=== PATIENT | female | born 1960 | race Caucasian/White ===

== ENCOUNTER → 2017-11-14 06:46 | Day surgery (SDC) | payer BC ==
--- NOTE | 2017-11-03 22:49 | HP ---
HISTORY AND PHYSICAL: DATE OF ADMISSION/SURGERY: 11/14/17 DATE OF HISTORY AND PHYSICAL: 10/29/17 ATTENDING PROVIDER: Dr. Jone Monte * (DICTATED BY SEBASTIAN RIVAS) PROCEDURE: Right shoulder arthroscopic decompression, debridement of distal clavicle, evaluation and treatment of biceps release, possible rotator cuff repair. CHIEF COMPLAINT: Right shoulder pain. 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 The patient's pain started without any injury. She also had no history of trauma or problems with the right shoulder. No neck pain. No radicular right upper extremity pain. Pain has been worse with overhead reaching and she has a significant nighttime pain. She has been treated nonoperatively for long period of time. She has had AC joint and subacromial cortisone injections and has done physical therapy as well as home exercises; however, she has continued to have significant limitations in activities of daily living and at this point, would like to proceed with surgery to address the continued pain. She denies any numbness and tingling. She has no other joint pain. She does have a history of type 2 diabetes as well as COPD and obstructive sleep apnea. She will follow up with Dr. Clements, who is her primary care physician for clearance prior to surgery. PAST MEDICAL HISTORY: She has type 2 diabetes. She has hypertension; hyperlipidemia; COPD; GERD; and obstructive sleep apnea, for which she uses a CPAP. PAST SURGICAL HISTORY: Bilateral knee arthroscopic meniscal tears, right fifth toe open reduction internal infixation, hemorrhoidectomy, tubal ligation, carpal tunnel release, de Quervain's, and cubital tunnel releases. MEDICATIONS: Include: 1. Spiriva 18 mcg. 2. Toujeo 60 units b.i.d. 3. Lisinopril 10 mg. 4. Gabapentin 300 mg b.i.d. 5. Omeprazole 20 mg b.i.d. 6. Metformin 1000 mg b.i.d. 7. Oxycodone twice monthly. 8. Trulicity 0.75 mg per 0.5 mL weekly. 9. She also uses a CPAP. ALLERGIES: No known drug allergies. She denies allergies to adhesives or tapes. FAMILY MEDICAL HISTORY: Father with lung cancer and cardiovascular disease. Mother with cardiovascular disease. SOCIAL HISTORY: She is a former smoker. She quit 8 years ago and she smoked for 34 years. She denies alcohol use and she denies any illicit drug use. REVIEW OF SYSTEMS: Positive for dizziness, diarrhea, back pain, diabetes, depression, and she does report that she is able to walk a flight of stairs or a city block without need to take a break. She denies any history of anesthesia problems or DVT or PE. Otherwise, a 12-point system review was negative. PHYSICAL EXAMINATION GENERAL: Well-developed, well-nourished 57-year-old female, in no acute distress. Alert and oriented x3 with no gross neurological deficiencies, ambulating without a limp. VITAL SIGNS: Height 64 inches, weight 250 pounds. Blood pressure 146/70, temperature 97.5. BMI 42.9. HEENT: Normocephalic, atraumatic. PERRLA. EOMI. NECK: Supple. No palpable cervical lymph nodes. Thyroid is smooth and nontender. PULMONARY: Lungs are clear to auscultation with no wheezes, rales or rhonchi. CARDIAC: Regular rate and rhythm with no murmurs, rubs, or gallops. No pedal edema. She has 2+ radial pulses bilaterally. ABDOMEN: Soft, nontender. NEUROLOGIC: Sensation is intact distally. She does have decreased sensation in the medial nerve distribution of her right arm. MUSCULOSKELETAL: Right shoulder, no soft tissue swelling or bruising. Skin is intact. Passive range of motion is 170 degrees of forward flexion, 90 degrees of external rotation, and 90 degrees of internal rotation. Positive Neer's. Positive Florian. Positive pain and weakness with supraspinatus stress testing. Severe tenderness to palpation at the AC joint. Tenderness to palpation at the bicipital groove. Pain with Speeds testing and [place] Grass's testing with thumb pointing up. Neurovascularly, intact distally. STUDIES: No new imaging. She did have an MRI of the right shoulder on , which showed mild AC joint osteoarthritis, small volume of fluid at the subacromial subdeltoid bursa, supraspinatus tendinopathy and shallow partial articular surface tear as well as calcific tendinopathy, mild supraspinatus muscle atrophy, superior labrum anterior posterior tear without displacement or significant involvement of the long head of the biceps tendon anchor, intraarticular long head biceps tendinopathy, old osteochondral impaction fracture from the inferior half of the glenoid and old humeral head Hill-Sachs impaction fracture per Dr. Surya Noel. IMPRESSION: 1. Right shoulder calcific rotator cuff tendonitis. 2. Likely right shoulder partial thickness tears of the supraspinatus rotator cuff tendon. 3. Right shoulder biceps tendinosis and likely superior labral tear. 4. Right shoulder subacromial impingement and AC joint arthritis. 5. Right shoulder bony irregularities consistent with old Hill-Sachs humeral head posterior impaction fracture and possible bony malunion at the inferior aspect of the glenoid consistent with a prior fracture about the posterior inferior glenoid rim. PLAN: Roseline Snow is scheduled to undergo right shoulder arthroscopic decompression, debridement, distal clavicle evaluation and treatment of biceps release and possible rotator cuff repair with Dr. Jone Monte on 11/14/17. She will return to clinic in 10 to 14 days postop for followup and suture removal. She will require surgical clearance per her primary care physician. As she has not had a history of DVTs or PEs, she will likely require aspirin for DVT prophylaxis and pain medication will be prescribed to the patient's pharmacy of record on the day of surgery. SEBASTIAN RIVAS [id number]/[facility] #: [id number] ROB
[~2017-11-14 06:46] MED LIST: Acetaminophen TAB* 325 MG PO PRN; Buffered Lidocaine 0.9% SYRIN* 5 ML/SYR SYRINGE INTRADERM ONE; Dexamethasone IV* 4 MG/ML 1 ML (4 MG) ONE; DiMENhydriNATE IV* 50 MG/ML VIAL IV PUSH PRN; DiMENhydriNATE IV* 50 MG/ML VIAL ONE; EPINEPHRINE 1 MG/ML 1 ML VIAL ONE; Famotidine IV* 10 MG/ML 2 ML (20 mg) IV ONE; Famotidine IV* 10 MG/ML 2 ML (20 mg) ONE; HYDROmorphone INJ* 1 MG/ML CARPUJECT SYRINGE IV PRN; Insulin REGULAR(*) 1 UNITS UNIT ONE; Ketorolac INJ* 30 MG/ML 1 ML VIAL ONE; Levalbuterol 0.63MG/3ML NEB* UNIT OF USE INH ONE; Levalbuterol 0.63MG/3ML NEB* UNIT OF USE INH PRN; Lidocaine 2% PF * 5 ML VIAL ONE; Midazolam* 1 MG/ML 5 ML VIAL (5 MG) ONE; Naloxone* 0.4 MG/ML 1 ML VIAL IV PRN; Ondansetron INJ* 2 MG/ML VIAL ONE; Propofol* 10 MG/ML 20 ML BTL IV PUSH ONE; ROPIVACAINE 5 MG/ML 30 ML BTL (0.5%) ONE; Rocuronium* 10 MG/ML VIAL ONE; Succinylcholine* 20 MG/ML 10 ML VIAL ONE; ceFAZolin 2 GM PREMIX (*) 2 GM/50 ML BAG IVPB ONE; fentaNYL* 50 MCG/ML 2 ML VIAL (100 MCG VIAL) ONE; oxyCODONE TAB* 5 MG TAB PO PRN
[2017-11-14 11:38] VITALS: BP 148/75
--- NOTE | 2017-11-18 10:21 | OP ---
DATE OF OPERATION: 11/14/17 - [facility] DATE OF : 56 SURGEON: Jone Monte MD. BOILER OPERATOR: SEBASTIAN Turner. A physician multimedia assistant was required for the length of the procedure for assistance with positioning, instrumentation, and closure. ANESTHESIOLOGIST: Alecia Cid MD. ANESTHESIA: General anesthesia, interscalene block regional anesthesia. PRE-OP DIAGNOSES: 1. Right shoulder calcific rotator cuff tendinitis. 2. Likely a partial thickness supraspinatus rotator cuff tendon tear. 3. Right shoulder biceps tendinosis and likely superior labral tear. 4. Right shoulder subacromial impingement and AC joint arthritis. 5. Right shoulder bony irregularities consistent with old Hill-Sachs humeral head posterior impaction fracture, and likely bony malunion at the inferior aspect of the glenoid, consistent with a prior posteroinferior glenoid rim fracture. POST-OP DIAGNOSES: 1. Right shoulder rotator cuff tendinitis. 2. Very low-grade partial thickness undersided tear of supraspinatus, rotator cuff tendon. 3. Right shoulder superior labral tear, unstable. 4. Right shoulder subacromial impingement and acromioclavicular joint arthritis. 5. Right shoulder bony irregularities consistent with old Hill-Sachs humeral head posterior impaction fracture and posteroinferior glenoid rim fracture with nonunion inferiorly. OPERATIVE PROCEDURE: 1. Right shoulder arthroscopic subacromial decompression. 2. Right shoulder arthroscopic distal clavicle resection. 3. Right shoulder arthroscopic limited debridement including release of biceps tendon, debridement of superior labrum, debridement of undersurface supraspinatus. 4. Evaluation of supraspinatus rotator cuff tendon, arthroscopic. ANTIBIOTICS: Ancef 2 g IV. IV FLUIDS: 1500 cc crystalloid. SPECIMENS: None. IMPLANTS: None. SKIN TO SKIN TIME: 52 minutes. ARTHROSCOPIC FLUID USED: Four bags of 3 L for a total of 12 L. (We used 3 full bags and half of 2 bags equal to and equivalent of 4 full bags). 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 The patient developed symptoms without injury in February 2017. The patient has had nighttime pain and pain with overhead reaching. She has been insufficiently responsive to nonoperative management including AC joint and subacromial cortisone injections, home exercises, physical therapy. The patient opted for surgical management. Risks and potential complications of surgery were discussed with the patient including bleeding, infection, nerve or blood vessel injury, tendon retear, shoulder stiffness, pain, osteoarthritis. DESCRIPTION OF PROCEDURE: The patient signed a surgical consent in preoperative holding. Operative extremity was marked in preoperative holding. The patient underwent a regional interscalene nerve block by Dr. Cid. The patient was taken back to the operating room and placed supine on the operating table. The patient was sedated and general anesthesia was induced. The patient was converted to the lateral decubitus position. Axillary roll. All bony prominences padded. Rosales bag was hardened. The right shoulder was placed in longitudinal traction with appropriate forward flexion and abduction, 15 pounds. Prepped with ChloraPrep. Draping. Surgical time-out was performed. A spinal needle was placed into the right shoulder glenohumeral joint from posterior. 30 cc of normal saline were infused. Posterior glenohumeral joint portal was made using standard technique. Shoulder arthroscopy, diagnostic, was commenced. The patient was noted to have a superior labral tear with some clear instability. No significant tearing of the biceps tendon was appreciated. No subscapularis tendon tear. No loose bodies. No significant articular cartilage wear. Under surface of the supraspinatus revealed just the slightest amount of uncovered footprint approximately 1 mm. So, it was consistent with the lowest grade of partial thickness tears. No nodularity appreciated. Arthroscopic shaver was used to debride some inflamed rotator interval tissue. An arthroscopic probe was used to probe the superior labrum and indeed showed a tear with instability. Therefore, the decision was made to release the proximal biceps tendon. Release had been decided upon rather than open tenodesis as prudent for a biceps tear or superior labral tear, preoperatively, with discussions with the patient. Scissors were used to cut biceps just at its origin. Arthroscopic shaver was used to smooth out the superior labrum. Arthroscopic shaver was used to smooth out some minimal fraying about the undersurface supraspinatus near the location of that 1 mm of uncovered footprint. Removed instruments and fluid from the glenohumeral joint. I then entered the subacromial space from posterior and anterior. A lateral subacromial portal was established using standard technique. Some minimal bursitis only in the subacromial space. No acromial sided rotator cuff tear appreciated. No significant synovium even the rotator cuff. I probed the rotator cuff for weakness or tear. I normally use a spinal needle, I did not. I used an arthroscopic probe and a switching stick to probe the tendon for any obvious calcifications and did not appreciate any. I next debrided at least 8 mm in the undersurface of the acromion, anteriorly with an arthroscopic bur. I then debrided 8-mm of a distal end of the clavicle with the arthroscopic bur. Removed fluid and instruments from the subacromial space. Closed skin incisions with [id number] stitches using nylon 4.0 suture. Xeroform, 4x4s, ABDs, foam tape. Cooling unit and sling. DISPOSITION: The patient was discharged home when medically stable. She will start physical therapy within the first week postoperatively. She was given Percocet as needed for pain control. She will follow up with me in approximately 2 weeks postoperative. [id number]/[facility] #: [id number] ROB
== END | disposition home or self-care (01) ==
LOC: OR 06:46
PROVIDERS: ATTEND Orthopaedic Surgery
DX: M75.41 Impingement syndrome of right shoulder (principal); M24.811 Other specific joint derangements of right shoulder, not elsewhere classified; M19.011 Primary osteoarthritis, right shoulder; M75.21 Bicipital tendinitis, right shoulder; M75.101 Unspecified rotator cuff tear or rupture of right shoulder, not specified as traumatic; J44.9 Chronic obstructive pulmonary disease, unspecified; G89.18 Other acute postprocedural pain; E11.9 Type 2 diabetes mellitus without complications; Z79.84 Long term (current) use of oral hypoglycemic drugs; E78.5 Hyperlipidemia, unspecified; G47.33 Obstructive sleep apnea (adult) (pediatric); I10 Essential (primary) hypertension; Z87.891 Personal history of nicotine dependence
CPT/HCPCS: J0330; J0690; J1100; J1240; J1885; J2250; J2405; J2704; J2795; J3010

== ENCOUNTER 2018-06-16 22:21 | Emergency (ER) | payer BC ==
--- OUTSIDE RECORDS SUMMARY | 2018-06-16 22:34 | XMS REPORT ---
:1960 External Reference #:[id number] Author Organization [place] [employer] [facility] Address [address] [place] [address] Phone [phone] Care Team Providers Name Role Phone Coco Clements MD Primary Care Physician Unavailable Payers Type Date Identification Numbers Payment Provider Subscriber Commercial Effective: Policy Number: [employer] Vadim Snow 2012 [id number] PayID: [id number] [facility] [address] [place] [address] Advance Directives Type Date Description Status Comment Other Directive 11/03/2017 Health Care Proxy Current and Verified Problems Date Description Provider Status Onset: 05/03/2010 Type 2 diabetes mellitus Coco Clements M.D. Active Onset: 08/15/2012 Headache Coco Clements M.D. Active Onset: 08/15/2012 Benign essential hypertension Coco Clements M.D. Active Onset: 08/15/2012 Mixed hyperlipidemia Coco Clements M.D. Active Onset: 06/17/2014 Asthma Coco Clements M.D. Active Onset: 11/17/2014 Reactive depression (situational) Pam Tong M.D. Active Onset: 03/09/2015 Localized, primary osteoarthritis Lynn Lawton M.D. Active Onset: 12/13/2016 Herpes zoster Patrick Guerra NP Active Onset: 11/11/2017 Refractory migraine Ori Villela M.D. Active Onset: 05/01/2018 Migraine without aura, not refractory Ori Villela M.D. 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 Started at age 13, quit at age 49. About 2PPD ETOH Use Rarely consumes alcohol Smoking Patient is a former smoker pt quit around 2008 Recreational Drug Use Denies Drug Use Daily Caffeine Consumes on average 2 cups of regular coffee per day Exercise Type/Frequency Does not exercise General Hx Text Pets: several pet chickens (2015) Personal Habits Text Allergies, Adverse Reactions, Alerts Date Description Reaction Status Severity Comments 05/03/2010 Intolerable To Some Pain Meds Rash active 01/19/2010 NKDA inactive Medications Medication Date Status Form Strength Qnty SIG Indications Ordering Provider Freestyle 28G 04/21 Active 100un Test Coco Lanc its Blood Jus Clements Glucose Two Times Daily And as Needed Diclofenac 03/[address] 75mg 30tab take 1 by Zaneb Sodium s mouth MD Felicitas twice a day as needed for pain. Do not take with ibuprofen Symbicort 12/29 Active Aerosol 160-4.5mc 12gm 2 puffs J44.9 Arabella S. g/Act twice Foster, N.P. daily Chlorthalidone 12/18 Active Tablets 25mg 90tab take 1 I10 s tablet by Jus Clements mouth every day Freestyle 04/02 Active Misc 100un twice E11.9 Coco Lanc its daily and Jus Clements as needed Spiriva 03/08 Active Capsules 18mcg 30cap Inhale Coco Handihaler s Contents Jus Clements Of One Capsule Via Handihale r Every Day Novofine 02/15 Active Misc 32G X 6 100un Use Every mm its Day Or as Jus Clements Directed Pen Panacea 02/14 Active Misc 31G X 5 200un use with Coco mm its Toujeo Jus Clements twice daily Freestyle Lite 10/19 Active Strip 100un Test E11.40 Test its Blood Jus Clements Sugar Two Times Daily Or as Needed Ketoconazole 10/03 Active Cream 2% 120gm apply R21 thin film Jus Clements twice daily Seema Shelton 10/03 Active Solution 300Unit/M 13.5u Inject 60 E11.40 Pen-Inject L nits Units Jus Clements Under The Skin Two Times Daily Divalproex 03/30 Active Tablets ER 500mg 180ta 2 by G44.52 Luis Sodium /2014 24HR bs mouth MD Axel every day as directed. Sertraline HCL 03/08 Active Tablets 50mg 30tab Take 1 s Tablet By Jus Clements Mouth Every Day Lisinopril 11/04 Active Tablets 10mg 90tab Take 1 I10 s Tablet By Jus Clements Mouth Every Day Gabapentin 10/29 Active Capsules 300mg 180ca Take 2 ps Capsules Jus Clements By Mouth Two Times Daily - Maximum Daily Dose Of 4 Capsule Per Day Hydrocortisone 05/16 Active Lotion 2.5% 118un Apply A its Thin Film Jus Clements Topically Two Times Daily Salsalate 12/07 Active Tablets 750mg 120ta Take 1 To M12.9 bs 2 Tablets Jus Clements By Mouth Two Times Daily Ventolin HFA 12/30 Active Aerosol 108(90Bas 18uni inhale e) ts one to Jus Clements mcg/Act two puffs by mouth every 4 hours as needed Metformin HCL 05/07 Active Tablets 500mg 60tab 1 by E11.9 s mouth Jus Clements every morning and 2 by mouth every evening Omeprazole 07/19 Active Capsules 20mg 90cap Take 1 DR s Capsule Jus Clements By Mouth Twice A Day Nortriptyline 06/15 Active Capsules 25mg 270ca take 3 Christopher ps capsules Jus Villela by mouth at bedtime as directed Tricor 01/23 Active Tablets 145mg 90tab take one s tablet by Jus Clements mouth once daily Crestor 01/23 Active Tablets 40mg 90tab Take One Coco s Tablet By Jus Clements Mouth Every Day Motion Sickness Active Tablets 50mg [facility] Unknown Relief brand dimenhydr amate - takes 2 in Am Estroblend Active Unknown Multivitamin Trulicity Active Solution 0.75mg/0. 1 E11.40 Dusty Mccrary, Pen-Inject 5ML injection MD once weekly Excedrin Active Tablets 250-250-6 1 tab Unknown Migraine 5mg twice a day as needed for migraine Oxycodone-Acetam 11/14 Hx Tablets 5-325mg 15tab 1 by Jone burkett s mouth MD Mell - every 4-6 03/02 hours needed for pain. Freestyle Lite 04/02 Hx 2 times E11.9 Coco Lanc daily or Jus Clements - as needed 04/02 dx e11. Mometasone 01/06 Hx Suspension 50mcg/Act 17uni [place] 2 H92.02 Allan Grewal Furoate ts Sprays In RENTAL CLERK - Each 11/03 Nostril Every Day Valacyclovir HCL 12/13 Hx Tablets 500mg 42tab 2 tab po B02.9 s tid DEE Guerra - x7days 12/27 Zyrtec Allergy 12/13 Hx Tablets 10mg 30tab 1 by H66.91 Patrick s mouth Charlie RENTAL CLERK - every day 11/03 for the next 3-4 weeks, then as needed Tobramycin 12/09 Hx Solution 0.3% 5ml 1 drop in H10.89 each eye Varn, N.P. - every 12/16 4hours x 7 days Amoxicillin/Clav 12/09 Hx Tablets 875-125mg 20tab one H66.91 Julia ulanat s tablet by Varn, N.P. Potassium - mouth 12/19 twice daily for 10 days Trimethoprim 07/22 Hx Solution 49286-1.1 10ml two drops H10.89 Allan Grewal Sulfate/Polymyxi /2016 Unit/ML-% affected RENTAL CLERK n B Sulfate - eye 4 08/01 times day for 7 days. Amoxicillin 06/14 Hx Tablets 875mg 20tab take one J01.90 Patrick s tablet by Charlie, RENTAL CLERK - mouth 06/24 twice a day x's 10 days Sertraline HCL 03/08 Hx Tablets 25mg 90tab 2-3 tabs Pam Ramirez s by mouth Alycia, - each day M.DManju 03/08 directed weeks if needed Unifine Pentips 02/07 Hx Misc 31G X 5 180un use as mm its directed Jus Clements - w/ Trina 02/14 Trina 10 mcg 11/24 Hx Solution 10mcg/0.0 5 mcg sc 250.60 Coco Pen 4ML twice a Jus Clements - day for 2 11/24 wks 10 mcg sc twice a day Trina 10 mcg 11/24 Hx Solution 10mcg/0.0 2.4un inject 1 E11.40 Coco Pen Pen-Inject 4ML its injection Jus Clements - under the 10/03 skin times daily before breakfast and dinner Novofine 11/15 Hx Misc 32G X 6 180un use two mm its times Jus Clements - daily or 02/14 directed with trina Scott 11/12 Hx 100un two times E11.9 Coco Lanc its daily or Jus Clements - as 04/02 directed Oxycodone HCL 11/04 Hx Capsules 5mg 90cap 1 by Allan Grewal, s mouth 2-3 RENTAL CLERK - times 12/18 Byshemar 11/04 Hx Solution 5mcg/0.02 60uni 1 250.60 ML ts injection Jus Clements - s/c bid 11/24 Hydrocodone/Acet 07/27 Hx Tablets 5-325mg 90tab 1-2 po 2 401.1 Coco aminophen s to 3 Jus Clements - times per 11/04 day maximum dose is 3 daily Januvia 07/26 Hx Tablets 100mg 90tab take 1 s tablet by Jus Clements - mouth one 12/09 daily Freestyle Lite 05/16 Hx Strip 50uni test once Coco Test ts daily Jus Clements - three 10/19 days week Meclizine HCL 07/23 Hx Tablets 25mg 60tab Take One 386.11 s Tablet By Jus Clements - Mouth 07/26 Twice Day as Needed Freestyle 28G 07/19 Hx 100un use once Coco Lanc its daily Jus Clements - three 04/02 days week Nitrofurantoin 06/18 Hx Capsules 100mg 20cap one po 599.0 Julia Monohydr s bid for Varn, N.P. - 10 days 06/28 Meclizine HCL 06/18 Hx Tablets 25mg 60tab 1 tablet 386.11 Julia s twice Varn, N.P. - daily as 07/02 Lisinopril 02/09 Hx Tablets 5mg 90tab Take One 401.1 s Tablet By Jus Clements - Mouth 11/04 Escitalopram 02/09 Hx Tablets 20mg 60tab 2 po qd 311 Pam Ramirez s Carli Tong M.D. 03/08 Hydrochlorothiaz 02/09 Hx Capsules 12.5mg 90cap take one I10 yunior s capsule Jus Clements - by mouth 12/18 every Freestyle Lite 01/06 Hx Strip 50uni Test Once ts Daily Jus Clements - Three 06/04 Days Week Lisinopril/[place] 08/09 Hx Tablets 10-12.5mg 45tab 1/2 po qd 401.1 Coco chlorothi s Jus Clements - 02/09 Hydrocortisone 08/09 Hx Lotion 2.5% 118un Apply A 782.1 its Thin Film Jus Clements - Topically 04/22 Two Times /2012 A Day Hydrocodone/Acet 05/07 Hx Tablets 5-500mg 90tab 1 tablet 729.5 Coco aminophen /2010 s 2-3 times Jus Clements - a 07/27 day- um dose of 3 per day Tricor 08/13 Hx Tablets 145mg 30tab 1 tablet s daily Jus Clements - 11/01 Urea 08/13 Hx Lotion 40% 236.6 apply to R21 units feet Jus Clements - twice 11/03 Citalopram 05/04 Hx Tablets 40mg 90tab Take One 311 Coco Hydrobromide s Tablet By Jus Clements - Mouth 02/09 Test Strips To 01/23 Hx 50uni for use 250.00 Coco Use ts once Jus Clements Glucometer - daily 3 06/04 days week Lancets 01/23 Hx Misc 50uni use once 250.00 ts daily 3 Jus Clements - days a Methocarbamol 01/23 Hx Tablets 750mg 1 tablet Coco /2010 once Jus Clements - daily as 12/07 Tylenol With 01/23 Hx Tablets 300-30mg 1 tablet 729.5 Coco Codeine # by mouth Jus Clements - every 4 05/07 to hours as needed. Hydrochlorothiaz 01/23 Hx Capsules 12.5mg 90cap Take One 401.1 Coco yunior s Capsule Jus Clements - By Mouth 08/09 Albuterol 01/19 Hx 1unit 1-2 Coco Inhaler s inhalatio Jus Clements - ns every 12/30 4 as needed Citalopram 01/19 Hx Tablets 20mg 135ta 1 08/19 Coco Hydrobromide bs tablets Jus Clements - daily 05/04 Tricor 01/19 Hx Tablets 145mg 30tab 1 tablet Coco s daily Jus Clements - 01/19 Nortriptyline 01/19 Hx Capsules 10mg 100ca 4 tablets Coco ps at Jus Clements - bedtime 06/15 Mobic 01/19 Hx Tablets Unsure 30tab Coco /2010 s Jus Clements - 08/13 Gabapentin 01/19 Hx Capsules 300mg 180ca Take Two Coco ps Capsules Jus Clements - By Mouth 11/04 Bedtime Spiriva 01/19 Hx Capsules 18mcg 30cap inhale Coco Handihaler s the Jus Clements - contents 02/20 of capsule by mouth via handihale r every day Glucometer Hx 1unit use once 250.00 Coco /0000 s daily 3 Jus Clements - days a Mobic Hx Tablets 7.5mg 1 tablet 716.96 Coco /0000 daily Jus Clements - 12/07 Excedrin Extra Hx Tablets 250-250-6 100ta 1-2 bid Unknown Strength /0000 5mg bs prn - 11/04 Acetaminophen/Co Hx Tablets 300-30mg 60tab one po Unknown deine #3 /0000 s q4h prn - 09/02 Ibuprofen Hx Capsules 200mg as needed Unknown /0000 - 06/18 Womens Hx Tablets Unknown Multivitamin /0000 - 06/18 Medications Administered in Office Medication Date Status Form Strength Qnty SIG Indications Ordering Provider Depomedrol Administered Injection Jone F 40MG Christa Monte MD Injection Administered Injection Beth Hyaluronan Or 018 Maximino Valles PA-C Euflexxa Per Dose Injection Administered Injection Beth Hyaluronan Or 018 Maximino Valles PA-C Euflexxa Per Dose Injection Administered Injection Zaneb Hyaluronan Or 018 MD Maximino Polk, Euflexxa Per Dose Injection Administered Injection Zaneb Hyaluronan Or 018 MD Maximino Polk, Euflexxa Per Dose Injection Administered Injection Zaneb Hyaluronan Or 018 MD Maximino Polk, Euflexxa Per Dose Injection Administered Injection Zaneb Hyaluronan Or 018 MD Felicitas Derivative, Euflexxa Per Dose No Injection Administered Injection Jone F Adrianna Monte MD Depomedrol Administered Injection Jone F 40MG Adrianna Monte MD Depomedrol Administered Injection Jone F 20MG Adrianna Monte MD Synvisc Or Administered Injection Lynn Synvisc-One Adrianna Lawton M.D. Injection 1 MG Synvisc Or Administered Injection Lynn Synvisc-One 017 Jus Lawton Injection 1 MG Synvisc Or Administered Injection Lynn Synvisc-One Hima Lawton M.D. Injection 1 MG Synvisc Or Administered Injection Lynn Synvisc-One Hima Lawton M.D. Injection 1 MG Synvisc Or Administered Injection Lynn Synvisc-One Hima Lawton M.D. Injection 1 MG Injection Administered Injection Lynn Hyaluronan Or Mak Lawton M.D. Derivative, Euflexxa Per Dose Injection Administered Injection Lynn Hyaluronan Or Mak Lawton M.D. Derivative, Euflexxa Per Dose Injection Administered Injection Lynn Hyaluronan Or Mak Lawton M.D. Derivative, Euflexxa Per Dose Depomedrol Administered Injection Lynn 80MG Mka Lawton M.D. Depomedrol Administered Injection Lynn 80MG Mak Lawton M.D. Immunizations CPT Code Status Date Vaccine Lot # [id number] Given 06/19/2017 Influenza Virus Vaccine, Quadrivalent, Split, [id number] Preservative Free 16813 Given 06/28/2016 Influenza Virus Vaccine, Quadrivalent, Split [id number] Virus, Im Use 41200 Given 07/03/2015 Tdap - Tetanus/Diptheria/Acellular Pertussis [id number] 54515 Given 07/03/2015 Influenza Virus Vaccine, Quadrivalent, Split, [id number] Preservative Free 48239 Given 05/17/2014 Influenza Virus Vaccine, Quadrivalent, Split, [id number] Preservative Free 16463 Given 06/11/2013 Flu Vaccine Split Virus Preservative Free For [id number] Indiv 3Yr Older [id number] Given 06/05/2012 Fluvirin Im 3Yrs And Older [id number] 73470 Given 05/07/2011 Influenza Virus 3Yrs & Over [id number] 96771 Given 02/04/2011 Pneumonia Vaccine [id number] 25514 Given 05/04/2010 Influenza Virus 3Yrs & Over 42183 Given 07/29/2007 Influenza Virus 3Yrs & Over Vital Signs Date Vital Result Comment 06/08/2018 Height 64 inches 5'4" Weight 247.00 lb Heart Rate 78 /min Respiratory Rate 16 /min Pain Level 1 BMI (Body Mass Index) 42.4 kg/m2 05/07/2018 Height 64 inches 5'4" Weight 245.00 lb Heart Rate 96 /min BP Systolic Sitting 154 mmHg BP Diastolic Sitting 68 mmHg Respiratory Rate 16 /min Pain Level 2 BMI (Body Mass Index) 42.0 kg/m2 05/01/2018 Height 64 inches 5'4" Weight 245.50 lb Heart Rate 72 /min BP Systolic 138 mmHg BP Diastolic 82 mmHg BMI (Body Mass Index) 42.1 kg/m2 04/07/2018 Height 64 inches 5'4" Weight 245.00 lb Heart Rate 104 /min BP Systolic 124 mmHg BP Diastolic 64 mmHg Respiratory Rate 16 /min Pain Level 1 BMI (Body Mass Index) 42.0 kg/m2 04/01/2018 Height 64 inches 5'4" Weight 243.00 lb BP Systolic 128 mmHg BP Diastolic 60 mmHg Respiratory Rate 18 /min Pain Level 1 BMI (Body Mass Index) 41.7 kg/m2 03/26/2018 Height 64 inches 5'4" Weight 243.00 lb BP Systolic 128 mmHg BP Diastolic 60 mmHg Respiratory Rate 20 /min Pain Level 3 BMI (Body Mass Index) 41.7 kg/m2 03/19/2018 Height 64 inches 5'4" Weight 243.00 lb BP Systolic 132 mmHg BP Diastolic 70 mmHg Respiratory Rate 20 /min Body Temperature 96.9 F Pain Level 3 BMI (Body Mass Index) 41.7 kg/m2 03/03/2018 Height 64 inches 5'4" Weight 243.00 lb Heart Rate 110 /min BP Systolic Sitting 128 mmHg Rue large cuff BP Diastolic Sitting 58 mmHg Rue large cuff Respiratory Rate 20 /min O2 % BldC Oximetry 94 % On Ra BMI (Body Mass Index) 41.7 kg/m2 02/10/2018 Height 64 inches 5'4" Weight 247.00 lb Heart Rate 96 /min BP Systolic 130 mmHg BP Diastolic 62 mmHg Pain Level 8 BMI (Body Mass Index) 42.4 kg/m2 02/05/2018 Height 64 inches 5'4" Heart Rate 105 /min BP Systolic 128 mmHg BP Diastolic 70 mmHg Respiratory Rate 16 /min Body Temperature 97.3 F Pain Level 5 12/29/2017 Height 64 inches 5'4" Weight 243.00 lb Heart Rate 112 /min BP Systolic Sitting 130 mmHg Lue large cuff BP Diastolic Sitting 58 mmHg Lue large cuff Respiratory Rate 18 /min O2 % BldC Oximetry 95 % On Ra BMI (Body Mass Index) 41.7 kg/m2 12/25/2017 Height 64 inches 5'4" Weight 247.00 lb Heart Rate 118 /min Respiratory Rate 15 /min Pain Level 2 BMI (Body Mass Index) 42.4 kg/m2 12/18/2017 Height 64 inches 5'4" Weight 247.00 lb Heart Rate 96 /min BP Systolic Sitting 149 mmHg BP Diastolic Sitting 71 mmHg Body Temperature 97.7 F O2 % BldC Oximetry 95 % BMI (Body Mass Index) 42.4 kg/m2 11/25/2017 Height 64 inches 5'4" Heart Rate 123 /min BP Systolic 144 mmHg BP Diastolic 78 mmHg Respiratory Rate 16 /min Body Temperature 98.8 F Pain Level 2 11/11/2017 Height 64 inches 5'4" Weight 253.00 lb Heart Rate 100 /min BP Systolic 148 mmHg BP Diastolic 82 mmHg Respiratory Rate 16 /min BMI (Body Mass Index) 43.4 kg/m2 11/03/2017 Weight 253.00 lb Heart Rate 102 /min BP Systolic Sitting 138 mmHg BP Diastolic Sitting 86 mmHg Body Temperature 98.1 F O2 % BldC Oximetry 95 % 10/29/2017 Height 64 inches 5'4" Weight 250.00 lb BP Systolic 146 mmHg BP Diastolic 70 mmHg Body Temperature 97.5 F Pain Level 1 BMI (Body Mass Index) 42.9 kg/m2 10/07/2017 Height 64 inches 5'4" Weight 250.00 lb Heart Rate 100 /min Respiratory Rate 16 /min Pain Level 2 BMI (Body Mass Index) 42.9 kg/m2 09/02/2017 Height 64 inches 5'4" Weight 250.00 lb BP Systolic 142 mmHg BP Diastolic 76 mmHg Respiratory Rate 16 /min Pain Level 1 BMI (Body Mass Index) 42.9 kg/m2 08/25/2017 Height 64 inches 5'4" Weight 251.00 lb Heart Rate 96 /min BP Systolic Sitting 112 mmHg BP Diastolic Sitting 80 mmHg Respiratory Rate 14 /min O2 % BldC Oximetry 95 % BMI (Body Mass Index) 43.1 kg/m2 Neck Circumference in inches 17.75 07/01/2017 Height 64 inches 5'4" Weight 250.00 lb Heart Rate 116 /min Respiratory Rate 15 /min Body Temperature 97.2 F Pain Level 4 BMI (Body Mass Index) 42.9 kg/m2 06/19/2017 Height 64 inches 5'4" Weight 250.25 lb Heart Rate 99 /min BP Systolic Sitting 120 mmHg BP Diastolic Sitting 64 mmHg Respiratory Rate 16 /min BMI (Body Mass Index) 43.0 kg/m2 04/17/2017 Height 64 inches 5'4" Weight 246.00 lb Heart Rate 88 /min BP Systolic Sitting 136 mmHg BP Diastolic Sitting 86 mmHg Respiratory Rate 17 /min Body Temperature 98.3 F Pain Level 1 BMI (Body Mass Index) 42.2 kg/m2 03/06/2017 Height 64 inches 5'4" Weight 244.00 lb BP Systolic 132 mmHg BP Diastolic 70 mmHg Body Temperature 98.2 F Pain Level 2 BMI (Body Mass Index) 41.9 kg/m2 02/24/2017 Weight 244.75 lb Heart Rate 97 /min BP Systolic 128 mmHg BP Diastolic 70 mmHg Body Temperature 97.6 F O2 % BldC Oximetry 98 % 02/06/2017 Height 64 inches 5'4" Weight 246.00 lb Heart Rate 86 /min BP Systolic Sitting 124 mmHg BP Diastolic Sitting 70 mmHg Respiratory Rate 16 /min BMI (Body Mass Index) 42.2 kg/m2 02/05/2017 Height 64 inches 5'4" Weight 246.00 lb BP Systolic 139 mmHg BP Diastolic 77 mmHg Respiratory Rate 14 /min Body Temperature 97.2 F Pain Level 2 BMI (Body Mass Index) 42.2 kg/m2 01/30/2017 Height 64 inches 5'4" Weight 246.00 lb Heart Rate 100 /min BP Systolic 142 mmHg BP Diastolic 80 mmHg Respiratory Rate 18 /min Body Temperature 97.7 F Pain Level 1 BMI (Body Mass Index) 42.2 kg/m2 01/06/2017 Weight 249.00 lb Heart Rate 108 /min BP Systolic Sitting 132 mmHg BP Diastolic Sitting 64 mmHg Body Temperature 98.4 F O2 % BldC Oximetry 97 % 12/13/2016 Weight 242.50 lb Heart Rate 108 /min BP Systolic Sitting 140 mmHg BP Diastolic Sitting 78 mmHg Body Temperature 98.5 F O2 % BldC Oximetry 97 % 12/09/2016 Weight 248.25 lb Heart Rate 115 /min BP Systolic 124 mmHg BP Diastolic 60 mmHg Body Temperature 98.1 F O2 % BldC Oximetry 93 % 10/09/2016 Weight 251.00 lb with shoes Heart Rate 118 /min BP Systolic 120 mmHg BP Diastolic 66 mmHg Body Temperature 97.7 F Pain Level 96 07/22/2016 Weight 245.00 lb Heart Rate 114 /min BP Systolic Sitting 122 mmHg BP Diastolic Sitting 58 mmHg Respiratory Rate 15 /min Body Temperature 98.0 F O2 % BldC Oximetry 98 % 06/28/2016 Height 64 inches 5'4" Weight 248.00 lb Heart Rate 96 /min BP Systolic 134 mmHg BP Diastolic 80 mmHg Body Temperature 98.3 F O2 % BldC Oximetry 96 % BMI (Body Mass Index) 42.6 kg/m2 06/27/2016 Height 64 inches 5'4" Weight 245.00 lb Heart Rate 72 /min BP Systolic Sitting 130 mmHg BP Diastolic Sitting 88 mmHg Respiratory Rate 14 /min BMI (Body Mass Index) 42.0 kg/m2 06/14/2016 Height 64 inches 5'4" Weight 246.50 lb Heart Rate 112 /min BP Systolic Sitting 120 mmHg BP Diastolic Sitting 66 mmHg Body Temperature 97.5 F O2 % BldC Oximetry 97 % BMI (Body Mass Index) 42.3 kg/m2 03/26/2016 Weight 247.00 lb With Shoes Heart Rate 103 /min BP Systolic Sitting 140 mmHg BP Diastolic Sitting 80 mmHg Body Temperature 97.7 F O2 % BldC Oximetry 98 % 02/12/2016 Height 64 inches 5'4" Weight 245.00 lb Heart Rate 78 /min BP Systolic Sitting 122 mmHg BP Diastolic Sitting 70 mmHg Body Temperature 98.5 F O2 % BldC Oximetry 98 % BMI (Body Mass Index) 42.0 kg/m2 01/30/2016 Height 64 inches 5'4" Weight 244.00 lb Heart Rate 60 /min BP Systolic Sitting 120 mmHg BP Diastolic Sitting 74 mmHg Respiratory Rate 14 /min BMI (Body Mass Index) 41.9 kg/m2 12/26/2015 Weight 244.50 lb Heart Rate 108 /min BP Systolic Sitting 135 mmHg BP Diastolic Sitting 80 mmHg O2 % BldC Oximetry 97 % 11/14/2015 Height 63.75 inches 5'3.75" Weight 247.00 lb Heart Rate 90 /min BP Systolic Sitting 138 mmHg BP Diastolic Sitting 80 mmHg Respiratory Rate 15 /min Body Temperature 98.1 F O2 % BldC Oximetry 98 % BMI (Body Mass Index) 42.7 kg/m2 10/03/2015 Height 63.75 inches 5'3.75" Weight 243.00 lb Heart Rate 96 /min BP Systolic Sitting 134 mmHg BP Diastolic Sitting 82 mmHg Respiratory Rate 14 /min Body Temperature 98.3 F O2 % BldC Oximetry 98 % BMI (Body Mass Index) 42.0 kg/m2 09/07/2015 Height 63.75 inches 5'3.75" Heart Rate 92 /min BP Systolic Sitting 144 mmHg BP Diastolic Sitting 76 mmHg Respiratory Rate 16 /min 07/03/2015 Height 63.75 inches 5'3.75" Weight 245.38 lb Heart Rate 93 /min BP Systolic Sitting 144 mmHg BP Diastolic Sitting 85 mmHg Body Temperature 97.6 F O2 % BldC Oximetry 96 % BMI (Body Mass Index) 42.4 kg/m2 03/30/2015 Height 64 inches 5'4" Weight 240.00 lb Heart Rate 92 /min BP Systolic Sitting 128 mmHg BP Diastolic Sitting 68 mmHg Respiratory Rate 16 /min BMI (Body Mass Index) 41.2 kg/m2 03/23/2015 Height 64 inches 5'4" Weight 240.00 lb Pain Level 1 increases with activity BMI (Body Mass Index) 41.2 kg/m2 03/16/2015 Height 64 inches 5'4" Weight 240.00 lb Pain Level 2 BMI (Body Mass Index) 41.2 kg/m2 03/14/2015 Weight 240.00 lb Heart Rate 107 /min BP Systolic Sitting 133 mmHg BP Diastolic Sitting 76 mmHg Body Temperature 96.6 F 03/09/2015 Height 64 inches 5'4" Weight 240.00 lb Pain Level 2 BMI (Body Mass Index) 41.2 kg/m2 02/02/2015 Height 64 inches 5'4" Weight 240.00 lb Pain Level 8 BMI (Body Mass Index) 41.2 kg/m2 11/18/2014 Weight 243.00 lb Heart Rate 106 /min BP Systolic Sitting 130 mmHg BP Diastolic Sitting 71 mmHg O2 % BldC Oximetry 98 % 11/17/2014 Height 64.5 inches 5'4.50" Weight 244.00 lb Heart Rate 76 /min BP Systolic Sitting 128 mmHg BP Diastolic Sitting 68 mmHg Respiratory Rate 16 /min BMI (Body Mass Index) 41.2 kg/m2 06/17/2014 Height 64.5 inches 5'4.50" Weight 234.50 lb Heart Rate 109 /min BP Systolic Sitting 104 mmHg BP Diastolic Sitting 58 mmHg Body Temperature 97.8 F O2 % BldC Oximetry 97 % BMI (Body Mass Index) 39.6 kg/m2 06/09/2014 Height 64.5 inches 5'4.50" Weight 250.00 lb Heart Rate 100 /min BP Systolic Sitting 102 mmHg BP Diastolic Sitting 62 mmHg Respiratory Rate 16 /min BMI (Body Mass Index) 42.2 kg/m2 05/17/2014 Height 64.5 inches 5'4.50" Weight 250.00 lb Heart Rate 88 /min BP Systolic Sitting 142 mmHg BP Diastolic Sitting 80 mmHg Body Temperature 98.4 F BMI (Body Mass Index) 42.2 kg/m2 02/11/2014 Weight 253.00 lb Heart Rate 116 /min BP Systolic Sitting 140 mmHg BP Diastolic Sitting 78 mmHg 01/07/2014 Height 64 inches 5'4" Weight 253.00 lb Heart Rate 72 /min BP Systolic Sitting 130 mmHg BP Diastolic Sitting 78 mmHg Respiratory Rate 16 /min BMI (Body Mass Index) 43.4 kg/m2 01/04/2014 Height 64 inches 5'4" Weight 253.00 lb Heart Rate 72 /min BP Systolic 118 mmHg BP Diastolic 68 mmHg Body Temperature 98.6 F BMI (Body Mass Index) 43.4 kg/m2 12/29/2013 Height 64 inches 5'4" Weight 257.00 lb Heart Rate 107 /min BP Systolic 127 mmHg BP Diastolic 75 mmHg BMI (Body Mass Index) 44.1 kg/m2 11/04/2013 Weight 258.75 lb Heart Rate 100 /min BP Systolic Sitting 168 mmHg BP Diastolic Sitting 78 mmHg Respiratory Rate 24 /min Body Temperature 99.1 F 10/29/2013 Height 64 inches Weight 160.00 lb Heart Rate 97 /min BP Systolic 137 mmHg BP Diastolic 88 mmHg BMI (Body Mass Index) 27.5 kg/m2 09/02/2013 Weight 251.00 lb Heart Rate 98 /min BP Systolic Sitting 124 mmHg BP Diastolic Sitting 60 mmHg 07/26/2013 Height 64 inches 5'4" Weight 257.00 lb Heart Rate 98 /min BP Systolic Sitting 130 mmHg BP Diastolic Sitting 70 mmHg BMI (Body Mass Index) 44.1 kg/m2 06/11/2013 Height 64 inches 5'4" Weight 254.00 lb Heart Rate 104 /min BP Systolic Sitting 130 mmHg BP Diastolic Sitting 70 mmHg BMI (Body Mass Index) 43.6 kg/m2 12/07/2012 Weight 248.50 lb Heart Rate 88 /min BP Systolic Sitting 124 mmHg 118/78 sitting BP Diastolic Sitting 80 mmHg 118/78 sitting 06/18/2012 Height 63.75 inches 5'3.75" Weight 237.00 lb Heart Rate 86 /min BP Systolic Sitting 128 mmHg BP Diastolic Sitting 80 mmHg Body Temperature 101.1 F BMI (Body Mass Index) 41.0 kg/m2 06/05/2012 Height 63.75 inches 5'3.75" Weight 238.50 lb Heart Rate 90 /min BP Systolic Sitting 138 mmHg BP Diastolic Sitting 80 mmHg O2 % BldC Oximetry 96 % BMI (Body Mass Index) 41.3 kg/m2 03/12/2012 Height 63.75 inches 5'3.75" Weight 242.00 lb Heart Rate 74 /min BP Systolic Sitting 126 mmHg BP Diastolic Sitting 70 mmHg BMI (Body Mass Index) 41.9 kg/m2 02/10/2012 Height 63.75 inches 5'3.75" Weight 244.00 lb Heart Rate 76 /min BP Systolic Sitting 124 mmHg BP Diastolic Sitting 70 mmHg BMI (Body Mass Index) 42.2 kg/m2 09/12/2011 Height 63.75 inches 5'3.75" Heart Rate 78 /min BP Systolic Sitting 120 mmHg BP Diastolic Sitting 78 mmHg 08/09/2011 Height 63.75 inches 5'3.75" Weight 236.00 lb Heart Rate 100 /min BP Systolic Sitting 154 mmHg repeat 140/80 BP Diastolic Sitting 72 mmHg repeat 140/80 BMI (Body Mass Index) 40.8 kg/m2 06/04/2011 Height 63.75 inches 5'3.75" Weight 240.75 lb Heart Rate 104 /min BP Systolic Sitting 140 mmHg BP Diastolic Sitting 80 mmHg BMI (Body Mass Index) 41.6 kg/m2 05/07/2011 Height 63.5 inches 5'3.50" Weight 246.00 lb Heart Rate 68 /min BP Systolic Sitting 130 mmHg BP Diastolic Sitting 82 mmHg BMI (Body Mass Index) 42.9 kg/m2 02/04/2011 Height 63.5 inches 5'3.50" Weight 245.00 lb Heart Rate 102 /min BP Systolic Sitting 120 mmHg BP Diastolic Sitting 70 mmHg BMI (Body Mass Index) 42.7 kg/m2 11/01/2010 Weight 243.00 lb Heart Rate 92 /min BP Systolic 148 mmHg BP Diastolic 80 mmHg 08/13/2010 Weight 235.00 lb Heart Rate 80 /min BP Systolic 130 mmHg BP Diastolic 80 mmHg 06/15/2010 Weight 239.00 lb Heart Rate 84 /min BP Systolic 154 mmHg BP Diastolic 92 mmHg 05/04/2010 Weight 242.00 lb Heart Rate 88 /min BP Systolic 130 mmHg BP Diastolic 80 mmHg 01/23/2010 Height 64 inches 5'4" Weight 250.75 lb Heart Rate 88 /min BP Systolic 140 mmHg BP Diastolic 80 mmHg BMI (Body Mass Index) 43.0 kg/m2 Results Test Date Test Result H/L Range Note Laboratory test finding 04/14/2018 Hemoglobin A1c 6.5 Basic Metabolic Panel 02/02/2018 Sodium 140 mmol/L 135-145 Potassium 4.3 mmol/L 3.5-5.0 Chloride 100 mmol/L Low 101-111 Co2 Carbon Dioxide 27 mmol/L 22-32 Anion Gap 13 mmol/L High 2-11 Glucose 137 mg/dL High 70-100 Blood Urea Nitrogen 16 mg/dL 6-24 Creatinine 1.13 mg/dL High 0.51-0.95 BUN/Creatinine Ratio 14.2 8-20 Calcium 9.7 mg/dL 8.6-10.3 Egfr Non- 49.3 >60 Egfr 63.4 >60 1 Laboratory test finding 11/14/2017 Point of Care Glucose 240 mg/dL High 70 -100 2 Laboratory test finding 11/14/2017 Point of Care Glucose 230 mg/dL High 70 -100 3 Order 11/04/2017 EKG <pending> Laboratory test finding 11/04/2017 Vitamin B12 717 pg/mL 180-914 4, 5 Iron & Iron Binding 11/04/2017 Iron 75 g/dL 50-212 4 Capacity Unsaturated Iron Binding 384 g/dL 4 Total Iron Binding Capacity 459 g/dL High 250-450 4 Transferrin 328 mg/dL 203-362 4 % Iron Saturation 16 % 15-55 4 CBC Auto Diff 11/04/2017 White Blood Count 4.7 10^3/uL 3.5-10.8 4 Red Blood Count 4.48 10^6/uL 4.0-5.4 4 Hemoglobin 12.0 g/dL 12.0-16.0 4 Hematocrit 36 % 35-47 4 Mean Corpuscular Volume 79 fL Low 80-97 4 Mean Corpuscular Hemoglobin 27 pg 27-31 4 Mean Corpuscular HGB Conc 34 g/dL 31-36 4 Red Cell Distribution Width 19 % High 10.5-15 4 Platelet Count 163 10^3/uL 150-450 4 Mean Platelet Volume 9 um3 7.4-10.4 4 Abs Neutrophils 2.9 10^3/uL 1.5-7.7 4 Abs Lymphocytes 1.2 10^3/uL 1.0-4.8 4 Abs Monocytes 0.3 10^3/uL 0-0.8 4 Abs Eosinophils 0.2 10^3/uL 0-0.6 4 Abs Basophils 0 10^3/uL 0-0.2 4 Abs Nucleated RBC 0 10^3/uL 4 Granulocyte % 61.7 % 38-83 4 Lymphocyte % 26.8 % 25-47 4 Monocyte % 6.8 % 0-7 4 Eosinophil % 4.1 % 0-6 4 Basophil % 0.6 % 0-2 4 Nucleated Red Blood Cells % 0.1 4 Comp Metabolic Panel 11/04/2017 Sodium 137 mmol/L 133-145 4 Potassium 3.9 mmol/L 3.5-5.0 4 Chloride 100 mmol/L Low 101-111 4 Co2 Carbon Dioxide 24 mmol/L 22-32 4 Anion Gap 13 mmol/L High 2-11 4 Glucose 176 mg/dL High 70-100 4 Blood Urea Nitrogen 12 mg/dL 6-24 4 Creatinine 0.81 mg/dL 0.51-0.95 4 BUN/Creatinine Ratio 14.8 8-20 4 Calcium 9.3 mg/dL 8.6-10.3 4 Total Protein 6.7 g/dL 6.4-8.9 4 Albumin 4.1 g/dL 3.2-5.2 4 Globulin 2.6 g/dL 2-4 4 Albumin/Globulin Ratio 1.6 1-3 4 Total Bilirubin 0.40 mg/dL 0.2-1.0 4 Alkaline Phosphatase 67 U/L 34-104 4 Alt 24 U/L 7-52 4 Ast 42 U/L High 13-39 4 Egfr Non- 72.4 >60 4 Egfr 93.1 >60 4, 6 Urine Culture And Sensitivities 11/04/2017 Urine Culture SEE RESULT BELOW 4, 7 Urinalysis Profile 11/04/2017 Urine Color Yellow 4 Urine Appearance Clear 4 Urine Specific [place] 1.018 1.010-1.030 4 Urine pH 5.0 5-9 4 Urine Urobilinogen Negative Negative 4 Urine Ketones Trace Negative 4 Urine Protein Negative Negative 4 Urine Leukocytes Negative Negative 4 Urine Blood Negative Negative 4 * * Negative 4, 8 Urine Nitrite Negative Negative 4 Urine Bilirubin Negative Negative 4 Urine Glucose Negative Negative 4 Laboratory test 09/23/2017 Hemoglobin A1c 7.9 finding Laboratory test 09/23/2017 Hemoglobin A1c 7.9 finding Laboratory test 07/01/2017 Surgical Interface SEE RESULT BELOW 9 finding Order Laboratory test 06/25/2017 Saliva Cortisol TNP () 10 finding Laboratory test 06/24/2017 Saliva Cortisol 59 ng/dL <100 11 finding Iron & Iron Binding 06/09/2017 Iron 49 g/dL Low 50-212 Capacity Unsaturated Iron Binding 430 g/dL Total Iron Binding Capacity 479 g/dL High 250-450 % Iron Saturation 10 % Low 15-55 CBC Auto Diff 06/09/2017 White Blood Count 4.4 10^3/uL 3.5-10.8 Red Blood Count 3.98 10^6/uL Low 4.0-5.4 Hemoglobin 10.5 g/dL Low 12.0-16.0 Hematocrit 32 % Low 35-47 Mean Corpuscular Volume 81 fL 80-97 Mean Corpuscular Hemoglobin 26 pg Low 27-31 Mean Corpuscular HGB Conc 33 g/dL 31-36 Red Cell Distribution Width 19 % High 10.5-15 Platelet Count 157 10^3/uL 150-450 Mean Platelet Volume 9 um3 7.4-10.4 Abs Neutrophils 2.8 10^3/uL 1.5-7.7 Abs Lymphocytes 1.1 10^3/uL 1.0-4.8 Abs Monocytes 0.3 10^3/uL 0-0.8 Abs Eosinophils 0.2 10^3/uL 0-0.6 Abs Basophils 0 10^3/uL 0-0.2 Abs Nucleated RBC 0 10^3/uL Granulocyte % 62.8 % 38-83 Lymphocyte % 25.5 % 25-47 Monocyte % 6.9 % 1-9 Eosinophil % 3.9 % 0-6 Basophil % 0.9 % 0-2 Nucleated Red Blood Cells % 0.1 Comp Metabolic Panel 06/09/2017 Sodium 137 mmol/L 133-145 Potassium 4.0 mmol/L 3.5-5.0 Chloride 100 mmol/L Low 101-111 Co2 Carbon Dioxide 29 mmol/L 22-32 Anion Gap 8 mmol/L 2-11 Glucose 178 mg/dL High 70-100 Blood Urea Nitrogen 16 mg/dL 6-24 Creatinine 0.79 mg/dL 0.51-0.95 BUN/Creatinine Ratio 20.3 High 8-20 Calcium 9.1 mg/dL 8.6-10.3 Total Protein 6.6 g/dL 6.4-8.9 Albumin 4.0 g/dL 3.2-5.2 Globulin 2.6 g/dL 2-4 Albumin/Globulin Ratio 1.5 1-3 Total Bilirubin 0.30 mg/dL 0.2-1.0 Alkaline Phosphatase 52 U/L 34-104 Alt 21 U/L 7-52 Ast 45 U/L High 13-39 Egfr Non- 74.5 >60 Egfr 95.8 >60 12 Lipid Profile (Trig/Chol/HDL) 06/09/2017 Triglycerides 378 mg/dL 13 Cholesterol 182 mg/dL 14 HDL Cholesterol 28.2 mg/dL 15 LDL Cholesterol 78 mg/dL 16 CBC Auto Diff 02/06/2017 White Blood Count 5.3 10^3/uL 3.5-10.8 Red Blood Count 4.54 10^6/uL 4.0-5.4 Hemoglobin 11.4 g/dL Low 12.0-16.0 Hematocrit 35 % 35-47 Mean Corpuscular Volume 78 fL Low 80-97 Mean Corpuscular Hemoglobin 25 pg Low 27-31 Mean Corpuscular HGB Conc 32 g/dL 31-36 Red Cell Distribution Width 18 % High 10.5-15 Platelet Count 170 10^3/uL 150-450 Mean Platelet Volume 9 um3 7.4-10.4 Abs Neutrophils 3.1 10^3/uL 1.5-7.7 Abs Lymphocytes 1.5 10^3/uL 1.0-4.8 Abs Monocytes 0.4 10^3/uL 0-0.8 Abs Eosinophils 0.3 10^3/uL 0-0.6 Abs Basophils 0 10^3/uL 0-0.2 Abs Nucleated RBC 0 10^3/uL Granulocyte % 58.4 % 38-83 Lymphocyte % 28.9 % 25-47 Monocyte % 7.2 % 1-9 Eosinophil % 4.8 % 0-6 Basophil % 0.7 % 0-2 Nucleated Red Blood Cells % 0 Comp Metabolic Panel 02/06/2017 Sodium 137 mmol/L 133-145 Potassium 4.1 mmol/L 3.5-5.0 Chloride 100 mmol/L Low 101-111 Co2 Carbon Dioxide 27 mmol/L 22-32 Anion Gap 10 mmol/L 2-11 Glucose 101 mg/dL High 70-100 Blood Urea Nitrogen 12 mg/dL 6-24 Creatinine 0.80 mg/dL 0.51-0.95 BUN/Creatinine Ratio 15.0 8-20 Calcium 9.3 mg/dL 8.6-10.3 Total Protein 7.1 g/dL 6.4-8.9 Albumin 4.1 g/dL 3.2-5.2 Globulin 3.0 g/dL 2-4 Albumin/Globulin Ratio 1.4 1-3 Total Bilirubin 0.30 mg/dL 0.2-1.0 Alkaline Phosphatase 57 U/L 34-104 Alt 31 U/L 7-52 Ast 70 U/L High 13-39 Egfr Non- 73.7 >60 Egfr 94.7 >60 17 Laboratory test finding 02/06/2017 Nortriptyline (Pamelor) 100 ng/mL 70- 170 18 Urine Microalbumin Random 12/13/2016 Urine Creatinine 266.44 mg/dL Ur Microalbumin (mg/L) 43.9 mg/L Urine Microalbumin/Creatinine 16.4 ug/mg <31 Laboratory test finding 12/13/2016 Hemoglobin A1c 8.4 High 5-7 Lipid Profile (Trig/Chol/HDL) 06/18/2016 Triglycerides 339 mg/dL 19 Cholesterol 162 mg/dL 20 HDL Cholesterol 21.3 mg/dL 21 LDL Cholesterol 73 mg/dL 22 Laboratory test 06/18/2016 Hemoglobin A1c 7.6 % High Less than 6.0 23 finding (Glyco HGB) CBC Auto Diff 06/18/2016 White Blood Count 4.9 10^3/uL 3.5-10.8 Red Blood Count 4.61 10^6/uL 4.0-5.4 Hemoglobin 11.5 g/dL Low 12.0-16.0 Hematocrit 36 % 35-47 Mean Corpuscular Volume 78 fL Low 80-97 Mean Corpuscular Hemoglobin 25 pg Low 27-31 Mean Corpuscular HGB Conc 32 g/dL 31-36 Red Cell Distribution Width 18 % High 10.5-15 Platelet Count 183 10^3/uL 150-450 Mean Platelet Volume 9 um3 7.4-10.4 Abs Neutrophils 3.0 10^3/uL 1.5-7.7 Abs Lymphocytes 1.4 10^3/uL 1.0-4.8 Abs Monocytes 0.3 10^3/uL 0-0.8 Abs Eosinophils 0.2 10^3/uL 0-0.6 Abs Basophils 0 10^3/uL 0-0.2 Abs Nucleated RBC 0 10^3/uL Granulocyte % 60.7 % 38-83 Lymphocyte % 28.5 % 25-47 Monocyte % 6.5 % 1-9 Eosinophil % 3.5 % 0-6 Basophil % 0.8 % 0-2 Nucleated Red Blood Cells % 0.1 Comp Metabolic Panel 06/18/2016 Sodium 135 mmol/L 133-145 Potassium 4.2 mmol/L 3.5-5.0 Chloride 99 mmol/L Low 101-111 Co2 Carbon Dioxide 27 mmol/L 22-32 Anion Gap 9 mmol/L 2-11 Glucose 147 mg/dL High 70-100 Blood Urea Nitrogen 18 mg/dL 6-24 Creatinine 0.85 mg/dL 0.51-0.95 BUN/Creatinine Ratio 21.2 High 8-20 Calcium 9.3 mg/dL 8.6-10.3 Total Protein 7.5 g/dL 6.4-8.9 Albumin 4.1 g/dL 3.2-5.2 Globulin 3.4 g/dL 2-4 Albumin/Globulin Ratio 1.2 1-3 Total Bilirubin 0.30 mg/dL 0.2-1.0 Alkaline Phosphatase 60 U/L 34-104 Alt 22 U/L 7-52 Ast 48 U/L High 13-39 Egfr Non- 68.7 >60 Egfr 88.3 >60 24 Laboratory test finding 03/26/2016 Hemoglobin A1c 8.0 High 5-7 Urine Microalbumin Random 12/21/2015 Ur Microalbumin (mg/L) 22.0 mg/L Urine Creatinine 237.02 mg/dL Urine Microalbumin/Creatinine 9.2 ug/mg <31 Laboratory test 12/21/2015 Hemoglobin A1c 10.5 % High Less than 6.0 25 finding (Glyco HGB) Comp Metabolic Panel 12/21/2015 Sodium 136 mmol/L 133-145 Potassium 4.3 mmol/L 3.5-5.0 Chloride 98 mmol/L Low 101-111 Co2 Carbon Dioxide 28 mmol/L 22-32 Anion Gap 10 mmol/L 2-11 Glucose 205 mg/dL High 70-100 Blood Urea Nitrogen 14 mg/dL 6-24 Creatinine 0.90 mg/dL 0.51-0.95 BUN/Creatinine Ratio 15.6 8-20 Calcium 9.4 mg/dL 8.6-10.3 Total Protein 7.0 g/dL 6.4-8.9 Albumin 4.4 g/dL 3.2-5.2 Globulin 2.6 g/dL 2-4 Albumin/Globulin Ratio 1.7 1-3 Total Bilirubin 0.30 mg/dL 0.2-1.0 Alkaline Phosphatase 70 U/L 34-104 Alt 32 U/L 7-52 Ast 58 U/L High 13-39 Egfr Non- 64.5 >60 Egfr 83.0 >60 26 Lipid Profile (Trig/Chol/HDL) 12/21/2015 Triglycerides 427 mg/dL 27 Cholesterol 216 mg/dL 28 HDL Cholesterol 34.8 mg/dL 29 LDL Cholesterol (SEE NOTE) mg/dL 30 Laboratory test finding 12/21/2015 LDL Cholesterol Direct 130 mg/dL 31 Lipid Profile (Trig/Chol/HDL) 12/21/2015 Triglycerides 427 mg/dL 32 Cholesterol 216 mg/dL 33 HDL Cholesterol 34.8 mg/dL 34 LDL Cholesterol (SEE NOTE) mg/dL 35 Comp Metabolic Panel 12/21/2015 Sodium 136 mmol/L 133-145 Potassium 4.3 mmol/L 3.5-5.0 Chloride 98 mmol/L Low 101-111 Co2 Carbon Dioxide 28 mmol/L 22-32 Anion Gap 10 mmol/L 2-11 Glucose 205 mg/dL High 70-100 Blood Urea Nitrogen 14 mg/dL 6-24 Creatinine 0.90 mg/dL 0.51-0.95 BUN/Creatinine Ratio 15.6 8-20 Calcium 9.4 mg/dL 8.6-10.3 Total Protein 7.0 g/dL 6.4-8.9 Albumin 4.4 g/dL 3.2-5.2 Globulin 2.6 g/dL 2-4 Albumin/Globulin Ratio 1.7 1-3 Total Bilirubin 0.30 mg/dL 0.2-1.0 Alkaline Phosphatase 70 U/L 34-104 Alt 32 U/L 7-52 Ast 58 U/L High 13-39 Egfr Non- 64.5 >60 Egfr 83.0 >60 36 Cortisol Free 24HR Urine 10/09/2015 Urine Free Cortisol 18 mcg/24h 3.5- 45 37 Urine Collection Duration 24 h 37 Urine Total Volume 2650 mL 37, 38 Laboratory test 09/06/2015 Point of Care 212 mg/dL High 74-106 39 finding Glucose Laboratory test 09/06/2015 Surgical Pathology SEE RESULT BELOW 40 finding Laboratory test 08/02/2015 Cortisol 16.79 ?g/dL 41 finding Comp Metabolic Panel 08/02/2015 Sodium 135 mmol/L 133-145 Potassium 4.0 mmol/L 3.5-5.0 Chloride 97 mmol/L Low 101-111 Co2 Carbon Dioxide 26 mmol/L 22-32 Anion Gap 12 mmol/L High 2-11 Glucose 292 mg/dL High 70-100 Blood Urea Nitrogen 16 mg/dL 6-24 Creatinine 0.83 mg/dL 0.51-0.95 BUN/Creatinine Ratio 19.3 8-20 Calcium 9.5 mg/dL 8.6-10.3 Total Protein 6.9 g/dL 6.4-8.9 Albumin 4.3 g/dL 3.2-5.2 Globulin 2.6 g/dL 2-4 Albumin/Globulin Ratio 1.7 1-3 Total Bilirubin 0.30 mg/dL 0.2-1.0 Alkaline Phosphatase 80 U/L 34-104 Alt 30 U/L 7-52 Ast 38 U/L 13-39 Egfr Non- 70.9 >60 Egfr 91.1 >60 42 Laboratory test finding 07/03/2015 HPV Rna Ww/Reflex Genotype Negative Negative 43 Cytology SEE RESULT BELOW 44 Laboratory test finding 07/03/2015 Hemoglobin A1c 7.6 High 5-7 CBC Auto Diff 05/26/2015 White Blood Count 6.0 10^3/uL 4.8-10.8 Red Blood Count 5.06 10^6/uL 4.0-5.4 Hemoglobin 13.1 g/dL 12.0-16.0 Hematocrit 41 % 35-47 Mean Corpuscular Volume 81 fL 80-97 Mean Corpuscular Hemoglobin 26 pg Low 27-31 Mean Corpuscular HGB Conc 32 g/dL 31-36 Red Cell Distribution Width 16 % High 10.5-15 Platelet Count 221 10^3/uL 150-450 Mean Platelet Volume 10 um3 7.4-10.4 Abs Neutrophils 3.6 10^3/uL 1.5-7.7 Abs Lymphocytes 1.7 10^3/uL 1.0-4.8 Abs Monocytes 0.4 10^3/uL 0-0.8 Abs Eosinophils 0.2 10^3/uL 0-0.6 Abs Basophils 0.1 10^3/uL 0-0.2 Abs Nucleated RBC 0.01 10^3/uL Granulocyte % 60.0 % 38-83 Lymphocyte % 28.5 % 25-47 Monocyte % 6.5 % 1-9 Eosinophil % 4.1 % 0-6 Basophil % 0.9 % 0-2 Nucleated Red Blood Cells % 0.2 Comp Metabolic Panel 05/26/2015 Sodium 136 mmol/L 133-145 Potassium 4.2 mmol/L 3.5-5.0 Chloride 97 mmol/L Low 101-111 Co2 Carbon Dioxide 29 mmol/L 22-32 Anion Gap 10 mmol/L 2-11 Glucose 150 mg/dL High 70-100 Blood Urea Nitrogen 20 mg/dL 6-24 Creatinine 0.95 mg/dL 0.51-0.95 BUN/Creatinine Ratio 21.1 High 8-20 Calcium 9.9 mg/dL 8.6-10.3 Total Protein 7.4 g/dL 6.4-8.9 Albumin 4.7 g/dL 3.2-5.2 Globulin 2.7 g/dL 2-4 Albumin/Globulin Ratio 1.7 1-3 Total Bilirubin 0.30 mg/dL 0.2-1.0 Alkaline Phosphatase 63 U/L 34-104 Alt 39 U/L 7-52 Ast 57 U/L High 13-39 Egfr Non- 60.6 >60 Egfr 78.0 >60 45 Lipid Profile (Trig/Chol/HDL) 03/06/2015 Triglycerides 296 mg/dL 46, 47 Cholesterol 161 mg/dL 46, 48 HDL Cholesterol 33.6 mg/dL 46, 49 LDL Cholesterol 68 mg/dL 46, 50 Comp Metabolic Panel 03/06/2015 Sodium 137 mmol/L 133-145 46 Potassium 4.3 mmol/L 3.5-5.0 46 Chloride 102 mmol/L 101-111 46 Co2 Carbon Dioxide 25 mmol/L 22-32 46 Anion Gap 10 mmol/L 2-11 46 Glucose 183 mg/dL High 70-100 46 Blood Urea Nitrogen 19 mg/dL 6-24 46 Creatinine 0.89 mg/dL 0.51-0.95 46 BUN/Creatinine Ratio 21.3 High 8-20 46 Calcium 9.6 mg/dL 8.6-10.3 46 Total Protein 7.2 g/dL 6.4-8.9 46 Albumin 4.5 g/dL 3.2-5.2 46 Globulin 2.7 g/dL 2-4 46 Albumin/Globulin Ratio 1.7 1-3 46 Total Bilirubin 0.30 mg/dL 0.2-1.0 46 Alkaline Phosphatase 67 U/L 34-104 46 Alt 43 U/L 7-52 46 Ast 52 U/L High 13-39 46 Egfr Non- 65.6 >60 46 Egfr 84.4 >60 46, 51 Urine Microalbumin Random 03/06/2015 Ur Microalbumin (mg/L) 6.0 mg/L 46 Urine Creatinine 65.36 mg/dL 46 Urine Microalbumin/Creatinine 9.1 ug/mg <31 46 Laboratory test 03/06/2015 Hemoglobin A1c (Glyco 6.8 % High Less than 6.0 46, 52 finding HGB) TSH (Thyroid Stim Horm) 2.28 ?IU/mL 0.34-5.60 46, 53 Urinalysis Profile 12/27/2014 Urine Color Julissa Urine Appearance Cloudy Urine Specific [place] 1.023 1.010-1.030 Urine pH 5.0 5-9 Urine Urobilinogen Positive Negative Urine Ketones Negative Negative Urine Protein 1+(30 mg/dL) Negative Urine Leukocytes 1+ Negative Urine Blood 1+ Negative Urine Nitrite Positive Negative Urine Bilirubin Negative Negative Urine Glucose Negative Negative Urine White Blood Cell 2+(11-20/hpf) Absent Urine Red Blood Cell 2+(6-10/hpf) Absent Urine Bacteria 3+ Absent Urine Squamous Epithelial Cell Present Absent Laboratory test 12/27/2014 Urine Culture SEE RESULT BELOW 54 finding Laboratory test 12/27/2014 Inr 1.13 High 0.78-1.07 finding CBC Auto Diff 12/27/2014 White Blood Count 6.8 10^3/uL 4.8-10.8 Red Blood Count 4.27 10^6/uL 4.0-5.4 Hemoglobin 11.4 g/dL Low 12.0-16.0 Hematocrit 34 % Low 35-47 Mean Corpuscular Volume 79 fL Low 80-97 Mean Corpuscular Hemoglobin 27 pg 27-31 Mean Corpuscular HGB Conc 34 g/dL 31-36 Red Cell Distribution Width 17 % High 10.5-15 Platelet Count 224 10^3/uL 150-450 Mean Platelet Volume 9 um3 7.4-10.4 Abs Neutrophils 5.1 10^3/uL 1.5-7.7 Abs Lymphocytes 0.8 10^3/uL Low 1.0-4.8 Abs Monocytes 0.8 10^3/uL 0-0.8 Abs Eosinophils 0.2 10^3/uL 0-0.6 Abs Basophils 0 10^3/uL 0-0.2 Abs Nucleated RBC 0 10^3/uL Granulocyte % 74.2 % 38-83 Lymphocyte % 11.9 % Low 25-47 Monocyte % 11.2 % High 1-9 Eosinophil % 2.2 % 0-6 Basophil % 0.5 % 0-2 Nucleated Red Blood Cells % 0.1 Comp Metabolic Panel 12/27/2014 Sodium 131 mmol/L Low 133-145 Potassium 3.5 mmol/L 3.5-5.0 Chloride 93 mmol/L Low 101-111 Co2 Carbon Dioxide 27 mmol/L 22-32 Anion Gap 11 mmol/L 2-11 Glucose 151 mg/dL High 70-100 Blood Urea Nitrogen 18 mg/dL 6-24 Creatinine 1.07 mg/dL High 0.51-0.95 BUN/Creatinine Ratio 16.8 8-20 Calcium 9.5 mg/dL 8.6-10.3 Total Protein 7.9 g/dL 6.4-8.9 Albumin 3.9 g/dL 3.2-5.2 Globulin 4.0 g/dL 2-4 Albumin/Globulin Ratio 1.0 1-3 Total Bilirubin 0.40 mg/dL 0.2-1.0 Alkaline Phosphatase 67 U/L 34-104 Alt 52 U/L 7-52 Ast 65 U/L High 13-39 Egfr Non- 53.0 >60 Egfr 68.2 >60 55 Laboratory test finding 12/27/2014 C Reactive Protein 182.08 mg/L High < 5.00 56 Acetaminophen < 15 g/mL 57 Alcohol < 10 mg/dL <10 Laboratory test 12/27/2014 Activated Partial 37.7 seconds High 26.0-36.3 finding Thrombo Time Laboratory test 11/18/2014 Hemoglobin A1c 6.7 5-7 finding Laboratory test 11/18/2014 Hemoglobin A1c 7.6 % High Less than 6.0 58 finding Laboratory test 06/17/2014 Cytology RUN DATE: 59 finding 06/20/ <SEE NOTE> HPV High Risk 06/17/2014 Human Papillomavirus See Comment 60 Source HPV High Risk Type 16, PCR Negative Negative HPV High Risk Type 18, PCR Negative Negative HPV Other Risk types Negative Negative 61 Lipid Profile (Trig/Chol/HDL) 05/12/2014 Triglycerides 196 mg/dL 46, 62 Cholesterol 138 mg/dL 46, 63 HDL Cholesterol 35.7 mg/dL 46, 64 LDL Cholesterol 63 mg/dL 46, 65 Comp Metabolic Panel 05/12/2014 Sodium 136 mmol/L 133-145 46 Potassium 3.8 mmol/L 3.7-5.6 46 Chloride 101 mmol/L 101-111 46 Co2 Carbon Dioxide 27 mmol/L 22-32 46 Anion Gap 8 mmol/L 2-11 46 Glucose 147 mg/dL High 70-100 46 Blood Urea Nitrogen 15 mg/dL 6-24 46 Creatinine 0.90 mg/dL 0.51-0.95 46 BUN/Creatinine Ratio 16.7 8-20 46 Calcium 9.4 mg/dL 8.6-10.3 46 Total Protein 7.2 g/dL 6.4-8.9 46 Albumin 4.3 g/dL 3.2-5.2 46 Globulin 2.9 g/dL 2-4 46 Albumin/Globulin Ratio 1.5 1-3 46 Total Bilirubin 0.30 mg/dL 0.2-1.0 46 Alkaline Phosphatase 59 U/L 34-104 46 Alt 40 U/L 7-52 46 Ast 44 U/L High 13-39 46 Egfr Non- 64.8 >60 46 Egfr 83.3 >60 46, 66 Urine Microalbumin Random 05/12/2014 Ur Microalbumin (mg/L) 15.0 mg/dL < 30 46, 67 Urine Creatinine 163.65 mg/dL 46 Urine Microalbumin/Creatinine 9.1 Less Than 31 46 Laboratory test finding 05/12/2014 Hemoglobin A1c 6.8 % High Less than 6.0 46, 68 Alpha 1 Antitrypsin A1a 149 mg/dL 100 - 190 46, 69 Liver Function Panel 05/12/2014 Total Protein 7.2 g/dL 6.4-8.9 46 Albumin 4.3 g/dL 3.2-5.2 46 Globulin 2.9 g/dL 2-4 46 Albumin/Globulin Ratio 1.5 1-3 46 Total Bilirubin 0.30 mg/dL 0.2-1.0 46 Direct Bilirubin 0.10 mg/dL 0.03-0.18 46 Indirect Bilirubin 0.2 mg/dL Low 0.3-1.0 46 Alkaline Phosphatase 60 U/L 34-104 46 Alt 40 U/L 7-52 46 Ast 45 U/L High 13-39 46 Laboratory test finding 01/31/2014 Ferritin 147.1 ng/mL 11-307 Comp Metabolic Panel 01/31/2014 Sodium 138 mmol/L 133-145 Potassium 3.7 mmol/L 3.7-5.6 Chloride 101 mmol/L 101-111 Co2 Carbon Dioxide 28 mmol/L 22-32 Anion Gap 9 mmol/L 2-11 Glucose 191 mg/dL High 70-100 Blood Urea Nitrogen 14 mg/dL 6-24 Creatinine 0.82 mg/dL 0.51-0.95 BUN/Creatinine Ratio 17.1 8-20 Calcium 9.6 mg/dL 8.6-10.3 Total Protein 7.2 g/dL 6.4-8.9 Albumin 4.3 g/dL 3.2-5.2 Globulin 2.9 g/dL 2-4 Albumin/Globulin Ratio 1.5 1-3 Total Bilirubin 0.30 mg/dL 0.2-1.0 Alkaline Phosphatase 66 U/L 34-104 Alt 67 U/L High 7-52 Ast 95 U/L High 13-39 Egfr Non- 72.4 >60 Egfr 93.1 >60 70 Laboratory test 01/31/2014 Hemoglobin A1c 7.9 % High Less than 6.0 71 finding Laboratory test 12/21/2013 Claire (Anti-Nuclear Negative Negative finding AB) Screen Laboratory test 11/01/2013 Hemoglobin A1c 7.8 % High Less than 6.0 72 finding Comp Metabolic Panel 11/01/2013 Sodium 138 mmol/L 133-145 Potassium 3.7 mmol/L 3.7-5.6 Chloride 101 mmol/L 101-111 Co2 Carbon Dioxide 27 mmol/L 22-32 Anion Gap 10 mmol/L 2-11 Glucose 201 mg/dL High 70-100 Blood Urea Nitrogen 11 mg/dL 6-24 Creatinine 0.80 mg/dL 0.51-0.95 BUN/Creatinine Ratio 13.8 8-20 Calcium 9.1 mg/dL 8.6-10.3 Total Protein 6.8 g/dL 6.4-8.9 Albumin 4.1 g/dL 3.2-5.2 Globulin 2.7 g/dL 2-4 Albumin/Globulin Ratio 1.5 1-3 Total Bilirubin 0.20 mg/dL 0.2-1.0 Alkaline Phosphatase 89 U/L 34-104 Alt 68 U/L High 7-52 Ast 81 U/L High 13-39 Egfr Non- 74.5 >60 Egfr 95.8 >60 73 Liver Function Panel 08/31/2013 Total Protein 7.1 g/dL 6.2-8.1 Albumin 4.3 g/dL 3.6-5.4 Globulin 2.8 g/dL 2-4 Albumin/Globulin Ratio 1.5 1-3 Total Bilirubin 0.4 mg/dL 0.4-1.5 Direct Bilirubin < 0.1 mg/dL Low 0.1-0.5 Indirect Bilirubin (SEE NOTE) mg/dL 0.3-1.0 74 Alkaline Phosphatase 82 U/L 30-110 Alt 67 U/L High 14-54 Ast 85 U/L High 12-42 Liver Function Panel 06/25/2013 Total Protein 7.5 g/dL 6.2-8.1 Albumin 4.3 g/dL 3.6-5.4 Globulin 3.2 g/dL 2-4 Albumin/Globulin Ratio 1.3 1-3 Total Bilirubin 0.6 mg/dL 0.4-1.5 Direct Bilirubin < 0.1 mg/dL Low 0.1-0.5 Indirect Bilirubin (SEE NOTE) mg/dL 0.3-1.0 75 Alkaline Phosphatase 71 U/L 30-110 Alt 70 U/L High 14-54 Ast 86 U/L High 12-42 Comp Metabolic Panel 06/25/2013 Sodium 137 mmol/L 133-145 Potassium 4.2 mmol/L 3.5-5.0 Chloride 100 mmol/L Low 101-111 Co2 Carbon Dioxide 25.0 mmol/L 22-32 Anion Gap 12.0 mmol/L High 2-11 Glucose 204 mg/dL High 70-100 Blood Urea Nitrogen 13 mg/dL 6-24 Creatinine 0.80 mg/dL 0.50-1.40 BUN/Creatinine Ratio 16.3 8-20 Calcium 9.6 mg/dL 8.1-9.9 Total Protein 6.7 g/dL 6.2-8.1 Albumin 4.3 g/dL 3.6-5.4 Globulin 2.4 g/dL 2-4 Albumin/Globulin Ratio 1.8 1-3 Total Bilirubin 0.5 mg/dL 0.4-1.5 Alkaline Phosphatase 74 U/L 30-110 Alt 69 U/L High 14-54 Ast 83 U/L High 12-42 Egfr Non- 74.5 >60 Egfr 95.8 >60 76 Urine Microalbumin Random 06/25/2013 Ur Microalbumin (mg/L) 5.0 mg/L 77 Urine Creatinine 69.1 mg/dL Urine Microalbumin/Creatinine 7.2 Less Than 31 Laboratory test finding 06/25/2013 Hemoglobin A1c 7.5 % High Less than 6.0 78 Lipid Profile 06/25/2013 Triglycerides 228 mg/dL High 40-200 (Trig/Chol/HDL) Cholesterol 175 mg/dL Less than 200 HDL Cholesterol 37 mg/dL Low 40-60 79 Cholesterol/HDL Ratio 4.7 Average High 1-4.44 LDL Cholesterol 92.4 Less Than 100 80 Laboratory test finding 06/18/2013 Blood Urea Nitrogen 16 mg/dL 6-24 Creatinine 06/18/2013 Creatinine 1.10 mg/dL 0.50-1.40 Egfr Non- 51.6 >60 Egfr 66.3 >60 81 Hepatitis Acute Panel 06/05/2013 Hepatitis B Surface Nonreactive Nonreactive Antigen Hepatitis B Core IgM Nonreactive Nonreactive Hepatitis A AB IgM Nonreactive Nonreactive Hepatitis C Antibody Nonreactive Nonreactive Urine Microalbumin Random 06/05/2013 Ur Microalbumin (mg/L) 6.0 mg/L 82 Urine Creatinine 123.3 mg/dL Urine Microalbumin/Creatinine 4.9 Less Than 31 Lipid Profile (Trig/Chol/HDL) 06/05/2013 Triglycerides 266 mg/dL High 40- 200 Cholesterol 156 mg/dL Less than 200 HDL Cholesterol 34 mg/dL Low 40-60 83 Cholesterol/HDL Ratio 4.6 Average High 1-4.44 LDL Cholesterol 68.8 Less Than 100 84 Comp Metabolic Panel 06/05/2013 Sodium 137 mmol/L 133-145 Potassium 4.2 mmol/L 3.5-5.0 Chloride 100 mmol/L Low 101-111 Co2 Carbon Dioxide 27.0 mmol/L 22-32 Anion Gap 10.0 mmol/L 2-11 Glucose 165 mg/dL High 70-100 Blood Urea Nitrogen 13 mg/dL 6-24 Creatinine 0.90 mg/dL 0.50-1.40 BUN/Creatinine Ratio 14.4 8-20 Calcium 9.6 mg/dL 8.1-9.9 Total Protein 6.3 g/dL 6.2-8.1 Albumin 4.1 g/dL 3.6-5.4 Globulin 2.2 g/dL 2-4 Albumin/Globulin Ratio 1.9 1-3 Total Bilirubin 0.5 mg/dL 0.4-1.5 Alkaline Phosphatase 71 U/L 30-110 Alt 72 U/L High 14-54 Ast 79 U/L High 12-42 Egfr Non- 65.0 >60 Egfr 83.6 >60 85 Laboratory test 06/05/2013 Hemoglobin A1c 7.6 % High Less than 6.0 86 finding Laboratory test 12/07/2012 Hemoglobin A1c 6.7 5-7 finding Urine Culture And 06/18/2012 Urine Culture (SEE NOTE) 87 Sensitivities Ua Routine 06/18/2012 Ua Specific [place] 1.015 Ua PH 6 Ua Color yellow Ua Appera cloudy Ua WBC moderate Ua Protein 30+ Ua Glucose neg Ua Ketones neg Ua Bilirubin small Ua Urobilinogen neg Ua Nitrite neg Ua Occult Blood non hemo trace Laboratory test finding 05/26/2012 Hemoglobin A1c 6.7 % High Less than 6.0 88 Comp Metabolic Panel 05/26/2012 Sodium 140 mmol/L 133-145 Potassium 3.9 mmol/L 3.5-5.0 Chloride 103 mmol/L 101-111 Co2 Carbon Dioxide 28.0 mmol/L 22-32 Anion Gap 9.0 mmol/L 2-11 Glucose 109 mg/dL High 70-100 Blood Urea Nitrogen 22 mg/dL 6-24 Creatinine 0.90 mg/dL 0.50-1.40 BUN/Creatinine Ratio 24.4 High 8-20 Calcium 9.6 mg/dL 8.1-9.9 Total Protein 6.1 GM/DL Low 6.2-8.1 Albumin 4.1 GM/DL 3.6-5.4 Globulin 2.0 GM/DL 2-4 Albumin/Globulin Ratio 2.1 1-3 Total Bilirubin 0.5 mg/dL 0.1-1.0 89 Alkaline Phosphatase 53 U/L 30-110 Alt 37 U/L 14-54 Ast 42 U/L 12-42 Egfr Non- 65.2 >60 Egfr 83.9 >60 90 Lipid Profile (Trig/Chol/HDL) 05/26/2012 Triglycerides 231 mg/dL High 40- 200 Cholesterol 119 mg/dL Less than 200 91 HDL Cholesterol 34 mg/dL Low 40-60 92 Cholesterol/HDL Ratio 3.5 AVERAGE 1-4.44 LDL Cholesterol 38.8 mg/dL Less Than 100 CBC Auto Diff 04/06/2012 White Blood Count 6.3 CUMM 4.8-10.8 Red Cell Count 4.58 CUMM 4.2-5.4 Hemoglobin 13.2 g/dL 12.0-16.0 Hematocrit 39 % 35-47 Mean Corpuscular Volume 85 um3 79-97 Mean Corpuscular Hemoglob 29 pg 27-31 Mean Corpuscular HGB Cone 34 g/dL 32-36 Redcell Distribution WDTH 15 % 10.5-15 Platelet Count 252 CUMM 150-450 Mean Platelet Volume 9.2 um3 7.4-10.4 Gran % 62.0 % 38-83 Lymph % 27.8 % 20-45 Mononuclear % 6.5 % 1-9 Eosinophil % 2.9 % 0-6 Basophil % 0.8 % 0-2 Abs Lymphs 1.8 1.0-4.8 Abs Mononuclear 0.4 0-0.8 Absolute Neutrophil Count 3.9 1.5-7.7 Abs Eosinophils 0.2 0-0.6 Abs Basophils 0 0-0.2 Liver Function Panel 04/06/2012 Total Protein 7.0 GM/DL 6.2-8.1 Albumin 4.6 GM/DL 3.6-5.4 Globulin 2.4 GM/DL 2-4 Albumin/Globulin Ratio 1.9 1-3 Bilirubin Total 0.6 mg/dL 0.4-1.5 93 Bilirubin Direct 0.1 mg/dL 0.1-0.5 Indirect Bilirubin 0.5 mg/dL 0.3-1.0 94 Alkaline Phosphatase 53 U/L 30-110 Alt (SGPT) 54 U/L 14-54 Ast (Sgot) 51 U/L High 12-42 Laboratory test finding 04/06/2012 TSH 1.71 MIU/ML 0.34-5.60 Liver Function Panel 02/28/2012 Total Protein 7.0 GM/DL 6.2-8.1 Albumin 4.5 GM/DL 3.6-5.4 Globulin 2.5 GM/DL 2-4 Albumin/Globulin Ratio 1.8 1-3 Bilirubin Total 0.4 mg/dL 0.4-1.5 95 Bilirubin Direct < 0.1 mg/dL Low 0.1-0.5 Indirect Bilirubin (SEE NOTE) mg/dL 0.3-1.0 96 Alkaline Phosphatase 51 U/L 30-110 Alt (SGPT) 52 U/L 14-54 Ast (Sgot) 54 U/L High 12-42 Total Protein 24HR Urine 02/28/2012 Total Protein Random Urine 4 mg/dL Urine Total Protein/24HR 148 MG/24HR High 50-100 Hours Of Collection 24 HR 24- Urine Volume Measurement 3700 ML Laboratory test finding 02/07/2012 Hemoglobin A1c 6.4 % High Less Than 6.0 97 Comp Metabolic Panel 02/07/2012 Sodium 139 mmol/L 135-145 Potassium 4.2 mmol/L 3.5-5.0 Chloride 104 mmol/L 101-111 Co2 (Carbon Dioxide) 26.0 mmol/L 22-32 Anion Gap 9.0 mmol/L 2-11 98 Glucose 79 mg/dL 70-100 BUN 17 mg/dL 6-24 Creatinine 1.0 mg/dL 0.50-1.40 One Over Creatinine 1.00 BUN/Creatinine Ratio 17.0 8-20 Calcium 9.7 mg/dL 8.1-9.9 Total Protein 6.6 GM/DL 6.2-8.1 Albumin 4.5 GM/DL 3.6-5.4 Globulin 2.1 GM/DL 2-4 Albumin/Globulin Ratio 2.1 1-3 Bilirubin Total 0.4 mg/dL 0.4-1.5 99 Alkaline Phosphatase 52 U/L 30-110 Alt (SGPT) 55 U/L High 14-54 Ast (Sgot) 57 U/L High 12-42 eGFR Non- 58.0 > 60 eGFR 74.6 > 60 100 Urine Microalbumin Random 02/07/2012 Microalbumin (MG/L) 230.0 mg/L Urine Creatinine 224.3 mg/dL Martín Alb/Creatinine Ratio 102.5 UG/MG High Less Than 30 101 Laboratory test 08/02/2011 Hemoglobin A1c 6.6 % High Less Than 6.0 102, 103 finding Lipid Profile 08/02/2011 Triglyceride 153 mg/dL 40-200 102 (Trig/Chol/HDL) Cholesterol 118 mg/dL Less Than 200 102, 104 High Density Lipoprotein 37 mg/dL Low 40-60 102, 105 Cholesterol/HDL Ratio 3.19 AVERAGE 1-4.44 102 Low Density Lipoprotein 50 mg/dL Less Than 100 102, 106 Laboratory test 06/04/2011 Cytology <SEE 107 finding NOTE> Urine Microalbumin 04/12/2011 Microalbumin (MG/L) 2.0 mg/L Random Urine Creatinine 56.04 mg/dL Martín Alb/Creatinine Ratio 3.5 UG/MG Less Than 30 108 Comp Metabolic Panel 04/12/2011 Sodium 137 mmol/L 135-145 Potassium 3.9 mmol/L 3.5-5.0 Chloride 101 mmol/L 101-111 Co2 (Carbon Dioxide) 27.0 mmol/L 22-32 Anion Gap 9.0 mmol/L 2-11 109 Glucose 153 mg/dL High 70-100 BUN 20 mg/dL 6-24 Creatinine 0.9 mg/dL 0.50-1.40 One Over Creatinine 1.11 BUN/Creatinine Ratio 22.2 High 8-20 Calcium 9.5 mg/dL 8.1-9.9 Total Protein 6.6 GM/DL 6.2-8.1 Albumin 4.4 GM/DL 3.6-5.4 Globulin 2.2 GM/DL 2-4 Albumin/Globulin Ratio 2.0 1-3 Bilirubin Total 0.8 mg/dL 0.4-1.5 110 Alkaline Phosphatase 54 U/L 30-110 Alt (SGPT) 40 U/L 14-54 Ast (Sgot) 37 U/L 12-42 eGFR Non- 65.7 > 60 eGFR 84.6 > 60 111 Lipid Profile (Trig/Chol/HDL) 04/12/2011 Triglyceride 334 mg/dL High 40- 200 Cholesterol 160 mg/dL Less Than 200 112 High Density Lipoprotein 35 mg/dL Low 40-60 113 Cholesterol/HDL Ratio 4.57 AVERAGE High 1-4.44 Low Density Lipoprotein 58 mg/dL Less Than 100 114 Laboratory test finding 04/12/2011 Hemoglobin A1c 7.0 % High Less Than 6.0 115 Laboratory test finding 11/01/2010 Hemoglobin A1c 6.5 % High Less Than 6.0 116 Laboratory test finding 04/30/2010 Hemoglobin A1c 6.5 % High Less Than 6.0 117 Lipid Profile 04/30/2010 Triglyceride 181 mg/dL 40-200 (Trig/Chol/HDL) Cholesterol 166 mg/dL Less Than 200 118 High Density Lipoprotein 44 mg/dL 40-60 119 Cholesterol/HDL Ratio 3.77 AVERAGE 1-4.44 Low Density Lipoprotein 86 mg/dL Less Than 100 120 Urine Microalbumin Random 04/30/2010 Microalbumin (MG/L) < 2.0 mg/L Urine Creatinine 37.97 mg/dL Martín Alb/Creatinine Ratio 5.2 UG/MG Less Than 30 121 Laboratory test finding 12/16/2009 Hemoglobin A1c 6.7 % High Less Than 6.0 122 Basic Metabolic Panel 12/16/2009 Sodium 137 mmol/L 135-145 Potassium 3.7 mmol/L 3.5-5.0 Chloride 102 mmol/L 101-111 Co2 (Carbon Dioxide) 27.0 mmol/L 22-32 Anion Gap 8.0 mmol/L 2-11 123 Glucose 146 mg/dL High 70-100 124 BUN 20 mg/dL 6-24 Creatinine 0.84 mg/dL 0.50-1.40 One Over Creatinine 1.10 BUN/Creatinine Ratio 23.8 High 8-20 Calcium 9.1 mg/dL 8.1-9.9 125 eGFR Non- 76.0 > 60 eGFR 91.9 > 60 126 Laboratory test finding 09/30/2008 Erythrocyte Sed Rate 5 MM/HR 0-30 CBC With Manual Diff 09/30/2008 White Blood Count 7.3 CUMM 4.8-10.8 Red Cell Count 4.94 CUMM 4.2-5.4 Hemoglobin 14.9 g/dL 12.0-16.0 Hematocrit 43 % 35-47 Mean Corpuscular Volume 87 um3 79-97 Mean Corpuscular Hemoglob 30 pg 27-31 Mean Corpuscular HGB Cone 35 g/dL 32-36 Redcell Distribution WDTH 13 % 10.5-15 Platelet Count 261 CUMM 150-450 Mean Platelet Volume 9.0 um3 7.4-10.4 Polysegmented Neutrophil 63 % 38-83 Band Neutrophil 2 % 0-8 Lymphocyte 30 % 25-47 Monocyte 1 % 0-13 Eosenophil 3 % 0-6 Atypical Lymph 1 % 0-6 Absolute Neutrophil Count 4.7 RBC Morphology NORMAL Laboratory test finding 09/30/2008 TSH 1.79 MIU/ML 0.34-5.60 Lipid Profile (Trig/Chol/HDL) 09/30/2008 Triglyceride 315 mg/dL High 40- 200 Cholesterol 207 mg/dL High Less Than 200 127 High Density Lipoprotein 34 mg/dL Low 40-60 128 Cholesterol/HDL Ratio 6.09 AVERAGE High 1-4.44 Low Density Lipoprotein 110 mg/dL High Less Than 100 129 1 Because ethnic data is not always readily available, this report includes an eGFR for both -Americans and non- Americans. The National Kidney Disease Education Program (NKDEP) does not endorse the use of the MDRD equation for patients that are not between the ages of 18 and 70, are , have extremes of body size, muscle mass, or nutritional status, or are non- or non-. According to the National Kidney Foundation, irrespective of diagnosis, the stage of the disease is based on the level of kidney function: Stage Description GFR(mL/min/1.73 m(2)) 1 Kidney damage with normal or decreased GFR 90 2 Kidney damage with mild decrease in GFR 60-89 3 Moderate decrease in GFR 30-59 4 Severe decrease in GFR 15-29 5 Kidney failure <15 (or dialysis) 2 Patient Consumer Marketer: [id number] 3 Patient Consumer Marketer: [id number] 4 Copy Result to: DUSTY MCCRARY ([id number]) 5 Normal Range 180 to 914 Indeterminate Range 145 to 180 Deficient Range <145 6 Because ethnic data is not always readily available, this report includes an eGFR for both -Americans and non- Americans. The National Kidney Disease Education Program (NKDEP) does not endorse the use of the MDRD equation for patients that are not between the ages of 18 and 70, are , have extremes of body size, muscle mass, or nutritional status, or are non- or non-. According to the National Kidney Foundation, irrespective of diagnosis, the stage of the disease is based on the level of kidney function: Stage Description GFR(mL/min/1.73 m(2)) 1 Kidney damage with normal or decreased GFR 90 2 Kidney damage with mild decrease in GFR 60-89 3 Moderate decrease in GFR 30-59 4 Severe decrease in GFR 15-29 5 Kidney failure <15 (or dialysis) 7 SEE RESULT BELOW Name: ROSELINE SNOW : [address]: Coco Clements MD Acct: [id number] Unit: [id number] AGE: 57 Location: LAB Re11/04/17 SEX: F Status: REG REF SPEC: [id number] NELI: 11/04/17-[address]: Coco Clements MD REQ: [id number] RECD: 11/04/174430 STATUS: COMP PENELOPE DR: Dusty Mccrary MD _ SOURCE: URINE SPDESC: ORDERED: Urine Culture COMMENTS: Copy Result to: DUSTY MCCRARY ([id number]) Procedure Result Reported Site Urine Culture Final 11/05/17- 1521 ML No Growth (<1,000 CFU/mL) * ML - Main Lab . END OF REPORT DEPARTMENT OF PATHOLOGY, [address] [place] [address] Fady Flores M.D. Director [facility] # [id number] *Ascorbic acid is present which may interfere with detection of blood. 9 SEE RESULT BELOW Name: ROSELINE SNOW DOB: [address]: Connie Bejarano DO Acct: [id number] Unit: [id number] AGE: 57 Location: [facility] Re07/01/17 SEX: F Status: DEP REF SPEC: [id number] NELI: 07/01/17- [facility] DR: Connie Bejarano DO REQ: [id number] RECD: 07/01/17 STATUS: ANIVAL NEGRETE DR: Dusty Clements MD _ ORDERED: LEVEL 4/4, IMMUNO-FIRST An H. pylori immunohistochemical stain, with appropriately reacting controls , was performed on sections cut from specimen 2 and is negative for Helicobacter organisms. Addendum Signed (signature on file) Miracle Akins MD 1011 FINAL DIAGNOSIS 1. Duodenum, biopsy: -- Benign duodenal mucosa with no significant pathologic abnormalities. -- No evidence of villous blunting or increased intraepithelial lymphocytes. 2. Stomach, body and antrum, biopsy: -- Antral and body-type gastric mucosa with moderate chronic gastritis and focal intestinal metaplasia; see comment. -- Dysplasia is absent. 3. Stomach, biopsy: -- Fundic gland polyp. 4. Gastroesophageal junction, biopsy: -- Squamous and columnar mucosa with mild chronic inflammation. -- Intestinal metaplasia is absent. -- Dysplasia is absent. COMMENT: An H. pylori immunohistochemical stain is pending for specimen 2 and the results will be reported in an addendum. CONTINUED ON NEXT PAGE * ML=Testing performed at Main Lab DEPARTMENT OF PATHOLOGY, [address] [place] [address] Fady Flores M.D. Director [facility] # [id number] RUN DATE: 07/04/17 [facility] LAB LIVE PAGE 2 Patient: ROSELINE SNOW [id number] (Continued) CLINICAL HISTORY (Continued) CLINICAL HISTORY 57 year old female with anemia; here for EGD; colonoscopy in 2016 with tubular adenoma polyps POST-OPERATIVE DIAGNOSIS Irregular gastroesophageal junction at 40 cm; moderate antral gastritis with biopsy; normal duodenum with biopsy; one 2 m sessile fundic polyp, status polypectomy; normal mid and proximal esophagus. Conclusions/Plan: Follow-up pathology results; may need video capsule endoscopy in future, anti-reflux GROSS DESCRIPTION 1. The specimen is received in formalin labeled, Duodenal Biopsies, and consists of a 0.4 x 0.2 x 0.2 cm stapleton-pink irregular soft tissue fragment. No other tissue is identified within the container. Entirely submitted, one cassette. 2. The specimen is received in formalin labeled, Gastric Body/Antrum Biopsies, and consists of two stapleton irregular soft tissue fragments measuring 0.4 x 0.2 x 0.1 cm and 0.5 x 0.2 x 0.2 cm which are submitted entirely in one cassette. 3. The specimen is received in formalin labeled, Gastric Polyp Biopsy, and consists of two stapleton irregular soft tissue fragments measuring 0.2 x 0.1 x 0.1 cm and 0.3 x 0.2 x 0.2 cm which are submitted entirely in one cassette. 4. The specimen is received in formalin labeled, GE Junction Biopsies, and consists of two stapleton irregular soft tissue fragments measuring 0.4 x 0.3 x 0.1 cm and 0.5 by up to 0.3 x 0.1 cm which are submitted entirely in one cassette. Signed (signature on file) Miracle Akins MD 1139 END OF REPORT * ML=Testing performed at Main Lab DEPARTMENT OF PATHOLOGY, [address] [place] [address] Fady Flores M.D. Director [facility] # [id number] 10 Cortisol, Saliva was cancelled on 06/27/2017 at 19:10; Unable to assay. Quantity not sufficient. Test Performed by: [facility] - [address] [address] 11 ADDITIONAL INFORMATION This test was developed and its performance characteristics determined by [facility] in a manner consistent with CLIA requirements. This test has not been cleared or approved by the U.S. Food and Drug Administration. Test Performed by: [facility] - [address] [address] 12 Because ethnic data is not always readily available, this report includes an eGFR for both -Americans and non- Americans. The National Kidney Disease Education Program (NKDEP) does not endorse the use of the MDRD equation for patients that are not between the ages of 18 and 70, are , have extremes of body size, muscle mass, or nutritional status, or are non- or non-. According to the National Kidney Foundation, irrespective of diagnosis, the stage of the disease is based on the level of kidney function: Stage Description GFR(mL/min/1.73 m(2)) 1 Kidney damage with normal or decreased GFR 90 2 Kidney damage with mild decrease in GFR 60-89 3 Moderate decrease in GFR 30-59 4 Severe decrease in GFR 15-29 5 Kidney failure <15 (or dialysis) 13 Desirable: <150 Borderline High: 150-199 High: 200-499 Very High: >500 14 Desirable: <200 Borderline High: 200-239 High: >239 15 Low: <40 Desirable: 40-60 High: >60 16 Desirable: <100 Near Optimal: 100-129 Borderline High: 130-159 High: 160-189 Very High: >189 17 Because ethnic data is not always readily available, this report includes an eGFR for both -Americans and non- Americans. The National Kidney Disease Education Program (NKDEP) does not endorse the use of the MDRD equation for patients that are not between the ages of 18 and 70, are , have extremes of body size, muscle mass, or nutritional status, or are non- or non-. According to the National Kidney Foundation, irrespective of diagnosis, the stage of the disease is based on the level of kidney function: Stage Description GFR(mL/min/1.73 m(2)) 1 Kidney damage with normal or decreased GFR 90 2 Kidney damage with mild decrease in GFR 60-89 3 Moderate decrease in GFR 30-59 4 Severe decrease in GFR 15-29 5 Kidney failure <15 (or dialysis) 18 ADDITIONAL INFORMATION This test was developed and its performance characteristics determined by [facility] in a manner consistent with CLIA requirements. This test has not been cleared or approved by the U.S. Food and Drug Administration. Test Performed by: [address] [address] 19 Desirable <150 Borderline high 150-199 High 200-499 Very High >500 20 Desirable <200 Borderline high 200-239 High >239 21 Low <40 Desirable: 40-60 High: >60 22 Desirable: <100 mg/dL Near Optimal: 100-129 mg/dL Borderline High: 130-159 mg/dL High: 160-189 mg/dL Very High: >189 mg/dL 23 Therapeutic target for the treatment of diabetes Mellitus patients is <7% HBA1C, and in selective patients <6.0%.Please refer to [place] [employer] Diabetic care guidelines for further information. 24 Because ethnic data is not always readily available, this report includes an eGFR for both -Americans and non- Americans. The National Kidney Disease Education Program (NKDEP) does not endorse the use of the MDRD equation for patients that are not between the ages of 18 and 70, are , have extremes of body size, muscle mass, or nutritional status, or are non- or non-. According to the National Kidney Foundation, irrespective of diagnosis, the stage of the disease is based on the level of kidney function: Stage Description GFR(mL/min/1.73 m(2)) 1 Kidney damage with normal or decreased GFR 90 2 Kidney damage with mild decrease in GFR 60-89 3 Moderate decrease in GFR 30-59 4 Severe decrease in GFR 15-29 5 Kidney failure <15 (or dialysis) 25 Therapeutic target for the treatment of diabetes Mellitus patients is <7% HBA1C, and in selective patients <6.0%.Please refer to [place] [employer] Diabetic care guidelines for further information. 26 Because ethnic data is not always readily available, this report includes an eGFR for both -Americans and non- Americans. The National Kidney Disease Education Program (NKDEP) does not endorse the use of the MDRD equation for patients that are not between the ages of 18 and 70, are , have extremes of body size, muscle mass, or nutritional status, or are non- or non-. According to the National Kidney Foundation, irrespective of diagnosis, the stage of the disease is based on the level of kidney function: Stage Description GFR(mL/min/1.73 m(2)) 1 Kidney damage with normal or decreased GFR 90 2 Kidney damage with mild decrease in GFR 60-89 3 Moderate decrease in GFR 30-59 4 Severe decrease in GFR 15-29 5 Kidney failure <15 (or dialysis) 27 Desirable <150 Borderline high 150-199 High 200-499 Very High >500 28 Desirable <200 Borderline high 200-239 High >239 29 Low <40 Desirable: 40-60 High: >60 30 Unable to calculate LDL as triglyceride is > 400 31 Desirable: <100 mg/dL Near Optimal: 100-129 mg/dL Borderline High: 130-159 mg/dL High: 160-189 mg/dL Very High: >189 mg/dL 32 Desirable <150 Borderline high 150-199 High 200-499 Very High >500 33 Desirable <200 Borderline high 200-239 High >239 34 Low <40 Desirable: 40-60 High: >60 35 Unable to calculate LDL as triglyceride is > 400 36 Because ethnic data is not always readily available, this report includes an eGFR for both -Americans and non- Americans. The National Kidney Disease Education Program (NKDEP) does not endorse the use of the MDRD equation for patients that are not between the ages of 18 and 70, are , have extremes of body size, muscle mass, or nutritional status, or are non- or non-. According to the National Kidney Foundation, irrespective of diagnosis, the stage of the disease is based on the level of kidney function: Stage Description GFR(mL/min/1.73 m(2)) 1 Kidney damage with normal or decreased GFR 90 2 Kidney damage with mild decrease in GFR 60-89 3 Moderate decrease in GFR 30-59 4 Severe decrease in GFR 15-29 5 Kidney failure <15 (or dialysis) 37 10/08/15 @1000 TO 10/09/15 0900 38 Test Performed by: [address] [address] Alumni Relations Officer: Chester Allen II, M.D., Ph.D. 39 Patient Consumer Marketer: [id number] TYLER DÍAZ 40 SEE RESULT BELOW Name: ROSELINE SNOW : [address]: Dalton Denise MD Acct: [id number] Unit: [id number] AGE: 55 Location: ENDO Re09/06/15 SEX: F Status: REG REF SPEC: [id number] NELI: 09/06/15-[address] [facility] [address]: Dalton Denise MD REQ: [id number] RECD: 09/06/15-1206 STATUS: ANIVAL NEGRETE DR: Coco Clements MD _ ORDERED: LEVEL IV/4 FINAL DIAGNOSIS 1. Colon, right, biopsy: -- Hyperplastic polyp. 2. Colon, hepatic flexure, biopsy: -- Tubular adenoma. -- No high grade dysplasia or malignancy. 3. Colon, transverse, biopsy: -- Hyperplastic polyp. 4. Colon, descending, biopsy: -- Tubular adenoma. -- No high grade dysplasia or malignancy. CLINICAL HISTORY Screening colonoscopy POST-OPERATIVE DIAGNOSIS Colonoscopy into terminal ileum, prep good - 4 polyps removed, sigmoid diverticulosis GROSS DESCRIPTION 1. The specimen is received in formalin labeled, Right Colon Polyp (Biopsy) , and consists of a 0.8 x 0.2 x 0.1 cm stapleton-pink irregular soft tissue fragment, which is submitted entirely in one cassette. 2. The specimen is received in formalin labeled, Hepatic Flexure Polyp ( Biopsy), and consists of a 0.8 x 0.3 cm by up to 0.2 cm stapleton-pink irregular soft tissue fragment, which is submitted entirely in one cassette. CONTINUED ON NEXT PAGE * ML=Testing performed at Main Lab DEPARTMENT OF PATHOLOGY, [address] [place] [id number] Fady Flores M.D. Director [facility] # [id number] RUN DATE: 09/07/15 [facility] LAB LIVE PAGE 2 Patient: ROSELINE SNOW [id number] (Continued) GROSS DESCRIPTION (Continued) GROSS DESCRIPTION (Continued) 3. The specimen is received in formalin labeled, Transverse Colon Polyp ( Biopsy), and consists of a 0.3 x 0.3 x 0.1 cm stapleton-pink irregular soft tissue fragment, which is submitted entirely in one cassette. 4. The specimen is received in formalin labeled, Descending Colon Polyp, and consists of two stapleton-pink irregular to polypoid soft tissue fragments measuring 0.5 x 0.3 x 0.3 cm and 0.6 x 0.4 x 0.1 cm, which are submitted entirely in one cassette. Signed (signature on file) Miracle Akisn MD 1328 END OF REPORT * ML=Testing performed at Main Lab DEPARTMENT OF PATHOLOGY, [address] [place] [address] Fady Flores M.D. Director [facility] # [id number] 41 AM 8.7-22.4 PM <10 42 Because ethnic data is not always readily available, this report includes an eGFR for both -Americans and non- Americans. The National Kidney Disease Education Program (NKDEP) does not endorse the use of the MDRD equation for patients that are not between the ages of 18 and 70, are , have extremes of body size, muscle mass, or nutritional status, or are non- or non-. According to the National Kidney Foundation, irrespective of diagnosis, the stage of the disease is based on the level of kidney function: Stage Description GFR(mL/min/1.73 m(2)) 1 Kidney damage with normal or decreased GFR 90 2 Kidney damage with mild decrease in GFR 60-89 3 Moderate decrease in GFR 30-59 4 Severe decrease in GFR 15-29 5 Kidney failure <15 (or dialysis) 43 The high-risk HPV types detected by the assay include: 16, 18, 31, 33, 35, 39, 45, 51, 52, 56, 58, 59, 66, and 68. 44 SEE RESULT BELOW Name: ROSELINE SNOW : [address]: Coco Clements MD Acct: [id number] Unit: [id number] AGE: 55 Location: [facility] Re07/03/15 SEX: F Status: REG REF SPEC: [id number] NELI: 07/03/15-[address] [facility] [address]: Coco Clements MD REQ: [id number] RECD: 07/03/15 STATUS: SOUT _ ORDERED: IMAGE ANALYSIS, HPV/Thin Prep, HPV 16/18 GENE FINAL DIAGNOSIS Negative for Intraepithelial lesion or Malignancy A. Ectocervical/Endocervical Specimen Adequacy: Satisfactory of evaluation Transformation zone component identified Patient Information: HPV: High risk HPV RNA testing regardless of pap results. HPV 16/18 Genotype for HPV pos Actual Specimen Date: 07/03/15 LMP If Unknown: several yrs ago Spec Date if unknown: 2013 ?: N Post Menopausal?: Y Hysterectomy?: N Previous Abnormal Pap Smears?:Y If Yes, enter Diagnosis: Atypical Squamous cells of uncertain significance. Date Time Test Result Flag (u) Normal Range 07/03/15 1250 HPV RNA RFLX GE Negative Negative The high-risk HPV types detected by the assay include: 16, 18, 31, 33, 35, 39, 45, 51, 52, 56, 58, 59, 66, and 68. Signed (signature on file) Jose David Luke 07/04/15 1349 This Pap test was evaluated with the assistance of the CrysalinPrep Test Imaging System. Due to cytologic findings at the abalone processor microscope, comprehensive manual rescreening by a Conventional Mortgage Underwriter may be required. The Pap Smear is a screening test designed to aid in the detection of premalignant and malignant conditions of the uterine cervix. It is not a diagnostic procedure and should not be used as the sole means of detecting cervical cancer. Both false- positive and false- negative reports do occur. Depending on your risk status, a Pap smear should be obtained and evaluated every 1-3 years. END OF REPORT * ML=Testing performed at Main Lab DEPARTMENT OF PATHOLOGY, [address] [place] [address] RUN DATE: 07/04/15 [facility] LAB LIVE PAGE 1 Patient: ROSELINE SNOW [id number] (Continued) Fady Flores M.D. Director [facility] # [id number] 45 Because ethnic data is not always readily available, this report includes an eGFR for both -Americans and non- Americans. The National Kidney Disease Education Program (NKDEP) does not endorse the use of the MDRD equation for patients that are not between the ages of 18 and 70, are , have extremes of body size, muscle mass, or nutritional status, or are non- or non-. According to the National Kidney Foundation, irrespective of diagnosis, the stage of the disease is based on the level of kidney function: Stage Description GFR(mL/min/1.73 m(2)) 1 Kidney damage with normal or decreased GFR 90 2 Kidney damage with mild decrease in GFR 60-89 3 Moderate decrease in GFR 30-59 4 Severe decrease in GFR 15-29 5 Kidney failure <15 (or dialysis) 46 PT IS FASTING 47 Desirable <150 Borderline high 150-199 High 200-499 Very High >500 48 Desirable <200 Borderline high 200-239 High >239 49 Low <40 Desirable: 40-60 High: >60 50 Desirable: <100 mg/dL Near Optimal: 100-129 mg/dL Borderline High: 130-159 mg/dL High: 160-189 mg/dL Very High: >189 mg/dL 51 Because ethnic data is not always readily available, this report includes an eGFR for both -Americans and non- Americans. The National Kidney Disease Education Program (NKDEP) does not endorse the use of the MDRD equation for patients that are not between the ages of 18 and 70, are , have extremes of body size, muscle mass, or nutritional status, or are non- or non-. According to the National Kidney Foundation, irrespective of diagnosis, the stage of the disease is based on the level of kidney function: Stage Description GFR(mL/min/1.73 m(2)) 1 Kidney damage with normal or decreased GFR 90 2 Kidney damage with mild decrease in GFR 60-89 3 Moderate decrease in GFR 30-59 4 Severe decrease in GFR 15-29 5 Kidney failure <15 (or dialysis) 52 Therapeutic target for the treatment of diabetes Mellitus patients is <7% HBA1C, and in selective patients <6.0%.Please refer to [place] [employer] Diabetic care guidelines for further information. 53 PT IS FASTING 54 SEE RESULT BELOW Name: ROSELINE SNOW : [address]: Chester Rooney MD Acct: [id number] Unit: [id number] AGE: 54 Location: ED Re12/27/14 SEX: F Status: DEP ER SPEC: [id number] NELI: 12/27/14-[address] [facility] [address]: Chester Rooney MD REQ: [id number] RECD: 12/27/14153 STATUS: MAGDY NEGRETE DR: [facility] Coco Clements MD _ SOURCE: URINE SPDESC: ORDERED: Urine Culture Procedure Result Verified Site Urine Culture Final 12/29/14- 0854 ML Organism 1 KLEBSIELLA PNEUMONIAE Tavernier Count >100,000 (Many) CFU/ML 1. KLEBSIELLA PNEUMONIAE M.I.C. RX --------- ------ Ampicillin R Cefazolin <=4 S Cefepime <=1 S Ceftriaxone <=1 S Ciprofloxacin <=0.25 S Gentamicin <=1 S Levofloxacin <=0.12 S Meropenem <=0.25 S Nitrofurantoin 32 S Tetracycline 2 S Pipercillin/Tazobactam <=4 S Trimethoprim/Sulfamethoxazole <=20 S Amoxicillin/Clavulanic Acid <=2 S Aztreonam <=1 S Contact the Microbiology Department for any additional antibiotic reporting. * ML - MAIN LAB ([facility]) . END OF REPORT * ML=Testing performed at Main Lab DEPARTMENT OF PATHOLOGY, [address] [place] [address] Fady Flores M.D. Director [facility] # [id number] 55 Because ethnic data is not always readily available, this report includes an eGFR for both -Americans and non- Americans. The National Kidney Disease Education Program (NKDEP) does not endorse the use of the MDRD equation for patients that are not between the ages of 18 and 70, are , have extremes of body size, muscle mass, or nutritional status, or are non- or non-. According to the National Kidney Foundation, irrespective of diagnosis, the stage of the disease is based on the level of kidney function: Stage Description GFR(mL/min/1.73 m(2)) 1 Kidney damage with normal or decreased GFR 90 2 Kidney damage with mild decrease in GFR 60-89 3 Moderate decrease in GFR 30-59 4 Severe decrease in GFR 15-29 5 Kidney failure <15 (or dialysis) 56 Acute inflammation: >10.00 57 Therapeutic concentration: <50 ug/mL Toxic concentration: >120 ug/mL 58 Therapeutic target for the treatment of diabetes Mellitus patients is <7% HBA1C, and in selective patients <6.0%.Please refer to [place] [employer] Diabetic care guidelines for further information. 59 RUN DATE: 06/20/14 [facility] LAB LIVE PAGE 1 RUN TIME: [address] [place] [address] Specimen Inquiry Name: ROSELINE SNOW : [address]: Cooc Clements MD Acct: [id number] Unit: [id number] AGE: 54 Location: [facility] Re06/17/14 SEX: F Status: REG REF SPEC: [id number] NELI: 06/17/[address]: Coco Clements MD REQ: [id number] RECD: 06/17/14 STATUS: SOUT _ ORDERED: IMAGE ANALYSIS, PAP SM PATH REV, HPV/Thin Prep FINAL DIAGNOSIS EPITHELIAL CELL ABNORMALITIES Atypical squamous cells of undetermined significance COMMENTS: Specimen sent to [facility] in [place], [place] on 06/20/14 by [id number] at 1126. Results will be reported separately. A. Ectocervical/Endocervical Specimen Adequacy: Satisfactory of evaluation Transformation zone component identified Patient Information: HPV: High risk HPV DNA testing regardless of pap results. Actual Specimen Date: 06/17/14 LMP If Unknown: unknown ?: N Post Menopausal?: Y Hysterectomy?: N Previous Abnormal Pap Smears?:N Signed (signature on file) Fady Flores MD 1427 This Pap test was evaluated with the assistance of the [employer] Test Imaging System. Due to cytologic findings at the abalone processor microscope, comprehensive manual rescreening by a Conventional Mortgage Underwriter may be required. The Pap Smear is a screening test designed to aid in the detection of premalignant and malignant conditions of the uterine cervix. It is not a diagnostic procedure and should not be used as the sole means of detecting cervical cancer. Both false- positive and false- negative reports do occur. Depending on your risk status, a Pap smear shoudl be obtained and evaluated every 1-3 years. END OF REPORT * ML=Testing performed at Main Lab DEPARTMENT OF PATHOLOGY, [address] [place] [address] Fady Flores M.D. Director [facility] # [id number] RESULT: Ectocervical/Endocervical 61 The following Other High Risk HPV types were not detected: 31, 33, 35, 39, 45, 51, 52, 56, 58, 59, 66, and 68 Test Performed by: [place] [address] Alumni Relations Officer: Chirag Deras M.D. 62 Desirable <150 Borderline high 150-199 High 200-499 Very High >500 63 Desirable <200 Borderline high 200-239 High >239 64 Low <40 Desirable: 40-60 High: >60 65 Desirable <100 Near Optimal 100-129 Borderline high 130-159 High 160-189 Very High >189 66 Because ethnic data is not always readily available, this report includes an eGFR for both -Americans and non- Americans. The National Kidney Disease Education Program (NKDEP) does not endorse the use of the MDRD equation for patients that are not between the ages of 18 and 70, are , have extremes of body size, muscle mass, or nutritional status, or are non- or non-. According to the National Kidney Foundation, irrespective of diagnosis, the stage of the disease is based on the level of kidney function: Stage Description GFR(mL/min/1.73 m(2)) 1 Kidney damage with normal or decreased GFR 90 2 Kidney damage with mild decrease in GFR 60-89 3 Moderate decrease in GFR 30-59 4 Severe decrease in GFR 15-29 5 Kidney failure <15 (or dialysis) 67 Microalbuminuria in a random sample is defined as: Microalbumin/Creatinine ratio of 30-299 ug/mg. 68 Therapeutic target for the treatment of diabetes Mellitus patients is <7% HBA1C, and in selective patients <6.0%.Please refer to [place] [employer] Diabetic care guidelines for further information. 69 Test Performed by: [address] [address] Alumni Relations Officer: Kobe Salcedo III, M.D. 70 Because ethnic data is not always readily available, this report includes an eGFR for both -Americans and non- Americans. The National Kidney Disease Education Program (NKDEP) does not endorse the use of the MDRD equation for patients that are not between the ages of 18 and 70, are , have extremes of body size, muscle mass, or nutritional status, or are non- or non-. According to the National Kidney Foundation, irrespective of diagnosis, the stage of the disease is based on the level of kidney function: Stage Description GFR(mL/min/1.73 m(2)) 1 Kidney damage with normal or decreased GFR 90 2 Kidney damage with mild decrease in GFR 60-89 3 Moderate decrease in GFR 30-59 4 Severe decrease in GFR 15-29 5 Kidney failure <15 (or dialysis) 71 Therapeutic target for the treatment of diabetes Mellitus patients is <7% HBA1C, and in selective patients <6.0%.Please refer to [place] [employer] Diabetic care guidelines for further information. 72 Therapeutic target for the treatment of diabetes Mellitus patients is <7% HBA1C, and in selective patients <6.0%.Please refer to [place] [employer] Diabetic care guidelines for further information. 73 Because ethnic data is not always readily available, this report includes an eGFR for both -Americans and non- Americans. The National Kidney Disease Education Program (NKDEP) does not endorse the use of the MDRD equation for patients that are not between the ages of 18 and 70, are , have extremes of body size, muscle mass, or nutritional status, or are non- or non-. According to the National Kidney Foundation, irrespective of diagnosis, the stage of the disease is based on the level of kidney function: Stage Description GFR(mL/min/1.73 m(2)) 1 Kidney damage with normal or decreased GFR 90 2 Kidney damage with mild decrease in GFR 60-89 3 Moderate decrease in GFR 30-59 4 Severe decrease in GFR 15-29 5 Kidney failure <15 (or dialysis) 74 Unable to calculate Ind Bili as D Bili is <0.1 Unable to calculate Ind Bili as D Bili is <0.1 75 Unable to calculate Ind Bili as D Bili is <0.1 76 Because ethnic data is not always readily available, this report includes an eGFR for both -Americans and non- Americans. The National Kidney Disease Education Program (NKDEP) does not endorse the use of the MDRD equation for patients that are not between the ages of 18 and 70, are , have extremes of body size, muscle mass, or nutritional status, or are non- or non-. According to the National Kidney Foundation, irrespective of diagnosis, the stage of the disease is based on the level of kidney function: Stage Description GFR(mL/min/1.73 m(2)) 1 Kidney damage with normal or decreased GFR 90 2 Kidney damage with mild decrease in GFR 60-89 3 Moderate decrease in GFR 30-59 4 Severe decrease in GFR 15-29 5 Kidney failure <15 (or dialysis) 77 Microalbuminuria in a random sample is defined as: Microalbumin/Creatinine ratio of 30-299 ug/mg. 78 Therapeutic target for the treatment of diabetes Mellitus patients is <7% HBA1C, and in selective patients <6.0%.Please refer to [place] [employer] Diabetic care guidelines for further information. 79 HDL Interpretation: Undesirable: High Risk: Less than 40 mg/dL Desirable: Low Risk: Greater than 60 mg/dL 80 LDL Interpretation: Low Risk Optimal Level: LDL Less than 100 mg/dL Near or Above Optimal: LDL 100-129 mg/dL Borderline High Risk: LDL 130-159 mg/dL High Risk: LDL 160-189 mg/dL Very High Risk: LDL Greater than 189 mg/dL 81 Because ethnic data is not always readily available, this report includes an eGFR for both -Americans and non- Americans. The National Kidney Disease Education Program (NKDEP) does not endorse the use of the MDRD equation for patients that are not between the ages of 18 and 70, are , have extremes of body size, muscle mass, or nutritional status, or are non- or non-. According to the National Kidney Foundation, irrespective of diagnosis, the stage of the disease is based on the level of kidney function: Stage Description GFR(mL/min/1.73 m(2)) 1 Kidney damage with normal or decreased GFR 90 2 Kidney damage with mild decrease in GFR 60-89 3 Moderate decrease in GFR 30-59 4 Severe decrease in GFR 15-29 5 Kidney failure <15 (or dialysis) 82 Microalbuminuria in a random sample is defined as: Microalbumin/Creatinine ratio of 30-299 ug/mg. 83 HDL Interpretation: Undesirable: High Risk: Less than 40 mg/dL Desirable: Low Risk: Greater than 60 mg/dL 84 LDL Interpretation: Low Risk Optimal Level: LDL Less than 100 mg/dL Near or Above Optimal: LDL 100-129 mg/dL Borderline High Risk: LDL 130-159 mg/dL High Risk: LDL 160-189 mg/dL Very High Risk: LDL Greater than 189 mg/dL 85 Because ethnic data is not always readily available, this report includes an eGFR for both -Americans and non- Americans. The National Kidney Disease Education Program (NKDEP) does not endorse the use of the MDRD equation for patients that are not between the ages of 18 and 70, are , have extremes of body size, muscle mass, or nutritional status, or are non- or non-. According to the National Kidney Foundation, irrespective of diagnosis, the stage of the disease is based on the level of kidney function: Stage Description GFR(mL/min/1.73 m(2)) 1 Kidney damage with normal or decreased GFR 90 2 Kidney damage with mild decrease in GFR 60-89 3 Moderate decrease in GFR 30-59 4 Severe decrease in GFR 15-29 5 Kidney failure <15 (or dialysis) 86 Therapeutic target for the treatment of diabetes Mellitus patients is <7% HBA1C, and in selective patients <6.0%.Please refer to [place] [employer] Diabetic care guidelines for further information. 87 RUN DATE: 06/21/12 [facility] LAB LIVE PAGE 1 RUN TIME: [address] [place] [address] Specimen Inquiry Name: ROSELINE SNOW : [address]: Julia Sharma Acct: [id number] Unit: [id number] AGE: 52 Location: [facility] Re06/18/12 SEX: F Status: REG REF SPEC: [id number] NELI: [address]: Julia Sharam REQ: [id number] RECD: 06/18/12 STATUS: COMP _ [facility] ORDERED: Urine Culture COMMENTS: URINE QUERIES: Medent Number [id number] Urine Source: Random Procedure Result Verified Site Urine Culture Final 06/21/12- 0941 ML Organism 1 STAPHYLOCOCCUS SAPROPHYTICUS Tavernier Count >100,000 (Many) CFU/ML Routine testing of urine isolates of S. saprophyticus is not advised, because infections respond to concentrations achieved in urine of antimicrobial agents commonly used to treat acute, uncomplicated urinary tract infections (e.g. nitrofurantoin, trimethoprim+/- sulfamethoxazole, or a fluoroquinolone). NCC August 2001 END OF REPORT * ML=Testing performed at Main Lab DEPARTMENT OF PATHOLOGY, [address] [place] [address] Fady Flores M.D. Director [facility] Permit #[id number] 88 Therapeutic target for the treatment of diabetes Mellitus patients is <7% HBA1C, and in selective patients <6.0%.Please refer to [place] [employer] Diabetic care guidelines for further information. 89 A metabolite of Naproxen, O-desmethylnaproxen, has been shown to interfere with the [place] method for measuring total bilirubin. Samples from patients who have taken Naproxen have shown spurious elevation in total bilirubin levels. 90 Because ethnic data is not always readily available, this report includes an eGFR for both -Americans and non- Americans. The National Kidney Disease Education Program (NKDEP) does not endorse the use of the MDRD equation for patients that are not between the ages of 18 and 70, are , have extremes of body size, muscle mass, or nutritional status, or are non- or non-. According to the National Kidney Foundation, irrespective of diagnosis, the stage of the disease is based on the level of kidney function: Stage Description GFR(mL/min/1.73 m(2)) 1 Kidney damage with normal or decreased GFR 90 2 Kidney damage with mild decrease in GFR 60-89 3 Moderate decrease in GFR 30-59 4 Severe decrease in GFR 15-29 5 Kidney failure <15 (or dialysis) 91 Desirable: Less than 200 MG/DL Borderline-High Risk: 200-239 MG/DL High-Risk: 240 MG/DL and over 92 HDL Interpretation: Undesirable: High Risk: Less than 40 MG/DL Desirable: Low Risk: Greater than 60 MG/DL 93 A metabolite of Naproxen, O-desmethylnaproxen, has been shown to interfere with the [place] method for measuring total bilirubin. Samples from patients who have taken Naproxen have shown spurious elevation in total bilirubin levels. 94 Please note updated reference range, effective 03/08/10 95 A metabolite of Naproxen, O-desmethylnaproxen, has been shown to interfere with the [place]rass[place] method for measuring total bilirubin. Samples from patients who have taken Naproxen have shown spurious elevation in total bilirubin levels. 96 UNABLE TO CALCULATE IND.BILI D.BILI IS <0.1 Please note updated reference range, effective 03/08/10 97 THERAPEUTIC TARGET FOR THE TREATMENT OF DIABETES MELLITUS PATIENTS IS <7% HBA1C, AND IN SELECTIVE PATIENTS <6.0%. PLEASE REFER TO [place] [employer] DIABETIC CARE GUIDELINES FOR FURTHER INFORMATION. 98 Anion gap measurement may be of limited value in the presence of any alkalosis, especially in a combined acid base disorder. . 99 A metabolite of Naproxen, O-desmethylnaproxen, has been shown to interfere with the [place]rass[place] method for measuring total bilirubin. Samples from patients who have taken Naproxen have shown spurious elevation in total bilirubin levels. 100 Because ethnic data is not always readily available, this report includes an eGFR for both -Americans and non- Americans. The National Kidney Disease Education Program (NKDEP) does not endorse the use of the MDRD equation for patients that are not between the ages of 18 and 70, are , have extremes of body size, muscle mass, or nutritional status, or are non- or non-. According to the National Kidney Foundation, irrespective of diagnosis, the stage of the disease is based on the level of kidney function: Stage Description GFR(mL/min/1.73 m(2)) 1 Kidney damage with normal or decreased GFR 90 2 Kidney damage with mild decrease in GFR 60-89 3 Moderate decrease in GFR 30-59 4 Severe decrease in GFR 15-29 5 Kidney failure <15 (or dialysis) 101 MICROALBUMINURIA IN A RANDOM SAMPLE IS DEFINED : MICROALBUMIN/CREATININE RATIO OF 30-299 ug/mg. . 102 FASTING 103 THERAPEUTIC TARGET FOR THE TREATMENT OF DIABETES MELLITUS PATIENTS IS <7% HBA1C, AND IN SELECTIVE PATIENTS <6.0%. PLEASE REFER TO [place] [employer] DIABETIC CARE GUIDELINES FOR FURTHER INFORMATION. 104 CHOLESTEROL INTERPRETATION: Desirable: Less than 200 MG/DL Borderline-High Risk: 200-239 MG/DL High-Risk: 240 MG/DL and over 105 HDL INTERPRETATION: Undesirable: High Risk: Less than 40 MG/DL Desirable: Low Risk: Greater than 60 MG/DL 106 LDL INTERPRETATION: Low Risk Optimal Level: LDL Less than 100 MG/DL Near or Above Optimal: LDL 100-129 MG/DL Borderline High Risk: LDL 130-159 MG/DL High Risk: LDL 160-189 MG/DL Very High Risk: LDL Greater than 189 MG/DL 107 ----- RUN DATE: 06/05/11 [facility] NMI LIVE PAGE 1 RUN TIME: 1559 Specimen Inquiry RUN USER: INTERFACE -- Name: ROSELINE SNOW Status: REG REF Re06/04/11 Age/Sex: 51/F Unit#: [id number] Location: [facility] : 56 -- Specimen: [id number] SOUT Spec Date: 06/04/[address]: Coco Clements MD Spec Type: CYTOLOGY Received: 06/05/11-1326 Copies to: SOURCE ECTOCERVICAL/ENDOCERVICAL Thin Prep with Reflex HPV Test PATIENT INFORMATION ACTUAL COLLECTION DATE: 06/04/11 ? No POST MENOPAUSAL? Yes HYSTERECTOMY? No PREVIOUS ABNORMAL PAP SMEARS No DATE OF PRIOR SPECIMEN: 01/05/10 PATIENT HISTORY: Last menstrual period 11/2008 ADEQUACY OF SPECIMEN Satisfactory for evaluation * Transformation zone component identified * DIAGNOSIS NEGATIVE FOR INTRAEPITHELIAL LESION OR MALIGNANCY * This Pap test was evaluated with the assistance of the [employer] Pap Test Imaging System. The Pap Smear is a screening test designed to aid in the detection of premalign ant and malignant conditions of the uterine cervix. It is not a diagnostic procedure a nd should not be used as the sole means of detecting cervical cancer. Both false- positiv e and false-negative reports do occur. Depending on your risk status, a Pap smear yecenia uld be obtained and evaluated every one to three years. Initial evaluation performed by Panfilo BECERRA([facility]) 06/05/11 Final Interpretation electronically signed by: Panfilo BECERRA([facility]) 06/05/11 1557 -- DEPARTMENT OF PATHOLOGY, [address] [place] [address] [facility] Permit #[id number] Fady Flores M.D. Director Rose Woodward M.D. Scrap Drop Crane Operator Dir olile -- 108 MICROALBUMINURIA IN A RANDOM SAMPLE IS DEFINED : MICROALBUMIN/CREATININE RATIO OF 30-299 ug/mg. . 109 Anion gap measurement may be of limited value in the presence of any alkalosis, especially in a combined acid base disorder. . 110 A metabolite of Naproxen, O-desmethylnaproxen, has been shown to interfere with the [place] method for measuring total bilirubin. Samples from patients who have taken Naproxen have shown spurious elevation in total bilirubin levels. 111 Because ethnic data is not always readily available, this report includes an eGFR for both -Americans and non- Americans. The National Kidney Disease Education Program (NKDEP) does not endorse the use of the MDRD equation for patients that are not between the ages of 18 and 70, are , have extremes of body size, muscle mass, or nutritional status, or are non- or non-. According to the National Kidney Foundation, irrespective of diagnosis, the stage of the disease is based on the level of kidney function: Stage Description GFR(mL/min/1.73 m(2)) 1 Kidney damage with normal or decreased GFR 90 2 Kidney damage with mild decrease in GFR 60-89 3 Moderate decrease in GFR 30-59 4 Severe decrease in GFR 15-29 5 Kidney failure <15 (or dialysis) 112 CHOLESTEROL INTERPRETATION: Desirable: Less than 200 MG/DL Borderline-High Risk: 200-239 MG/DL High-Risk: 240 MG/DL and over 113 HDL INTERPRETATION: Undesirable: High Risk: Less than 40 MG/DL Desirable: Low Risk: Greater than 60 MG/DL 114 LDL INTERPRETATION: Low Risk Optimal Level: LDL Less than 100 MG/DL Near or Above Optimal: LDL 100-129 MG/DL Borderline High Risk: LDL 130-159 MG/DL High Risk: LDL 160-189 MG/DL Very High Risk: LDL Greater than 189 MG/DL 115 THERAPEUTIC TARGET FOR THE TREATMENT OF DIABETES MELLITUS PATIENTS IS <7% HBA1C, AND IN SELECTIVE PATIENTS <6.0%. PLEASE REFER TO [place] [employer] DIABETIC CARE GUIDELINES FOR FURTHER INFORMATION. 116 THERAPEUTIC TARGET FOR THE TREATMENT OF DIABETES MELLITUS PATIENTS IS <7% HBA1C, AND IN SELECTIVE PATIENTS <6.0%. PLEASE REFER TO [place] DIABETIC CARE GUIDELINES FOR FURTHER INFORMATION. 117 THERAPEUTIC TARGET FOR THE TREATMENT OF DIABETES MELLITUS PATIENTS IS <7% HBA1C, AND IN SELECTIVE PATIENTS <6.0%. PLEASE REFER TO [employer] DIABETIC CARE GUIDELINES FOR FURTHER INFORMATION. 118 CHOLESTEROL INTERPRETATION: Desirable: Less than 200 MG/DL Borderline-High Risk: 200-239 MG/DL High-Risk: 240 MG/DL and over 119 HDL INTERPRETATION: Undesirable: High Risk: Less than 40 MG/DL Desirable: Low Risk: Greater than 60 MG/DL 120 LDL INTERPRETATION: Low Risk Optimal Level: LDL Less than 100 MG/DL Near or Above Optimal: LDL 100-129 MG/DL Borderline High Risk: LDL 130-159 MG/DL High Risk: LDL 160-189 MG/DL Very High Risk: LDL Greater than 189 MG/DL 121 MICROALBUMINURIA IN A RANDOM SAMPLE IS DEFINED : MICROALBUMIN/CREATININE RATIO OF 30-299 ug/mg. . 122 THERAPEUTIC TARGET FOR THE TREATMENT OF DIABETES MELLITUS PATIENTS IS <7% HBA1C, AND IN SELECTIVE PATIENTS <6.0%. PLEASE REFER TO [place] [employer] DIABETIC CARE GUIDELINES FOR FURTHER INFORMATION. 123 Anion gap measurement may be of limited value in the presence of any alkalosis, especially in a combined acid base disorder. . 124 Note change in reference range as of 04/07/08. The change was based on recommendations from the [place] [employer]. 125 Please note change in reference range effective 08 . 126 Because ethnic data is not always readily available, this report includes an eGFR for both -Americans and non- Americans. The National Kidney Disease Education Program (NKDEP) does not endorse the use of the MDRD equation for patients that are not between the ages of 18 and 70, are , have extremes of body size, muscle mass, or nutritional status, or are non- or non-. According to the National Kidney Foundation, irrespective of diagnosis, the stage of the disease is based on the level of kidney function: Stage Description GFR(mL/min/1.73 m(2)) 1 Kidney damage with normal or decreased GFR 90 2 Kidney damage with mild decrease in GFR 60-89 3 Moderate decrease in GFR 30-59 4 Severe decrease in GFR 15-29 5 Kidney failure <15 (or dialysis) 127 CHOLESTEROL INTERPRETATION: Desirable: Less than 200 MG/DL Borderline-High Risk: 200-239 MG/DL High-Risk: 240 MG/DL and over 128 HDL INTERPRETATION: Undesirable: High Risk: Less than 40 MG/DL Desirable: Low Risk: Greater than 60 MG/DL 129 LDL INTERPRETATION: Low Risk Optimal Level: LDL Less than 100 MG/DL Near or Above Optimal: LDL 100-129 MG/DL Borderline High Risk: LDL 130-159 MG/DL High Risk: LDL 160-189 MG/DL Very High Risk: LDL Greater than 189 MG/DL Procedures Date CPT Code Description Status 06/08/2018 Inject/Drain Joint/Bursa Major W/O US Completed 05/07/2018 Inject/Drain Joint/Bursa Major W/O US Completed 04/01/2018 Inj/Aspir Major JT Or Bursa W/ US Completed 03/26/2018 Inj/Aspir Major JT Or Bursa W/ US Completed 03/19/2018 Inj/Aspir Major JT Or Bursa W/ US Completed 01/22/2018 45059 Diffusing Capacity Completed 01/22/2018 21936 Plethysmography Determination Lung Volumes & Per Airway Completed Resist 01/22/2018 79722 Pulmonary Stress Testing, Inc Measurement Heart Rate, Completed Oximetry 01/22/2018 27070 Pulmonary Function><Bronchodil Completed 11/14/2017 86158 Arthroscopy,Shoulder Decompression Of Subacromial Space Completed W/Acromio 11/14/2017 77899 Arthroscopy,Shoulder Decompression Of Subacromial Space Completed W/Acromio 11/14/2017 17806 Arthroscopy,Shoulder,Distal Claviculectomy Incl Dist Completed Articular SR 11/14/2017 45899 Arthroscopy,Shoulder,Distal Claviculectomy Incl Dist Completed Articular SR 11/05/2017 03096 EKG Tracing & Interpretation Completed 11/04/2017 13014 EKG Tracing & Interpretation Completed 10/14/2017 Diabetic Retinal Eye Exam Completed 07/24/2017 Mammogram Completed 07/01/201720668 Inject/Drain Joint/Bursa Intermediate W/O US Completed 03/06/2017 Inject/Drain Joint/Bursa Major W/O US Completed 02/05/2017 Inject/Drain Joint/Bursa Major W/O US Completed 04/09/2016 Mammogram Completed 09/09/2015 Diabetic Retinal Eye Exam Completed 09/06/2015 Colonoscopy Completed 03/23/201552747 Inject/Drain Joint/Bursa Major W/O US Completed 03/16/201574217 Inject/Drain Joint/Bursa Major W/O US Completed 03/09/201546776 Inject/Drain Joint/Bursa Major W/O US Completed 08/09/2014 Mammogram Completed 07/09/2013 Mammogram Completed 05/29/2013 Diabetic Retinal Eye Exam Completed 03/18/201336794 Inject/Drain Joint/Bursa Major W/O US Completed 03/18/2013 Inject/Drain Joint/Bursa Major W/O US Completed 03/11/2013 Inject/Drain Joint/Bursa Major W/O US Completed 03/11/2013 Inject/Drain Joint/Bursa Major W/O US Completed 03/04/2013 Inject/Drain Joint/Bursa Major W/O US Completed 03/04/201317325 Inject/Drain Joint/Bursa Major W/O US Completed 02/04/2013 94552 Rad Exam; Ankle Comp Completed 11/17/2012 55472 Polysomnography Sleep Staging 4+ Parameters W/Cpap Completed 10/15/2012 70348 Rad Exam; Wrist, Comp, Min 3 Views Completed 10/15/201225749 Inject/Drain Joint/Bursa Major W/O US Completed 10/15/2012 78594 Inject Tendon Sheath Or Ligament Aponeurosis Eg Plantar Completed Fascia 10/13/2012 05991 Polysomnography Sleep Staging 4+ Parameters Completed 06/24/2012 Mammogram Completed 06/17/2012 Diabetic Retinal Eye Exam Completed 03/12/2012 16530 EKG Tracing & Interpretation Completed 06/21/2011 Mammogram Completed 05/04/2010 08869 EKG Tracing & Interpretation Completed 02/26/2010 Mammogram Completed 05/02/2009 58094 EKG Tracing & Interpretation Completed 01/05/2009 81552 EKG Tracing & Interpretation Completed 07/29/2007 67674 EKG Tracing & Interpretation Completed 07/29/2007 09794 EKG Tracing & Interpretation Completed 06/26/2005 Colonoscopy Completed Encounters Type Date Location Provider CPT E/M Dx Office Visit 05/07/2018 [facility], 82889 M17.11 2:00p [facility] [place] M25.561 Office Visit 05/01/2018 9:00a [facility] [place] 64018 G43.009 Jus Z79.899 Office Visit 04/07/2018 1:00p [facility] 60398 M75.51 [place] M24.811 Z47.89 Office Visit 03/03/2018 1:45p [facility] [address] J44.9 Services Of [facility] G47.33 E66.01 Office Visit 02/10/2018 10:30a [facility] [address] M17.11 Com[place] M17.12 M17.0 Office Visit 12/29/2017 2:00p [facility] Arabella GoyoManju Walton, 19624 J44.9 Services [facility] N.P. R06.02 G47.33 E66.01 Z68.41 Office Visit 12/18/2017 1:00p [facility] Internal Medicine Coco Clements M.D. 16531 I10 - [place] F33.9 Office Visit 11/11/2017 10:30a [facility] [place] 28951 G43.919 Services Of Clay Caster M.D. Office Visit 11/03/2017 11:20a [facility] Internal Coco Clements, 99979 Z01.818 Medicine - [place] Luu G47.33 J44.9 E11.40 Office Visit 10/29/2017 1:15p [facility] Jone Ribeiro 54029 S46.011D Of [facility] Monte MD M75.21 M75.41 M75.31 Office Visit 10/07/2017 3:00p [facility] Jone Ribeiro 02907 S46.011D Of [facility] Monte MD M75.21 M75.41 M75.31 Office Visit 09/02/2017 1:00p [facility] [place] 32831 M19.011 Of [place] HULL S46.011D Office Visit 08/25/2017 8:30a [facility] [address] G47.33 [facility] J44.9 G25.81 E66.01 Z68.41 Z12.2 Z72.821 Office Visit 07/01/2017 1:15p [facility] 66931 M75.21 [place] M75.41 M19.011 M75.31 Office Visit 06/19/2017 11:45a [place] [facility] Pam Tong, 90180 G43.009 Services Of Clay Caster M.D. Office Visit 06/19/2017 1:20p [facility] Internal Medicine Coco Clements, 60513 Z00.00 - [place] Lu[place] D64.9 G47.33 Z12.31 Z23 F32.89 Office Visit 04/17/2017 2:15p [facility], 69885 M25.511 Of [facility] [place] M75.41 M75.21 M19.011 Office Visit 03/06/2017 1:00p [facility], 58788 M25.511 Of [place] [place] M75.41 Office Visit 02/24/2017 1:00p [facility] Internal Medicine Julia Romero, N.P. 46672 M25.511 - [place] Office Visit 02/06/2017 11:30a [place] [facility] Pam Tong, 41211 G43.009 Services [facility] M.D. Office Visit 01/30/2017 9:00a [facility] [place], 17125 M17.0 Of [place] Luu M25.561 M25.562 Office Visit 01/06/2017 2:40p [facility] Internal [place] [address] E11.40 [place] H10.89 H92.02 Office Visit 12/13/2016 11:00a [facility] Internal [place] [address] H66.91 E11.40 Office Visit 12/09/2016 2:40p [facility] Internal Medicine Julia Romero, N.P. 54107 H10.89 - [place] H66.91 Office Visit 10/09/2016 4:00p [facility] [place] [address] E11.40 - [place] Office Visit 07/22/2016 2:20p [facility] [place] [address] H10.89 - [place] Office Visit 06/28/2016 11:20a [facility] Internal Medicine Coco Clements 33103 E11.40 - [place] I10 M54.5 L03.011 Z23 Office Visit 06/27/2016 11:30a [facility] Pam Tong, 08032 G43.009 Services Of Clay Caster M.D. M54.5 Office Visit 06/14/2016 11:20a [facility] Internal Medicine Patrick Guerra, RENTAL CLERK 49679 J01.90 - [address] Office Visit 03/26/2016 11:40a [facility] Internal Medicine Coco Clements 59724 E11.65 - [place] M.DManju Z12.31 Office Visit 02/12/2016 11:40a [facility] Internal Medicine Coco Clements 54895 E11.65 - [place] M.DManju Office Visit 01/30/2016 11:45a [place] [facility] Pam Tong, 77154 G43.009 Services Of Clay Caster M.D. Office Visit 12/26/2015 10:20a [facility] Internal Medicine Coco Clements 92455 E11.65 - [place] M.DManju Office Visit 11/14/2015 10:40a [facility] Internal Medicine Coco Clements 47160 E11.65 - [place] Fide.Malathi M54.5 I10 Office Visit 10/03/2015 10:40a [facility] Internal Medicine Coco Clements 23982 E11.40 - [place] M.DManju I10 R21 Office Visit 09/07/2015 8:45a [place] [facility] Pam Tong, 54668 G43.919 Services Of Clay Caster M.D. Office Visit 07/03/2015 10:20a [facility] Internal Medicine Coco Clements 27456 E11.40 - [place] M.DManju Z12.11 R74.0 Z12.31 Z23 Z01.419 Office Visit 03/30/2015 3:30p [place] [facility] Pam Tong, 86202 339.42 Services Of Clay Caster M.D. 311 346.91 Office Visit 03/14/2015 11:20a [facility] Internal Medicine Coco Clements 27640 250.60 - [place] MCandida 250.00 Office Visit 02/02/2015 4:00p [facility] [place] Law[place] 64148 715.16 Of C.M.AManju Luu Office Visit 11/18/2014 3:40p [facility] Internal Medicine Coco Clements 62683 250.02 - [place] M.DManju Office Visit 11/17/2014 3:45p [place] [facility] Pam ElizaldeManju Davidamber, 05318 346.93 Services Of Clay Caster M.D. 311 346.91 309.0 Office Visit 06/17/2014 3:40p [facility] Internal Medicine Coco Clements, 52309 V70.0 - [place] M.Malathi V76.2 V76.12 250.02 401.1 Office Visit 06/09/2014 3:15p [place] [facility] Pam FideManju Davidamber, 33506 346.10 Services Of Clay Caster M.D. Office Visit 05/17/2014 8:40a [facility] Internal Medicine Coco Clements 02027 250.02 - [place] M.DManju 401.1 790.4 719.47 V04.81 Office Visit 02/11/2014 3:40p [facility] Internal Medicine Coco Clements 24520 250.02 - [place] M.D. Office Visit 01/07/2014 8:45a [place] [facility] Pam FideManju Tong, 98532 346.10 Services Of Clay Caster M.D. Office Visit 01/04/2014 4:20p [facility] Internal Medicine Coco Clements 29032 250.02 - [place] M.DManju 790.4 Office Visit 12/29/2013 4:00p [facility] Mickey Ocasio M.D. 78305 719.46 Of C.M.A. Office Visit 11/12/2013 12:00p [facility] Internal Medicine Nurse Visit [place] 91338 250.02 - [place] Office Visit 11/04/2013 4:00p [facility] Internal Medicine Coco Clements 03766 250.02 - [place] M.Malathi 790.4 401.1 729.5 Office Visit 10/29/2013 3:45p [facility] Mickey Ocasio M.D. 85584 729.5 Of C.M.A. Office Visit 09/02/2013 4:20p [facility] Internal Medicine Coco Clements 23846 250.02 - [place] M.DManju 790.4 Office Visit 07/26/2013 4:00p [facility] Internal Medicine Coco Clements 64819 250.02 - [place] M.DManju 790.4 715.16 Office Visit 06/11/2013 2:40p [facility] Internal Medicine Coco Clements 27103 V70.0 - [place] V72.31 V76.10 250.02 790.4 786.09 V04.81 Office Visit 05/14/2013 4:00p [facility] Pam ElizaldeManju Tong, 24295 346.10 Services [facility] Jus 386.11 Office Visit 04/30/2013 3:00p [facility] Mickey Ocasio M.D. 48205 719.47 Of C.M.AManju Office Visit 04/07/2013 4:00p [facility] Mickey Ocasio M.D. 36306 719.47 Of C.M.AManju Office Visit 02/04/2013 8:15a [facility] [place] 15562 716.96 Of [place] Luu 727.09 Office Visit 12/07/2012 3:40p [facility] Internal Medicine Coco Clements 42493 250.00 - [place] 716.96 009.1 Office Visit 10/28/2012 3:55p Xavi Hurley 15999 327.23 [facility] Jus Office Visit 10/15/2012 2:45p [facility] [place] 59045 716.96 Of [place] Lu[place] 727.04 Office Visit 09/29/2012 1:39p Xavi Hurley, 41919 786.09 Disorder Center Jus 780.79 Office Visit 06/18/2012 10:20a [facility] Internal Medicine Julia Romero, N.P. 15879 599.0 - [place] 386.11 Office Visit 06/05/2012 3:00p [facility] Internal Medicine Coco Clements 47719 V70.0 - [place] V72.31 V76.10 250.00 493.00 V04.81 Office Visit 03/12/2012 4:00p [facility] Internal Medicine Coco Clements 04135 780.4 - [place] 311 790.4 250.00 Office Visit 02/10/2012 3:40p [facility] Internal Medicine Coco Clements 36761 250.00 - [place] 401.1 272.2 311 791.0 790.4 Office Visit 09/12/2011 3:40p [facility] Internal Medicine [place] A 44[address] 401.1 - [place] Office Visit 08/09/2011 3:00p DO Not Use Coco Cotton, 80333 250.00 Clay Caster[place] M.D. 401.1 272.2 782.1 Office Visit 06/04/2011 3:00p DO Not Use Coco Cotton, 29561 V70.0 Clay Caster[place] M.D. 250.00 401.1 272.2 V76.10 Office Visit 05/07/2011 3:40p DO Not Use Coco Cotton, 19277 250.00 Clay Caster[place] M.D. 401.1 729.5 V04.81 Office Visit 02/04/2011 3:40p DO Not Use Coco Cotton, 35320 250.00 Clay Caster[place] M.D. 401.1 724.2 V03.82 Office Visit 11/01/2010 4:00p DO Not Use Coco Cotton, 24315 250.00 Clay Caster[place] M.D. Office Visit 08/13/2010 3:30p DO Not Use Coco Cotton, 84916 401.1 Clay Caster[place] M.D. 782.1 250.00 Office Visit 06/15/2010 3:45p DO Not Use Occo Cotton, 42065 250.00 Clay Caster[place] M.D. 401.1 Office Visit 05/04/2010 3:45p DO Not Use Coco Cotton, 31151 250.00 Clay Caster-[place] M.D. 311 401.1 V04.81 v04.81 Office Visit 01/23/2010 2:45p DO Not Use Coco Cotton, 74445 V70.0 Clay Caster[place] M.D. 250.00 Office Visit 10/19/2009 4:00p DO Not Use Paula Almonte, 90568 790.21 Clay Caster[place] M.D. 401.1 Office Visit 08/15/2009 2:45p DO Not Use Paula Almonte, 57924 790.21 Clay Caster[place] M.D. 496 401.1 Office Visit 06/30/2009 2:15p DO Not Use Rad[place]ki Paula, 33557 790.21 Clay Caster[place] M.D. 496 Office Visit 06/23/2009 4:15p DO Not Use Rad[place]ki Paula, 33323 786.05 Clay Caster[place] M.D. 272.4 305.1 Office Visit 05/02/2009 4:15p DO Not Use Rad[place] Paula, 23896 786.05 Clay Caster[place] M.D. 272.0 Office Visit 04/20/2009 3:30p DO Not Use Rad[place] Paula, 73969 272.4 Clay Caster[place] M.D. 790.21 Office Visit 01/05/2009 3:15p DO Not Use RadomsBrigid nesbitta, 55889 V72.31 Clay Caster[place] M.D. 401.1 Office Visit 11/23/2008 3:30p DO Not Use RadomsBrigid nesbitta, 79333 461.9 Clay Caster[place] M.D. 305.1 Office Visit 09/12/2008 2:30p DO Not Use Radomslaz Paula, 03761 461.9 Clay Caster[place] M.D. 784.0 Office Visit 03/17/2008 3:45p DO Not Use Radomslaz Paula, 08801 780.52 Clay Caster[place] M.D. 401.1 311 Office Visit 12/21/2007 3:45p DO Not Use Radomslaz Paula, 97662 780.52 Clay Caster[place] M.D. 401.1 Office Visit 09/17/2007 2:45p DO Not Use Radomslaz Paula, 76836 466.0 Clay Caster[place] M.D. 372.30 311 Office Visit 07/29/2007 3:15p DO Not Use Radomslaz Paula, 20302 V72.31 Clay Caster[place] M.D. 786.2 780.52 578.1 401.1 V04.81 Office Visit 07/21/2007 2:45p DO Not Use [place] C[place] Julia Romero, 23863 466.0 N.P. Office Visit 01/19/2007 4:00p DO Not Use Clay Caster[place] Radomski, Paula, 90185 782.3 M.D. 272.0 277.7 401.1 Plan of Care Future Appointment(s):09/07/2018 3:30 pm - Rubina Dwyer MD at [facility]06/22/2018 3:00 pm - Coco Clements M.D. at [facility] Internal Medicine [facility]06/08/2018 - Jone Monte, MDM75.51 Bursitis of right shoulderFollow up:Follow up: As needed
[2018-06-16] MEDS ORDERED: Ondansetron INJ* 2 MG/ML VIAL IV ONE (23:15)
[2018-06-16] MEDS ORDERED: Morphine INJ* 4 MG/ML 1 ML SYRINGE (NEW SYRINGE VERSION) IV ONE (23:15)
[2018-06-16] MEDS ORDERED: NS 0.9% 1000 ML* 1,000 ML IV ONE (23:15)
--- NOTE | 2018-06-16 23:38 | ED ---
Abdominal Pain/Female - HPI Summary HPI Summary: A 58 y/o female presents to the ED c/o abd pain since yesterday, 06/16/2018, when she stopped urinating. She also c/o dysuria. She denies any gallbladder or appendix surgery. She claims to have no heart or lung problems. She is a former smoker but quit. - History of Current Complaint Chief Complaint: EDFlankPain Stated Complaint: ABD/BACK PAIN Time Seen by Provider: 06/16/18 22:42 Hx Obtained From: Patient Onset/Duration: Sudden Onset Timing: Constant Severity Initially: Moderate Severity Currently: Moderate Pain Intensity: 7 Pain Scale Used: 0-10 Numeric Location: Discrete At: RUQ, Discrete At: RLQ Allergies/Adverse Reactions: Allergies Allergy/AdvReac Type Severity Reaction Status Date / Time [place] Allergy Eyes Uncoded 06/16/18 22:28 Itchy/Swollen/Red/Watery PMH/Surg Hx/FS Hx/Imm Hx Endocrine/Hematology History: Reports: Hx Diabetes, Hx Anemia Cardiovascular History: Reports: Hx Hypercholesterolemia, Hx Hypertension, Other Cardiovascular Problems/Disorders - Hyperlipidemia Denies: Hx Pacemaker/ICD Respiratory History: Reports: Hx Asthma, Hx Chronic Obstructive Pulmonary Disease (COPD), Hx Sleep Apnea - current CPAP user, Other Respiratory Problems/ Disorders - ex-smoker (30 yrs) GI History: Reports: Hx Gastroesophageal Reflux Disease, Hx Irritable Bowel, Other GI Disorders - Hx hiatal hernia History: Reports: Other Problems/Disorders - UTI's Musculoskeletal History: Reports: Hx Arthritis - Both Knees, Hx Back Problems - back pain, rec'd injections, Hx Bursitis - Right Shoulder, Hx Tendonitis - right shoulder, Other Musculoskeletal History - bilateral carpal tunnel Sensory History: Reports: Hx Contacts or Glasses - Contacts, will bring glasses Denies: Hx Hearing Aid Opthamlomology History: Reports: Hx Contacts or Glasses - Contacts, will bring glasses Neurological History: Reports: Hx Headaches - Followed by Dr. Tong, Hx Migraine - on medication, Other Neuro Impairments/Disorders - positional vertigo Psychiatric History: Reports: Hx Anxiety - on medication Denies: Hx Panic Disorder Comment Only: Hx Depression - on medication - Cancer History Hx Chemotherapy: No Hx Radiation Therapy: No - Surgical History Surgery Procedure, Year, and Place: 1981 tubal ligation, 1991 hemorrhoidectomy, 1998 Rt foot FX, [facility]- (left) transposition of ulnar nerve, 03/19 [facility]- ( left) knee meniscus tear, 07/20 [facility]- (left) carpal tunnel, 10/19 [facility]- (right) carpal tunnel, 12/21 [facility]- (right) ulnar nerve decompression, 08/24 [facility]- (right) knee meniscus tear, 09/28 (right) de Quervain's release Hx Anesthesia Reactions: No Infectious Disease History: No Infectious Disease History: Reports: Hx Hepatitis Denies: Traveled Outside the [place] in Last 30 Days - Family History Known Family History: Negative: Blood Disorder - Social History Alcohol Use: Rare Substance Use Type: Reports: None Smoking Status (MU): Former Smoker Have You Smoked in the Last Year: No Review of Systems Negative: Fever Positive: Abdominal Pain Positive: dysuria All Other Systems Reviewed And Are Negative: Yes Physical Exam - Summary Physical Exam Summary: Appearance: Well appearing, no pain distress Skin: warm, dry, reflects adequate perfusion Head/face: normal Eyes: EOMI, GIAN ENT: normal Neck: supple, non-tender Respiratory: CTA, breath sounds present Cardiovascular: RRR, pulses symmetrical Abdomen: TTP in RUQ and RLQ. Bowel: present Musculoskeletal: normal, strength/ROM intact Neuro: normal, sensory motor intact, A&Ox3 Triage Information Reviewed: Yes Vital Signs On Initial Exam: Initial Vitals Temp Pulse Resp BP Pulse Ox 97.3 F 125 16 150/74 94 06/16/18 22:26 06/16/18 22:26 06/16/18 22:26 06/16/18 22:26 06/16/18 22:26 Vital Signs Reviewed: Yes Diagnostics - Vital Signs Vital Signs Temp Pulse Resp BP Pulse Ox 06/16/18 22:26 97.3 F 125 16 150/74 94 - Laboratory Result Diagrams: 06/16/18 23:34 06/16/18 23:28 Lab Statement: Any lab studies that have been ordered have been reviewed, and results considered in the medical decision making process. - CT Abdomen/pelvis CT Interpretation Completed By: Radiologist - 1. Splenomegaly. 2. Fatty infiltration of the liver which is similar to 06/22/2013. 3. Small left adrenal nodule measuring 11 mm which is unchanged. 4. Slight enhancement of the right ureteral urothelium suggesting infection. 5. Otherwise negative CT abdomen/ pelvis.There are no changes of appendicitis. A normal appendix is not seen. This report has been reviewed by the ED physician. - EKG 23:17 Cardiac Rate: Tachycardia - 116 bpm EKG Rhythm: Sinus Tachycardia Abdominal Pain Fem Course/Dx - Course Course Of Treatment: A 58 y/o female presents to the ED c/o abd pain since yesterday, 06/16/2018, when she stopped urinating. Her PE revealed: TTP in RUQ and RLQ. Her EKG showed tachycardia. The abdomen/pelvis CT revealed: 1. Splenomegaly. 2. Fatty infiltration of the liver which is similar to 2012. 3. Small left adrenal nodule measuring 11 mm which is unchanged. 4. Slight enhancement of the right ureteral urothelium suggesting infection. 5. Otherwise negative CT abdomen/pelvis.There are no changes of appendicitis. A. normal appendix is not seen. Dx: UTI. She will be discharged and follow up with her PCP. She is agreeable to this plan. - Diagnoses Differential Diagnosis: Positive: Appendicitis, Diverticulitis, Renal Colic, Urinary Tract Infection Provider Diagnoses: UTI (urinary tract infection) Discharge - Sign-Out/Discharge Documenting (check all that apply): Patient Departure - DC - Discharge Plan Condition: Stable Disposition: HOME Prescriptions: Ibuprofen TAB* [Motrin TAB* 600 MG] 600 mg PO Q8H PRN #15 tab MDD 2 PRN Reason: Pain Levofloxacin TAB* [Levaquin TAB*] 500 mg PO DAILY #6 tab Patient Education Materials: Urinary Tract Infection in Women (ED) Referrals: Coco Clements MD [Primary Care Provider] - 3 Days Additional Instructions: Return to the ED if you experience any new or worsening symptoms. - Billing Disposition and Condition Condition: STABLE Disposition: Home - Attestation Statements Document Initiated by Scribe: Yes Documenting Scribe: Praveen Quintana Provider For Whom Laura is Documenting (Include Credential): Aries Carr MD Scribe Attestation: Parveen Holloway scribed for Aries Carr MD on 06/17/18 at 0308. Scribe Documentation Reviewed: Yes Provider Attestation: The documentation as recorded by the Praveen urban accurately reflects the service I personally performed and the decisions made by , Aries Carr MD
[2018-06-16 23:40] LABS: ABS Basophils 0.1 10^3/ul (0-0.2); ABS Eosinophils 0.1 10^3/ul (0-0.6); ABS Lymphocytes 1.4 10^3/ul (1.0-4.8); ABS Monocytes 0.7 10^3/ul (0-0.8); ABS Neutrophils 7.7 10^3/ul (1.5-7.7); ABS Nucleated RBC 0 10^3/ul; Eosinophil % 1.5 % (0-6); Hematocrit 37 % (35-47); Hemoglobin 11.9 g/dl (12.0-16.0); Lymphocyte % 14.2 % (25-47); Mean Corpuscular HGB Conc 33 g/dl (31-36); Mean Corpuscular Hemoglobin 26 pg (27-31); Mean Corpuscular Volume 80 fL (80-97); Mean Platelet Volume 8.3 um3 (7.4-10.4); Nucleated Red Blood Cells % 0; Platelet Count 193 10^3/ul (150-450); Red Blood Count 4.58 10^6/ul (4.00-5.40); Red Cell Distribution Width 19 % (10.5-15); White Blood Count 10.1 10^3/ul (3.5-10.8)
[2018-06-16 23:57] LABS: INR 1.01 (0.77-1.02)
[2018-06-17 00:01] LABS: EGFR Non-African American 52.9 (>60)
[2018-06-17] MEDS ORDERED: Iodixanol* (CONTRAST) 320 MG/ML 100 ML SDV IV ONE (00:08)
[2018-06-17 00:35] LABS: Urine Appearance Cloudy; Urine Blood 3+ (Negative); Urine Color Yellow; Urine Ketones Negative (Negative); Urine Protein 2+(100 mg/dL) (Negative); Urine Red Blood Cell 3+(>10/hpf) (Absent); Urine Specific Gravity 1.017 (1.010-1.030); Urine Urobilinogen Negative (Negative); Urine White Blood Cell 3+(>20/hpf) (Absent)
--- NOTE | 2018-06-17 02:11 | RAD ---
EXAM: CT Abdomen and Pelvis With Intravenous Contrast EXAM DATE/TIME: 06/17/2018 1:29 AM CLINICAL HISTORY: 58 years old, female; Pain; Abdominal pain; Additional info: RT lower quad tend R/O appendicitis TECHNIQUE: Axial computed tomography images of the abdomen and pelvis with intravenous contrast. All CT scans at this facility use at least one of these dose optimization techniques: automated exposure control; mA and/or kV adjustment per patient size (includes targeted exams where dose is matched to clinical indication); or iterative reconstruction. Coronal and sagittal reformatted images were created and reviewed. CONTRAST: 139 ml of VISI 320 administered intravenously. COMPARISON: CTA ABDAOR CTA ABD AORTA RUNOFF 06/22/2013 4:08 PM FINDINGS: Lower thorax: Minimal bibasilar fibro-atelectatic change. ABDOMEN: Liver: There is fatty infiltration of the liver. Gallbladder and bile ducts: Normal. No calcified stones. No ductal dilation. Pancreas: Normal. No ductal dilation. Spleen: The spleen measures 16.4 cm. Adrenals: Left adrenal nodule measuring 11 mm. Kidneys and ureters: There is a left renal cyst measuring up to 18 mm. Slight enhancement of the urothelium of the right ureter which may be a reflection of infection. Stomach and bowel: Normal. No obstruction. No mucosal thickening. Appendix: There are no changes of appendicitis. A normal appendix is not seen. PELVIS: Bladder: Unremarkable as visualized. Reproductive: Status post tubal ligation. ABDOMEN and PELVIS: Intraperitoneal space: Normal. No free air. No significant fluid collection. Bones/joints: No acute fracture. No dislocation. Soft tissues: Unremarkable. Vasculature: There is mild calcification of the abdominal aorta with extension into the iliac arteries. Lymph nodes: Normal. No enlarged lymph nodes. IMPRESSION: 1. Splenomegaly. 2. Fatty infiltration of the liver which is similar to 06/22/2013. 3. Small left adrenal nodule measuring 11 mm which is unchanged. 4. Slight enhancement of the right ureteral urothelium suggesting infection. 5. Otherwise negative CT abdomen/pelvis.There are no changes of appendicitis. A normal appendix is not seen. To contact [facility] with a general question: Operations Center - [phone] For direct physician to physician contact: Physician Hotline - [phone] [facility] ([facility] Facility ID #[id number])
[2018-06-17] MEDS ORDERED: Levofloxacin TAB* 500 MG PO ONE (02:33)
[2018-06-17 02:59] VITALS: BP 165/84
--- NOTE | 2018-06-19 07:11 | ED ---
Progress - Progress Note Progress Note: Patient's final urine culture reveals greater than 100,000 Staphylococcus saprophyticus. Patient was started on Levaquin. Treatment presumed to be effective. No changes at this time. Course/Dx - Course Course Of Treatment: A 58 y/o female presents to the ED c/o abd pain since yesterday, 06/16/2018, when she stopped urinating. Her PE revealed: TTP in RUQ and RLQ. Her EKG showed tachycardia. The abdomen/pelvis CT revealed: 1. Splenomegaly. 2. Fatty infiltration of the liver which is similar to 2012. 3. Small left adrenal nodule measuring 11 mm which is unchanged. 4. Slight enhancement of the right ureteral urothelium suggesting infection. 5. Otherwise negative CT abdomen/pelvis.There are no changes of appendicitis. A. normal appendix is not seen. Dx: UTI. She will be discharged and follow up with her PCP. She is agreeable to this plan. - Diagnoses Provider Diagnoses: UTI (urinary tract infection) Discharge - Sign-Out/Discharge Documenting (check all that apply): Post-Discharge Follow Up - Discharge Plan Condition: Stable Disposition: HOME Prescriptions: Ibuprofen TAB* [Motrin TAB* 600 MG] 600 mg PO Q8H PRN #15 tab MDD 2 PRN Reason: Pain Levofloxacin TAB* [Levaquin TAB*] 500 mg PO DAILY #6 tab Patient Education Materials: Urinary Tract Infection in Women (ED) Referrals: Coco Clements MD [Primary Care Provider] - 3 Days Additional Instructions: Return to the ED if you experience any new or worsening symptoms. - Billing Disposition and Condition Condition: STABLE Disposition: Home
== END 2018-06-17 02:50 | disposition home or self-care (01) ==
LOC: ED 22:21
DX: N39.0 Urinary tract infection, site not specified (principal); R10.84 Generalized abdominal pain; Z87.891 Personal history of nicotine dependence; R30.0 Dysuria
CPT/HCPCS: 36415; 74177; 80053; 81003; 81015; 83605; 83690; 84484; 85025; 85610; 85730; 87077; 87086; 93005; 96374; 96375; 99283; J2270; J2405; Q9967

== ENCOUNTER 2018-12-08 05:39 | Inpatient (IN) | payer BC ==
--- NOTE | 2018-11-27 15:24 | HP ---
Amended report to enter cosigning physician. PREOPERATIVE HISTORY AND PHYSICAL: DATE OF ADMISSION/SURGERY: 12/08/18 DATE OF OFFICE VISIT: 11/27/18 ATTENDING SURGEON: Dr. Prakash Koch* (dictated by SEBASTIAN Christy). PROCEDURE: Right total knee replacement. CHIEF COMPLAINT: Right knee pain. HISTORY OF PRESENT ILLNESS: Roseline is a 58-year-old female, who presents to the clinic for right knee pain due to severe osteoarthritis. She has failed conservative measures and therefore agreed to undergo a right total knee replacement with Dr. Koch on 12/08/18. PAST MEDICAL HISTORY: Diabetes, obstructive sleep apnea, GERD, asthma, migraines, hypertension, peptic ulcer disease, osteoarthritis, diabetic neuropathy. PAST SURGICAL HISTORY: Tubal ligation, hemorrhoidectomy, right foot surgery, bilateral carpal tunnel surgery, bilateral ulnar nerve surgery, bilateral knee scopes. The patient denies prior complications with anesthesia. MEDICATIONS: 1. Motion Sickness Relief 50 mg 2 in the morning. 2. Estroven Multivitamin 1 daily. 3. Pen needle use with Toujeo twice a day. 4. Trulicity 0.75 mg/0.5 mL, 1 injection once a week. 5. Excedrin Migraine 250/250/65 one tab twice a day as needed for migraine. 6. FreeStyle 28G lancet for testing. 7. Rosuvastatin 40 mg 1 by mouth every day. 8. Fenofibrate 145 mg 1 by mouth daily. 9. Omeprazole 20 mg 1 by mouth twice a day. 10. Metformin 500 mg 1 by mouth every morning, 2 by mouth in the evening. 11. Toujeo SoloSTAR 300 units/mL, inject 60 units under the skin 2 times daily. 12. Ketoconazole 2% apply thin film twice daily. 13. Lisinopril 10 mg 1 by mouth every day. 14. Diclofenac 1% apply 4 g on the knee 4 times as needed. 15. Nortriptyline 25 mg 3 tabs by mouth at bedtime as directed. 16. Spiriva HandiHaler 18 mcg 1 capsule via HandiHaler every day. 17. Sertraline 50 mg 1 by mouth every day. 18. Chlorthalidone 25 mg 1 by mouth daily. 19. Salsalate 750 mg 1 by mouth twice a day. 20. Gabapentin 300 mg 2 caps twice a day. 21. Ventolin HFA 108/90 mcg per ACT 1 to 2 puffs every 4 hours as needed. 22. Symbicort 160/4.5 mcg per ACT 1 puff twice a day. 23. Divalproex sodium 500 mg 2 by mouth daily as directed. 24. NovoFine 32G x 6 mm use every day or as directed. ALLERGIES: She has some intolerance to some pain medications. FAMILY HISTORY: Positive for heart disease and cancer. Denies family history of DVT or PE. SOCIAL HISTORY: She is . 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 She is a former smoker, quit in 2008. She reports occasional alcohol consumption. She is right-hand dominant. REVIEW OF SYSTEMS: A 14-point review of systems was reviewed with the patient. Positive for current complaint, otherwise negative. Denies history of DVT or PE , history of bleeding disorder. Denies fever, chills, chest pain, shortness of breath. PHYSICAL EXAMINATION GENERAL: A 58-year-old, well-developed, well-nourished female, in no acute distress. VITAL SIGNS: Height 64, weight 245, pulse 104, blood pressure 138/68, BMI 42.0. HEENT: Normocephalic, atraumatic. PERRLA. Throat clear. NECK: Supple. PULMONARY: Lungs clear to auscultation bilaterally. No wheezing, rhonchi, or rales. CARDIO: Regular rate and rhythm. S1, S2. No murmurs, gallops, or rubs. No edema. ABDOMEN: Positive bowel sounds. Soft, nontender. NEURO: Alert and oriented x3. Cranial nerves grossly intact. MUSCULOSKELETAL: Right lower extremity: Skin is intact. No warmth or erythema. Mild effusion. Tenderness over the patellar facets and medial and lateral joint lines. Stable to varus and valgus stress. Stable Sybil. Negative posterior drawer. Calf soft, nontender. +5/5 strength to ankle dorsiflexion and plantar flexion. +2 DP pulse. Sensation is intact to light touch distally. DIAGNOSTIC STUDIES: Multi-view x-rays of the right knee revealed osteoarthritis especially in the medial compartment with subchondral sclerosis, osteophyte formation, and joint space narrowing. IMPRESSION: Right knee osteoarthritis. PLAN: The patient is scheduled to undergo a right total knee replacement with Dr. Koch on 12/08/18. Oxycodone will be used for postop pain management and she will follow up 10 to 14 days postop for followup and suture removal with Dr. Koch. SEBASTIAN CHRISTY [id number]/[facility] #: [id number] [facility]OSPITALErnesto
[~2018-12-08 05:39] MED LIST changes: -Acetaminophen TAB* 325 MG PO PRN; -Buffered Lidocaine 0.9% SYRIN* 5 ML/SYR SYRINGE INTRADERM ONE; +Buffered Lidocaine 1% SYRIN* 1 ML/SYRINGE INTRADERM ONE; -Dexamethasone IV* 4 MG/ML 1 ML (4 MG) ONE; -DiMENhydriNATE IV* 50 MG/ML VIAL IV PUSH PRN; -DiMENhydriNATE IV* 50 MG/ML VIAL ONE; -EPINEPHRINE 1 MG/ML 1 ML VIAL ONE; -Famotidine IV* 10 MG/ML 2 ML (20 mg) IV ONE; -Famotidine IV* 10 MG/ML 2 ML (20 mg) ONE; -HYDROmorphone INJ* 1 MG/ML CARPUJECT SYRINGE IV PRN; -Insulin REGULAR(*) 1 UNITS UNIT ONE; -Ketorolac INJ* 30 MG/ML 1 ML VIAL ONE; -Levalbuterol 0.63MG/3ML NEB* UNIT OF USE INH ONE; -Levalbuterol 0.63MG/3ML NEB* UNIT OF USE INH PRN; -Lidocaine 2% PF * 5 ML VIAL ONE; -Midazolam* 1 MG/ML 5 ML VIAL (5 MG) ONE; -Naloxone* 0.4 MG/ML 1 ML VIAL IV PRN; -Ondansetron INJ* 2 MG/ML VIAL ONE; -Propofol* 10 MG/ML 20 ML BTL IV PUSH ONE; -ROPIVACAINE 5 MG/ML 30 ML BTL (0.5%) ONE; -Rocuronium* 10 MG/ML VIAL ONE; -Succinylcholine* 20 MG/ML 10 ML VIAL ONE; +Tranexamic Acid 1,000 MG in NS 0.9% 50 ML* (outpatient use) IV SCH; -ceFAZolin 2 GM PREMIX (*) 2 GM/50 ML BAG IVPB ONE; -fentaNYL* 50 MCG/ML 2 ML VIAL (100 MCG VIAL) ONE; -oxyCODONE TAB* 5 MG TAB PO PRN
--- OUTSIDE RECORDS SUMMARY | 2018-12-08 05:43 | XMS REPORT | Continuity of Care Document ---
:1960 External Reference #:[id number] Author Name Iwona Chacko Care Team Providers Name Role Phone Coco Clements MD Primary Care Physician Unavailable Payers Date Identification Numbers Payment Provider Subscriber Effective: 2012 Policy Number: [id number] [employer] Vadim Snow PayID: [id number] [address] [address] [place] [address] Advance Directives Type Date Description Status Comment [...] M.D. 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 Started Unknown at age 13, quit at age 49. About 2PPD ETOH Use Rarely consumes alcohol Tobacco Use Start: Unknown End: Patient is a former pt quit around 2008 Unknown smoker Recreational Drug Use Denies Drug Use Smoking Status Reviewed: 11/30/18 Patient is a former pt quit around 2008 smoker Exercise Type/Frequency Does not exercise Allergies, Adverse Reactions, Alerts Date Description Reaction Status Severity Comments 05/03/2010 Intolerable To Some Pain Meds Rash Active 01/19/2010 NKDA Inactive Medications Medication Date Status Form Strength Qnty SIG Indications Ordering Provider Rosuvastatin 08/04 Active Tablets 40mg 90tab Take One Coco s Tablet By Jus Clements Mouth Every Day Fenofibrate 08/04 Active Tablets 145mg 90tab Take One s Tablet By Jus Clements Mouth Once Daily Diclofenac 06/22 Active Gel 1% 100un apply 4 M13.0 Coco its grams to Jus Clements the knees 4 times a day as needed Freestyle 28G 04/21 Active 100un Test Coco Lanc its Blood Jus Clements Glucose Two Times Daily And as Needed Chlorthalidone 12/18 Active Tablets 25mg 90tab Take 1 I10 s Tablet By Jus Clements Mouth Every Day Freestyle 04/02 Active Misc 100un twice E11.9 Coco Lanc its daily and Jus Clements as needed Spiriva 03/08 Active Capsules 18mcg 30cap Inhale Coco Handihaler s Contents Jus Clements Of One Capsule Via Handihale r Every Day Novofine 02/15 Active Misc 32G X 6 100un Use Every mm its Day Or as Jus Clements Directed Pen [place] 02/14 Active Misc 31G X 5 200un use with Coco mm its Toujeo Cotton, M.D. twice daily Freestyle Lite 10/19 Active Strip 100un Test E11.40 Coco Test its Blood Jus Clements Sugar Two Times Daily Or as Needed Ketoconazole 10/03 Active Cream 2% 120gm apply R21 thin film Jus Clements twice daily Seema Naylorar 10/03 Active Solution 300Unit/M 13.5u Inject 60 E11.40 Pen-Inject L nits Units Jus Clements Under The Skin Two Times Daily Divalproex 03/30 Active Tablets ER 500mg 180ta 2 by G44.52 Christopher Sodium ER /2014 24HR bs mouth Jus Villela every day as directed. Sertraline HCL 03/08 Active Tablets 50mg 30tab Take 1 s Tablet By Jus Clements Mouth Every Day Lisinopril 11/04 Active Tablets 10mg 90tab Take 1 I10 s Tablet By Jus Clements Mouth Every Day Gabapentin 10/29 Active Capsules 300mg 180ca Take 2 ps Capsules Jus Clements By Mouth Two Times Daily Salsalate 12/07 Active Tablets 750mg 60tab Take 1 M12.9 s Tablet By Jus Clements Mouth Twice Daily Ventolin HFA 12/30 Active Aerosol 108(90Bas 18uni Inhale 1 e) ts To 2 Jus Clements mcg/Act Puffs By Mouth Every 4 Hours as Needed Metformin HCL 05/07 Active Tablets 500mg 60tab 1 by E11.9 s mouth Jus Clements every morning and 2 by mouth every evening Omeprazole 07/19 Active Capsules 20mg 90cap Take 1 DR s Capsule Jus Clements By Mouth Twice A Day Nortriptyline 06/15 Active Capsules 25mg 270ca take 3 Christopher ps capsules Jus Villela by mouth at bedtime as directed Motion Sickness Active Tablets 50mg [facility] Unknown Relief /0000 brand dimenhydr amate - takes 2 in Am Estroblend Active Unknown Multivitamin /0000 Trulicity Active Solution 0.75mg/0. 1 E11.40 Law, Dusty, / Pen-Inject 5ML injection MD once weekly Excedrin Active Tablets 250-250-6 1 tab Unknown Migraine /0000 5mg twice a day as needed for migraine Symbicort Active Aerosol 160-4.5mc 10.20 1 puff Lynn g/Act 0gm twice a Aishwarya, DIRECTOR TELEVISION day Doxycycline 10/27 Hx Tablets 100mg 14tab 1 tab by Coco Fierro s mouth Jus Clements - twice a 11/16 day for days Naproxen 08/27 Hx Tablets 500mg 60tab 1 by M75.51 Jone Ribeiro s naila Monte MD - every 12 09/06 hours needed pain Levaquin 06/17 Hx Tablets 500mg 6tabs Every Day Unknown - 09/06 Motrin 06/17 Hx Tablets 600mg 15tab Q8H Unknown Rep s - 09/05 Diclofenac 03/[address] 75mg 30tab take 1 by Ramon Allen s naila Polk MD - twice a 05/18 day needed for pain. Do not take with ibuprofen Symbicort 12/29 Hx Aerosol 160-4.5mc 12gm 2 puffs Arabella S. g/Act twice Foster, N.P. - daily 06/21 Oxycodone-Acetam 11/14 Hx Tablets 5-325mg 15tab 1 by Jone burkett s naila Monte MD - every 4-6 03/02 hours needed for pain. Freestyle Lite 04/02 Hx 2 times E11.9 Coco Delgado daily or Jus Clements - as needed 04/02 dx e11.9 Mometasone 01/06 Hx Suspension 50mcg/Act 17uni [place] 2 H92.02 Samuel Irby ts Sprays In [employer] - Each 11/03 Nostril /2017 Every Day Valacyclovir HCL 12/13 Hx Tablets 500mg 42tab 2 tab po B02.9 Patrick s tid Charlie DIRECT[employer] - x7days 12/27 Zyrtec Allergy 12/13 Hx Tablets 10mg 30tab 1 by H66.91 s mouth DEE Guerra - every day 11/03 for the next 3-4 weeks, then as needed Tobramycin 12/09 Hx Solution 0.3% 5ml 1 drop in H10.89 each eye Nick, N.P. - every 12/16 4hours x 7 days Amoxicillin/Clav 12/09 Hx Tablets 875-125mg 20tab one H66.91 Julia anat s tablet by Nick, N.P. Potassium - mouth 12/19 twice daily for 10 days Trimethoprim 07/22 Hx Solution 89703-3.1 10ml two drops H10.89 Allan Grewal, Sulfate/Polymyx Unit/ML-% affected DIRECTOR [employer]VIS[employer] n B Sulfate - eye 4 08/01 times a day for 7 days. Amoxicillin 06/14 Hx Tablets 875mg 20tab take one J01.90 s tablet by DEE Guerra - mouth 06/24 twice a day x's 10 days Sertraline HCL 03/08 Hx Tablets 25mg 90tab 2-3 tabs Pam Ramirez s by mouth Alycia, - each day M.D. 03/08 directed weeks if needed Unifine Pentips 02/07 Hx Misc 31G X 5 180un use as mm its directed Jus Clements - w/ Simona 02/14 Byshemar 10 mcg 11/24 Hx Solution 10mcg/0.0 5 mcg sc 250.60 Coco 4ML twice a James ClementsDManju - day for 2 11/24 wks 10 mcg sc twice a day Byetta 10 mcg 11/24 Hx Solution 10mcg/0.0 2.4un inject 1 E11.40 Pen-Inject 4ML its injection Jus Clements - under the 10/03 skin times daily before breakfast and dinner Novofine 11/15 Hx Misc 32G X 6 180un use two mm its times Tyree MManjuDManju - daily or 02/14 directed with simona Scott 03/28 Hx 100un two times E11.9 Coco Lancets /2014 its daily or Jus Clements - as 04/02 Oxycodone HCL 11/04 Hx Capsules 5mg 90cap 1 by Allan Grewal s mouth 2-3 DIRECT[employer] - times 12/18 Byshemar 11/04 Hx Solution 5mcg/0.02 60uni 1 250.60 ML ts injection Jus Clements - s/c bid 11/24 Hydrocodone/Acet 07/27 Hx Tablets 5-325mg 90tab 1-2 po 2 401.1 Coco aminophen s to 3 Jus Clements - times per maximum dose is 3 daily Januvia 07/26 Hx Tablets 100mg 90tab take 1 s tablet by Jus Clements - mouth one 12/09 daily Hydrocortisone 05/16 Hx Lotion 2.5% 118un Apply A its Thin Film Jus Clements - Topically 10/27 Two Times Daily Freestyle Lite 05/16 Hx Strip 50uni test once Test ts daily Jus Clements - three 10/19 days week Meclizine HCL 07/23 Hx Tablets 25mg 60tab Take One 386.11 s Tablet By Jus Clements - Mouth 07/26 Twice Day as Needed Freestyle 28G 07/19 Hx 100un use once its daily Jus Clements - three week Nitrofurantoin 06/18 Hx Capsules 100mg 20cap one po 599.0 Julia Monohydrate s bid for Varn, N.P. - 10 days 06/28 Meclizine HCL 06/18 Hx Tablets 25mg 60tab 1 tablet 386.11 Julia s twice Varn, N.P. - daily as 07/02 Lisinopril 02/09 Hx Tablets 5mg 90tab Take One 401.1 s Tablet By Jus Clements - Mouth 11/04 Every Escitalopram 02/09 Hx Tablets 20mg 60tab 2 po qd 311 Pam Ramirez Oxalate s Carli Tong M.D. 03/08 Hydrochlorothiaz 02/09 Hx Capsules 12.5mg 90cap take one I10 Coco yunior s capsule Jus Clements - by mouth 12/18 Freestyle Lite 01/06 Hx Strip 50uni Test Once Coco Test ts Daily Jus Clements - Three 06/04 Days Week Lisinopril/[place] 08/09 Hx Tablets 10-12.5mg 45tab / po qd 401.1 Coco chlorothiazide s Jus Clements - 02/09 Hydrocortisone 08/09 Hx Lotion 2.5% 118un Apply A 782.1 its Thin Film Jus Clements - Topically 12/07 Two Times A Day Hydrocodone/Acet 05/07 Hx Tablets 5-500mg 90tab 1 tablet 729.5 Coco aminophen s 2-3 times Jus Clements - a 07/27 day- um dose of 3 per day Tricor 08/13 Hx Tablets 145mg 30tab 1 tablet Occo /2010 s daily Jus Clements - 11/01 Urea [...] 01/23 Hx Misc 50uni use once 250.00 Coco /2010 ts daily 3 Jus Clements - days a Methocarbamol 01/23 Hx Tablets 750mg 1 tablet Coco /2010 once Jus Clements - daily as 12/07 Tylenol With 01/23 Hx Tablets 300-30mg 1 tablet 729.5 Coco Codeine #3 /2009 by mouth Jus Clements - every 4 05/07 to hours as needed. Hydrochlorothiaz 01/23 Hx Capsules 12.5mg 90cap Take One 401.1 Coco yunior s Capsule Jsu Clements - By Mouth 08/09 Every Tricor 01/23 Hx Tablets 145mg 90tab take one Coco s tablet by Jus Clements - mouth 08/04 daily Crestor 01/23 Hx Tablets 40mg 90tab Take One Coco s Tablet By Jus Clements - Mouth 08/04 Albuterol 01/19 Hx 1unit 1-2 Coco Inhaler /2009 s inhalatio Jus Clements - ns every 12/30 4 hours as needed Citalopram 01/19 Hx Tablets 20mg 135ta 1 2 Coco Hydrobromide /2009 bs tablets Jus Clements - daily 05/04 Tricor 01/19 Hx Tablets 145mg 30tab 1 tablet Coco s daily Jus Clements - 01/19 Nortriptyline 01/19 Hx Capsules 10mg 100ca 4 tablets Coco HCL ps at Jus Clements - bedtime 06/15 Mobic 01/19 Hx Tablets Unsure 30tab Coco /2010 s Jus Clements - 08/13 Gabapentin 01/19 Hx Capsules 300mg 180ca Take Two ps Capsules Jus Clements - By Mouth 11/04 AT Bedtime Spiriva 01/19 Hx Capsules 18mcg 30cap [...] Hx Tablets Unknown Multivitamin /0000 - 06/18 Levofloxacin Hx Tablets 500mg 1 by Unknown /0000 mouth - every day 09/06 Medications Administered in Office Medication Date Status Form Strength Qnty SIG Indications Ordering Provider Depomedrol Administered Injection Joen F 40MG Christa Monte MD Depomedrol Administered Injection Jone F 40MG Christa Monte MD Injection Administered Injection Beth Hyaluronan Or 018 Maximino Valles, PA-C Euflexxa Per Dose Injection Administered Injection Beth Hyaluronan Or 018 Maximino Valles, PA-C Euflexxa Per Dose Injection Administered Injection Zaneb Hyaluronan Or MD Maximino Birch, Euflexxa Per Dose Injection Administered Injection Zaneb Hyaluronan Or MD Maximino Birch, Euflexxa Per Dose Injection Administered Injection Zaneb Hyaluronan Or 018 MD Maximino Polk, Euflexxa Per Dose Injection Administered Injection Zaneb Hyaluronan Or MD Maximino Birch, Euflexxa Per Dose No Injection Administered Injection Jone F Adrianna Monte MD Depomedrol Administered Injection Jone F 40MG Adrianna Monte MD Depomedrol Administered Injection Jone F 20MG Adrianna Monte MD Synvisc Or Administered Injection Lynn Synvisc-One Adrianna Lawton M.D. Injection 1 MG Synvisc Or Administered Injection Lynn Synvisc-One Adrianna Lawton M.D. Injection 1 MG Synvisc Or Administered Injection Lynn Synvisc-One Hima Lawton M.D. Injection 1 MG Synvisc Or Administered Injection Lynn Synvisc-One 015 Jus Lawton Injection 1 MG Synvisc Or Administered Injection Lynn Synvisc-One 015 Jus Lawton Injection 1 MG Injection Administered Injection Lynn Hyaluronan Or Mak Lawton M.D. Derivative, Euflexxa Per Dose Injection Administered Injection Lynn Hyaluronan Or Mak Lawton M.D. Derivative, Euflexxa Per Dose Injection Administered Injection Lynn Hyaluronan Or Mak Lawton M.D. Derivative, Euflexxa Per Dose Depomedrol Administered Injection Lynn 80MG Mak Lawton M.D. Depomedrol Administered Injection Lynn 80MG Mak Lawton M.D. Immunizations CPT Code Status Date Vaccine Lot # [id number] Given 06/22/2018 Influenza Virus Vaccine, Quadrivalent, Split, [id number] Preservative Free 46559 Given 06/19/2017 Influenza Virus Vaccine, Quadrivalent, Split, [id number] Preservative Free 74984 Given 06/28/2016 Influ Virus Vaccine, Quadrivalent, Split Virus, [id number] [id number] Given 07/03/2015 Tdap - Tetanus/Diptheria/Acellular Pertussis [id number] 11209 Given 07/03/2015 Influenza Virus Vaccine, Quadrivalent, Split, [id number] Preservative Free 29333 Given 05/17/2014 Influenza Virus Vaccine, Quadrivalent, Split, [id number] Preservative Free 02841 Given 06/11/2013 Flu Vaccine Split Virus Preservative Free For [id number] Indiv 3Yr Older [id number] Given 06/05/2012 Fluvirin Im 3Yrs And Older [id number] 27556 Given 05/07/2011 Influenza Virus 3Yrs & Over [id number] 91017 Given 02/04/2011 Pneumonia Vaccine [id number] 65199 Given 05/04/2010 Influenza Virus 3Yrs & Over 22246 Given 07/29/2007 Influenza Virus 3Yrs & Over Vital Signs Date Vital Result Comment 11/30/2018 11:07am Height 64 inches 5'4" Weight 245.00 lb BP Systolic 140 mmHg BP Diastolic 64 mmHg Respiratory Rate 18 /min Body Temperature 98.3 F Pain Level 2 BMI (Body Mass Index) 42.0 kg/m2 11/27/2018 11:17am Height 64 inches 5'4" Weight 245.00 lb Heart Rate 104 /min BP Systolic 138 mmHg BP Diastolic 68 mmHg Pain Level 5 BMI (Body Mass Index) 42.0 kg/m2 11/16/2018 12:56pm Height 64 inches 5'4" Weight 244.50 lb Heart Rate 113 /min BP Systolic 131 mmHg BP Diastolic 71 mmHg Body Temperature 98.2 F O2 % BldC Oximetry 91 % BMI (Body Mass Index) 42.0 kg/m2 10/27/2018 3:43pm Height 64 inches 5'4" Weight 243.00 lb Heart Rate 110 /min BP Systolic Sitting 127 mmHg BP Diastolic Sitting 67 mmHg Body Temperature 98.9 F O2 % BldC Oximetry 95 % BMI (Body Mass Index) 41.7 kg/m2 10/08/2018 11:07am Height 64 inches 5'4" Weight 241.00 lb BP Systolic 142 mmHg BP Diastolic 76 mmHg Pain Level 2 BMI (Body Mass Index) 41.4 kg/m2 09/07/2018 12:37pm Height 64 inches 5'4" Weight 241.31 lb Heart Rate 120 /min BP Systolic Sitting 122 mmHg Rue large cuff BP Diastolic Sitting 78 mmHg Rue large cuff Respiratory Rate 12 /min O2 % BldC Oximetry 93 % BMI (Body Mass Index) 41.4 kg/m2 08/27/2018 10:34am Height 64 inches 5'4" Weight 241.00 lb BP Systolic 135 mmHg BP Diastolic 62 mmHg Respiratory Rate 16 /min Pain Level 6 BMI (Body Mass Index) 41.4 kg/m2 06/22/2018 2:58pm Height 64 inches 5'4" Weight 241.00 lb Heart Rate 110 /min BP Systolic Sitting 133 mmHg BP Diastolic Sitting 64 mmHg O2 % BldC Oximetry 95 % BMI (Body Mass Index) 41.4 kg/m2 06/08/2018 3:41pm Height 64 inches 5'4" Weight 247.00 lb Heart Rate 78 /min Respiratory Rate 16 /min Pain Level 1 BMI (Body Mass Index) 42.4 kg/m2 05/07/2018 2:12pm Height 64 inches 5'4" Weight 245.00 lb Heart Rate 96 /min BP Systolic Sitting 154 mmHg BP Diastolic Sitting 68 mmHg Respiratory Rate 16 /min Pain Level 2 BMI (Body Mass Index) 42.0 kg/m2 05/01/2018 8:41am Height 64 inches 5'4" Weight 245.50 lb Heart Rate 72 /min BP Systolic 138 mmHg BP Diastolic 82 mmHg BMI (Body Mass Index) 42.1 kg/m2 04/07/2018 1:05pm Height 64 inches 5'4" Weight 245.00 lb Heart Rate 104 /min BP Systolic 124 mmHg BP Diastolic 64 mmHg Respiratory Rate 16 /min Pain Level 1 BMI (Body Mass Index) 42.0 kg/m2 04/01/2018 9:51am Height 64 inches 5'4" Weight 243.00 lb BP Systolic 128 mmHg BP Diastolic 60 mmHg Respiratory Rate 18 /min Pain Level 1 BMI (Body Mass Index) 41.7 kg/m2 03/26/2018 8:01am Height 64 inches 5'4" Weight 243.00 lb BP Systolic 128 mmHg BP Diastolic 60 mmHg Respiratory Rate 20 /min Pain Level 3 BMI (Body Mass Index) 41.7 kg/m2 03/19/2018 2:01pm Height 64 inches 5'4" Weight 243.00 lb BP Systolic 132 mmHg BP Diastolic 70 mmHg Respiratory Rate 20 /min Body Temperature 96.9 F Pain Level 3 BMI (Body Mass Index) 41.7 kg/m2 03/03/2018 1:29pm Height 64 inches 5'4" Weight 243.00 lb Heart Rate 110 /min BP Systolic Sitting 128 mmHg Rue large cuff BP Diastolic Sitting 58 mmHg Rue large cuff Respiratory Rate 20 /min O2 % BldC Oximetry 94 % On Ra BMI (Body Mass Index) 41.7 kg/m2 02/10/2018 10:33am Height 64 inches 5'4" Weight 247.00 lb Heart Rate 96 /min BP Systolic 130 mmHg BP Diastolic 62 mmHg Pain Level 8 BMI (Body Mass Index) 42.4 kg/m2 02/05/2018 1:10pm Height 64 inches 5'4" Heart Rate 105 /min BP Systolic 128 mmHg BP Diastolic 70 mmHg Respiratory Rate 16 /min Body Temperature 97.3 F Pain Level 5 12/29/2017 1:55pm Height 64 inches 5'4" Weight 243.00 lb Heart Rate 112 /min BP Systolic Sitting 130 mmHg Lue large cuff BP Diastolic Sitting 58 mmHg Lue large cuff Respiratory Rate 18 /min O2 % BldC Oximetry 95 % On Ra BMI (Body Mass Index) 41.7 kg/m2 12/25/2017 12:56pm Height 64 inches 5'4" Weight 247.00 lb Heart Rate 118 /min Respiratory Rate 15 /min Pain Level 2 BMI (Body Mass Index) 42.4 kg/m2 12/18/2017 1:04pm Height 64 inches 5'4" Weight 247.00 lb Heart Rate 96 /min BP Systolic Sitting 149 mmHg BP Diastolic Sitting 71 mmHg Body Temperature 97.7 F O2 % BldC Oximetry 95 % BMI (Body Mass Index) 42.4 kg/m2 11/25/2017 2:34pm Height 64 inches 5'4" Heart Rate 123 /min BP Systolic 144 mmHg BP Diastolic 78 mmHg Respiratory Rate 16 /min Body Temperature 98.8 F Pain Level 2 11/11/2017 10:33am Height 64 inches 5'4" Weight 253.00 lb Heart Rate 100 /min BP Systolic 148 mmHg BP Diastolic 82 mmHg Respiratory Rate 16 /min BMI (Body Mass Index) 43.4 kg/m2 11/03/2017 11:27am Weight 253.00 lb Heart Rate 102 /min BP Systolic Sitting 138 mmHg BP Diastolic Sitting 86 mmHg Body Temperature 98.1 F O2 % BldC Oximetry 95 % 10/29/2017 1:08pm Height 64 inches 5'4" Weight 250.00 lb BP Systolic 146 mmHg BP Diastolic 70 mmHg Body Temperature 97.5 F Pain Level 1 BMI (Body Mass Index) 42.9 kg/m2 10/07/2017 3:01pm Height 64 inches 5'4" Weight 250.00 lb Heart Rate 100 /min Respiratory Rate 16 /min Pain Level 2 BMI (Body Mass Index) 42.9 kg/m2 09/02/2017 1:03pm Height 64 inches 5'4" Weight 250.00 lb BP Systolic 142 mmHg BP Diastolic 76 mmHg Respiratory Rate 16 /min Pain Level 1 BMI (Body Mass Index) 42.9 kg/m2 08/25/2017 8:10am Height 64 inches 5'4" Weight 251.00 lb Heart Rate 96 /min BP Systolic Sitting 112 mmHg BP Diastolic Sitting 80 mmHg Respiratory Rate 14 /min O2 % BldC Oximetry 95 % BMI (Body Mass Index) 43.1 kg/m2 Neck Circumference in inches 17.75 07/01/2017 1:20pm Height 64 inches 5'4" Weight 250.00 lb Heart Rate 116 /min Respiratory Rate 15 /min Body Temperature 97.2 F Pain Level 4 BMI (Body Mass Index) 42.9 kg/m2 06/19/2017 11:37am Height 64 inches 5'4" Weight 250.25 lb Heart Rate 99 /min BP Systolic Sitting 120 mmHg BP Diastolic Sitting 64 mmHg Respiratory Rate 16 /min BMI (Body Mass Index) 43.0 kg/m2 04/17/2017 2:43pm Height 64 inches 5'4" Weight 246.00 lb Heart Rate 88 /min BP Systolic Sitting 136 mmHg BP Diastolic Sitting 86 mmHg Respiratory Rate 17 /min Body Temperature 98.3 F Pain Level 1 BMI (Body Mass Index) 42.2 kg/m2 03/06/2017 12:59pm Height 64 inches 5'4" Weight 244.00 lb BP Systolic 132 mmHg BP Diastolic 70 mmHg Body Temperature 98.2 F Pain Level 2 BMI (Body Mass Index) 41.9 kg/m2 02/24/2017 1:06pm Weight 244.75 lb Heart Rate 97 /min BP Systolic 128 mmHg BP Diastolic 70 mmHg Body Temperature 97.6 F O2 % BldC Oximetry 98 % 02/06/2017 11:45am Height 64 inches 5'4" Weight 246.00 lb Heart Rate 86 /min BP Systolic Sitting 124 mmHg BP Diastolic Sitting 70 mmHg Respiratory Rate 16 /min BMI (Body Mass Index) 42.2 kg/m2 02/05/2017 9:35am Height 64 inches 5'4" Weight 246.00 lb BP Systolic 139 mmHg BP Diastolic 77 mmHg Respiratory Rate 14 /min Body Temperature 97.2 F Pain Level 2 BMI (Body Mass Index) 42.2 kg/m2 01/30/2017 9:09am Height 64 inches 5'4" Weight 246.00 lb Heart Rate 100 /min BP Systolic 142 mmHg BP Diastolic 80 mmHg Respiratory Rate 18 /min Body Temperature 97.7 F Pain Level 1 BMI (Body Mass Index) 42.2 kg/m2 01/06/2017 2:51pm Weight 249.00 lb Heart Rate 108 /min BP Systolic Sitting 132 mmHg BP Diastolic Sitting 64 mmHg Body Temperature 98.4 F O2 % BldC Oximetry 97 % 12/13/2016 10:53am Weight 242.50 lb Heart Rate 108 /min BP Systolic Sitting 140 mmHg BP Diastolic Sitting 78 mmHg Body Temperature 98.5 F O2 % BldC Oximetry 97 % 12/09/2016 2:39pm Weight 248.25 lb Heart Rate 115 /min BP Systolic 124 mmHg BP Diastolic 60 mmHg Body Temperature 98.1 F O2 % BldC Oximetry 93 % 10/09/2016 3:51pm Weight 251.00 lb with shoes Heart Rate 118 /min BP Systolic 120 mmHg BP Diastolic 66 mmHg Body Temperature 97.7 F Pain Level 96 07/22/2016 2:26pm Weight 245.00 lb Heart Rate 114 /min BP Systolic Sitting 122 mmHg BP Diastolic Sitting 58 mmHg Respiratory Rate 15 /min Body Temperature 98.0 F O2 % BldC Oximetry 98 % 06/28/2016 11:26am Height 64 inches 5'4" Weight 248.00 lb Heart Rate 96 /min BP Systolic 134 mmHg BP Diastolic 80 mmHg Body Temperature 98.3 F O2 % BldC Oximetry 96 % BMI (Body Mass Index) 42.6 kg/m2 06/27/2016 11:18am Height 64 inches 5'4" Weight 245.00 lb Heart Rate 72 /min BP Systolic Sitting 130 mmHg BP Diastolic Sitting 88 mmHg Respiratory Rate 14 /min BMI (Body Mass Index) 42.0 kg/m2 06/14/2016 12:00pm Height 64 inches 5'4" Weight 246.50 lb Heart Rate 112 /min BP Systolic Sitting 120 mmHg BP Diastolic Sitting 66 mmHg Body Temperature 97.5 F O2 % BldC Oximetry 97 % BMI (Body Mass Index) 42.3 kg/m2 03/26/2016 11:43am Weight 247.00 lb With Shoes Heart Rate 103 /min BP Systolic Sitting 140 mmHg BP Diastolic Sitting 80 mmHg Body Temperature 97.7 F O2 % BldC Oximetry 98 % 02/12/2016 11:51am Height 64 inches 5'4" Weight 245.00 lb Heart Rate 78 /min BP Systolic Sitting 122 mmHg BP Diastolic Sitting 70 mmHg Body Temperature 98.5 F O2 % BldC Oximetry 98 % BMI (Body Mass Index) 42.0 kg/m2 01/30/2016 11:44am Height 64 inches 5'4" Weight 244.00 lb Heart Rate 60 /min BP Systolic Sitting 120 mmHg BP Diastolic Sitting 74 mmHg Respiratory Rate 14 /min BMI (Body Mass Index) 41.9 kg/m2 12/26/2015 10:28am Weight 244.50 lb Heart Rate 108 /min BP Systolic Sitting 135 mmHg BP Diastolic Sitting 80 mmHg O2 % BldC Oximetry 97 % 11/14/2015 10:36am Height 63.75 inches 5'3.75" Weight 247.00 lb Heart Rate 90 /min BP Systolic Sitting 138 mmHg BP Diastolic Sitting 80 mmHg Respiratory Rate 15 /min Body Temperature 98.1 F O2 % BldC Oximetry 98 % BMI (Body Mass Index) 42.7 kg/m2 10/03/2015 10:42am Height 63.75 inches 5'3.75" Weight 243.00 lb Heart Rate 96 /min BP Systolic Sitting 134 mmHg BP Diastolic Sitting 82 mmHg Respiratory Rate 14 /min Body Temperature 98.3 F O2 % BldC Oximetry 98 % BMI (Body Mass Index) 42.0 kg/m2 09/07/2015 9:08am Height 63.75 inches 5'3.75" Heart Rate 92 /min BP Systolic Sitting 144 mmHg BP Diastolic Sitting 76 mmHg Respiratory Rate 16 /min 07/03/2015 10:31am Height 63.75 inches 5'3.75" Weight 245.38 lb Heart Rate 93 /min BP Systolic Sitting 144 mmHg BP Diastolic Sitting 85 mmHg Body Temperature 97.6 F O2 % BldC Oximetry 96 % BMI (Body Mass Index) 42.4 kg/m2 03/30/2015 3:43pm Height 64 inches 5'4" Weight 240.00 lb Heart Rate 92 /min BP Systolic Sitting 128 mmHg BP Diastolic Sitting 68 mmHg Respiratory Rate 16 /min BMI (Body Mass Index) 41.2 kg/m2 03/23/2015 10:54am Height 64 inches 5'4" Weight 240.00 lb Pain Level 1 increases with activity BMI (Body Mass Index) 41.2 kg/m2 03/16/2015 10:55am Height 64 inches 5'4" Weight 240.00 lb Pain Level 2 BMI (Body Mass Index) 41.2 kg/m2 03/14/2015 11:29am Weight 240.00 lb Heart Rate 107 /min BP Systolic Sitting 133 mmHg BP Diastolic Sitting 76 mmHg Body Temperature 96.6 F 03/09/2015 10:56am Height 64 inches 5'4" Weight 240.00 lb Pain Level 2 BMI (Body Mass Index) 41.2 kg/m2 02/02/2015 4:06pm Height 64 inches 5'4" Weight 240.00 lb Pain Level 8 BMI (Body Mass Index) 41.2 kg/m2 11/18/2014 3:44pm Weight 243.00 lb Heart Rate 106 /min BP Systolic Sitting 130 mmHg BP Diastolic Sitting 71 mmHg O2 % BldC Oximetry 98 % 11/17/2014 3:52pm Height 64.5 inches 5'4.50" Weight 244.00 lb Heart Rate 76 /min BP Systolic Sitting 128 mmHg BP Diastolic Sitting 68 mmHg Respiratory Rate 16 /min BMI (Body Mass Index) 41.2 kg/m2 06/17/2014 3:50pm Height 64.5 inches 5'4.50" Weight 234.50 lb Heart Rate 109 /min BP Systolic Sitting 104 mmHg BP Diastolic Sitting 58 mmHg Body Temperature 97.8 F O2 % BldC Oximetry 97 % BMI (Body Mass Index) 39.6 kg/m2 06/09/2014 3:25pm Height 64.5 inches 5'4.50" Weight 250.00 lb Heart Rate 100 /min BP Systolic Sitting 102 mmHg BP Diastolic Sitting 62 mmHg Respiratory Rate 16 /min BMI (Body Mass Index) 42.2 kg/m2 05/17/2014 8:47am Height 64.5 inches 5'4.50" Weight 250.00 lb Heart Rate 88 /min BP Systolic Sitting 142 mmHg BP Diastolic Sitting 80 mmHg Body Temperature 98.4 F BMI (Body Mass Index) 42.2 kg/m2 02/11/2014 3:45pm Weight 253.00 lb Heart Rate 116 /min BP Systolic Sitting 140 mmHg BP Diastolic Sitting 78 mmHg 01/07/2014 8:53am Height 64 inches 5'4" Weight 253.00 lb Heart Rate 72 /min BP Systolic Sitting 130 mmHg BP Diastolic Sitting 78 mmHg Respiratory Rate 16 /min BMI (Body Mass Index) 43.4 kg/m2 01/04/2014 4:44pm Height 64 inches 5'4" Weight 253.00 lb Heart Rate 72 /min BP Systolic 118 mmHg BP Diastolic 68 mmHg Body Temperature 98.6 F BMI (Body Mass Index) 43.4 kg/m2 12/29/2013 4:10pm Height 64 inches 5'4" Weight 257.00 lb Heart Rate 107 /min BP Systolic 127 mmHg BP Diastolic 75 mmHg BMI (Body Mass Index) 44.1 kg/m2 11/04/2013 3:49pm Weight 258.75 lb Heart Rate 100 /min BP Systolic Sitting 168 mmHg BP Diastolic Sitting 78 mmHg Respiratory Rate 24 /min Body Temperature 99.1 F 10/29/2013 4:14pm Height 64 inches Weight 160.00 lb Heart Rate 97 /min BP Systolic 137 mmHg BP Diastolic 88 mmHg BMI (Body Mass Index) 27.5 kg/m2 09/02/2013 4:22pm Weight 251.00 lb Heart Rate 98 /min BP Systolic Sitting 124 mmHg BP Diastolic Sitting 60 mmHg 07/26/2013 4:04pm Height 64 inches 5'4" Weight 257.00 lb Heart Rate 98 /min BP Systolic Sitting 130 mmHg BP Diastolic Sitting 70 mmHg BMI (Body Mass Index) 44.1 kg/m2 06/11/2013 2:41pm Height 64 inches 5'4" Weight 254.00 lb Heart Rate 104 /min BP Systolic Sitting 130 mmHg BP Diastolic Sitting 70 mmHg BMI (Body Mass Index) 43.6 kg/m2 12/07/2012 3:39pm Weight 248.50 lb Heart Rate 88 /min BP Systolic Sitting 124 mmHg 118/78 sitting BP Diastolic Sitting 80 mmHg 118/78 sitting 06/18/2012 10:21am Height 63.75 inches 5'3.75" Weight 237.00 lb Heart Rate 86 /min BP Systolic Sitting 128 mmHg BP Diastolic Sitting 80 mmHg Body Temperature 101.1 F BMI (Body Mass Index) 41.0 kg/m2 06/05/2012 3:01pm Height 63.75 inches 5'3.75" Weight 238.50 lb Heart Rate 90 /min BP Systolic Sitting 138 mmHg BP Diastolic Sitting 80 mmHg O2 % BldC Oximetry 96 % BMI (Body Mass Index) 41.3 kg/m2 03/12/2012 4:05pm Height 63.75 inches 5'3.75" Weight 242.00 lb Heart Rate 74 /min BP Systolic Sitting 126 mmHg BP Diastolic Sitting 70 mmHg BMI (Body Mass Index) 41.9 kg/m2 02/10/2012 3:39pm Height 63.75 inches 5'3.75" Weight 244.00 lb Heart Rate 76 /min BP Systolic Sitting 124 mmHg BP Diastolic Sitting 70 mmHg BMI (Body Mass Index) 42.2 kg/m2 09/12/2011 4:04pm Height 63.75 inches 5'3.75" Heart Rate 78 /min BP Systolic Sitting 120 mmHg BP Diastolic Sitting 78 mmHg 08/09/2011 3:00pm Height 63.75 inches 5'3.75" Weight 236.00 lb Heart Rate 100 /min BP Systolic Sitting 154 mmHg repeat 140/80 BP Diastolic Sitting 72 mmHg repeat 140/80 BMI (Body Mass Index) 40.8 kg/m2 06/04/2011 2:55pm Height 63.75 inches 5'3.75" Weight 240.75 lb Heart Rate 104 /min BP Systolic Sitting 140 mmHg BP Diastolic Sitting 80 mmHg BMI (Body Mass Index) 41.6 kg/m2 05/07/2011 3:48pm Height 63.5 inches 5'3.50" Weight 246.00 lb Heart Rate 68 /min BP Systolic Sitting 130 mmHg BP Diastolic Sitting 82 mmHg BMI (Body Mass Index) 42.9 kg/m2 02/04/2011 3:20pm Height 63.5 inches 5'3.50" Weight 245.00 lb Heart Rate 102 /min BP Systolic Sitting 120 mmHg BP Diastolic Sitting 70 mmHg BMI (Body Mass Index) 42.7 kg/m2 11/01/2010 4:03pm Weight 243.00 lb Heart Rate 92 /min BP Systolic 148 mmHg BP Diastolic 80 mmHg 08/13/2010 3:47pm Weight 235.00 lb Heart Rate 80 /min BP Systolic 130 mmHg BP Diastolic 80 mmHg 06/15/2010 3:41pm Weight 239.00 lb Heart Rate 84 /min BP Systolic 154 mmHg BP Diastolic 92 mmHg 05/04/2010 3:55pm Weight 242.00 lb Heart Rate 88 /min BP Systolic 130 mmHg BP Diastolic 80 mmHg 01/23/2010 8:20pm Height 64 inches 5'4" Weight 250.75 lb Heart Rate 88 /min BP Systolic 140 mmHg BP Diastolic 80 mmHg BMI (Body Mass Index) 43.0 kg/m2 Results Test Date Facility Test Result H/L Range Note CBC Auto Diff 11/26/2018 [facility] White Blood 5.9 10^3/uL N 3.5-10.[address] [place] [address] [phone] Red Blood Count 4.41 10^6/uL N 3.70-4.87 Hemoglobin 11.4 g/dL Low 12.0-16.0 Hematocrit 35 % N 33-41 Mean Corpuscular Volume 79 fL Low 80-97 Mean Corpuscular Hemoglobin 26 pg Low 27-31 Mean Corpuscular HGB Conc 33 g/dL N 31-36 Red Cell Distribution Width 19 % High 10.5-15 Platelet Count 192 10^3/uL N 150-450 Mean Platelet Volume 8.8 fL N 7.4-10.4 Abs Neutrophils 3.7 10^3/uL N 1.5-7.7 Abs Lymphocytes 1.6 10^3/uL N 1.0-4.8 Abs Monocytes 0.4 10^3/uL N 0-0.8 Abs Eosinophils 0.3 10^3/uL N 0-0.6 Abs Basophils 0 10^3/uL N 0-0.2 Abs Nucleated RBC 0 10^3/uL Granulocyte % 62.2 % Lymphocyte % 26.3 % Monocyte % 6.1 % Eosinophil % 4.9 % Basophil % 0.5 % Nucleated Red Blood Cells % 0.1 Inr/Protime 11/26/2018 [facility] Inr 1.00 N 0.77-1.[address] [place] [address] [phone] Laboratory test 11/26/2018 [facility] Partial 30.2 seconds N 26.0-36.[address] [place] [address] [place] [address] PTT [phone] Basic Metabolic 11/26/2018 [facility] Sodium 139 mmol/L N 135- [address] [place] [address] [phone] Potassium 4.2 mmol/L N 3.5-5.0 Chloride 98 mmol/L Low 101-111 Co2 Carbon Dioxide 28 mmol/L N 22-32 Anion Gap 13 mmol/L High 2-11 Glucose 128 mg/dL High 70-100 Blood Urea Nitrogen 18 mg/dL N 6-24 Creatinine 0.95 mg/dL N 0.51-0.95 BUN/Creatinine Ratio 18.9 N 8-20 Calcium 9.9 mg/dL N 8.6-10.3 Egfr Non- 60.0 >60 Egfr 72.6 >60 1 Type & Screen 11/26/2018 [facility] Patient Blood Type O Positive [address] [place] [address] [phone] Antibody Screen NEGATIVE CBC Auto Diff 11/16/2018 [facility] White Blood 6.2 10^3/uL N 3.5-10.8 [address] [facility] [address] [phone] Red Blood Count 4.45 10^6/uL N 3.70-4.87 Hemoglobin 11.6 g/dL Low 12.0-16.0 Hematocrit 35 % N 33-41 Mean Corpuscular Volume 80 fL N 80-97 Mean Corpuscular Hemoglobin 26 pg Low 27-31 Mean Corpuscular HGB Conc 33 g/dL N 31-36 Red Cell Distribution Width 19 % High 10.5-15 Platelet Count 202 10^3/uL N 150-450 Mean Platelet Volume 8.9 fL N 7.4-10.4 Abs Neutrophils 3.9 10^3/uL N 1.5-7.7 Abs Lymphocytes 1.6 10^3/uL N 1.0-4.8 Abs Monocytes 0.4 10^3/uL N 0-0.8 Abs Eosinophils 0.3 10^3/uL N 0-0.6 Abs Basophils 0.1 10^3/uL N 0-0.2 Abs Nucleated RBC 0 10^3/uL Granulocyte % 62.5 % Lymphocyte % 25.4 % Monocyte % 6.5 % Eosinophil % 4.6 % Basophil % 1.0 % Nucleated Red Blood Cells % 0.1 Basic Metabolic Panel 11/16/2018 [facility] Sodium 139 mmol/L N 135-[address] [place] [address] [phone] Potassium 4.2 mmol/L N 3.5-5.0 Chloride 100 mmol/L Low 101-111 Co2 Carbon Dioxide 27 mmol/L N 22-32 Anion Gap 12 mmol/L High 2-11 Glucose 118 mg/dL High 70-100 Blood Urea Nitrogen 18 mg/dL N 6-24 Creatinine 0.85 mg/dL N 0.51-0.95 BUN/Creatinine Ratio 21.2 High 8-20 Calcium 9.7 mg/dL N 8.6-10.3 Egfr Non- 68.2 >60 Egfr 82.5 >60 2 Urine Culture And 11/16/2018 [facility] Urine Culture SEE RESULT [address] [place] [address] [phone] Inr/Protime 11/16/2018 [facility] Inr 0.99 N 0.77- [address] 1.02 [place] [address] [phone] Laboratory test 07/23/2018 [facility] Hemoglobin A1c 6.7 finding Lipid Profile 06/18/2018 [facility] Triglycerides 218 mg/dL 4 (Trig/Chol/HDL) [address] [place] [address] [phone] Cholesterol 173 mg/dL 5 HDL Cholesterol 47.8 mg/dL 6 LDL Cholesterol 82 mg/dL 7 Comp Metabolic Panel 06/18/2018 [facility] Sodium 142 mmol/L N 135-[address] [place] [address] [phone] Potassium 4.2 mmol/L N 3.5-5.0 Chloride 103 mmol/L N 101-111 Co2 Carbon Dioxide 27 mmol/L N 22-32 Anion Gap 12 mmol/L High 2-11 Glucose 153 mg/dL High 70-100 Blood Urea Nitrogen 24 mg/dL N 6-24 Creatinine 1.14 mg/dL High 0.51-0.95 BUN/Creatinine Ratio 21.1 High 8-20 Calcium 9.7 mg/dL N 8.6-10.3 Total Protein 7.1 g/dL N 6.4-8.9 Albumin 4.2 g/dL N 3.2-5.2 Globulin 2.9 g/dL N 2-4 Albumin/Globulin Ratio 1.4 N 1-3 Total Bilirubin 0.40 mg/dL N 0.2-1.0 Alkaline Phosphatase 75 U/L N 34-104 Alt 25 U/L N 7-52 Ast 29 U/L N 13-39 Egfr Non- 48.6 >60 Egfr 58.8 >60 8 CBC Auto Diff 06/18/2018 [facility] White Blood 7.9 10^3/uL N 3.5-10.[address] [place] [address] [phone] Red Blood Count 4.56 10^6/uL N 4.00-5.40 Hemoglobin 11.9 g/dL Low 12.0-16.0 Hematocrit 37 % N 35-47 Mean Corpuscular Volume 81 fL N 80-97 Mean Corpuscular Hemoglobin 26 pg Low 27-31 Mean Corpuscular HGB Conc 32 g/dL N 31-36 Red Cell Distribution Width 18 % High 10.5-15 Platelet Count 199 10^3/uL N 150-450 Mean Platelet Volume 8.9 um3 N 7.4-10.4 Abs Neutrophils 5.5 10^3/uL N 1.5-7.7 Abs Lymphocytes 1.6 10^3/uL N 1.0-4.8 Abs Monocytes 0.5 10^3/uL N 0-0.8 Abs Eosinophils 0.2 10^3/uL N 0-0.6 Abs Basophils 0 10^3/uL N 0-0.2 Abs Nucleated RBC 0 10^3/uL Granulocyte % 69.2 % N 38-83 Lymphocyte % 20.4 % Low 25-47 Monocyte % 6.7 % N 0-7 Eosinophil % 3.1 % N 0-6 Basophil % 0.6 % N 0-2 Nucleated Red Blood Cells % 0 Urine Microalbumin 06/18/2018 [facility] Ur Microalbumin 88.[address] (mg/L) [place] [address] [phone] Urine Creatinine 123.90 mg/dL Urine Microalbumin/Creatinine 71.3 High <31 CBC Auto Diff 06/16/2018 [facility] White Blood 10.1 10^3/uL N 3.5-10.[address] [place] [address] [phone] Red Blood Count 4.58 10^6/uL N 4.00-5.40 Hemoglobin 11.9 g/dL Low 12.0-16.0 Hematocrit 37 % N 35-47 Mean Corpuscular Volume 80 fL N 80-97 Mean Corpuscular Hemoglobin 26 pg Low 27-31 Mean Corpuscular HGB Conc 33 g/dL N 31-36 Red Cell Distribution Width 19 % High 10.5-15 Platelet Count 193 10^3/uL N 150-450 Mean Platelet Volume 8.3 um3 N 7.4-10.4 Abs Neutrophils 7.7 10^3/uL N 1.5-7.7 Abs Lymphocytes 1.4 10^3/uL N 1.0-4.8 Abs Monocytes 0.7 10^3/uL N 0-0.8 Abs Eosinophils 0.1 10^3/uL N 0-0.6 Abs Basophils 0.1 10^3/uL N 0-0.2 Abs Nucleated RBC 0 10^3/uL Granulocyte % 76.1 % N 38-83 Lymphocyte % 14.2 % Low 25-47 Monocyte % 7.1 % High 0-7 Eosinophil % 1.5 % N 0-6 Basophil % 1.1 % N 0-2 Nucleated Red Blood Cells % 0 Urinalysis Profile 06/16/2018 [facility] Urine Color Yellow [address] [place] [address] [phone] Urine Appearance Cloudy Urine Specific [place] 1.017 N 1.010-1.030 Urine pH 7.0 N 5-9 Urine Urobilinogen Negative Negative Urine Ketones Negative Negative Urine Protein 2+(100 mg/dL) Abnormal Negative Urine Leukocytes 3+ Abnormal Negative Urine Blood 3+ Abnormal Negative Urine Nitrite Negative Negative Urine Bilirubin Negative Negative Urine Glucose Negative Negative Urine White Blood Cell 3+(>20/hpf) Abnormal Absent Urine Red Blood Cell 3+(>10/hpf) Abnormal Absent Urine Bacteria Absent Absent Urine Squamous Epithelial Cell Present Abnormal Absent Inr/Protime 06/16/2018 [facility] Inr 1.01 N 0.77-1.02 [address] [place] [address] [phone] Laboratory test 06/16/2018 [facility] Partial 29.7 seconds N 26.0-36.3 finding [address] [facility] [place] [address] PTT [phone] Lactic Acid 1.1 mmol/L N 0.5-2.0 9 Comp Metabolic Panel 06/16/2018 [facility] Sodium 136 mmol/L N 135-145 [address] [place] [address] [phone] Potassium 3.9 mmol/L N 3.5-5.0 Chloride 99 mmol/L Low 101-111 Co2 Carbon Dioxide 26 mmol/L N 22-32 Anion Gap 11 mmol/L N 2-11 Glucose 185 mg/dL High 70-100 Blood Urea Nitrogen 21 mg/dL N 6-24 Creatinine 1.06 mg/dL High 0.51-0.95 BUN/Creatinine Ratio 19.8 N 8-20 Calcium 9.2 mg/dL N 8.6-10.3 Total Protein 7.1 g/dL N 6.4-8.9 Albumin 4.0 g/dL N 3.2-5.2 Globulin 3.1 g/dL N 2-4 Albumin/Globulin Ratio 1.3 N 1-3 Total Bilirubin 0.30 mg/dL N 0.2-1.0 Alkaline Phosphatase 61 U/L N 34-104 Alt 26 U/L N 7-52 Ast 29 U/L N 13-39 Egfr Non- 52.9 >60 Egfr 64.0 >60 10 Laboratory test finding 06/16/2018 [facility] Lipase 36 U/L N 11.0-82.[address] [place] [address] [phone] Troponin-I (TnI) 0.00 ng/mL <0.04 Urine Culture And 06/16/2018 [facility] Urine Culture SEE RESULT [address] [place] [address] [phone] Laboratory test 04/14/2018 [facility] Hemoglobin A1c 6.5 finding Basic Metabolic 02/02/2018 [facility] Sodium 140 mmol/L N 135- [address] [place] [address] [phone] Potassium 4.3 mmol/L N 3.5-5.0 Chloride 100 mmol/L Low 101-111 Co2 Carbon Dioxide 27 mmol/L N 22-32 Anion Gap 13 mmol/L High 2-11 Glucose 137 mg/dL High 70-100 Blood Urea Nitrogen 16 mg/dL N 6-24 Creatinine 1.13 mg/dL High 0.51-0.95 BUN/Creatinine Ratio 14.2 N 8-20 Calcium 9.7 mg/dL N 8.6-10.3 Egfr Non- 49.3 >60 Egfr 63.4 >60 12 Laboratory test 11/14/2017 [facility] Point of 230 mg/dL High 70-100 13 finding [address] [facility] [place] [address] [phone] Laboratory test 11/14/2017 [facility] Point of 240 mg/dL High 70-100 [address] [facility] [address] [phone] Order 11/04/2017 [facility] EKG <pending> Urinalysis 11/04/2017 [facility] Urine Color Yellow [address] [place] [address] [phone] Urine Appearance Clear Urine Specific [place] 1.018 N 1.010-1.030 Urine pH 5.0 N 5-9 Urine Urobilinogen Negative Negative Urine Ketones Trace Abnormal Negative Urine Protein Negative Negative Urine Leukocytes Negative Negative Urine Blood Negative Negative * * Abnormal Negative 16 Urine Nitrite Negative Negative Urine Bilirubin Negative Negative Urine Glucose Negative Negative Urine Culture And 11/04/2017 [facility] Urine Culture SEE RESULT [address] [place] [address] [phone] Comp Metabolic 11/04/2017 [facility] Sodium 137 mmol/L N 133- [address] [place] [address] [phone] Potassium 3.9 mmol/L N 3.5-5.0 Chloride 100 mmol/L Low 101-111 Co2 Carbon Dioxide 24 mmol/L N 22-32 Anion Gap 13 mmol/L High 2-11 Glucose 176 mg/dL High 70-100 Blood Urea Nitrogen 12 mg/dL N 6-24 Creatinine 0.81 mg/dL N 0.51-0.95 BUN/Creatinine Ratio 14.8 N 8-20 Calcium 9.3 mg/dL N 8.6-10.3 Total Protein 6.7 g/dL N 6.4-8.9 Albumin 4.1 g/dL N 3.2-5.2 Globulin 2.6 g/dL N 2-4 Albumin/Globulin Ratio 1.6 N 1-3 Total Bilirubin 0.40 mg/dL N 0.2-1.0 Alkaline Phosphatase 67 U/L N 34-104 Alt 24 U/L N 7-52 Ast 42 U/L High 13-39 Egfr Non- 72.4 >60 Egfr 93.1 >60 18 CBC Auto Diff 11/04/2017 [facility] White Blood 4.7 10^3/uL N 3.5-10.[address] [place] [address] [phone] Red Blood Count 4.48 10^6/uL N 4.0-5.4 Hemoglobin 12.0 g/dL N 12.0-16.0 Hematocrit 36 % N 35-47 Mean Corpuscular Volume 79 fL Low 80-97 Mean Corpuscular Hemoglobin 27 pg N 27-31 Mean Corpuscular HGB Conc 34 g/dL N 31-36 Red Cell Distribution Width 19 % High 10.5-15 Platelet Count 163 10^3/uL N 150-450 Mean Platelet Volume 9 um3 N 7.4-10.4 Abs Neutrophils 2.9 10^3/uL N 1.5-7.7 Abs Lymphocytes 1.2 10^3/uL N 1.0-4.8 Abs Monocytes 0.3 10^3/uL N 0-0.8 Abs Eosinophils 0.2 10^3/uL N 0-0.6 Abs Basophils 0 10^3/uL N 0-0.2 Abs Nucleated RBC 0 10^3/uL Granulocyte % 61.7 % N 38-83 Lymphocyte % 26.8 % N 25-47 Monocyte % 6.8 % N 0-7 Eosinophil % 4.1 % N 0-6 Basophil % 0.6 % N 0-2 Nucleated Red Blood Cells % 0.1 Iron & Iron Binding 11/04/2017 [facility] Iron 75 g/dL N 50- 212 Capacity [address] [place] [address] [phone] Unsaturated Iron Binding 384 g/dL Total Iron Binding Capacity 459 g/dL High 250-450 Transferrin 328 mg/dL N 203-362 % Iron Saturation 16 % N 15-55 Laboratory test 11/04/2017 [facility] Vitamin B12 717 pg/mL N 180-914 19 finding [address] [place] [address] [phone] Laboratory test 09/23/2017 [facility] Hemoglobin A1c 7.9 finding Laboratory test 09/23/2017 [facility] Hemoglobin A1c 7.9 finding Laboratory test 07/01/2017 [facility] Surgical SEE RESULT 20 finding [address] [facility] [place] [address] [phone] Laboratory test 06/25/2017 [facility] Saliva Cortisol TNP () 21 finding [address] [place] [address] [phone] Laboratory test 06/24/2017 [facility] Saliva Cortisol 59 ng/dL <100 22 finding [address] [place] [address] [phone] Lipid Profile 06/09/2017 [facility] Triglycerides 378 mg/dL N 23 (Trig/Chol/HDL) [address] [place] [address] [phone] Cholesterol 182 mg/dL N 24 HDL Cholesterol 28.2 mg/dL N 25 LDL Cholesterol 78 mg/dL N 26 Comp Metabolic Panel 06/09/2017 [facility] Sodium 137 mmol/L N 133-145 [address] [place] [address] [phone] Potassium 4.0 mmol/L N 3.5-5.0 Chloride 100 mmol/L Low 101-111 Co2 Carbon Dioxide 29 mmol/L N 22-32 Anion Gap 8 mmol/L N 2-11 Glucose 178 mg/dL High 70-100 Blood Urea Nitrogen 16 mg/dL N 6-24 Creatinine 0.79 mg/dL N 0.51-0.95 BUN/Creatinine Ratio 20.3 High 8-20 Calcium 9.1 mg/dL N 8.6-10.3 Total Protein 6.6 g/dL N 6.4-8.9 Albumin 4.0 g/dL N 3.2-5.2 Globulin 2.6 g/dL N 2-4 Albumin/Globulin Ratio 1.5 N 1-3 Total Bilirubin 0.30 mg/dL N 0.2-1.0 Alkaline Phosphatase 52 U/L N 34-104 Alt 21 U/L N 7-52 Ast 45 U/L High 13-39 Egfr Non- 74.5 N >60 Egfr 95.8 N >60 27 CBC Auto Diff 06/09/2017 [facility] White Blood 4.4 10^3/uL N 3.5-10.[address] [place] [address] [phone] Red Blood Count 3.98 10^6/uL Low 4.0-5.4 Hemoglobin 10.5 g/dL Low 12.0-16.0 Hematocrit 32 % Low 35-47 Mean Corpuscular Volume 81 fL N 80-97 Mean Corpuscular Hemoglobin 26 pg Low 27-31 Mean Corpuscular HGB Conc 33 g/dL N 31-36 Red Cell Distribution Width 19 % High 10.5-15 Platelet Count 157 10^3/uL N 150-450 Mean Platelet Volume 9 um3 N 7.4-10.4 Abs Neutrophils 2.8 10^3/uL N 1.5-7.7 Abs Lymphocytes 1.1 10^3/uL N 1.0-4.8 Abs Monocytes 0.3 10^3/uL N 0-0.8 Abs Eosinophils 0.2 10^3/uL N 0-0.6 Abs Basophils 0 10^3/uL N 0-0.2 Abs Nucleated RBC 0 10^3/uL N Granulocyte % 62.8 % N 38-83 Lymphocyte % 25.5 % N 25-47 Monocyte % 6.9 % N 1-9 Eosinophil % 3.9 % N 0-6 Basophil % 0.9 % N 0-2 Nucleated Red Blood Cells % 0.1 N Iron & Iron Binding 06/09/2017 [facility] Iron 49 g/dL Low 50-[address] [place] [address] [phone] Unsaturated Iron Binding 430 g/dL N Total Iron Binding Capacity 479 g/dL High 250-450 % Iron Saturation 10 % Low 15-55 CBC Auto Diff 02/06/2017 [facility] White Blood 5.3 10^3/uL N 3.5-10.[address] [place] [address] [phone] Red Blood Count 4.54 10^6/uL N 4.0-5.4 Hemoglobin 11.4 g/dL Low 12.0-16.0 Hematocrit 35 % N 35-47 Mean Corpuscular Volume 78 fL Low 80-97 Mean Corpuscular Hemoglobin 25 pg Low 27-31 Mean Corpuscular HGB Conc 32 g/dL N 31-36 Red Cell Distribution Width 18 % High 10.5-15 Platelet Count 170 10^3/uL N 150-450 Mean Platelet Volume 9 um3 N 7.4-10.4 Abs Neutrophils 3.1 10^3/uL N 1.5-7.7 Abs Lymphocytes 1.5 10^3/uL N 1.0-4.8 Abs Monocytes 0.4 10^3/uL N 0-0.8 Abs Eosinophils 0.3 10^3/uL N 0-0.6 Abs Basophils 0 10^3/uL N 0-0.2 Abs Nucleated RBC 0 10^3/uL N Granulocyte % 58.4 % N 38-83 Lymphocyte % 28.9 % N 25-47 Monocyte % 7.2 % N 1-9 Eosinophil % 4.8 % N 0-6 Basophil % 0.7 % N 0-2 Nucleated Red Blood Cells % 0 N Comp Metabolic Panel 02/06/2017 [facility] Sodium 137 mmol/L N 133-[address] [place] [address] [phone] Potassium 4.1 mmol/L N 3.5-5.0 Chloride 100 mmol/L Low 101-111 Co2 Carbon Dioxide 27 mmol/L N 22-32 Anion Gap 10 mmol/L N 2-11 Glucose 101 mg/dL High 70-100 Blood Urea Nitrogen 12 mg/dL N 6-24 Creatinine 0.80 mg/dL N 0.51-0.95 BUN/Creatinine Ratio 15.0 N 8-20 Calcium 9.3 mg/dL N 8.6-10.3 Total Protein 7.1 g/dL N 6.4-8.9 Albumin 4.1 g/dL N 3.2-5.2 Globulin 3.0 g/dL N 2-4 Albumin/Globulin Ratio 1.4 N 1-3 Total Bilirubin 0.30 mg/dL N 0.2-1.0 Alkaline Phosphatase 57 U/L N 34-104 Alt 31 U/L N 7-52 Ast 70 U/L High 13-39 Egfr Non- 73.7 N >60 Egfr 94.7 N >60 28 Laboratory test 02/06/2017 [facility] Nortriptyline 100 ng/mL N 70-170 [address] ([place]amelor) [place] [address] [phone] Urine 12/13/2016 [facility] Urine Creatinine 266.[address] mg/[place] [address] [phone] Ur Microalbumin (mg/L) 43.9 mg/L N Urine Microalbumin/Creatinine 16.4 ug/mg N <31 Laboratory test 12/13/2016 [facility] Hemoglobin A1c 8.4 High 5-7 finding Lipid Profile 06/18/2016 [facility] Triglycerides 339 mg/dL N 30 (Trig/Chol/HDL) [address] [place] [address] [phone] Cholesterol 162 mg/dL N 31 HDL Cholesterol 21.3 mg/dL N 32 LDL Cholesterol 73 mg/dL N 33 Laboratory test 06/18/2016 [facility] Hemoglobin A1c 7.6 % High Less than [address] (Glyco HGB) 6.0 [place] [address] [phone] CBC Auto Diff 06/18/2016 [facility] White Blood 4.9 N 3.5- 10.[address] Count 10^3/[place] [address] [phone] Red Blood Count 4.61 10^6/uL N 4.0-5.4 Hemoglobin 11.5 g/dL Low 12.0-16.0 Hematocrit 36 % N 35-47 Mean Corpuscular Volume 78 fL Low 80-97 Mean Corpuscular Hemoglobin 25 pg Low 27-31 Mean Corpuscular HGB Conc 32 g/dL N 31-36 Red Cell Distribution Width 18 % High 10.5-15 Platelet Count 183 10^3/uL N 150-450 Mean Platelet Volume 9 um3 N 7.4-10.4 Abs Neutrophils 3.0 10^3/uL N 1.5-7.7 Abs Lymphocytes 1.4 10^3/uL N 1.0-4.8 Abs Monocytes 0.3 10^3/uL N 0-0.8 Abs Eosinophils 0.2 10^3/uL N 0-0.6 Abs Basophils 0 10^3/uL N 0-0.2 Abs Nucleated RBC 0 10^3/uL N Granulocyte % 60.7 % N 38-83 Lymphocyte % 28.5 % N 25-47 Monocyte % 6.5 % N 1-9 Eosinophil % 3.5 % N 0-6 Basophil % 0.8 % N 0-2 Nucleated Red Blood Cells % 0.1 N Comp Metabolic Panel 06/18/2016 [facility] Sodium 135 mmol/L N 133-[address] [place] [address] [phone] Potassium 4.2 mmol/L N 3.5-5.0 Chloride 99 mmol/L Low 101-111 Co2 Carbon Dioxide 27 mmol/L N 22-32 Anion Gap 9 mmol/L N 2-11 Glucose 147 mg/dL High 70-100 Blood Urea Nitrogen 18 mg/dL N 6-24 Creatinine 0.85 mg/dL N 0.51-0.95 BUN/Creatinine Ratio 21.2 High 8-20 Calcium 9.3 mg/dL N 8.6-10.3 Total Protein 7.5 g/dL N 6.4-8.9 Albumin 4.1 g/dL N 3.2-5.2 Globulin 3.4 g/dL N 2-4 Albumin/Globulin Ratio 1.2 N 1-3 Total Bilirubin 0.30 mg/dL N 0.2-1.0 Alkaline Phosphatase 60 U/L N 34-104 Alt 22 U/L N 7-52 Ast 48 U/L High 13-39 Egfr Non- 68.7 N >60 Egfr 88.3 N >60 35 Laboratory test 03/26/2016 [facility] Hemoglobin A1c 8.0 High 5-7 finding Comp Metabolic 12/21/2015 [facility] Sodium 136 mmol/L N 133- 145 Panel [address] [place] [address] [phone] Potassium 4.3 mmol/L N 3.5-5.0 Chloride 98 mmol/L Low 101-111 Co2 Carbon Dioxide 28 mmol/L N 22-32 Anion Gap 10 mmol/L N 2-11 Glucose 205 mg/dL High 70-100 Blood Urea Nitrogen 14 mg/dL N 6-24 Creatinine 0.90 mg/dL N 0.51-0.95 BUN/Creatinine Ratio 15.6 N 8-20 Calcium 9.4 mg/dL N 8.6-10.3 Total Protein 7.0 g/dL N 6.4-8.9 Albumin 4.4 g/dL N 3.2-5.2 Globulin 2.6 g/dL N 2-4 Albumin/Globulin Ratio 1.7 N 1-3 Total Bilirubin 0.30 mg/dL N 0.2-1.0 Alkaline Phosphatase 70 U/L N 34-104 Alt 32 U/L N 7-52 Ast 58 U/L High 13-39 Egfr Non- 64.5 N >60 Egfr 83.0 N >60 36 Lipid Profile 12/21/2015 [facility] Triglycerides 427 mg/dL N 37 (Trig/Chol/HDL) [address] [place] [address] [phone] Cholesterol 216 mg/dL N 38 HDL Cholesterol 34.8 mg/dL N 39 LDL Cholesterol (SEE NOTE) mg/dL N 40 Laboratory test 12/21/2015 [facility] LDL Cholesterol 130 mg/dL N [address] [place] [address] [phone] Lipid Profile 12/21/2015 [facility] Triglycerides 427 mg/dL N 42 (Trig/Chol/HDL) [address] [place], [place] [address] [phone] Cholesterol 216 mg/dL N 43 HDL Cholesterol 34.8 mg/dL N 44 LDL Cholesterol (SEE NOTE) mg/dL N 45 Comp Metabolic Panel 12/21/2015 [facility] Sodium 136 mmol/L N 133-[address] [place] [address] [phone] Potassium 4.3 mmol/L N 3.5-5.0 Chloride 98 mmol/L Low 101-111 Co2 Carbon Dioxide 28 mmol/L N 22-32 Anion Gap 10 mmol/L N 2-11 Glucose 205 mg/dL High 70-100 Blood Urea Nitrogen 14 mg/dL N 6-24 Creatinine 0.90 mg/dL N 0.51-0.95 BUN/Creatinine Ratio 15.6 N 8-20 Calcium 9.4 mg/dL N 8.6-10.3 Total Protein 7.0 g/dL N 6.4-8.9 Albumin 4.4 g/dL N 3.2-5.2 Globulin 2.6 g/dL N 2-4 Albumin/Globulin Ratio 1.7 N 1-3 Total Bilirubin 0.30 mg/dL N 0.2-1.0 Alkaline Phosphatase 70 U/L N 34-104 Alt 32 U/L N 7-52 Ast 58 U/L High 13-39 Egfr Non- 64.5 N >60 Egfr 83.0 N >60 46 Urine Microalbumin 12/21/2015 [facility] Ur Microalbumin 22.0 mg /L N Random [address] (mg/L) [place] [address] [phone] Urine Creatinine 237.02 mg/dL N Urine Microalbumin/Creatinine 9.2 ug/mg N <31 Laboratory test 12/21/2015 [facility] Hemoglobin A1c 10.5 % High Less [address] (Glyco HGB) than 6.0 [place] [address] [phone] Cortisol Free 10/09/2015 [facility] Urine Free 18 N 3.5-45 48 24HR Urine [address] Cortisol mcg/24h [place] [address] [phone] Urine Collection Duration 24 h N Urine Total Volume 2650 mL N 49 Laboratory test 09/06/2015 [facility] Point of Care 212 mg/dL High 74-106 [address] [place] [address] [phone] Laboratory test 09/06/2015 [facility] Surgical SEE RESULT [address] [place] [place] [address] [phone] Laboratory test 08/02/2015 [facility] Cortisol 16.79 N [address] ?g/[place] [address] [phone] Comp Metabolic 08/02/2015 [facility] Sodium 135 mmol/L N 133- [address] [place] [address] [phone] Potassium 4.0 mmol/L N 3.5-5.0 Chloride 97 mmol/L Low 101-111 Co2 Carbon Dioxide 26 mmol/L N 22-32 Anion Gap 12 mmol/L High 2-11 Glucose 292 mg/dL High 70-100 Blood Urea Nitrogen 16 mg/dL N 6-24 Creatinine 0.83 mg/dL N 0.51-0.95 BUN/Creatinine Ratio 19.3 N 8-20 Calcium 9.5 mg/dL N 8.6-10.3 Total Protein 6.9 g/dL N 6.4-8.9 Albumin 4.3 g/dL N 3.2-5.2 Globulin 2.6 g/dL N 2-4 Albumin/Globulin Ratio 1.7 N 1-3 Total Bilirubin 0.30 mg/dL N 0.2-1.0 Alkaline Phosphatase 80 U/L N 34-104 Alt 30 U/L N 7-52 Ast 38 U/L N 13-39 Egfr Non- 70.9 N >60 Egfr 91.1 N >60 53 Laboratory test 07/03/2015 [facility] HPV Rna Negative N Negative [address] Ww/[place] [address] Genotype [phone] Cytology SEE RESULT BELOW 55 Laboratory test 07/03/2015 [facility] Hemoglobin A1c 7.6 High 5-7 finding CBC Auto Diff 05/26/2015 [facility] White Blood Count 6.0 N 4.8-10.[address] 10^3/[place] [address] [phone] Red Blood Count 5.06 10^6/uL N 4.0-5.4 Hemoglobin 13.1 g/dL N 12.0-16.0 Hematocrit 41 % N 35-47 Mean Corpuscular Volume 81 fL N 80-97 Mean Corpuscular Hemoglobin 26 pg Low 27-31 Mean Corpuscular HGB Conc 32 g/dL N 31-36 Red Cell Distribution Width 16 % High 10.5-15 Platelet Count 221 10^3/uL N 150-450 Mean Platelet Volume 10 um3 N 7.4-10.4 Abs Neutrophils 3.6 10^3/uL N 1.5-7.7 Abs Lymphocytes 1.7 10^3/uL N 1.0-4.8 Abs Monocytes 0.4 10^3/uL N 0-0.8 Abs Eosinophils 0.2 10^3/uL N 0-0.6 Abs Basophils 0.1 10^3/uL N 0-0.2 Abs Nucleated RBC 0.01 10^3/uL N Granulocyte % 60.0 % N 38-83 Lymphocyte % 28.5 % N 25-47 Monocyte % 6.5 % N 1-9 Eosinophil % 4.1 % N 0-6 Basophil % 0.9 % N 0-2 Nucleated Red Blood Cells % 0.2 N Comp Metabolic Panel 05/26/2015 [facility] Sodium 136 mmol/L N 133-[address] [place] [address] [phone] Potassium 4.2 mmol/L N 3.5-5.0 Chloride 97 mmol/L Low 101-111 Co2 Carbon Dioxide 29 mmol/L N 22-32 Anion Gap 10 mmol/L N 2-11 Glucose 150 mg/dL High 70-100 Blood Urea Nitrogen 20 mg/dL N 6-24 Creatinine 0.95 mg/dL N 0.51-0.95 BUN/Creatinine Ratio 21.1 High 8-20 Calcium 9.9 mg/dL N 8.6-10.3 Total Protein 7.4 g/dL N 6.4-8.9 Albumin 4.7 g/dL N 3.2-5.2 Globulin 2.7 g/dL N 2-4 Albumin/Globulin Ratio 1.7 N 1-3 Total Bilirubin 0.30 mg/dL N 0.2-1.0 Alkaline Phosphatase 63 U/L N 34-104 Alt 39 U/L N 7-52 Ast 57 U/L High 13-39 Egfr Non- 60.6 N >60 Egfr 78.0 N >60 56 Lipid Profile 03/06/2015 [facility] Triglycerides 296 mg/dL N 57, 58 (Trig/Chol/HDL) [address] [place] [address] [phone] Cholesterol 161 mg/dL N 59 HDL Cholesterol 33.6 mg/dL N 60 LDL Cholesterol 68 mg/dL N 61 Comp Metabolic Panel 03/06/2015 [facility] Sodium 137 mmol/L N 133-[address] [place] [address] [phone] Potassium 4.3 mmol/L N 3.5-5.0 Chloride 102 mmol/L N 101-111 Co2 Carbon Dioxide 25 mmol/L N 22-32 Anion Gap 10 mmol/L N 2-11 Glucose 183 mg/dL High 70-100 Blood Urea Nitrogen 19 mg/dL N 6-24 Creatinine 0.89 mg/dL N 0.51-0.95 BUN/Creatinine Ratio 21.3 High 8-20 Calcium 9.6 mg/dL N 8.6-10.3 Total Protein 7.2 g/dL N 6.4-8.9 Albumin 4.5 g/dL N 3.2-5.2 Globulin 2.7 g/dL N 2-4 Albumin/Globulin Ratio 1.7 N 1-3 Total Bilirubin 0.30 mg/dL N 0.2-1.0 Alkaline Phosphatase 67 U/L N 34-104 Alt 43 U/L N 7-52 Ast 52 U/L High 13-39 Egfr Non- 65.6 N >60 Egfr 84.4 N >60 62 Urine Microalbumin 03/06/2015 [facility] Ur Microalbumin 6.0 mg/ L N Random [address] (mg/L) [place] [address] [phone] Urine Creatinine 65.36 mg/dL N Urine Microalbumin/Creatinine 9.1 ug/mg N <31 Laboratory test 03/06/2015 [facility] Hemoglobin A1c 6.8 % High Less than [address] (Glyco HGB) 6.0 [place] [address] [phone] TSH (Thyroid Stim Horm) 2.28 ?IU/mL N 0.34-5.60 64 Urinalysis Profile 12/27/2014 [facility] Urine Color Julissa N [address] [place] [address] [phone] Urine Appearance Cloudy N Urine Specific [place] 1.023 N 1.010-1.030 Urine pH 5.0 N 5-9 Urine Urobilinogen Positive Abnormal Negative Urine Ketones Negative N Negative Urine Protein 1+(30 mg/dL) Abnormal Negative Urine Leukocytes 1+ Abnormal Negative Urine Blood 1+ Abnormal Negative Urine Nitrite Positive Abnormal Negative Urine Bilirubin Negative N Negative Urine Glucose Negative N Negative Urine White Blood Cell 2+(11-20/hpf) Abnormal Absent Urine Red Blood Cell 2+(6-10/hpf) Abnormal Absent Urine Bacteria 3+ Abnormal Absent Urine Squamous Epithelial Cell Present Abnormal Absent Laboratory test 12/27/2014 [facility] Urine Culture SEE RESULT [address] [place] [address] [phone] Laboratory test 12/27/2014 [facility] Inr 1.13 High 0.78- finding [address] 1.07 [place] [address] [phone] CBC Auto Diff 12/27/2014 [facility] White Blood 6.8 10^3/uL N 4.8-[address] Count 0.8 [place] [address] [phone] Red Blood Count 4.27 10^6/uL N 4.0-5.4 Hemoglobin 11.4 g/dL Low 12.0-16.0 Hematocrit 34 % Low 35-47 Mean Corpuscular Volume 79 fL Low 80-97 Mean Corpuscular Hemoglobin 27 pg N 27-31 Mean Corpuscular HGB Conc 34 g/dL N 31-36 Red Cell Distribution Width 17 % High 10.5-15 Platelet Count 224 10^3/uL N 150-450 Mean Platelet Volume 9 um3 N 7.4-10.4 Abs Neutrophils 5.1 10^3/uL N 1.5-7.7 Abs Lymphocytes 0.8 10^3/uL Low 1.0-4.8 Abs Monocytes 0.8 10^3/uL N 0-0.8 Abs Eosinophils 0.2 10^3/uL N 0-0.6 Abs Basophils 0 10^3/uL N 0-0.2 Abs Nucleated RBC 0 10^3/uL N Granulocyte % 74.2 % N 38-83 Lymphocyte % 11.9 % Low 25-47 Monocyte % 11.2 % High 1-9 Eosinophil % 2.2 % N 0-6 Basophil % 0.5 % N 0-2 Nucleated Red Blood Cells % 0.1 N Comp Metabolic Panel 12/27/2014 [facility] Sodium 131 mmol/L Low 133-[address] [place] [address] [phone] Potassium 3.5 mmol/L N 3.5-5.0 Chloride 93 mmol/L Low 101-111 Co2 Carbon Dioxide 27 mmol/L N 22-32 Anion Gap 11 mmol/L N 2-11 Glucose 151 mg/dL High 70-100 Blood Urea Nitrogen 18 mg/dL N 6-24 Creatinine 1.07 mg/dL High 0.51-0.95 BUN/Creatinine Ratio 16.8 N 8-20 Calcium 9.5 mg/dL N 8.6-10.3 Total Protein 7.9 g/dL N 6.4-8.9 Albumin 3.9 g/dL N 3.2-5.2 Globulin 4.0 g/dL N 2-4 Albumin/Globulin Ratio 1.0 N 1-3 Total Bilirubin 0.40 mg/dL N 0.2-1.0 Alkaline Phosphatase 67 U/L N 34-104 Alt 52 U/L N 7-52 Ast 65 U/L High 13-39 Egfr Non- 53.0 N >60 Egfr 68.2 N >60 66 Laboratory test 12/27/2014 [facility] C Reactive 182.08 mg/L High < 5.00 [address] [place] [address] [phone] Acetaminophen < 15 g/mL N 68 Alcohol < 10 mg/dL N <10 Laboratory 12/27/2014 [facility] Activated 37.7 High 26.0- 36.3 test finding [address] [place] [address] Time [phone] Laboratory 11/18/2014 [facility] Hemoglobin A1c 6.7 5-7 test finding Laboratory 11/18/2014 [facility] Hemoglobin A1c 7.6 % High Less than 69 test finding [address] 6.0 [place] [address] [phone] Laboratory 06/17/2014 [facility] Cytology RUN DATE: 70 test finding [address] 06/20/ [place] [address] <SEE [phone] NOTE> HPV High Risk 06/17/2014 [facility] Human See N [address] [place] [address] Source [phone] HPV High Risk Type 16, PCR Negative N Negative HPV High Risk Type 18, PCR Negative N Negative HPV Other Risk types Negative N Negative 72 Lipid Profile 05/12/2014 [facility] Triglycerides 196 mg/dL N 73 (Trig/Chol/HDL) [address] [place] [address] [phone] Cholesterol 138 mg/dL N 74 HDL Cholesterol 35.7 mg/dL N 75 LDL Cholesterol 63 mg/dL N 76 Comp Metabolic Panel 05/12/2014 [facility] Sodium 136 mmol/L N 133-[address] [place] [address] [phone] Potassium 3.8 mmol/L N 3.7-5.6 Chloride 101 mmol/L N 101-111 Co2 Carbon Dioxide 27 mmol/L N 22-32 Anion Gap 8 mmol/L N 2-11 Glucose 147 mg/dL High 70-100 Blood Urea Nitrogen 15 mg/dL N 6-24 Creatinine 0.90 mg/dL N 0.51-0.95 BUN/Creatinine Ratio 16.7 N 8-20 Calcium 9.4 mg/dL N 8.6-10.3 Total Protein 7.2 g/dL N 6.4-8.9 Albumin 4.3 g/dL N 3.2-5.2 Globulin 2.9 g/dL N 2-4 Albumin/Globulin Ratio 1.5 N 1-3 Total Bilirubin 0.30 mg/dL N 0.2-1.0 Alkaline Phosphatase 59 U/L N 34-104 Alt 40 U/L N 7-52 Ast 44 U/L High 13-39 Egfr Non- 64.8 N >60 Egfr 83.3 N >60 77 Urine Microalbumin 05/12/2014 [facility] Ur Microalbumin 15.0 mg /dL N <[address] (mg/L) [place] [address] [phone] Urine Creatinine 163.65 mg/dL N Urine Microalbumin/Creatinine 9.1 N Less Than 31 Laboratory test 05/12/2014 [facility] Hemoglobin A1c 6.8 % High Less than [address] 6.0 [place] [address] [phone] Alpha 1 Antitrypsin A1a 149 mg/dL N 100 - 190 80 Liver Function 05/12/2014 [facility] Total Protein 7.2 g/dL N 6.4-8.9 Panel 101 [place] [address] [phone] Albumin 4.3 g/dL N 3.2-5.2 Globulin 2.9 g/dL N 2-4 Albumin/Globulin Ratio 1.5 N 1-3 Total Bilirubin 0.30 mg/dL N 0.2-1.0 Direct Bilirubin 0.10 mg/dL N 0.03-0.18 Indirect Bilirubin 0.2 mg/dL Low 0.3-1.0 Alkaline Phosphatase 60 U/L N 34-104 Alt 40 U/L N 7-52 Ast 45 U/L High 13-39 Laboratory test 01/31/2014 [facility] Ferritin 147.1 ng/mL N 11-307 finding 101 [place] [address] [phone] Comp Metabolic 01/31/2014 [facility] Sodium 138 mmol/L N 133- 145 Panel 101 [place] [address] [phone] Potassium 3.7 mmol/L N 3.7-5.6 Chloride 101 mmol/L N 101-111 Co2 Carbon Dioxide 28 mmol/L N 22-32 Anion Gap 9 mmol/L N 2-11 Glucose 191 mg/dL High 70-100 Blood Urea Nitrogen 14 mg/dL N 6-24 Creatinine 0.82 mg/dL N 0.51-0.95 BUN/Creatinine Ratio 17.1 N 8-20 Calcium 9.6 mg/dL N 8.6-10.3 Total Protein 7.2 g/dL N 6.4-8.9 Albumin 4.3 g/dL N 3.2-5.2 Globulin 2.9 g/dL N 2-4 Albumin/Globulin Ratio 1.5 N 1-3 Total Bilirubin 0.30 mg/dL N 0.2-1.0 Alkaline Phosphatase 66 U/L N 34-104 Alt 67 U/L High 7-52 Ast 95 U/L High 13-39 Egfr Non- 72.4 N >60 Egfr 93.1 N >60 81 Laboratory 01/31/2014 [facility] Hemoglobin 7.9 % High Less than [address] A1c 6.0 [place] [address] [phone] Laboratory 12/21/2013 [facility] Claire Negative N Negative test finding DRIVE ([place] [address] AB) Screen [phone] Laboratory 11/01/2013 [facility] Hemoglobin 7.8 % High Less than 83 test finding A1c 6.0 [place], [place] [phone] Comp Metabolic 11/01/2013 [facility] Sodium 138 mmol/L 133- 145 Panel 101 [place] [address] [phone] Potassium 3.7 mmol/L 3.7-5.6 Chloride 101 mmol/L [...] Egfr Non- 74.5 >60 Egfr 95.8 >60 84 Liver Function 08/31/2013 [facility] Total Protein 7.1 g/dL 6.2-8.1 Panel 101 [place] [address] [phone] Albumin 4.3 g/dL 3.6-5.4 Globulin 2.8 g/dL 2-4 Albumin/Globulin Ratio 1.5 1-3 Total Bilirubin 0.4 mg/dL 0.4-1.5 Direct Bilirubin < 0.1 mg/dL Low 0.1-0.5 Indirect Bilirubin (SEE NOTE) mg/dL 0.3-1.0 85 Alkaline Phosphatase 82 U/L 30-110 Alt 67 U/L High 14-54 Ast 85 U/L High 12-42 Liver Function 06/25/2013 [facility] Total Protein 7.5 g/dL 6.2-8.1 Panel 101 [place] [address] [phone] Albumin 4.3 g/dL 3.6-5.4 Globulin 3.2 g/dL 2-4 Albumin/Globulin Ratio 1.3 1-3 Total Bilirubin 0.6 mg/dL 0.4-1.5 Direct Bilirubin < 0.1 mg/dL Low 0.1-0.5 Indirect Bilirubin (SEE NOTE) mg/dL 0.3-1.0 86 Alkaline Phosphatase 71 U/L 30-110 Alt 70 U/L High 14-54 Ast 86 U/L High 12-42 Comp Metabolic Panel 06/25/2013 [facility] Sodium 137 mmol/L 133-145 [address] [place] [address] [phone] Potassium 4.2 mmol/L 3.5-5.0 Chloride 100 mmol/L [...] Egfr Non- 74.5 >60 Egfr 95.8 >60 87 Lipid Profile 06/25/2013 [facility] Triglycerides 228 mg/dL High 40-200 (Trig/Chol/HDL) [address] [place] [address] [phone] Cholesterol 175 mg/dL Less than 200 HDL Cholesterol 37 mg/dL Low 40-60 88 Cholesterol/HDL Ratio 4.7 Average High 1-4.44 LDL Cholesterol 92.4 Less Than 100 89 Laboratory test 06/25/2013 [facility] Hemoglobin A1c 7.5 % High Less [address] than 6.0 [place] [address] [phone] Urine 06/25/2013 [facility] Ur Microalbumin 5.0 [address] (mg/L) mg/[place] [address] [phone] Urine Creatinine 69.1 mg/dL Urine Microalbumin/Creatinine 7.2 Less Than 31 Laboratory test 06/18/2013 [facility] Blood Urea 16 mg/dL 6- [address] [place] [address] [phone] Creatinine 06/18/2013 [facility] Creatinine 1.10 mg/dL 0.50- 1.[address] [place] [address] [phone] Egfr Non- 51.6 >60 Egfr 66.3 >60 92 Hepatitis 06/05/2013 [facility] Hepatitis B Nonreactive Nonreactive Acute Panel [address] [place] [address] Antigen [phone] Hepatitis B Core IgM Nonreactive Nonreactive Hepatitis A AB IgM Nonreactive Nonreactive Hepatitis C Antibody Nonreactive Nonreactive Urine Microalbumin 06/05/2013 [facility] Ur Microalbumin 6.0 mg/ L [address] (mg/L) [place], [place] [address] [phone] Urine Creatinine 123.3 mg/dL Urine Microalbumin/Creatinine 4.9 Less Than 31 Lipid Profile 06/05/2013 [facility] Triglycerides 266 mg/dL High 40-200 (Trig/Chol/HDL) [address] [place] [address] [phone] Cholesterol 156 mg/dL Less than 200 HDL Cholesterol 34 mg/dL Low 40-60 94 Cholesterol/HDL Ratio 4.6 Average High 1-4.44 LDL Cholesterol 68.8 Less Than 100 95 Comp Metabolic Panel 06/05/2013 [facility] Sodium 137 mmol/L 133-[address] [place] [address] [phone] Potassium 4.2 mmol/L 3.5-5.0 Chloride 100 mmol/L [...] Egfr Non- 65.0 >60 Egfr 83.6 >60 96 Laboratory test 06/05/2013 [facility] Hemoglobin A1c 7.6 % High Less [address] than 6.0 [place] [address] [phone] Laboratory test 12/07/2012 [facility] Hemoglobin A1c 6.7 5-7 finding Urine Culture And 06/18/2012 [facility] Urine Culture (SEE [address] NOTE) [place] [address] [phone] Ua Routine 06/18/2012 [facility] Ua Specific 1.015 [place] Ua PH 6 Ua Color yellow Ua Appera cloudy Ua WBC moderate Ua Protein 30+ Ua Glucose neg Ua Ketones neg Ua Bilirubin small Ua Urobilinogen neg Ua Nitrite neg Ua Occult Blood non hemo trace Laboratory test 05/26/2012 [facility] Hemoglobin A1c 6.7 % High Less than [address] 6.0 [place] [address] [phone] Comp Metabolic 05/26/2012 [facility] Sodium 140 133-[address] mmol/[place] [address] [phone] Potassium 3.9 mmol/L 3.5-5.0 Chloride 103 mmol/L [...] 2.1 1-3 Total Bilirubin 0.5 mg/dL 0.1-1.0 100 Alkaline Phosphatase 53 U/L 30-110 Alt 37 U/L 14-54 Ast 42 U/L 12-42 Egfr Non- 65.2 >60 Egfr 83.9 >60 101 Lipid Profile 05/26/2012 [facility] Triglycerides 231 mg/dL High 40-200 (Trig/Chol/HDL) [address] [place] [address] [phone] Cholesterol 119 mg/dL Less than 200 102 HDL Cholesterol 34 mg/dL Low 40-60 103 Cholesterol/HDL Ratio 3.5 AVERAGE 1-4.44 LDL Cholesterol 38.8 mg/dL Less Than 100 CBC Auto Diff 04/06/2012 [facility] White Blood 6.3 CUMM 4.8- 10.[address] [place] [address] [phone] Red Cell Count 4.58 CUMM 4.2-5.4 Hemoglobin [...] 0-0.6 Abs Basophils 0 0-0.2 Liver Function 04/06/2012 [facility] Total Protein 7.0 GM/DL 6.2-8.[address] [place] [address] [phone] Albumin 4.6 GM/DL 3.6-5.4 Globulin 2.4 GM/DL 2-4 Albumin/Globulin Ratio 1.9 1-3 Bilirubin Total 0.6 mg/dL 0.4-1.5 104 Bilirubin Direct 0.1 mg/dL 0.1-0.5 Indirect Bilirubin 0.5 mg/dL 0.3-1.0 105 Alkaline Phosphatase 53 U/L 30-110 Alt (SGPT) 54 U/L 14-54 Ast (Sgot) 51 U/L High 12-42 Laboratory test 04/06/2012 [facility] TSH 1.71 MIU/ML 0.34- 5.[address] [place] [address] [phone] Liver Function 02/28/2012 [facility] Total Protein 7.0 GM/DL 6.2-8.[address] [place] [address] [phone] Albumin 4.5 GM/DL 3.6-5.4 Globulin 2.5 GM/DL 2-4 Albumin/Globulin Ratio 1.8 1-3 Bilirubin Total 0.4 mg/dL 0.4-1.5 106 Bilirubin Direct < 0.1 mg/dL Low 0.1-0.5 Indirect Bilirubin (SEE NOTE) mg/dL 0.3-1.0 107 Alkaline Phosphatase 51 U/L 30-110 Alt (SGPT) 52 U/L 14-54 Ast (Sgot) 54 U/L High 12-42 Total Protein 24HR 02/28/2012 [facility] Total Protein 4 mg/dL Urine [address] [place] [address] [phone] Urine Total Protein/24HR 148 MG/24HR High 50-100 Hours Of Collection 24 HR 24- Urine Volume Measurement 3700 ML Urine Microalbumin 02/07/2012 [facility] Microalbumin 230.0 mg/ L Random [address] (MG/L) [place] [address] [phone] Urine Creatinine 224.3 mg/dL Martín Alb/Creatinine Ratio 102.5 UG/MG High Less Than 30 108 Laboratory test 02/07/2012 [facility] Hemoglobin A1c 6.4 % High Less [address] 6.0 [place] [address] [phone] Comp Metabolic 02/07/2012 [facility] Sodium 139 135-[address] mmol/L [place], [place] [address] [phone] Potassium 4.2 mmol/L 3.5-5.0 Chloride 104 mmol/L 101-111 Co2 (Carbon Dioxide) 26.0 mmol/L 22-32 Anion Gap 9.0 mmol/L 2-11 110 Glucose 79 mg/dL 70-100 BUN 17 mg/dL 6-24 Creatinine 1.0 mg/dL 0.50-1.40 One Over Creatinine 1.00 BUN/Creatinine Ratio 17.0 8-20 Calcium 9.7 mg/dL 8.1-9.9 Total Protein 6.6 GM/DL 6.2-8.1 Albumin 4.5 GM/DL 3.6-5.4 Globulin 2.1 GM/DL 2-4 Albumin/Globulin Ratio 2.1 1-3 Bilirubin Total 0.4 mg/dL 0.4-1.5 111 Alkaline Phosphatase 52 U/L 30-110 Alt (SGPT) 55 U/L High 14-54 Ast (Sgot) 57 U/L High 12-42 eGFR Non- 58.0 > 60 eGFR 74.6 > 60 112 Laboratory 08/02/2011 [facility] Hemoglobin A1c 6.6 % High Less 113, test finding [address] Than 6.0 114 [place], [place] 12[address] [phone] Lipid Profile 08/02/2011 [facility] Triglyceride 153 40-200 (Trig/Chol/HDL [address] mg/dL ) [place], [place] [address] [phone] Cholesterol 118 mg/dL Less Than 200 115 High Density Lipoprotein 37 mg/dL Low 40-60 116 Cholesterol/HDL Ratio 3.19 AVERAGE 1-4.44 Low Density Lipoprotein 50 mg/dL Less Than 100 117 Laboratory 06/04/2011 [facility] Cytology 118 test finding [address] <SEE NOTE> [place], [place] [id number] [phone] Laboratory 04/12/2011 [facility] Hemoglobin A1c 7.0 % High Less 119 test finding [address] [place] [address] 6.0 [phone] Lipid 04/12/2011 [facility] Triglyceride 334 mg/dL High 40-[address] 0 (Trig/Chol/[place] [address] DL) [phone] Cholesterol 160 mg/dL Less Than 200 120 High Density Lipoprotein 35 mg/dL Low 40-60 121 Cholesterol/HDL Ratio 4.57 AVERAGE High 1-4.44 Low Density Lipoprotein 58 mg/dL Less Than 100 122 Comp Metabolic Panel 04/12/2011 [facility] Sodium 137 mmol/L 135-[address] [place] [address] [phone] Potassium 3.9 mmol/L 3.5-5.0 Chloride 101 mmol/L 101-111 Co2 (Carbon Dioxide) 27.0 mmol/L 22-32 Anion Gap 9.0 mmol/L 2-11 123 Glucose 153 mg/dL High 70-100 BUN 20 mg/dL 6-24 Creatinine 0.9 mg/dL 0.50-1.40 One Over Creatinine 1.11 BUN/Creatinine Ratio 22.2 High 8-20 Calcium 9.5 mg/dL 8.1-9.9 Total Protein 6.6 GM/DL 6.2-8.1 Albumin 4.4 GM/DL 3.6-5.4 Globulin 2.2 GM/DL 2-4 Albumin/Globulin Ratio 2.0 1-3 Bilirubin Total 0.8 mg/dL 0.4-1.5 124 Alkaline Phosphatase 54 U/L 30-110 Alt (SGPT) 40 U/L 14-54 Ast (Sgot) 37 U/L 12-42 eGFR Non- 65.7 > 60 eGFR 84.6 > 60 125 Urine Microalbumin 04/12/2011 [facility] Microalbumin (MG/L) 2.0 mg/L Random [address] [place] [address] [phone] Urine Creatinine 56.04 mg/dL Martín Alb/Creatinine Ratio 3.5 UG/MG Less Than 30 126 Laboratory test 11/01/2010 [facility] Hemoglobin A1c 6.5 % High Less [address] Than 6.0 [place] [address] [phone] Laboratory test 04/30/2010 [facility] Hemoglobin A1c 6.5 % High Less [address] 6.0 [place] [address] [phone] Lipid Profile 04/30/2010 [facility] Triglyceride 181 40-200 (Trig/Chol/HDL) [address] mg/[place] [address] [phone] Cholesterol 166 mg/dL Less Than 200 129 High Density Lipoprotein 44 mg/dL 40-60 130 Cholesterol/HDL Ratio 3.77 AVERAGE 1-4.44 Low Density Lipoprotein 86 mg/dL Less Than 100 131 Urine Microalbumin 04/30/2010 [facility] Microalbumin < 2.0 mg/ L Random [address] (MG/L) [place] [address] [phone] Urine Creatinine 37.97 mg/dL Martín Alb/Creatinine Ratio 5.2 UG/MG Less Than 30 132 Basic Metabolic Panel 12/16/2009 [facility] Sodium 137 mmol/L 135-[address] [place] [address] [phone] Potassium 3.7 mmol/L 3.5-5.0 Chloride 102 mmol/L 101-111 Co2 (Carbon Dioxide) 27.0 mmol/L 22-32 Anion Gap 8.0 mmol/L 2-11 133 Glucose 146 mg/dL High 70-100 134 BUN 20 mg/dL 6-24 Creatinine 0.84 mg/dL 0.50-1.40 One Over Creatinine 1.10 BUN/Creatinine Ratio 23.8 High 8-20 Calcium 9.1 mg/dL 8.1-9.9 135 eGFR Non- 76.0 > 60 eGFR 91.9 > 60 136 Laboratory test 12/16/2009 [facility] Hemoglobin A1c 6.7 % High Less [address] [place] [address] [phone] Laboratory test 09/30/2008 [facility] Erythrocyte Sed 5 MM/HR 0-[address] [place] [address] [phone] CBC With Manual 09/30/2008 [facility] White Blood 7.3 CUMM 4.8-10.[address] [place] [address] [phone] Red Cell Count 4.94 CUMM 4.2-5.4 Hemoglobin [...] Count 4.7 RBC Morphology NORMAL Laboratory test 09/30/2008 [facility] TSH 1.79 0.34-5.[address] MIU/[place] [address] [phone] Lipid Profile 09/30/2008 [facility] Triglyceride 315 mg/dL High 40-200 (Trig/Chol/HDL) [address] [place] [address] [phone] Cholesterol 207 mg/dL High Less Than 200 138 High Density Lipoprotein 34 mg/dL Low 40-60 139 Cholesterol/HDL Ratio 6.09 AVERAGE High 1-4.44 Low Density Lipoprotein 110 mg/dL High Less Than 100 140 1 Because ethnic data is not always [...] 5 Kidney failure <15 (or dialysis) 2 Because ethnic data is not always readily [...] 15-29 5 Kidney failure <15 (or dialysis) 3 SEE RESULT BELOW Name: ROSELINE SNOW : [address]: Allan Grewal NP Acct: [id number] Unit: [id number] AGE: 58 Location: [facility] Re11/16/18 SEX: F Status: REG REF SPEC: [id number] NELI: 11/16/[address]: Allan Grewal NP REQ: [id number] RECD: 11/16/18 STATUS: COMP _ SOURCE: URINE SPDESC: ORDERED: Urine Culture Procedure Result Reported Site Urine Culture Final 11/17/18- 1247 ML No Growth (<1,000 CFU/mL) * ML - Main Lab . END OF REPORT DEPARTMENT OF PATHOLOGY, [address] [place] [address] Fady Flores M.D. Director [facility] # [id number] Desirable: <150 Borderline High: 150-199 High: 200-499 Very High: >500 5 Desirable: <200 Borderline High: 200-239 High: >239 6 Low: <40 Desirable: 40-60 High: >60 7 Desirable: <100 Near Optimal: 100-129 Borderline High: 130-159 High: 160-189 Very High: >189 8 Because ethnic data is not always readily [...] 15-29 5 Kidney failure <15 (or dialysis) 9 [facility] Severe Sepsis and Septic Shock Management Bundle Measure requires all lactic acids initially measuring >2.0 mmol/L be repeated. 10 Because ethnic data is not always readily [...] 15-29 5 Kidney failure <15 (or dialysis) 11 SEE RESULT BELOW Name: ROSELINE SNOW : [address]: Aries Carr MD Acct: [id number] Unit: [id number] AGE: 58 Location: ED Re06/16/18 SEX: F Status: REG ER SPEC: [id number] NELI: 06/16/[address] [facility] [address]: Aries Carr MD REQ: [id number] RECD: 06/17/18 STATUS: MAGDY NEGRETE DR: Coco Clements MD _ SOURCE: URINE [facility]: ORDERED: Urine Culture Procedure Result Reported Site Urine Culture Final 06/18/18- 1044 ML Organism 1 STAPHYLOCOCCUS SAPROPHYTICUS Redfox Count >100,000 (Many) CFU/ML Routine sensitivity testing of urine isolates of S. saprophyticus is not advised, because infections respond to concentrations achieved in urine of antimicrobial agents commonly used to treat acute, uncomplicated urinary tract infections (e.g. nitrofurantoin, trimethoprim+/- sulfamethoxazole, or a fluoroquinolone). [facility] August 2001 * ML - Main Lab . END OF REPORT DEPARTMENT OF PATHOLOGY, [address] [place] [address] Fady Flores M.D. Director [facility] # [id number] 12 Because ethnic data is not always [...] 5 Kidney failure <15 (or dialysis) 13 Chocolate Temperer: [id number] Chocolate Temperer: [id number] 15 Copy Result to: DUSTY MCCRARY ([id number]) 16 *Ascorbic acid is present which may interfere with detection of blood. 17 SEE RESULT BELOW Name: ROSELINE SNOW : [address]: Coco Clements MD Acct: [id number] Unit: [id number] AGE: 57 Location: LAB Re11/04/17 SEX: F Status: REG REF SPEC: [id number] NELI: 11/04/170608 [facility] DR: Coco Clements MD REQ: [id number] RECD: 11/04/173026 STATUS: COMP OTHR DR: Dusty Mccrary MD _ SOURCE: URINE SPDESC: ORDERED: Urine Culture COMMENTS: Copy Result to: DUSTY MCCRARY ([id number]) Procedure Result Reported Site Urine Culture Final 11/05/17- 1521 ML No Growth (<1,000 CFU/mL) * ML - Main Lab . END OF REPORT DEPARTMENT OF PATHOLOGY, [address] [place] [address] Fady Flores M.D. Director [facility] # [id number] 18 Because ethnic data is not always readily [...] 15-29 5 Kidney failure <15 (or dialysis) 19 Normal Range 180 to 914 Indeterminate Range 145 to 180 Deficient Range <145 20 SEE RESULT BELOW Name: ROSELINE SNOW : [address]: Connie Bejarano DO Acct: [id number] Unit: [id number] AGE: 57 Location: ENDO Re07/01/17 SEX: F Status: DEP REF SPEC: [id number] NELI: 07/01/17- SUBM DR: Connie Bejarano DO REQ: [id number] RECD: 07/01/17 STATUS: ANIVAL NEGRETE DR: Dusty [...] performed at Main Lab DEPARTMENT OF PATHOLOGY, [address] [place] [address] Fady Flores M.D. Director [facility] # [id number] RUN DATE: 07/04/17 [facility] LAB LIVE PAGE 2 Patient: ROSELINE SNOW [id number] (Continued) CLINICAL HISTORY (Continued) CLINICAL HISTORY 57 [...] performed at Main Lab DEPARTMENT OF PATHOLOGY, [address] [place] [address] Fady Flores M.D. Director [facility] # [id number] 21 Cortisol, Saliva was cancelled on 06/27/2017 at 19:10; Unable to assay. Quantity not sufficient. Test Performed by: [facility] - [address] [address] 22 ADDITIONAL INFORMATION This test was developed and its performance characteristics determined by [facility] in a manner consistent with CLIA requirements. This test has not been cleared or approved by the U.S. Food and Drug Administration. Test Performed by: [facility] - [address] [address] 23 Desirable: <150 Borderline High: 150-199 High: 200-499 Very High: >500 24 Desirable: <200 Borderline High: 200-239 High: >239 25 Low: <40 Desirable: 40-60 High: >60 26 Desirable: <100 Near Optimal: 100-129 Borderline High: 130-159 High: 160-189 Very High: >189 27 Because ethnic data is not always readily [...] 15-29 5 Kidney failure <15 (or dialysis) 28 Because ethnic data is not always readily [...] 15-29 5 Kidney failure <15 (or dialysis) 29 ADDITIONAL INFORMATION This test was developed and its performance characteristics determined by [facility] in a manner consistent with CLIA requirements. This test has not been cleared or approved by the U.S. Food and Drug Administration. Test Performed by: [address] [address] 30 Desirable <150 Borderline high 150-199 High 200-499 Very High >500 31 Desirable <200 Borderline high 200-239 High >239 32 Low <40 Desirable: 40-60 High: >60 33 Desirable: <100 mg/dL Near Optimal: 100-129 mg/dL Borderline High: 130-159 mg/dL High: 160-189 mg/dL Very High: >189 mg/dL 34 Therapeutic target for the treatment of diabetes Mellitus patients is <7% HBA1C, and in selective patients <6.0%.Please refer to [employer] Diabetic care guidelines for further information. 35 Because ethnic data is not always readily [...] 15-29 5 Kidney failure <15 (or dialysis) 36 Because ethnic data is not always [...] 5 Kidney failure <15 (or dialysis) 37 Desirable <150 Borderline high 150-199 High 200-499 Very High >500 38 Desirable <200 Borderline high 200-239 High >239 39 Low <40 Desirable: 40-60 High: >60 40 Unable to calculate LDL as triglyceride is > 400 41 Desirable: <100 mg/dL Near Optimal: 100-129 mg/dL Borderline High: 130-159 mg/dL High: 160-189 mg/dL Very High: >189 mg/dL 42 Desirable <150 Borderline high 150-199 High 200-499 Very High >500 43 Desirable <200 Borderline high 200-239 High >239 44 Low <40 Desirable: 40-60 High: >60 45 Unable to calculate LDL as triglyceride is > 400 46 Because ethnic data is not always readily [...] 15-29 5 Kidney failure <15 (or dialysis) 47 Therapeutic target for the treatment of diabetes Mellitus patients is <7% HBA1C, and in selective patients <6.0%.Please refer to [employer] Diabetic care guidelines for further information. 48 10/08/15 @1000 TO 10/09/15 0900 49 Test Performed by: [place] [address] Window [employer] Siding Craftsman: Chester Allen II, M.D., Ph.D. 50 Chocolate Temperer: [id number] TYLER DÍAZ 51 SEE RESULT BELOW Name: ROSELINE SNOW : [address]: Dalton Denise MD Acct: [id number] Unit: [id number] AGE: 55 Location: ENDO Re09/06/15 SEX: F Status: REG REF SPEC: [id number] NELI: 09/06/15-[address] [facility] [address]: Dalton Denise MD REQ: [id number] RECD: 09/06/15 STATUS: ANIVAL NEGRETE DR: Coco Clements MD [...] performed at Main Lab DEPARTMENT OF PATHOLOGY, [address] [place] [address] Fady Flores M.D. Director [facility] # [id number] RUN DATE: 09/07/15 [facility] LAB LIVE PAGE 2 Patient: ROSELINE SNOW [id number] (Continued) GROSS DESCRIPTION (Continued) GROSS DESCRIPTION (Continued) [...] Signed (signature on file) Miracle Akins MD 1328 END OF REPORT * ML=Testing performed at Main Lab DEPARTMENT OF PATHOLOGY, [address] [place] [address] Fady Flores M.D. Director [facility] # [id number] 52 AM 8.7-22.4 PM <10 53 Because ethnic data is not always readily [...] 15-29 5 Kidney failure <15 (or dialysis) 54 The high-risk HPV types detected by the assay include: 16, 18, 31, 33, 35, 39, 45, 51, 52, 56, 58, 59, 66, and 68. 55 SEE RESULT BELOW Name: ROSELINE SNOW : [address]: Coco Clements MD Acct: [id number] Unit: [id number] AGE: 55 Location: [facility] Re07/03/15 SEX: F Status: REG REF SPEC: [id number] NELI: 07/03/15-[address] [facility] [address]: Coco Clements MD REQ: [id number] RECD: 07/03/15 STATUS: SOUT _ ORDERED: IMAGE ANALYSIS, HPV/Thin Prep, HPV 16/18 GENE FINAL DIAGNOSIS Negative for Intraepithelial lesion or Malignancy A. Ectocervical/Endocervical Specimen Adequacy: Satisfactory of evaluation Transformation zone component identified Patient Information: HPV: High risk HPV RNA testing regardless of pap results. HPV 16/18 Genotype for HPV pos Actual Specimen Date: 11/16/15 LMP If Unknown: several yrs ago Spec [...] 68. Signed (signature on file) Jose David Butler 07/04/15 1349 This Pap test was evaluated with the assistance of the [employer] Test Imaging System. Due to cytologic findings at the senior solutions consultant microscope, comprehensive manual rescreening by a Chemist Assistant may be required. The Pap Smear is [...] performed at Main Lab DEPARTMENT OF PATHOLOGY, [address] [place] [address] RUN DATE: 07/04/15 [facility] LAB LIVE PAGE 1 Patient: ROSELINE SNOW [id number] (Continued) Fady Flores M.D. Director [facility] # [id number] 56 Because ethnic data is not always readily [...] 15-29 5 Kidney failure <15 (or dialysis) 57 PT IS FASTING 58 Desirable <150 Borderline high 150-199 High 200-499 Very High >500 59 Desirable <200 Borderline high 200-239 High >239 60 Low <40 Desirable: 40-60 High: >60 61 Desirable: <100 mg/dL Near Optimal: 100-129 mg/dL Borderline High: 130-159 mg/dL High: 160-189 mg/dL Very High: >189 mg/dL 62 Because ethnic data is not always readily [...] 15-29 5 Kidney failure <15 (or dialysis) 63 Therapeutic target for the treatment of diabetes Mellitus patients is <7% HBA1C, and in selective patients <6.0%.Please refer to [employer] Diabetic care guidelines for further information. 64 PT IS FASTING 65 SEE RESULT BELOW Name: SNOWROSELINE : [address]: Chester Rooney MD Acct: [id number] Unit: [id number] AGE: 54 Location: ED Re12/27/14 SEX: F Status: DEP ER SPEC: [id number] NELI: 12/27/[address] [facility] [address]: Chester Rooney MD REQ: [id number] RECD: 12/27/14 STATUS: MAGDY NEGRETE DR: [facility] Coco Clements MD _ SOURCE: URINE [facility]: ORDERED: Urine Culture Procedure Result Verified Site Urine Culture Final 12/29/14- 0854 ML Organism 1 KLEBSIELLA PNEUMONIAE Redfox Count >100,000 (Many) CFU/ML 1. KLEBSIELLA PNEUMONIAE [...] antibiotic reporting. * ML - MAIN LAB ([facility]) . END OF REPORT * ML=Testing performed at Main Lab DEPARTMENT OF PATHOLOGY, [facility] [address], [place] [address] Fady Flores M.D. Director [facility] # [id number] 66 Because ethnic data is not always [...] 5 Kidney failure <15 (or dialysis) 67 Acute inflammation: >10.00 68 Therapeutic concentration: <50 ug/mL Toxic concentration: >120 ug/mL 69 Therapeutic target for the treatment of diabetes Mellitus patients is <7% HBA1C, and in selective patients <6.0%.Please refer to [employer] Diabetic care guidelines for further information. 70 RUN DATE: 06/20/14 [facility] LAB LIVE PAGE 1 RUN TIME: 14[address] [place], [place] [address] Specimen Inquiry Name: ROSELINE SNOW : [address]: Coco Clements MD Acct: [id number] Unit: [id number] AGE: 54 Location: [facility] Re06/17/14 SEX: F Status: REG REF SPEC: [id number] NELI: 06/17/14-[address]: Coco Clements MD REQ: [id number] RECD: 06/17/14 STATUS: SOUT _ ORDERED: IMAGE ANALYSIS, PAP SM PATH REV, HPV/Thin Prep FINAL DIAGNOSIS EPITHELIAL CELL ABNORMALITIES Atypical squamous cells of undetermined significance COMMENTS: Specimen sent to [facility] in [place], [place] on 06/20/14 by [id number] at 1126. Results will be reported separately. [...] was evaluated with the assistance of the [employer] Test Imaging System. Due to cytologic findings at the senior solutions consultant microscope, comprehensive manual rescreening by a Chemist Assistant may be required. The Pap Smear is [...] performed at Main Lab DEPARTMENT OF PATHOLOGY, [address] [place] [address] Fady Flores M.D. Director [facility] # [id number] 71 RESULT: Ectocervical/Endocervical 72 The following Other High Risk HPV types were not detected: 31, 33, 35, 39, 45, 51, 52, 56, 58, 59, 66, and 68 Test Performed by: [place] [address] Window And Siding Craftsman: Chirag Deras M.D. 73 Desirable <150 Borderline high 150-199 High 200-499 Very High >500 74 Desirable <200 Borderline high 200-239 High >239 75 Low <40 Desirable: 40-60 High: >60 76 Desirable <100 Near Optimal 100-129 Borderline high 130-159 High 160-189 Very High >189 77 Because ethnic data is not always readily [...] 15-29 5 Kidney failure <15 (or dialysis) 78 Microalbuminuria in a random sample is defined as: Microalbumin/Creatinine ratio of 30-299 ug/mg. 79 Therapeutic target for the treatment of diabetes Mellitus patients is <7% HBA1C, and in selective patients <6.0%.Please refer to [employer] Diabetic care guidelines for further information. 80 Test Performed by: [address] [address] Window And Siding Craftsman: Kobe Salcedo III, M.D. 81 Because ethnic data is not always [...] 5 Kidney failure <15 (or dialysis) 82 Therapeutic target for the treatment of diabetes Mellitus patients is <7% HBA1C, and in selective patients <6.0%.Please refer to [employer] Diabetic care guidelines for further information. 83 Therapeutic target for the treatment of diabetes Mellitus patients is <7% HBA1C, and in selective patients <6.0%.Please refer to [employer] Diabetic care guidelines for further information. 84 Because ethnic data is not always readily [...] 15-29 5 Kidney failure <15 (or dialysis) 85 Unable to calculate Ind Bili as D Bili is <0.1 Unable to calculate Ind Bili as D Bili is <0.1 86 Unable to calculate Ind Bili as D Bili is <0.1 87 Because ethnic data is not always readily [...] 15-29 5 Kidney failure <15 (or dialysis) 88 HDL Interpretation: Undesirable: High Risk: Less than 40 mg/dL Desirable: Low Risk: Greater than 60 mg/dL 89 LDL Interpretation: Low Risk Optimal Level: LDL Less than 100 mg/dL Near or Above Optimal: LDL 100-129 mg/dL Borderline High Risk: LDL 130-159 mg/dL High Risk: LDL 160-189 mg/dL Very High Risk: LDL Greater than 189 mg/dL 90 Therapeutic target for the treatment of diabetes Mellitus patients is <7% HBA1C, and in selective patients <6.0%.Please refer to [employer] Diabetic care guidelines for further information. 91 Microalbuminuria in a random sample is defined as: Microalbumin/Creatinine ratio of 30-299 ug/mg. 92 Because ethnic data is not always readily [...] 15-29 5 Kidney failure <15 (or dialysis) 93 Microalbuminuria in a random sample is defined as: Microalbumin/Creatinine ratio of 30-299 ug/mg. 94 HDL Interpretation: Undesirable: High Risk: Less than 40 mg/dL Desirable: Low Risk: Greater than 60 mg/dL 95 LDL Interpretation: Low Risk Optimal Level: LDL Less than 100 mg/dL Near or Above Optimal: LDL 100-129 mg/dL Borderline High Risk: LDL 130-159 mg/dL High Risk: LDL 160-189 mg/dL Very High Risk: LDL Greater than 189 mg/dL 96 Because ethnic data is not always readily [...] 15-29 5 Kidney failure <15 (or dialysis) 97 Therapeutic target for the treatment of diabetes Mellitus patients is <7% HBA1C, and in selective patients <6.0%.Please refer to [employer] Diabetic care guidelines for further information. 98 RUN DATE: 06/21/12 [facility] LAB LIVE PAGE 1 RUN TIME: [address] [place] [address] Specimen Inquiry Name: ROSELINE SNOW : [address]: Julia Sharma Acct: [id number] Unit: [id number] AGE: 52 Location: [facility] Re06/18/12 SEX: F Status: REG REF SPEC: [id number] NELI: 06/18/[address]: Julia Sharma REQ: [id number] RECD: 06/18/12 STATUS: COMP _ SOURCE: URINE SPDESC: ORDERED: Urine Culture COMMENTS: URINE QUERIES: Medent Number [id number] Urine Source: Random Procedure Result Verified Site Urine Culture Final 06/21/12- 0941 ML Organism 1 STAPHYLOCOCCUS SAPROPHYTICUS Redfox Count >100,000 (Many) CFU/ML Routine testing of urine isolates of S. saprophyticus is not advised, because infections respond to concentrations achieved in urine of antimicrobial agents commonly used to treat acute, uncomplicated urinary tract infections (e.g. nitrofurantoin, trimethoprim+/- sulfamethoxazole, or a fluoroquinolone). [facility] August 2001 END OF REPORT * ML=Testing performed at Main Lab DEPARTMENT OF PATHOLOGY, [address] [place] [address] Fady Flores M.D. Director [facility] Permit #[id number] 99 Therapeutic target for the treatment of diabetes Mellitus patients is <7% HBA1C, and in selective patients <6.0%.Please refer to [employer] Diabetic care guidelines for further information. 100 A metabolite of Naproxen, O-desmethylnaproxen, has been shown to interfere with the Jendrassik-Knowlton method for measuring total bilirubin. Samples from patients who have taken Naproxen have shown spurious elevation in total bilirubin levels. 101 Because ethnic data is not always readily [...] 15-29 5 Kidney failure <15 (or dialysis) 102 Desirable: Less than 200 MG/DL Borderline-High Risk: 200-239 MG/DL High-Risk: 240 MG/DL and over 103 HDL Interpretation: Undesirable: High Risk: Less than 40 MG/DL Desirable: Low Risk: Greater than 60 MG/DL 104 A metabolite of Naproxen, O-desmethylnaproxen, has been shown to interfere with the Jendrassik-Knowlton method for measuring total bilirubin. Samples from patients who have taken Naproxen have shown spurious elevation in total bilirubin levels. 105 Please note updated reference range, effective 03/08/10 106 A metabolite of Naproxen, O-desmethylnaproxen, has been shown to interfere with the Jendrassik-Priscilla method for measuring total bilirubin. Samples from patients who have taken Naproxen have shown spurious elevation in total bilirubin levels. 107 UNABLE TO CALCULATE IND.BILI D.BILI IS <0.1 Please note updated reference range, effective 03/08/10 108 MICROALBUMINURIA IN A RANDOM SAMPLE IS DEFINED : MICROALBUMIN/CREATININE RATIO OF 30-299 ug/mg. . 109 THERAPEUTIC TARGET FOR THE TREATMENT OF DIABETES MELLITUS PATIENTS IS <7% HBA1C, AND IN SELECTIVE PATIENTS <6.0%. PLEASE REFER TO [employer] DIABETIC CARE GUIDELINES FOR FURTHER INFORMATION. 110 Anion gap measurement may be of limited value in the presence of any alkalosis, especially in a combined acid base disorder. . 111 A metabolite of Naproxen, O-desmethylnaproxen, has been shown to interfere with the Jendrassik-Knowlton method for measuring total bilirubin. Samples from patients who have taken Naproxen have shown spurious elevation in total bilirubin levels. 112 Because ethnic data is not always readily [...] 15-29 5 Kidney failure <15 (or dialysis) 113 FASTING 114 THERAPEUTIC TARGET FOR THE TREATMENT OF DIABETES MELLITUS PATIENTS IS <7% HBA1C, AND IN SELECTIVE PATIENTS <6.0%. PLEASE REFER TO [employer] DIABETIC CARE GUIDELINES FOR FURTHER INFORMATION. 115 CHOLESTEROL INTERPRETATION: Desirable: Less than 200 MG/DL Borderline-High Risk: 200-239 MG/DL High-Risk: 240 MG/DL and over 116 HDL INTERPRETATION: Undesirable: High Risk: Less than 40 MG/DL Desirable: Low Risk: Greater than 60 MG/DL 117 LDL INTERPRETATION: Low Risk Optimal Level: LDL Less than 100 MG/DL Near or Above Optimal: LDL 100-129 MG/DL Borderline High Risk: LDL 130-159 MG/DL High Risk: LDL 160-189 MG/DL Very High Risk: LDL Greater than 189 MG/DL 118 ----- RUN DATE: 06/05/11 [facility] NMI LIVE PAGE 1 RUN TIME: 1559 Specimen Inquiry RUN USER: INTERFACE -- Name: ROSELINE SNOW Status: REG REF Re06/04/11 Age/Sex: 51/F Unit#: [id number] Location: [facility]. : [birth year] -- Specimen: [id number] [id number] Spec Date: 06/04/[address]: Coco Clements MD Spec Type: CYTOLOGY [...] was evaluated with the assistance of the ThinPrep Pap Test Imaging System. The Pap Smear [...] three years. Initial evaluation performed by Panfilo BECERRA(ASCP) 06/05/11 Final Interpretation electronically signed by: Panfilo BECERRA(ASCP) 06/05/11 1557 -- DEPARTMENT OF PATHOLOGY, [address] [place] [address] [facility] Permit #[id number] Fady Flores M.D. Director Rose Woodward M.D. Fruit Raiser Dir ollie -- 119 THERAPEUTIC TARGET FOR THE TREATMENT OF DIABETES MELLITUS PATIENTS IS <7% HBA1C, AND IN SELECTIVE PATIENTS <6.0%. PLEASE REFER TO [employer] DIABETIC CARE GUIDELINES FOR FURTHER INFORMATION. 120 CHOLESTEROL INTERPRETATION: Desirable: Less than 200 MG/DL Borderline-High Risk: 200-239 MG/DL High-Risk: 240 MG/DL and over 121 HDL INTERPRETATION: Undesirable: High Risk: Less than 40 MG/DL Desirable: Low Risk: Greater than 60 MG/DL 122 LDL INTERPRETATION: Low Risk Optimal Level: LDL Less than 100 MG/DL Near or Above Optimal: LDL 100-129 MG/DL Borderline High Risk: LDL 130-159 MG/DL High Risk: LDL 160-189 MG/DL Very High Risk: LDL Greater than 189 MG/DL 123 Anion gap measurement may be of limited value in the presence of any alkalosis, especially in a combined acid base disorder. . 124 A metabolite of Naproxen, O-desmethylnaproxen, has been shown to interfere with the Jendrassik-Knowlton method for measuring total bilirubin. Samples from patients who have taken Naproxen have shown spurious elevation in total bilirubin levels. 125 Because ethnic data is not always readily [...] 15-29 5 Kidney failure <15 (or dialysis) 126 MICROALBUMINURIA IN A RANDOM SAMPLE IS DEFINED : MICROALBUMIN/CREATININE RATIO OF 30-299 ug/mg. . 127 THERAPEUTIC TARGET FOR THE TREATMENT OF DIABETES MELLITUS PATIENTS IS <7% HBA1C, AND IN SELECTIVE PATIENTS <6.0%. PLEASE REFER TO [employer] DIABETIC CARE GUIDELINES FOR FURTHER INFORMATION. 128 THERAPEUTIC TARGET FOR THE TREATMENT OF DIABETES MELLITUS PATIENTS IS <7% HBA1C, AND IN SELECTIVE PATIENTS <6.0%. PLEASE REFER TO [employer] DIABETIC CARE GUIDELINES FOR FURTHER INFORMATION. 129 CHOLESTEROL INTERPRETATION: Desirable: Less than 200 MG/DL Borderline-High Risk: 200-239 MG/DL High-Risk: 240 MG/DL and over 130 HDL INTERPRETATION: Undesirable: High Risk: Less than 40 MG/DL Desirable: Low Risk: Greater than 60 MG/DL 131 LDL INTERPRETATION: Low Risk Optimal Level: LDL Less than 100 MG/DL Near or Above Optimal: LDL 100-129 MG/DL Borderline High Risk: LDL 130-159 MG/DL High Risk: LDL 160-189 MG/DL Very High Risk: LDL Greater than 189 MG/DL 132 MICROALBUMINURIA IN A RANDOM SAMPLE IS DEFINED : MICROALBUMIN/CREATININE RATIO OF 30-299 ug/mg. . 133 Anion gap measurement may be of limited value in the presence of any alkalosis, especially in a combined acid base disorder. . 134 Note change in reference range as of 04/07/08. The change was based on recommendations from the [place] [employer]. 135 Please note change in reference range effective 08 . 136 Because ethnic data is not always readily [...] 15-29 5 Kidney failure <15 (or dialysis) 137 THERAPEUTIC TARGET FOR THE TREATMENT OF DIABETES MELLITUS PATIENTS IS <7% HBA1C, AND IN SELECTIVE PATIENTS <6.0%. PLEASE REFER TO [facility] [employer] DIABETIC CARE GUIDELINES FOR FURTHER INFORMATION. 138 CHOLESTEROL INTERPRETATION: Desirable: Less than 200 MG/DL Borderline-High Risk: 200-239 MG/DL High-Risk: 240 MG/DL and over 139 HDL INTERPRETATION: Undesirable: High Risk: Less than 40 MG/DL Desirable: Low Risk: Greater than 60 MG/DL 140 LDL INTERPRETATION: Low Risk Optimal Level: LDL Less than 100 MG/DL Near or Above Optimal: LDL 100-129 MG/DL Borderline High Risk: LDL 130-159 MG/DL High Risk: LDL 160-189 MG/DL Very High Risk: LDL Greater than 189 MG/DL Procedures Date Code Description Status 11/16/2018 49905 EKG Tracing & Interpretation Completed 08/28/2018 [id number] Mammogram Completed 06/08/2018 Inject/Drain Joint/Bursa Major W/O US Completed 05/07/2018 Inject/Drain Joint/Bursa Major W/O US Completed 04/01/2018 Inj/Aspir Major JT Or Bursa W/ US Completed 03/26/2018 Inj/Aspir Major JT Or Bursa W/ US Completed 03/19/2018 Inj/Aspir Major JT Or Bursa W/ US Completed 01/22/2018 83299 Diffusing Capacity Completed 01/22/2018 74843 Plethysmography Determination Lung Volumes & Per Completed Airway Resist 01/22/2018 14109 Pulmonary Stress Testing, Inc Measurement Heart Rate, Completed Oximetry 01/22/2018 73409 Pulmonary Function><Bronchodil Completed 11/14/2017 99512 Arthroscopy,Shoulder Decompression Of Subacromial Completed Space W/Acromio 11/14/2017 56285 Arthroscopy,Shoulder Decompression Of Subacromial Completed Space W/Acromio 11/14/2017 05110 Arthroscopy,Shoulder,Distal Claviculectomy Incl Dist Completed Articular SR 11/14/2017 03134 Arthroscopy,Shoulder,Distal Claviculectomy Incl Dist Completed Articular SR 11/05/2017 91330 EKG Tracing & Interpretation Completed 11/04/2017 93479 EKG Tracing & Interpretation Completed 10/14/2017 [id number] Diabetic Retinal Eye Exam Completed 07/24/2017 [id number] Mammogram Completed 07/01/2017 Inject/Drain Joint/Bursa Intermediate W/O US Completed 03/06/2017 Inject/Drain Joint/Bursa Major W/O US Completed 02/05/201729623 Inject/Drain Joint/Bursa Major W/O US Completed 04/09/2016 [id number] Mammogram Completed 09/09/2015 [id number] Diabetic Retinal Eye Exam Completed 09/06/2015 [id number] Colonoscopy Completed 03/23/201527359 Inject/Drain Joint/Bursa Major W/O US Completed 03/16/201512606 Inject/Drain Joint/Bursa Major W/O US Completed 03/09/2015 Inject/Drain Joint/Bursa Major W/O US Completed 08/09/2014 [id number] Mammogram Completed 07/09/2013 [id number] Mammogram Completed 05/29/2013 [id number] Diabetic Retinal Eye Exam Completed 03/18/201323412 Inject/Drain Joint/Bursa Major W/O US Completed 03/18/201301001 Inject/Drain Joint/Bursa Major W/O US Completed 03/11/2013 Inject/Drain Joint/Bursa Major W/O US Completed 03/11/2013 Inject/Drain Joint/Bursa Major W/O US Completed 03/04/2013 Inject/Drain Joint/Bursa Major W/O US Completed 03/04/2013 Inject/Drain Joint/Bursa Major W/O US Completed 02/04/2013 97401 Rad Exam; Ankle Comp Completed 11/17/2012 39536 Polysomnography Sleep Staging 4+ Parameters W/Cpap Completed 10/15/2012 77987 Rad Exam; Wrist, Comp, Min 3 Views Completed 10/15/2012 36064 Inject/Drain Joint/Bursa Major W/O US Completed 10/15/2012 09477 Inject Tendon Sheath Or Ligament Aponeurosis Eg Completed Plantar Fascia 10/13/2012 66457 Polysomnography Sleep Staging 4+ Parameters Completed 06/24/2012 [id number] Mammogram Completed 06/17/2012 [id number] Diabetic Retinal Eye Exam Completed 03/12/2012 06766 EKG Tracing & Interpretation Completed 06/21/2011 [id number] Mammogram Completed 05/04/2010 05411 EKG Tracing & Interpretation Completed 02/26/2010 [id number] Mammogram Completed 05/02/2009 93207 EKG Tracing & Interpretation Completed 01/05/2009 29093 EKG Tracing & Interpretation Completed 07/29/2007 35450 EKG Tracing & Interpretation Completed 07/29/2007 09668 EKG Tracing & Interpretation Completed 06/26/2005 [id number] Colonoscopy Completed Encounters Type Date Location Provider Dx Diagnosis Office Visit 11/16/2018 [facility] Internal Allan Grewal NP Z01.818 Encounter for other 1:00p Medicine preprocedural examination M17.11 Unilateral primary osteoarthritis, right knee G47.33 Obstructive sleep apnea (adult) (pediatric) E11.21 Type 2 diabetes mellitus with diabetic nephropathy I10 Essential (primary) hypertension J45.909 Unspecified asthma, uncomplicated Office Visit 10/27/2018 [facility] Internal Coco J44.0 Chronic 3:40p Medicine - Jus Clements obstructive [place] pulmon disease w acute lower resp infct Office Visit 10/08/2018 Orthopedic Ramon Polk, M17.11 Unilateral 11:00a Services Of MD thompson C.M.A. osteoarthritis, right knee Office Visit 09/07/2018 Pulmonology And Rubina Dwyer J44.9 Chronic 12:30p Sleep Services Of MD galicia [place] pulmonary disease, unspecified G47.33 Obstructive sleep apnea (adult) (pediatric) J45.909 Unspecified asthma, uncomplicated E66.09 Other obesity due to excess calories Office Visit 08/27/2018 10:30a Orthopedic Jone Ribeiro M75.51 Bursitis of Services Of MD Mell right shoulder C.M.A. M75.81 Other shoulder lesions, right shoulder Office Visit 06/22/2018 3:00p [facility] Internal Coco Z00.00 Encntr for Medicine Jus Clements general adult medical exam w/o abnormal findings E11.21 Type 2 diabetes mellitus with diabetic nephropathy I10 Essential (primary) hypertension J45.20 Mild intermittent asthma, uncomplicated M13.0 Polyarthritis, unspecified Z12.31 Encntr screen mammogram for malignant neoplasm of breast Z23 Encounter for immunization Z68.41 Body mass index (BMI) 40.0-44.9, adult Office Visit 06/08/2018 3:15p Orthopedic Jone Ribeiro M75.51 Bursitis of Services Of MD [place] right shoulder C.M.A. M75.81 Other shoulder lesions, right shoulder Office Visit 05/07/2018 Orthopedic Jone Ribeiro M17.11 Unilateral primary 2:00p Services Of MD Mell osteoarthritis, C.M.A. right knee M25.561 Pain in right knee Office 05/01/2018 Neurohospitalist Ori G43.009 Migraine w/o Visit 9:00a Kathy Villela M.D. aura, not intractable, w/o status migrainosus Z79.899 Other light technician (current) drug therapy Office Visit 04/07/2018 1:00p Orthopedic Jone Ribeiro M75.51 Bursitis of Services Of MD [place] right shoulder C.M.A. M24.811 Oth specific joint derangements of right shoulder, NEC Z47.89 Encounter for other orthopedic aftercare Office Visit 03/03/2018 1:45p Pulmonology And Rubina J44.9 Chronic Sleep Services Of MD Yuliya obstructive [place] pulmonary disease, unspecified G47.33 Obstructive sleep apnea (adult) (pediatric) E66.01 Morbid (severe) obesity due to excess calories Office Visit 02/10/2018 Orthopedic Ramon Polk M17.11 Unilateral primary 10:30a Services Of osteoarthritis, right C.M.A. knee M17.12 Unilateral primary osteoarthritis, left knee M17.0 Bilateral primary osteoarthritis of knee Office Visit 12/29/2017 2:00p Pulmonology And Arabella Skaggs J44.9 Chronic Sleep Services Of Jacquie Walton obstructive [place] pulmonary disease, unspecified R06.02 Shortness of breath G47.33 Obstructive sleep apnea (adult) (pediatric) E66.01 Morbid (severe) obesity due to excess calories Z68.41 Body mass index (BMI) 40.0-44.9, adult Office Visit 12/18/2017 1:00p [facility] Internal [place] I10 Essential ( primary) Medicine Jus Clements hypertension F33.9 Major depressive disorder, recurrent, unspecified Office Visit 11/11/2017 Sagar Rehman G43.919 Migraine, unsp, 10:30a Neurologic Jus Villela intractable, Services Of [facility] without status migrainosus Office Visit 11/03/2017 [facility] Internal Coco Z01.818 Encounter for 11:20a Medicine Jus Cleemnts other preprocedural examination G47.33 Obstructive sleep apnea (adult) (pediatric) J44.9 Chronic obstructive pulmonary disease, unspecified E11.40 Type 2 diabetes mellitus with diabetic neuropathy, unsp Office Visit 10/29/2017 1:15p Orthopedic Jone Ribeiro S46.011D Strain of Services Of MD Mell musc/tend the C.M.A. rotator cuff of right shoulder, subs M75.21 Bicipital tendinitis, right shoulder M75.41 Impingement syndrome of right shoulder M75.31 Calcific tendinitis of right shoulder Office Visit 10/07/2017 3:00p Orthopedic Jone Ribeiro S46.011D Strain of Services Of MD Mell musc/tend the C.M.A. rotator cuff of right shoulder, subs M75.21 Bicipital tendinitis, right shoulder M75.41 Impingement syndrome of right shoulder M75.31 Calcific tendinitis of right shoulder Office Visit 09/02/2017 Orthopedic Jone Ribeiro M19.011 Primary 1:00p Services Of MD Mell osteoarthritis, C.M.A. right shoulder S46.011D Strain of musc/tend the rotator cuff of right shoulder, subs Office Visit 08/25/2017 8:30a Pulmonology And Rubina G47.33 Obstructive sleep Sleep Services Of MD Yuliya apnea (adult) [facility] (pediatric) J44.9 Chronic obstructive pulmonary disease, unspecified G25.81 Restless legs syndrome E66.01 Morbid (severe) obesity due to excess calories Z68.41 Body mass index (BMI) 40.0-44.9, adult Z12.2 Encntr screen for malignant neoplasm of respiratory organs Z72.821 Inadequate sleep hygiene Office Visit 07/01/2017 1:15p Orthopedic Jone F M75.21 Bicipital Services Of MD Mell tendinitis, right C.M.A. shoulder M75.41 Impingement syndrome of right shoulder M19.011 Primary osteoarthritis, right shoulder M75.31 Calcific tendinitis of right shoulder Office Visit 06/19/2017 Sagar Ramirez G43.009 Migraine w/o aura, 11:45a Neurologic Jus Tong not intractable, Services Of [facility] w/o status migrainosus Office Visit 06/19/2017 [facility] Internal Coco Z00.00 Encntr for general 1:20p Medicine Jus Clements adult medical exam w/o abnormal findings D64.9 Anemia, unspecified G47.33 Obstructive sleep apnea (adult) (pediatric) Z12.31 Encntr screen mammogram for malignant neoplasm of breast Z23 Encounter for immunization F32.89 Other specified depressive episodes Office Visit 04/17/2017 2:15p Orthopedic Jone F M25.511 Pain in right Services Of MD Mell shoulder C.M.A. M75.41 Impingement syndrome of right shoulder M75.21 Bicipital tendinitis, right shoulder M19.011 Primary osteoarthritis, right shoulder Office Visit 03/06/2017 1:00p Orthopedic Jone F M25.511 Pain in right Services Of MD Mell shoulder C.M.A. M75.41 Impingement syndrome of right shoulder Office Visit 02/24/2017 [facility] Internal Julia Romero, M25.511 Pain in right 1:00p Medicine N.P. shoulder Office Visit 02/06/2017 Sagar Ramirez G43.009 Migraine w/o aura, 11:30a Eve Tong M.D. not intractable, Services Of [facility] w/o status migrainosus Office Visit 01/30/2017 Orthopedic Lynn M17.0 Bilateral primary 9:00a Services Of Jus [place] osteoarthritis of C.M.A. knee M25.561 Pain in right knee M25.562 Pain in left knee Office Visit 01/06/2017 2:40p [facility] Internal Allan Grewal, E11.40 Type 2 diabetes Medicine DIRECTOR TELEVISION mellitus with diabetic neuropathy, unsp H10.89 Other conjunctivitis H92.02 Otalgia, left ear Office Visit 12/13/2016 11:00a [facility] Internal Patrikc Guerra, B02.9 [place] without Medicine - DIRECTOR TELEVISION complications [address] H66.91 Otitis media, unspecified, right ear E11.40 Type 2 diabetes mellitus with diabetic neuropathy, unsp Office Visit 12/09/2016 2:40p [facility] Internal Julia Romero, H10.89 Other conjunctivitis Medicine N.P. H66.91 Otitis media, unspecified, right ear Office Visit 10/09/2016 [facility] Internal Allan Grewal NP E11.40 Type 2 diabetes 4:00p Medicine mellitus with diabetic neuropathy, unsp Office Visit 07/22/2016 [facility] Internal Allan Grewal NP H10.89 Other conjunctivitis 2:20p Medicine Office Visit 06/28/2016 [facility] Internal Coco E11.40 Type 2 diabetes 11:20a Jose Clements M.D. mellitus with diabetic neuropathy, unsp I10 Essential (primary) hypertension M54.5 Low back pain L03.011 Cellulitis of right finger Z23 Encounter for immunization Office Visit 06/27/2016 Sagar Ramirez G43.009 Migraine w/o aura, 11:30a Neurologic Jus Tong not intractable, Services Of [facility] w/o status migrainosus M54.5 Low back pain Office Visit 06/14/2016 11:20a [facility] Internal Patrick Guerra, J01.90 Acute sinusitis, Medicine - DIRECTOR TELEVISION unspecified [address] Office Visit 03/26/2016 11:40a [facility] Internal Coco E11.65 Type 2 diabetes Jose Clements M.D. mellitus with hyperglycemia Z12.31 Encntr screen mammogram for malignant neoplasm of breast Office Visit 02/12/2016 [facility] Internal [place] E11.65 Type 2 diabetes 11:40a Jose Clements M.D. mellitus with hyperglycemia Office Visit 01/30/2016 Sagar Ramirez G43.009 Migraine w/o aura, 11:45a Neurologic Jus Tong not intractable, Services Of [facility] w/o status migrainosus Office Visit 12/26/2015 [facility] Internal [place] E11.65 Type 2 diabetes 10:20a Jose Clements M.D. mellitus with hyperglycemia Office Visit 11/14/2015 [facility] Internal [place]oco E11.65 Type 2 diabetes 10:40a oJse Clements M.D. mellitus with hyperglycemia M54.5 Low back pain I10 Essential (primary) hypertension Office Visit 10/03/2015 10:40a [facility] [place] E11.40 Type 2 diabetes Jose Clements M.D. mellitus with diabetic neuropathy, unsp I10 Essential (primary) hypertension R21 Rash and other nonspecific skin eruption Office Visit 09/07/2015 Sagar Ramirez G43.919 Migraine, unsp, 8:45a Eve Tong M.D. intractable, Services Of [facility] without status migrainosus Office Visit 07/03/2015 [facility] [place] E11.40 Type 2 diabetes 10:20a Jose Clements M.D. 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 Persistent Headache 311 Depressive Disorder Not Elsewhere Spec 346.91 Migraine Unspec W/ Intractable W/O Status Migrainosus Office Visit 03/14/2015 [facility] Internal [place]oco 250.60 Diabetes W/ 11:20a Jose Clements M.D. Neurological Manifestations Type II Controlled 250.00 Diabetes Mellitus W/O Compl Type II Or Unspec Controlled Office Visit 02/02/2015 Orthopedic Lynn 715.16 Osteoarthrosis 4:00p Services Of Jus [place] Localized Prim C.M.A. Lower Leg Office Visit 11/18/2014 [facility] Internal Coco 250.02 Diabetes Mellitus 3:40p Jose Clements M.D. W/O Compl Type II Or Unspec Type Uncontrol Office Visit 11/17/2014 Sagar Ramirez 346.93 Migraine 3:45p Neurologic Jus Tong Unspecified, Services Of [place] W/Intractable Migraine 311 Depressive Disorder Not Elsewhere Spec 346.91 Migraine Unspec W/ Intractable W/O Status Migrainosus 309.0 Adjustment Disorder With Depression Office Visit 06/17/2014 3:40p [facility] Internal [place] V70.0 Examination Jose Clements M.D. General Medical Routine AT Health Care Facility V76.2 Screening Malignant Neoplasm Cervix V76.12 Screening Mammogram Nano Robert Alston 250.02 Diabetes Mellitus W/O Compl Type II Or Unspec Type Uncontrol 401.1 Hypertension Benign Office Visit 06/09/2014 3:15p Sagar Ramirez 346.10 Migraine Common Neurologic Jus Tong W/O Intractable Services Of [facility] W/O Status Migrainosus Office Visit 05/17/2014 8:40a [facility] Internal [place] 250.02 Diabetes Mellitus Jose Clements M.D. W/O Compl Type II Or Unspec Type Uncontrol 401.1 Hypertension Benign 790.4 Transaminase Or Lactic Acid Dehydrogenase Elevation Nonspec 719.47 Pain Joint Ankle & Foot V04.81 Need For Prophylactic Vaccination & Inoculation/Influenza Office Visit 02/11/2014 3:40p [facility] Internal [place] 250.02 Diabetes Mellitus Jose Clements M.D. W/O Compl Type II Or Unspec Type Uncontrol Office Visit 01/07/2014 8:45a Sagar Ramirez 346.10 Migraine Common Neurologic Jus Tong W/O Intractable Services Of [facility] W/O Status Migrainosus Office Visit 01/04/2014 4:20p [facility] Internal [place] 250.02 Diabetes Mellitus Jose Clements M.D. W/O Compl Type II Or Unspec Type Uncontrol 790.4 Transaminase Or Lactic Acid Dehydrogenase Elevation Nonspec Office Visit 12/29/2013 4:00p Orthopedic Mickey Ocasio, 719.46 Pain Joint Services Of Jus Lower Leg C.M.A. Office Visit 11/12/2013 12:00p [facility] Internal Nurse Visit 250.02 Diabetes Medicine [place] Mellitus W/O Compl Type II Or Unspec Type Uncontrol Office Visit 11/04/2013 4:00p [facility] Internal [place]oco 250.02 Diabetes Jose Clements M.D. Mellitus W/O Compl Type II Or Unspec Type Uncontrol 790.4 Transaminase Or Lactic Acid Dehydrogenase Elevation Nonspec 401.1 Hypertension Benign 729.5 Pain In Limb Office Visit 10/29/2013 3:45p Orthopedic Mickey Ocasio, 729.5 Pain In Limb Services Of Jus C.M.A. Office Visit 09/02/2013 4:20p [facility] Internal [place] 250.02 Diabetes Jose Clements M.D. Mellitus W/O Compl Type II Or Unspec Type Uncontrol 790.4 Transaminase Or Lactic Acid Dehydrogenase Elevation Nonspec Office Visit 07/26/2013 4:00p [facility] Internal [place] 250.02 Diabetes Jose Clements M.D. Mellitus W/O Compl Type II Or Unspec Type Uncontrol 790.4 Transaminase Or Lactic Acid Dehydrogenase Elevation Nonspec 715.16 Osteoarthrosis Localized Prim Lower Leg Office Visit 06/11/2013 2:40p [facility] Internal [place] V70.0 Examination Jose Clements M.D. General Medical Routine AT Health Care Facility V72.31 Routine Production Supervisor Examination V76.10 Screening For Malignant Neoplasm Breast 250.02 Diabetes Mellitus W/O Compl Type II Or Unspec Type Uncontrol 790.4 Transaminase Or Lactic Acid Dehydrogenase Elevation Nonspec 786.09 Dyspnea & Respiratory Abnormalities Other V04.81 Need For Prophylactic Vaccination & Inoculation/Influenza Office Visit 05/14/2013 4:00p Sagar Ramirez 346.10 Migraine Common Neurologic Jus Tong W/O Intractable Services Of [facility] W/O Status Migrainosus 386.11 Vertigo Benign Paroxysmal Position Office Visit 04/30/2013 3:00p Orthopedic Mickey Ocasio 719.47 Pain Joint Ankle Services Of [facility]Manju [facility] C.M.A. Office Visit 04/07/2013 4:00p Orthopedic Mickey Ocasio 719.47 Pain Joint Ankle Services Of [facility] C.M.A. Office Visit 02/04/2013 8:15a Orthopedic Lynn 716.96 Arthropathy Services Of Jus [place] Unspec Lower Leg C.M.A. 727.09 Synovitis & Tenosynovitis Other Office Visit 12/07/2012 3:40p [facility] Internal [place] 250.00 Diabetes Mellitus Jose Clements M.D. W/O Compl Type II Or Unspec Controlled 716.96 Arthropathy Unspec Lower Leg 009.1 Colitis Enteritis & Gastroenteritis Presumed Infectious Orig Office Visit 10/28/2012 3:55p Xavi Arevalo 327.23 Obstructive Sleep Disorder Center Jus Hurley Apnea Adult & Pediatric Office Visit 10/15/2012 2:45p Orthopedic Lynn 716.96 Arthropathy Services Of [place], M.D. Unspec Lower Leg C.M.A. 727.04 Tenosynovitis Radial Styloid Office Visit 09/29/2012 1:39p Xavi Sleep Mickey 786.09 Dyspnea & Disorder Jus Hurley [facility] Abnormalities Other 780.79 Malaise And Fatigue Other Office Visit 06/18/2012 10:20a [facility] Internal Julia Romero, 599.0 UTI Urinary Medicine N.P. Tract Infection Site Not Spec 386.11 Vertigo Benign Paroxysmal Position Office Visit 06/05/2012 3:00p [facility] Internal [place] V70.0 Examination Jose Clements M.D. General Medical Routine AT Health Care Facility V72.31 Routine Production Supervisor Examination V76.10 Screening For Malignant Neoplasm Breast 250.00 Diabetes Mellitus W/O Compl Type II Or Unspec Controlled 493.00 Asthma Extrinsic Unspecified V04.81 Need For Prophylactic Vaccination & Inoculation/Influenza Office Visit 03/12/2012 4:00p [facility] Internal [place] 780.4 Dizziness & Medicine Jus Clements Giddiness 311 Depressive Disorder Not Elsewhere Spec 790.4 Transaminase Or Lactic Acid Dehydrogenase Elevation Nonspec 250.00 Diabetes Mellitus W/O Compl Type II Or Unspec Controlled Office Visit 02/10/2012 3:40p [facility] Internal [place] 250.00 Diabetes Mellitus Jose Clements M.D. W/O Compl Type II Or Unspec Controlled 401.1 Hypertension Benign 272.2 Hyperlipidemia Mixed 311 Depressive Disorder Not Elsewhere Spec 791.0 Proteinuria 790.4 Transaminase Or Lactic Acid Dehydrogenase Elevation Nonspec Office Visit 09/12/2011 3:40p [facility] Internal Nurse Visit A 401.1 Hypertension Medicine Benign Office Visit 08/09/2011 3:00p DO Not Use Coco 250.00 Diabetes Mellitus Sherice Clements M.D. W/O Compl Type II Or Unspec Controlled 401.1 Hypertension Benign 272.2 Hyperlipidemia Mixed 782.1 Rash & Other Nonspec Skin Eruption Office Visit 06/04/2011 DO Not Use [place] V70.0 Examination 3:00p Sherice Clements M.D. General Medical Routine AT Health Care Facility 250.00 Diabetes Mellitus W/O Compl Type II Or Unspec Controlled 401.1 Hypertension Benign 272.2 Hyperlipidemia Mixed V76.10 Screening For Malignant Neoplasm Breast Office Visit 05/07/2011 DO Not Use Coco 250.00 Diabetes 3:40p Sherice Clements M.D. Mellitus W/O Compl Type II Or Unspec Controlled 401.1 Hypertension Benign 729.5 Pain In Limb V04.81 Need For Prophylactic Vaccination & Inoculation/Influenza Office Visit 02/04/2011 DO Not Use Coco 250.00 Diabetes 3:40p Sherice Clements M.D. Mellitus W/O Compl Type II Or Unspec Controlled 401.1 Hypertension Benign 724.2 Lumbago V03.82 Streptococcus Pneumoniae Vaccination Spec Other Office Visit 11/01/2010 DO Not Use [place]oco 250.00 Diabetes Mellitus 4:00p Sherice Clements M.D. W/O Compl Type II Or Unspec Controlled Office Visit 08/13/2010 DO Not Use [place]oco 401.1 Hypertension 3:30p Sherice Clements M.D. Benign 782.1 Rash & Other Nonspec Skin Eruption 250.00 Diabetes Mellitus W/O Compl Type II Or Unspec Controlled Office Visit 06/15/2010 DO Not Use [place]oco 250.00 Diabetes 3:45p Sherice Clements M.D. Mellitus W/O Compl Type II Or Unspec Controlled 401.1 Hypertension Benign Office Visit 05/04/2010 DO Not Use [place]oco 250.00 Diabetes 3:45p Sherice Clements M.D. Mellitus W/O Compl Type II Or Unspec Controlled 311 Depressive Disorder Not Elsewhere Spec 401.1 Hypertension Benign V04.81 Need For Prophylactic Vaccination & Inoculation/Influenza v04.81 Need For Prophylactic Vaccination & Inoculation/Influenza Office Visit 01/23/2010 DO Not Use [place]oco V70.0 Examination 2:45p Sherice Clements M.D. General Medical Routine AT Health Care Facility 250.00 Diabetes Mellitus W/O Compl Type II Or Unspec Controlled Office Visit 10/19/2009 4:00p DO Not Use Suzy, 790.21 Impaired Sherice Mitchell M.D. Fasting Glucose 401.1 Hypertension Benign Office Visit 08/15/2009 2:45p DO Not Use Suzy, 790.21 Impaired Sherice Mitchell M.D. Fasting Glucose 496 COPD Airway Obstruction Chronic Not Class Elsewhere 401.1 Hypertension Benign Office Visit 06/30/2009 2:15p DO Not Use Suzy, 790.21 Impaired Sherice Mitchell M.D. Fasting Glucose 496 COPD Airway Obstruction Chronic Not Class Elsewhere Office Visit 06/23/2009 DO Not Use [place], 786.05 Shortness Of 4:15p Sherice Mitchell M.D. Breath 272.4 Hyperlipidemia Other Unspec 305.1 Tobacco Use Disorder Office Visit 05/02/2009 DO Not Use [place], 786.05 Shortness Of 4:15p Sherice Mitchell M.D. Breath 272.0 Hypercholesterolemia Pure Office Visit 04/20/2009 DO Not Use [place], 272.4 Hyperlipidemia 3:30p Sherice Mitchell M.D. Other Unspec 790.21 Impaired Fasting Glucose Office Visit 01/05/2009 DO Not Use [place], V72.31 Routine Production Supervisor 3:15p Sherice Mitchell M.D. Examination 401.1 Hypertension Benign Office Visit 11/23/2008 3:30p DO Not Use [place], 461.9 Sinusitis Acute Sherice Mitchell M.D. Unspec 305.1 Tobacco Use Disorder Office Visit 09/12/2008 2:30p DO Not Use [place], 461.9 Sinusitis Acute Sherice Mitchell M.D. Unspec 784.0 Headache Office Visit 03/17/2008 DO Not Use [place], 780.52 Insomnia 3:45p Sherice Mitchell M.D. Unspecified 401.1 Hypertension Benign 311 Depressive Disorder Not Elsewhere Spec Office Visit 12/21/2007 DO Not Use [place], 780.52 Insomnia 3:45p Sherice Mitchell M.D. Unspecified 401.1 Hypertension Benign Office Visit 09/17/2007 DO Not Use [place], 466.0 Bronchitis Acute 2:45p Sherice Mitchell M.D. 372.30 Conjunctivitis Unspec 311 Depressive Disorder Not Elsewhere Spec Office Visit 07/29/2007 DO Not Use [place], V72.31 Routine Production Supervisor 3:15p Sherice Mitchell M.D. Examination 786.2 Cough 780.52 Insomnia Unspecified 578.1 Blood In Stool Melena 401.1 Hypertension Benign V04.81 Need For Prophylactic Vaccination & Inoculation/Influenza Office Visit 07/21/2007 2:45p DO Not Use Julia Romero, 466.0 Bronchitis Acute [facility] Office Visit 01/19/2007 4:00p DO Not Use [place], 782.3 [facility] 272.0 Hypercholesterolemia Pure 277.7 Dysmetabolic Syndrome X 401.1 Hypertension Benign Plan of Treatment Future Appointment(s):12/22/2018 10:30 am - Ramon Polk MD at [facility]12/08/2018 7:30 am - Ramon Polk MD at [facility].12/08/2018 7:30 am - Prakash Koch M.D. at [facility]01/05/2019 1:45 pm - Rubina Dwyer MD at [facility]12/21/2018 1:00 pm - Coco Clements M.D. at [facility] Internal Ulxvdexc06/15/2019 - Prakash Koch M.D.M17.11 Unilateral primary osteoarthritis, right kneeFollow up:Follow up: For right total knee replacement [facility]icit[facility] December 08
--- OUTSIDE RECORDS SUMMARY | 2018-12-08 05:45 | XMS REPORT | Continuity of Care Document ---
:1960 External Reference #:[id number] Author Name Jada Brooklyn Care Team Providers Name Role Phone Coco Clements MD Primary Care Physician Unavailable Payers Date Identification Numbers Payment Provider Subscriber Effective: 2012 Policy Number: [id number] [employer]ets Vadim Snow PayID: [id number] [address] [address] [place] [address] Advance Directives Type Date Description Status Comment [...] (CAD) : (age 77 Mother due to NE Years) Mother Diabetes Type I Mother NE Siblings 3 2 sisters and 1 brother [...] Use Denies Drug Use Smoking Status Reviewed: 11/27/18 Patient is a former pt quit around 2008 smoker Exercise Type/Frequency Does not exercise Allergies, Adverse Reactions, Alerts Date Description Reaction Status Severity Comments 05/03/2010 Intolerable To Some Pain Meds Rash Active 01/19/2010 NKDA Inactive Medications Medication Date Status Form Strength Qnty SIG Indications Ordering Provider Rosuvastatin 08/04 Active Tablets 40mg 90tab Take One s Tablet By Jus Clements Mouth Every Day Fenofibrate 08/04 Active Tablets 145mg 90tab Take One s Tablet By Jus Clements Mouth Once Daily Diclofenac 06/22 Active Gel 1% 100un apply 4 M13.0 Coco its grams to Jus Clements the knees 4 times a day as needed Freestyle 28G 04/21 Active 100un Test Coco its Blood Jus Clements Glucose Two Times [...] Day Or as Jus Clements Directed Pen [place] 02/14 Active Misc 31G X 5 200un [...] 06/15 Active Capsules 25mg 270ca take 3 er ps capsules Jus Villela by mouth at bedtime as directed Motion Sickness Active Tablets 50mg [facility] Unknown Relief /0000 brand dimenhydr amate - takes 2 in Am Estroblend Active Unknown Multivitamin / Trulicity Active Solution 0.75mg/0. 1 E11.40 Law Dusty, / Pen-Inject 5ML injection MD once weekly Excedrin Active Tablets 250-250-6 1 tab Unknown Migraine / 5mg twice a day as needed for migraine Symbicort Active Aerosol 160-4.5mc 10.20 1 puff Lynn g/Act 0gm twice a Aishwarya, CLEAT THROWER day Doxycycline 10/27 Hx Tablets 100mg 14tab [...] 06/17 Hx Tablets 600mg 15tab Q8H Unknown s - 09/05 Diclofenac 03/23 Hx Tablets [...] e11.9 Mometasone 01/06 Hx Suspension 50mcg/Act 17uni [place]xton 2 H92.02 Samuel Irby ts Sprays In CLEAT THROWER - Each 11/03 Nostril /2017 Every Day Valacyclovir HCL 12/13 Hx Tablets 500mg 42tab 2 tab po B02.9 Patrick s tid Charlie CLEAT THROWER - x7days 12/27 Zyrtec Allergy 12/13 Hx Tablets 10mg 30tab 1 by H66.91 s mouth DEE Guerra - every day 11/03 for the next 3-4 weeks, then as needed Tobramycin 12/09 Hx Solution 0.3% 5ml 1 drop in H10.89 each eye Nick, N.P. - every 12/16 4hours x 7 days Amoxicillin/Clav 12/09 Hx Tablets 875-125mg 20tab one H66.91 Julia ulanat s tablet by Nick, N.P. Potassium - mouth 12/19 twice daily for 10 days Trimethoprim 07/22 Hx Solution 01170-3.1 10ml two drops H10.89 Allan Grewal, Sulfate/Polymyx Unit/ML-% affected CLEAT THROWER n B Sulfate - eye 4 08/01 [...] Hx Solution 10mcg/0.0 5 mcg sc 250.60 4ML twice a Tyree M.D. - day for 2 11/24 wks 10 mcg sc twice a day [place]etta 10 mcg 11/24 Hx Solution 10mcg/0.0 2.4un inject 1 E11.40 Pen-Inject 4ML its injection James ClementsDManju - under the 10/03 skin times daily before breakfast and dinner Novofine 11/15 Hx Misc 32G X 6 180un use two mm its times Tyree MManjuD. - daily or 02/14 directed with simona Scott 11/12 Hx 100un two times E11.9 its daily or Jus Clements - as 04/02 Oxycodone HCL 11/04 Hx Capsules 5mg 90cap 1 by Allan Grewal s mouth 2-3 CLEAT THROWER - times 12/18 Byshemar 11/04 Hx Solution 5mcg/0.02 60uni 1 250.60 ML ts injection Jus Clements - s/c bid 11/24 Hydrocodone/Acet 07/27 Hx Tablets 5-325mg 90tab 1-2 po 2 401.1 amino s to 3 Jus Clements - times [...] 2 po qd 311 Pam Ramirez Oxalate Carli Busby M.D. 03/08 Hydrochlorothiaz 02/09 Hx Capsules 12.5mg 90cap take one I10 Coco yunior s capsule Jus Clements - by mouth 12/18 Freestyle Lite 01/06 Hx Strip 50uni Test Once Coco Test ts Daily Jus Clements - Three 06/04 Days Week Lisinopril/[place] 08/09 Hx Tablets 10-12.5mg 45tab 08/19 po qd 401.1 Coco chlorothiazide s Jus [...] 08/13 Hx Tablets 145mg 30tab 1 tablet Coco /2010 s daily Jus Clements - 11/01 [...] Hx Misc 50uni use once 250.00 Coco ts daily 3 Jus Clements - days [...] Capsule Jus Clements - By Mouth 08/09 Every Tricor [...] Mobic 01/19 Hx Tablets Unsure 30tab Coco s Jus Clements - 08/13 Gabapentin 01/19 [...] Injection Jone F 40MG Christa Monte MD Depomedrol Administered [...] Synvisc Or Administered Injection Lynn Synvisc-One 015 Clovis Lawton. Injection 1 MG Synvisc Or Administered Injection Lynn Synvisc-One 015 [place], M.D. Injection 1 MG Injection Administered Injection Lynn Hyaluronan Or Mak Lawton M.D. Derivative, Euflexxa Per Dose Injection Administered Injection Lynn Hyaluronan Or Mak Lawton M.D. Derivative, Euflexxa Per Dose Injection Administered Injection Lynn Hyaluronan Or 013 Jus Lawton Derivative, Euflexxa Per Dose Depomedrol Administered Injection Lynn 80MG Mak Lawton M.D. Depomedrol Administered Injection Lynn 80MG Mak Lawton M.D. Immunizations CPT Code Status Date Vaccine Lot # [id number] Given 06/22/2018 Influenza Virus Vaccine, Quadrivalent, Split, [id number] Preservative Free 90304 Given 06/19/2017 Influenza Virus Vaccine, Quadrivalent, Split, [id number] Preservative Free 35425 Given 06/28/2016 Influ Virus Vaccine, Quadrivalent, Split Virus, [id number] [address] Given 07/03/2015 Tdap - Tetanus/Diptheria/Acellular Pertussis [id number] 31456 Given 07/03/2015 Influenza Virus Vaccine, Quadrivalent, Split, [id number] Preservative Free 21044 Given 05/17/2014 Influenza Virus Vaccine, Quadrivalent, Split, [id number] Preservative Free 60187 Given 06/11/2013 Flu Vaccine Split Virus Preservative Free For [id number] Indiv 3Yr Older [id number] Given 06/05/2012 Fluvirin Im 3Yrs And Older [id number] 02655 Given 05/07/2011 Influenza Virus 3Yrs & Over [id number] 72010 Given 02/04/2011 Pneumonia Vaccine [id number] 48758 Given 05/04/2010 Influenza Virus 3Yrs & Over 64132 Given 07/29/2007 Influenza Virus 3Yrs & Over Vital Signs Date Vital Result Comment 11/27/2018 11:17am Height 64 inches 5'4" Weight [...] H/L Range Note CBC Auto Diff 11/26/2018 [facility] White Blood 5.9 10^3/uL N 3.5-10.[address] [place] [address] [phone] Red Blood Count 4.41 10^6/uL N 3.70-4.87 [...] Red Blood Cells % 0.1 Inr/Protime 11/26/2018 [facility] Inr 1.00 N 0.77-1.[address] [place] [address] [phone] Laboratory test 11/26/2018 [facility] Partial 30.2 seconds N 26.0-36.3 finding [address] [facility] [place] [address] PTT [phone] Basic Metabolic 11/26/2018 [facility] Sodium 139 mmol/L N 135- 145 Panel [facility] [place] [address] [phone] Potassium 4.2 mmol/L N 3.5-5.0 Chloride 98 mmol/L Low 101-111 Co2 Carbon Dioxide 28 mmol/L N 22-32 Anion Gap 13 mmol/L High 2-11 Glucose 128 mg/dL High 70-100 Blood Urea Nitrogen 18 mg/dL N 6-24 Creatinine 0.95 mg/dL N 0.51-0.95 BUN/Creatinine Ratio 18.9 N 8-20 Calcium 9.9 mg/dL N 8.6-10.3 Egfr Non- 60.0 >60 Egfr 72.6 >60 1 Type & Screen 11/26/2018 [facility] Patient Blood Type O Positive [address] [place] [address] [phone] Antibody Screen NEGATIVE CBC Auto Diff 11/16/2018 [facility] White Blood 6.2 10^3/uL N 3.5-10.[address] [place] [address] [phone] Red Blood Count 4.45 10^6/uL N 3.70-4.87 [...] Cells % 0.1 Basic Metabolic Panel 11/16/2018 [facility] Sodium 139 mmol/L N 135-[address] [place] [address] [phone] Potassium 4.2 mmol/L N 3.5-5.0 Chloride 100 mmol/L Low 101-111 Co2 Carbon Dioxide 27 mmol/L N 22-32 Anion Gap 12 mmol/L High 2-11 Glucose 118 mg/dL High 70-100 Blood Urea Nitrogen 18 mg/dL N 6-24 Creatinine 0.85 mg/dL N 0.51-0.95 BUN/Creatinine Ratio 21.2 High 8-20 Calcium 9.7 mg/dL N 8.6-10.3 Egfr Non- 68.2 >60 Egfr 82.5 >60 2 Urine Culture And 11/16/2018 [facility] Urine Culture SEE RESULT [address] [place] [address] [phone] Inr/Protime 11/16/2018 [facility] Inr 0.99 N 0.77- [address] 1.02 [place] [address] [phone] Laboratory test 07/23/2018 [facility] Hemoglobin A1c 6.7 finding Lipid Profile 06/18/2018 [facility] Triglycerides 218 mg/dL 4 (Trig/Chol/HDL) [address] [place] [address] [phone] Cholesterol 173 mg/dL 5 HDL Cholesterol 47.8 mg/dL 6 LDL Cholesterol 82 mg/dL 7 Comp Metabolic Panel 06/18/2018 [facility] Sodium 142 mmol/L N 135-[address] [place] [address] [phone] Potassium 4.2 mmol/L N 3.5-5.0 Chloride 103 [...] 58.8 >60 8 CBC Auto Diff 06/18/2018 [facility] White Blood 7.9 10^3/uL N 3.5-10.[address] [place] [address] [phone] Red Blood Count 4.56 10^6/uL N 4.00-5.40 [...] Blood Cells % 0 Urine Microalbumin 06/18/2018 [facility] Ur Microalbumin 88.[address] (mg/L) [place] [address] [phone] Urine Creatinine 123.90 mg/dL Urine Microalbumin/Creatinine 71.3 High <31 CBC Auto Diff 06/16/2018 [facility] White Blood 10.1 10^3/uL N 3.5-10.[address] [place] [address] [phone] Red Blood Count 4.58 10^6/uL N 4.00-5.40 [...] Blood Cells % 0 Urinalysis Profile 06/16/2018 [facility] Urine Color Yellow [address] [place] [address] [phone] Urine Appearance Cloudy Urine Specific [place] 1.017 N 1.010-1.030 Urine pH 7.0 N [...] Epithelial Cell Present Abnormal Absent Inr/Protime 06/16/2018 [facility] Inr 1.01 N 0.77-1.[address] [place] [address] [phone] Laboratory test 06/16/2018 [facility] Partial 29.7 seconds N 26.0-36.[address] [place] [address] PTT [phone] Lactic Acid 1.1 mmol/L N 0.5-2.0 9 Comp Metabolic Panel 06/16/2018 [facility] Sodium 136 mmol/L N 135-[address] [place] [address] [phone] Potassium 3.9 mmol/L N 3.5-5.0 Chloride 99 [...] 64.0 >60 10 Laboratory test finding 06/16/2018 [facility] Lipase 36 U/L N 11.0-82.[address] [place] [address] [phone] Troponin-I (TnI) 0.00 ng/mL <0.04 Urine Culture And 06/16/2018 [facility] Urine Culture SEE RESULT [address] [place] [address] [phone] Laboratory test 04/14/2018 [facility] Hemoglobin A1c 6.5 finding Basic Metabolic 02/02/2018 [facility] Sodium 140 mmol/L N 135- [address] [place] [address] [phone] Potassium 4.3 mmol/L N 3.5-5.0 Chloride 100 mmol/L Low 101-111 Co2 Carbon Dioxide 27 mmol/L N 22-32 Anion Gap 13 mmol/L High 2-11 Glucose 137 mg/dL High 70-100 Blood Urea Nitrogen 16 mg/dL N 6-24 Creatinine 1.13 mg/dL High 0.51-0.95 BUN/Creatinine Ratio 14.2 N 8-20 Calcium 9.7 mg/dL N 8.6-10.3 Egfr Non- 49.3 >60 Egfr 63.4 >60 12 Laboratory test 11/14/2017 [facility] Point of 230 mg/dL High 70-100 [address] [place] [address] [phone] Laboratory test 11/14/2017 [facility] Point of 240 mg/dL High 70-100 [address] [place] [address] [phone] Order 11/04/2017 [facility] EKG <pending> Urinalysis 11/04/2017 [facility] Urine Color Yellow [address] [place] [address] [phone] Urine Appearance Clear Urine Specific [place] 1.018 N 1.010-1.030 Urine pH 5.0 N 5-9 Urine Urobilinogen Negative Negative Urine Ketones Trace Abnormal Negative Urine Protein Negative Negative Urine Leukocytes Negative Negative Urine Blood Negative Negative * * Abnormal Negative 16 Urine Nitrite Negative Negative Urine Bilirubin Negative Negative Urine Glucose Negative Negative Urine Culture And 11/04/2017 [facility] Urine Culture SEE RESULT [address] [place] [address] [phone] Comp Metabolic 11/04/2017 [facility] Sodium 137 mmol/L N 133- [address] [place] [address] [phone] Potassium 3.9 mmol/L N 3.5-5.0 Chloride 100 [...] 93.1 >60 18 CBC Auto Diff 11/04/2017 [facility] White Blood 4.7 10^3/uL N 3.5-10.[address] [place] [address] [phone] Red Blood Count 4.48 10^6/uL N 4.0-5.4 [...] % 0.1 Iron & Iron Binding 11/04/2017 [facility] Iron 75 g/dL N 50- 212 [address] [place] [address] [phone] Unsaturated Iron Binding 384 g/dL Total Iron Binding Capacity 459 g/dL High 250-450 Transferrin 328 mg/dL N 203-362 % Iron Saturation 16 % N 15-55 Laboratory test 11/04/2017 [facility] Vitamin B12 717 pg/mL N 180-914 [address] [place] [address] [phone] Laboratory test 09/23/2017 [facility] Hemoglobin A1c 7.9 finding Laboratory test 09/23/2017 [facility] Hemoglobin A1c 7.9 finding Laboratory test 07/01/2017 [facility] Surgical SEE RESULT [address] [place] [address] [place] [address] [phone] Laboratory test 06/25/2017 [facility] Saliva Cortisol TNP () [address] [place] [address] [phone] Laboratory test 06/24/2017 [facility] Saliva Cortisol 59 ng/dL <[address] [place] [address] [phone] Lipid Profile 06/09/2017 [facility] Triglycerides 378 mg/dL N 23 (Trig/Chol/HDL) [address] [place] [address] [phone] Cholesterol 182 mg/dL N 24 HDL Cholesterol 28.2 mg/dL N 25 LDL Cholesterol 78 mg/dL N 26 Comp Metabolic Panel 06/09/2017 [facility] Sodium 137 mmol/L N 133-[address] [place] [address] [phone] Potassium 4.0 mmol/L N 3.5-5.0 Chloride 100 [...] N >60 27 CBC Auto Diff 06/09/2017 [facility] White Blood 4.4 10^3/uL N 3.5-10.[address] [place] [address] [phone] Red Blood Count 3.98 10^6/uL Low 4.0-5.4 [...] 0.1 N Iron & Iron Binding 06/09/2017 [facility] Iron 49 g/dL Low 50-[address] [place] [address] [phone] Unsaturated Iron Binding 430 g/dL N Total Iron Binding Capacity 479 g/dL High 250-450 % Iron Saturation 10 % Low 15-55 CBC Auto Diff 02/06/2017 [facility] White Blood 5.3 10^3/uL N 3.5-10.[address] [place] [address] [phone] Red Blood Count 4.54 10^6/uL N 4.0-5.4 [...] % 0 N Comp Metabolic Panel 02/06/2017 [facility] Sodium 137 mmol/L N 133-[address] [place] [address] [phone] Potassium 4.1 mmol/L N 3.5-5.0 Chloride 100 [...] 94.7 N >60 28 Laboratory test 02/06/2017 [facility] Nortriptyline 100 ng/mL N 70-[address] ([place]) [place] [address] [phone] Urine 12/13/2016 [facility] Urine Creatinine 266.[address] Microalbumin [address] mg/[place] [address] [phone] Ur Microalbumin (mg/L) 43.9 mg/L N Urine Microalbumin/Creatinine 16.4 ug/mg N <31 Laboratory test 12/13/2016 [facility] Hemoglobin A1c 8.4 High 5-7 finding Lipid Profile 06/18/2016 [facility] Triglycerides 339 mg/dL N 30 (Trig/Chol/HDL) [address] [place] [address] [phone] Cholesterol 162 mg/dL N 31 HDL Cholesterol 21.3 mg/dL N 32 LDL Cholesterol 73 mg/dL N 33 Laboratory test 06/18/2016 [facility] Hemoglobin A1c 7.6 % High Less than [address] (Glyco HGB) 6.0 [place] [address] [phone] CBC Auto Diff 06/18/2016 [facility] White Blood 4.9 N 3.5- 10.[address] Count 10^3/[place] [address] [phone] Red Blood Count 4.61 10^6/uL N 4.0-5.4 [...] % 0.1 N Comp Metabolic Panel 06/18/2016 [facility] Sodium 135 mmol/L N 133-[address] [place] [address] [phone] Potassium 4.2 mmol/L N 3.5-5.0 Chloride 99 [...] 88.3 N >60 35 Laboratory test 03/26/2016 [facility] Hemoglobin A1c 8.0 High 5-7 finding Comp Metabolic 12/21/2015 [facility] Sodium 136 mmol/L N 133- 145 Panel [address] [place] [address] [phone] Potassium 4.3 mmol/L N 3.5-5.0 Chloride 98 [...] 83.0 N >60 36 Lipid Profile 12/21/2015 [facility] Triglycerides 427 mg/dL N 37 (Trig/Chol/HDL) [address] [place] [address] [phone] Cholesterol 216 mg/dL N 38 HDL Cholesterol 34.8 mg/dL N 39 LDL Cholesterol (SEE NOTE) mg/dL N 40 Laboratory test 12/21/2015 [facility] LDL Cholesterol 130 mg/dL N [address] [place] [address] [phone] Lipid Profile 12/21/2015 [facility] Triglycerides 427 mg/dL N 42 (Trig/Chol/HDL) [address] [place] [address] [phone] Cholesterol 216 mg/dL N 43 HDL Cholesterol 34.8 mg/dL N 44 LDL Cholesterol (SEE NOTE) mg/dL N 45 Comp Metabolic Panel 12/21/2015 [facility] Sodium 136 mmol/L N 133-145 [address] [place] [address] [phone] Potassium 4.3 mmol/L N 3.5-5.0 Chloride 98 [...] N >60 Egfr 83.0 N >60 46 Laboratory test 12/21/2015 [facility] Hemoglobin A1c 10.5 % High Less [address] (Glyco HGB) than 6.0 [place] [address] [phone] Urine 12/21/2015 [facility] Ur Microalbumin 22.0 N Microalbumin [address] (mg/L) mg/[place] [address] [phone] Urine Creatinine 237.02 mg/dL N Urine Microalbumin/Creatinine 9.2 ug/mg N <31 Cortisol Free 10/09/2015 [facility] Urine Free 18 mcg/24h N 3.5-45 48 24HR Urine [address] [place] [address] [phone] Urine Collection Duration 24 h N Urine Total Volume 2650 mL N 49 Laboratory test 09/06/2015 [facility] Surgical SEE RESULT [address] [place] [address] [phone] Laboratory test 09/06/2015 [facility] Point of Care 212 mg/dL High 74-10 [address] Glucose 6 [place] [address] [phone] Comp Metabolic 08/02/2015 [facility] Sodium 135 mmol/L N 133- [address] [place], [place] [address] [phone] Potassium 4.0 mmol/L N 3.5-5.0 Chloride 97 [...] 70.9 N >60 Egfr 91.1 N >60 52 Laboratory test 08/02/2015 [facility] Cortisol 16.79 ?g/dL N [address] [place] [address] [phone] Laboratory test 07/03/2015 [facility] HPV Rna Negative N Negative [address] [place] Ww/[place] [address] Genotype [phone] Cytology SEE RESULT BELOW 55 Laboratory test 07/03/2015 [facility] Hemoglobin A1c 7.6 High 5-7 finding CBC Auto Diff 05/26/2015 [facility] White Blood Count 6.0 N 4.8-10.[address] 10^3/[place] [address] [phone] Red Blood Count 5.06 10^6/uL N 4.0-5.4 [...] % 0.2 N Comp Metabolic Panel 05/26/2015 [facility] Sodium 136 mmol/L N 133-145 [address] [place] [address] [phone] Potassium 4.2 mmol/L N 3.5-5.0 Chloride 97 [...] 78.0 N >60 56 Lipid Profile 03/06/2015 [facility] Triglycerides 296 mg/dL N 57, 58 (Trig/Chol/HDL) [address] [place] [address] [phone] Cholesterol 161 mg/dL N 59 HDL Cholesterol 33.6 mg/dL N 60 LDL Cholesterol 68 mg/dL N 61 Comp Metabolic Panel 03/06/2015 [facility] Sodium 137 mmol/L N 133-[address] [place] [address] [phone] Potassium 4.3 mmol/L N 3.5-5.0 Chloride 102 [...] 84.4 N >60 62 Urine Microalbumin 03/06/2015 [facility] Ur Microalbumin 6.0 mg/ L N Random [address] (mg/L) [place] [address] [phone] Urine Creatinine 65.36 mg/dL N Urine Microalbumin/Creatinine 9.1 ug/mg N <31 Laboratory test 03/06/2015 [facility] Hemoglobin A1c 6.8 % High Less than [address] (Glyco HGB) 6.[address] [place] [address] [phone] TSH (Thyroid Stim Horm) 2.28 ?IU/mL N 0.34-5.60 64 Laboratory 12/27/2014 [facility] Activated 37.7 High 26.0- 36.3 test finding [address] [place] [address] Thrombo Time [phone] Laboratory 12/27/2014 [facility] C Reactive 182.08 mg/L High < 5.00 65 test finding [address] [place] [address] [phone] Acetaminophen < 15 g/mL N 66 Alcohol < 10 mg/dL N <10 Comp Metabolic Panel 12/27/2014 [facility] Sodium 131 mmol/L Low 133-[address] [place] [address] [phone] Potassium 3.5 mmol/L N 3.5-5.0 Chloride 93 [...] 53.0 N >60 Egfr 68.2 N >60 67 CBC Auto Diff 12/27/2014 [facility] White Blood 6.8 10^3/uL N 4.8-10.[address] [place] [address] [phone] Red Blood Count 4.27 10^6/uL N 4.0-5.4 [...] Nucleated Red Blood Cells % 0.1 N Laboratory test 12/27/2014 [facility] Inr 1.13 High 0.78-1.[address] [place] [address] [phone] Laboratory test 12/27/2014 [facility] Urine SEE RESULT [address] [place] [address] [phone] Urinalysis 12/27/2014 [facility] Urine Color Julissa N Profile [address] [place], [place] [address] [phone] Urine Appearance Cloudy N Urine Specific [place] 1.023 N 1.010-1.030 Urine pH 5.0 N [...] Epithelial Cell Present Abnormal Absent Laboratory test 11/18/2014 [facility] Hemoglobin A1c 6.7 5-7 finding Laboratory test 11/18/2014 [facility] Hemoglobin A1c 7.6 % High Less [address] than 6.[address] [place] [address] [phone] HPV High Risk 06/17/2014 [facility] Human See Comment N [address] [address] Source [phone] HPV High Risk Type 16, PCR Negative N Negative HPV High Risk Type 18, PCR Negative N Negative HPV Other Risk types Negative N Negative 71 Laboratory test 06/17/2014 [facility] Cytology RUN DATE: [address] 06/20/ [place] [address] NOTE> [phone] Lipid Profile 05/12/2014 [facility] Triglycerides 196 mg/dL N 73 (Trig/Chol/HDL) [address] [place] [address] [phone] Cholesterol 138 mg/dL N 74 HDL Cholesterol 35.7 mg/dL N 75 LDL Cholesterol 63 mg/dL N 76 Comp Metabolic Panel 05/12/2014 [facility] Sodium 136 mmol/L N 133-[address] [place] [address] [phone] Potassium 3.8 mmol/L N 3.7-5.6 Chloride 101 [...] 83.3 N >60 77 Urine Microalbumin 05/12/2014 [facility] Ur Microalbumin 15.0 mg /dL N <[address] (mg/L) [place] [address] [phone] Urine Creatinine 163.65 mg/dL N Urine Microalbumin/Creatinine 9.1 N Less Than 31 Laboratory test 05/12/2014 [facility] Hemoglobin A1c 6.8 % High Less than [address] [place] [address] [phone] Alpha 1 Antitrypsin A1a 149 mg/dL N 100 - 190 80 Liver Function 05/12/2014 [facility] Total Protein 7.2 g/dL N 6.4-8.[address] [place] [address] [phone] Albumin 4.3 g/dL N 3.2-5.2 Globulin 2.9 g/dL N 2-4 Albumin/Globulin Ratio 1.5 N 1-3 Total Bilirubin 0.30 mg/dL N 0.2-1.0 Direct Bilirubin 0.10 mg/dL N 0.03-0.18 Indirect Bilirubin 0.2 mg/dL Low 0.3-1.0 Alkaline Phosphatase 60 U/L N 34-104 Alt 40 U/L N 7-52 Ast 45 U/L High 13-39 Laboratory test 01/31/2014 [facility] Hemoglobin A1c 7.9 % High Less than [address] [place] [address] [phone] Comp Metabolic 01/31/2014 [facility] Sodium 138 N 133-[address] mmol/[place] [address] [phone] Potassium 3.7 mmol/L N 3.7-5.6 Chloride 101 [...] 72.4 N >60 Egfr 93.1 N >60 82 Laboratory 01/31/2014 [facility] Ferritin 147.1 ng/mL N 11- 307 test finding [address] [place] [address] [phone] Laboratory 12/21/2013 [facility] Claire Negative N Negative test finding [address] ([place] [address] AB) Screen [phone] Laboratory 11/01/2013 [facility] Hemoglobin 7.8 % High Less than 83 test finding 101 A1c [address] [place] [address] [phone] Comp Metabolic 11/01/2013 [facility] [facility] Sodium 138 mmol/L 133- 145 Panel [address] [place] [address] [phone] Potassium 3.7 mmol/L 3.7-5.6 Chloride 101 mmol/L [...] Egfr 95.8 >60 84 Liver Function 08/31/2013 [facility] Total Protein 7.1 g/dL 6.2-8.1 Panel [address] [place] [address] [phone] Albumin 4.3 g/dL 3.6-5.4 Globulin 2.8 g/dL 2-4 Albumin/Globulin Ratio 1.5 1-3 Total Bilirubin 0.4 mg/dL 0.4-1.5 Direct Bilirubin < 0.1 mg/dL Low 0.1-0.5 Indirect Bilirubin (SEE NOTE) mg/dL 0.3-1.0 85 Alkaline Phosphatase 82 U/L 30-110 Alt 67 U/L High 14-54 Ast 85 U/L High 12-42 Liver Function 06/25/2013 [facility] Total Protein 7.5 g/dL 6.2-8.1 Panel [address] [place] [address] [phone] Albumin 4.3 g/dL 3.6-5.4 Globulin 3.2 g/dL 2-4 Albumin/Globulin Ratio 1.3 1-3 Total Bilirubin 0.6 mg/dL 0.4-1.5 Direct Bilirubin < 0.1 mg/dL Low 0.1-0.5 Indirect Bilirubin (SEE NOTE) mg/dL 0.3-1.0 86 Alkaline Phosphatase 71 U/L 30-110 Alt 70 U/L High 14-54 Ast 86 U/L High 12-42 Comp Metabolic Panel 06/25/2013 [facility] Sodium 137 mmol/L 133-[address] [place] [address] [phone] Potassium 4.2 mmol/L 3.5-5.0 Chloride 100 mmol/L [...] Egfr 95.8 >60 87 Lipid Profile 06/25/2013 [facility] Triglycerides 228 mg/dL High 40-200 (Trig/Chol/HDL) [address] [place] [address] [phone] Cholesterol 175 mg/dL Less than 200 HDL Cholesterol 37 mg/dL Low 40-60 88 Cholesterol/HDL Ratio 4.7 Average High 1-4.44 LDL Cholesterol 92.4 Less Than 100 89 Laboratory test 06/25/2013 [facility] Hemoglobin A1c 7.5 % High Less [address] [place] [address] [phone] Urine 06/25/2013 [facility] Ur Microalbumin 5.0 [address] (mg/L) mg/[place] [address] [phone] Urine Creatinine 69.1 mg/dL Urine Microalbumin/Creatinine 7.2 Less Than 31 Laboratory test 06/18/2013 [facility] Blood Urea 16 mg/dL 6- [address] [place] [address] [phone] Creatinine 06/18/2013 [facility] Creatinine 1.10 mg/dL 0.50- 1.[address] [place] [address] [phone] Egfr Non- 51.6 >60 Egfr 66.3 >60 92 Laboratory test 06/05/2013 [facility] Hemoglobin A1c 7.6 % High Less than [address] [place] [address] [phone] Comp Metabolic 06/05/2013 [facility] Sodium 137 133-[address] mmol/[place] [address] [phone] Potassium 4.2 mmol/L 3.5-5.0 Chloride 100 mmol/L [...] Egfr Non- 65.0 >60 Egfr 83.6 >60 94 Lipid Profile 06/05/2013 [facility] Triglycerides 266 mg/dL High 40-200 (Trig/Chol/HDL) [address] [place] [address] [phone] Cholesterol 156 mg/dL Less than 200 HDL Cholesterol 34 mg/dL Low 40-60 95 Cholesterol/HDL Ratio 4.6 Average High 1-4.44 LDL Cholesterol 68.8 Less Than 100 96 Urine Microalbumin 06/05/2013 [facility] Ur Microalbumin 6.0 mg/ L [address] (mg/L) [place] [address] [phone] Urine Creatinine 123.3 mg/dL Urine Microalbumin/Creatinine 4.9 Less Than 31 Hepatitis 06/05/2013 [facility] Hepatitis B Nonreactive Nonreactive Acute Panel [address] [place] [address] Antigen [phone] Hepatitis B Core IgM Nonreactive Nonreactive Hepatitis A AB IgM Nonreactive Nonreactive Hepatitis C Antibody Nonreactive Nonreactive Laboratory test 12/07/2012 [facility] Hemoglobin A1c 6.7 5-7 finding Urine Culture And 06/18/2012 [facility] Urine Culture (SEE NOTE ) [address] [place], [place] [phone] Ua Routine 06/18/2012 [facility] Ua Specific 1.015 [place] Ua PH 6 Ua Color yellow Ua Appera cloudy Ua WBC moderate Ua Protein 30+ Ua Glucose neg Ua Ketones neg Ua Bilirubin small Ua Urobilinogen neg Ua Nitrite neg Ua Occult Blood non hemo trace Laboratory test 05/26/2012 [facility] Hemoglobin A1c 6.7 % High Less than [address] [place], [place] [phone] Comp Metabolic 05/26/2012 [facility] Sodium 140 133-[address] mmol/L [place], [place] [phone] Potassium 3.9 mmol/L 3.5-5.0 Chloride 103 mmol/L [...] Egfr 83.9 >60 101 Lipid Profile 05/26/2012 [facility] Triglycerides 231 mg/dL High 40-200 (Trig/Chol/HDL) [address] [place] [address] [phone] Cholesterol 119 mg/dL Less than 200 102 HDL Cholesterol 34 mg/dL Low 40-60 103 Cholesterol/HDL Ratio 3.5 AVERAGE 1-4.44 LDL Cholesterol 38.8 mg/dL Less Than 100 CBC Auto Diff 04/06/2012 [facility] White Blood 6.3 CUMM 4.8- 10.[address] [place] [address] [phone] Red Cell Count 4.58 CUMM 4.2-5.4 Hemoglobin [...] Abs Basophils 0 0-0.2 Liver Function 04/06/2012 [facility] Total Protein 7.0 GM/DL 6.2-8.[address] [place] [address] [phone] Albumin 4.6 GM/DL 3.6-5.4 Globulin 2.4 GM/DL 2-4 Albumin/Globulin Ratio 1.9 1-3 Bilirubin Total 0.6 mg/dL 0.4-1.5 104 Bilirubin Direct 0.1 mg/dL 0.1-0.5 Indirect Bilirubin 0.5 mg/dL 0.3-1.0 105 Alkaline Phosphatase 53 U/L 30-110 Alt (SGPT) 54 U/L 14-54 Ast (Sgot) 51 U/L High 12-42 Laboratory test 04/06/2012 [facility] TSH 1.71 MIU/ML 0.34- 5.[address] [place] [address] [phone] Liver Function 02/28/2012 [facility] Total Protein 7.0 GM/DL 6.2-8.[address] [place] [address] [phone] Albumin 4.5 GM/DL 3.6-5.4 Globulin 2.5 GM/DL 2-4 Albumin/Globulin Ratio 1.8 1-3 Bilirubin Total 0.4 mg/dL 0.4-1.5 106 Bilirubin Direct < 0.1 mg/dL Low 0.1-0.5 Indirect Bilirubin (SEE NOTE) mg/dL 0.3-1.0 107 Alkaline Phosphatase 51 U/L 30-110 Alt (SGPT) 52 U/L 14-54 Ast (Sgot) 54 U/L High 12-42 Total Protein 24HR 02/28/2012 [facility] Total Protein 4 mg/dL Urine [address] [place] [address] [phone] Urine Total Protein/24HR 148 MG/24HR High 50-100 Hours Of Collection 24 HR 24- Urine Volume Measurement 3700 ML Urine Microalbumin 02/07/2012 [facility] Microalbumin 230.0 mg/ L Random [address] (MG/L) [place] [address] [phone] Urine Creatinine 224.3 mg/dL Martín Alb/Creatinine Ratio 102.5 UG/MG High Less Than 30 108 Laboratory test 02/07/2012 [facility] Hemoglobin A1c 6.4 % High Less [address] [place] [address] [phone] Comp Metabolic 02/07/2012 [facility] Sodium 139 135-[address] mmol/[place] [address] [phone] Potassium 4.2 mmol/L 3.5-5.0 Chloride 104 mmol/L [...] eGFR 74.6 > 60 112 Laboratory 08/02/2011 [facility] Hemoglobin A1c 6.6 % High Less 113, test finding [address] [place] [address] [phone] Lipid Profile 08/02/2011 [facility] Triglyceride 153 40-200 (Trig/Chol/HDL [address] mg/dL ) [place] [address] [phone] Cholesterol 118 mg/dL Less Than 200 115 High Density Lipoprotein 37 mg/dL Low 40-60 116 Cholesterol/HDL Ratio 3.19 AVERAGE 1-4.44 Low Density Lipoprotein 50 mg/dL Less Than 100 117 Laboratory test 06/04/2011 [facility] Cytology [address] <SEE NOTE> [place] [address] [phone] Urine 04/12/2011 [facility] Microalbumin 2.0 mg/L Microalbumin [address] (MG/L) [place] [address] [phone] Urine Creatinine 56.04 mg/dL Martín Alb/Creatinine Ratio 3.5 UG/MG Less Than 30 119 Comp Metabolic Panel 04/12/2011 [facility] Sodium 137 mmol/L 135-[address] [place] [address] [phone] Potassium 3.9 mmol/L 3.5-5.0 Chloride 101 mmol/L 101-111 Co2 (Carbon Dioxide) 27.0 mmol/L 22-32 Anion Gap 9.0 mmol/L 2-11 120 Glucose 153 mg/dL High 70-100 BUN 20 mg/dL 6-24 Creatinine 0.9 mg/dL 0.50-1.40 One Over Creatinine 1.11 BUN/Creatinine Ratio 22.2 High 8-20 Calcium 9.5 mg/dL 8.1-9.9 Total Protein 6.6 GM/DL 6.2-8.1 Albumin 4.4 GM/DL 3.6-5.4 Globulin 2.2 GM/DL 2-4 Albumin/Globulin Ratio 2.0 1-3 Bilirubin Total 0.8 mg/dL 0.4-1.5 121 Alkaline Phosphatase 54 U/L 30-110 Alt (SGPT) 40 U/L 14-54 Ast (Sgot) 37 U/L 12-42 eGFR Non- 65.7 > 60 eGFR 84.6 > 60 122 Lipid Profile 04/12/2011 [facility] Triglyceride 334 mg/dL High 40-200 (Trig/Chol/HDL) [address] [place] [address] [phone] Cholesterol 160 mg/dL Less Than 200 123 High Density Lipoprotein 35 mg/dL Low 40-60 124 Cholesterol/HDL Ratio 4.57 AVERAGE High 1-4.44 Low Density Lipoprotein 58 mg/dL Less Than 100 125 Laboratory test 04/12/2011 [facility] Hemoglobin A1c 7.0 % High Less [address] [place] [address] [phone] Laboratory test 11/01/2010 [facility] Hemoglobin A1c 6.5 % High Less [address] [place] [address] [phone] Laboratory test 04/30/2010 [facility] Hemoglobin A1c 6.5 % High Less [address] [place] [address] [phone] Lipid Profile 04/30/2010 [facility] Triglyceride 181 40-200 (Trig/Chol/HDL) [address] mg/[place] [address] [phone] Cholesterol 166 mg/dL Less Than 200 129 High Density Lipoprotein 44 mg/dL 40-60 130 Cholesterol/HDL Ratio 3.77 AVERAGE 1-4.44 Low Density Lipoprotein 86 mg/dL Less Than 100 131 Urine Microalbumin 04/30/2010 [facility] Microalbumin < 2.0 mg/ L Random [address] (MG/L) [place] [address] [phone] Urine Creatinine 37.97 mg/dL Martín Alb/Creatinine Ratio 5.2 UG/MG Less Than 30 132 Laboratory test 12/16/2009 [facility] Hemoglobin A1c 6.7 % High Less [address] [place] [address] [phone] Basic Metabolic 12/16/2009 [facility] Sodium 137 135-[address] mmol/[place] [address] [phone] Potassium 3.7 mmol/L 3.5-5.0 Chloride 102 mmol/L 101-111 Co2 (Carbon Dioxide) 27.0 mmol/L 22-32 Anion Gap 8.0 mmol/L 2-11 134 Glucose 146 mg/dL High 70-100 135 BUN 20 mg/dL 6-24 Creatinine 0.84 mg/dL 0.50-1.40 One Over Creatinine 1.10 BUN/Creatinine Ratio 23.8 High 8-20 Calcium 9.1 mg/dL 8.1-9.9 136 eGFR Non- 76.0 > 60 eGFR 91.9 > 60 137 CBC With Manual 09/30/2008 [facility] White Blood 7.3 CUMM 4.8-10.[address] [place] [address] [phone] Red Cell Count 4.94 CUMM 4.2-5.4 Hemoglobin [...] 4.7 RBC Morphology NORMAL Laboratory test 09/30/2008 [facility] TSH 1.79 0.34-5.[address] MIU/[place] [address] [phone] Lipid Profile 09/30/2008 [facility] Triglyceride 315 mg/dL High 40-200 (Trig/Chol/HDL) [address] [place], [place] [address] [phone] Cholesterol 207 mg/dL High Less Than 200 138 High Density Lipoprotein 34 mg/dL Low 40-60 139 Cholesterol/HDL Ratio 6.09 AVERAGE High 1-4.44 Low Density Lipoprotein 110 mg/dL High Less Than 100 140 Laboratory test 09/30/2008 [facility] Erythrocyte Sed 5 MM/HR 0-[address] [place] [address] [phone] 1 Because ethnic data is not always [...] [address]: Allan Grewal NP Acct: [id number] Unit: [id number] AGE: 58 Location: [facility] Re11/16/18 SEX: F Status: REG REF SPEC: [id number] NELI: 11/16/18 [facility] DR: Allan Grewal NP REQ: [id number] RECD: 11/16/18 STATUS: COMP _ SOURCE: URINE SPDESC: ORDERED: Urine Culture Procedure Result Reported Site Urine Culture Final 11/17/18- 1247 ML No Growth (<1,000 CFU/mL) * ML - Main Lab . END OF REPORT DEPARTMENT OF PATHOLOGY, [address] [place] [address] Fady Flores M.D. Director [facility] # [id number] Desirable: <150 Borderline High: 150-199 High: [...] 5 Kidney failure <15 (or dialysis) 9 [facility] Severe Sepsis and Septic Shock Management [...] [address]: Aries Carr MD Acct: [id number] Unit: [id number] AGE: 58 Location: ED Re06/16/18 SEX: F Status: REG ER SPEC: [id number] NELI: 06/16/185 [facility] DR: Aries Carr MD REQ: [id number] RECD: 06/17/18 STATUS: MAGDY NEGRETE DR: Coco Clements MD _ SOURCE: URINE SPDESC: ORDERED: Urine Culture Procedure Result Reported Site Urine Culture Final 06/18/18- 1044 ML Organism 1 STAPHYLOCOCCUS SAPROPHYTICUS [place] Count >100,000 (Many) CFU/ML Routine sensitivity testing of urine isolates of S. saprophyticus is not advised, because infections respond to concentrations achieved in urine of antimicrobial agents commonly used to treat acute, uncomplicated urinary tract infections (e.g. nitrofurantoin, trimethoprim+/- sulfamethoxazole, or a fluoroquinolone). [facility] August 2001 * ML - Main Lab . END OF REPORT DEPARTMENT OF PATHOLOGY, [address] [place] [address] Fady Flores M.D. Director [facility] # [id number] 12 Because ethnic data is not always [...] 5 Kidney failure <15 (or dialysis) 13 Animal Trainer: [id number] Animal Trainer: [id number] Copy Result to: DUSTY MCCRARY ([id number]) 16 *Ascorbic acid is present which may interfere with detection of blood. 17 SEE RESULT BELOW Name: ROSELINE SNOW : [address]: Coco Clements MD Acct: [id number] Unit: [id number] AGE: 57 Location: LAB Re11/04/17 SEX: F Status: REG REF SPEC: [id number] NELI: 11/04/17-[address]: Coco Clements MD REQ: [id number] RECD: 11/04/17 STATUS: COMP [facility] DR: Dusty Mccrary MD _ SOURCE: URINE SPDESC: ORDERED: Urine Culture COMMENTS: Copy Result to: DUSTY MCCRARY ([id number]) Procedure Result Reported Site Urine Culture Final 11/05/17- 1521 ML No Growth (<1,000 CFU/mL) * ML - Main Lab . END OF REPORT DEPARTMENT OF PATHOLOGY, [address] [place] [address] Fady Flores M.D. Director [facility] # [id number] 18 Because ethnic data is not always [...] [address]: Connie Bejarano DO Acct: [id number] Unit: [id number] AGE: 57 Location: ENDO Re07/01/17 SEX: F Status: DEP REF SPEC: [id number] NELI: 07/01/17- SUBM DR: Connie Bejarano DO REQ: [id number] RECD: 07/01/17 STATUS: ANIVAL NEGRETE DR: Dusty [...] performed at Main Lab DEPARTMENT OF PATHOLOGY, [address] [place] [address] Fady Flores M.D. Director [facility] # [id number] RUN DATE: 07/04/17 [facility] LAB LIVE PAGE 2 Patient: ROSELINE SNOW [id number] (Continued) CLINICAL HISTORY (Continued) CLINICAL HISTORY 57 [...] performed at Main Lab DEPARTMENT OF PATHOLOGY, [address] [place] [address] Fady Flores M.D. Director [facility] # [id number] 21 Cortisol, Saliva was cancelled on 06/27/2017 at 19:10; Unable to assay. Quantity not sufficient. Test Performed by: [facility] - [address] [address] 22 ADDITIONAL INFORMATION This test was developed and its performance characteristics determined by [facility] in a manner consistent with CLIA requirements. This test has not been cleared or approved by the U.S. Food and Drug Administration. Test Performed by: [facility] - [address] [address] 23 Desirable: <150 Borderline High: 150-199 High: [...] developed and its performance characteristics determined by [facility] in a manner consistent with CLIA requirements. This test has not been cleared or approved by the U.S. Food and Drug Administration. Test Performed by: [address] [address] 30 Desirable <150 Borderline high 150-199 High [...] and in selective patients <6.0%.Please refer to [place] [employer] Diabetic care guidelines for further [...] and in selective patients <6.0%.Please refer to [place] Diabetic care guidelines for further information. 48 10/08/15 @1000 TO 10/09/15 0900 49 Test Performed by: [place] [address] Pound Attendant: Chester Allen II, M.D., Ph.D. 50 SEE RESULT BELOW Name: ROSELINE SNOW : [address]: Dalton Denise MD Acct: [id number] Unit: [id number] AGE: 55 Location: ENDO Re09/06/15 SEX: F Status: REG REF SPEC: [id number] NELI: 09/06/15-[address]: Dalton Denise MD REQ: [id number] RECD: 09/06/151206 STATUS: ANIVAL NEGRETE DR: Coco Clements MD [...] performed at Main Lab DEPARTMENT OF PATHOLOGY, [address] [place] [address] Fady Flores M.D. Director [facility] # [id number] RUN DATE: 09/07/15 [facility] LAB LIVE PAGE 2 Patient: ROSELINE SNOW [id number] (Continued) GROSS DESCRIPTION (Continued) GROSS DESCRIPTION (Continued) [...] performed at Main Lab DEPARTMENT OF PATHOLOGY, [address] [place] [address] Fady Flores M.D. Director [facility] # [id number] 51 Animal Trainer: [id number] TYLER DÍAZ 52 Because ethnic data is not always readily [...] 15-29 5 Kidney failure <15 (or dialysis) 53 AM 8.7-22.4 PM <10 54 The high-risk HPV types detected by the assay include: 16, 18, 31, 33, 35, 39, 45, 51, 52, 56, 58, 59, 66, and 68. 55 SEE RESULT BELOW Name: ROSELINE SNOW : [address]: Coco Clements MD Acct: [id number] Unit: [id number] AGE: 55 Location: [facility] Re07/03/15 SEX: F Status: REG REF SPEC: [id number] NELI: 07/03/15-1250 [facility] DR: Coco Clements MD REQ: [id number] RECD: 07/03/15 STATUS: SOUT _ ORDERED: IMAGE [...] (signature on file) Jose David Luke 07/04/15 4399 This Pap test was evaluated with the assistance of the [employer] Test Imaging System. Due to cytologic findings at the medical or surgical instrument maker microscope, comprehensive manual rescreening by a Founder / Ceo may be required. The Pap Smear is [...] performed at Main Lab DEPARTMENT OF PATHOLOGY, [address] [place] [address] RUN DATE: 07/04/15 [facility] LAB LIVE PAGE 1 Patient: ROSELINE SNOW [id number] (Continued) Fady Flores M.D. Director [facility] # [id number] 56 Because ethnic data is not always [...] and in selective patients <6.0%.Please refer to [place] Diabetic care guidelines for further information. 64 PT IS FASTING 65 Acute inflammation: >10.00 66 Therapeutic concentration: <50 ug/mL Toxic concentration: >120 ug/mL 67 Because ethnic data is not always readily [...] 15-29 5 Kidney failure <15 (or dialysis) 68 SEE RESULT BELOW Name: ROSELINE SNOW : [address]: Chester Rooney MD Acct: [id number] Unit: [id number] AGE: 54 Location: ED Re12/27/14 SEX: F Status: DEP ER SPEC: [id number] NELI: 12/27/14-[address]: Chester Rooney MD REQ: [id number] RECD: 12/27/14 STATUS: MAGDY NEGRETE DR: [facility] Coco Clements MD _ SOURCE: URINE SPDESC: ORDERED: Urine Culture Procedure Result Verified Site Urine Culture Final 12/29/14- 0854 ML Organism 1 KLEBSIELLA PNEUMONIAE [place] Count >100,000 (Many) CFU/ML 1. KLEBSIELLA PNEUMONIAE [...] antibiotic reporting. * ML - MAIN LAB ([facility]) . END OF REPORT * ML=Testing performed at Main Lab DEPARTMENT OF PATHOLOGY, [address] [place], [place] [address] Fady Flores M.D. Director [facility] # [id number] 69 Therapeutic target for the treatment of diabetes Mellitus patients is <7% HBA1C, and in selective patients <6.0%.Please refer to [place] Diabetic care guidelines for further information. 70 RESULT: Ectocervical/Endocervical 71 The following Other High Risk HPV types were not detected: 31, 33, 35, 39, 45, 51, 52, 56, 58, 59, 66, and 68 Test Performed by: [address] [address] Pound Attendant: Chirag Deras M.D. 72 RUN DATE: 06/20/14 [facility] LAB LIVE PAGE 1 RUN TIME: [address] [place] [address] Specimen Inquiry Name: ROSELINE SNOW : [address]: Coco Clements MD Acct: [id number] Unit: [id number] AGE: 54 Location: [facility] Re06/17/14 SEX: F Status: REG REF SPEC: [id number] NELI: 06/17/14-[address]: Coco Clements MD REQ: [id number] RECD: 06/17/14 STATUS: SOUT _ ORDERED: IMAGE ANALYSIS, PAP SM PATH REV, HPV/Thin Prep FINAL DIAGNOSIS EPITHELIAL CELL ABNORMALITIES Atypical squamous cells of undetermined significance COMMENTS: Specimen sent to [facility] in [place], [place] on 06/20/14 by [id number] at 1126. Results will be reported separately. [...] System. Due to cytologic findings at the medical or surgical instrument maker microscope, comprehensive manual rescreening by a Founder / Ceo may be required. The Pap Smear is [...] performed at Main Lab DEPARTMENT OF PATHOLOGY, [address] [place] [address] Fady Flores M.D. Director [facility] # [id number] 73 Desirable <150 Borderline high 150-199 High [...] and in selective patients <6.0%.Please refer to [place] Diabetic care guidelines for further information. 80 Test Performed by: [address] [address] Pound Attendant: Kobe Salcedo III, M.D. 81 Therapeutic target for the treatment of diabetes Mellitus patients is <7% HBA1C, and in selective patients <6.0%.Please refer to [place] [employer] Diabetic care guidelines for further information. 82 Because ethnic data is not always readily [...] 15-29 5 Kidney failure <15 (or dialysis) 83 Therapeutic target for the treatment of diabetes Mellitus patients is <7% HBA1C, and in selective patients <6.0%.Please refer to [place] Diabetic care guidelines for further [...] and in selective patients <6.0%.Please refer to [place] Diabetic care guidelines for further [...] 5 Kidney failure <15 (or dialysis) 93 Therapeutic target for the treatment of diabetes Mellitus patients is <7% HBA1C, and in selective patients <6.0%.Please refer to [place] Diabetic care guidelines for further information. 94 Because ethnic data is not always readily [...] 15-29 5 Kidney failure <15 (or dialysis) 95 HDL Interpretation: Undesirable: High Risk: Less than 40 mg/dL Desirable: Low Risk: Greater than 60 mg/dL 96 LDL Interpretation: Low Risk Optimal Level: LDL Less than 100 mg/dL Near or Above Optimal: LDL 100-129 mg/dL Borderline High Risk: LDL 130-159 mg/dL High Risk: LDL 160-189 mg/dL Very High Risk: LDL Greater than 189 mg/dL 97 Microalbuminuria in a random sample is defined as: Microalbumin/Creatinine ratio of 30-299 ug/mg. 98 RUN DATE: 06/21/12 [facility] LAB LIVE PAGE 1 RUN TIME: [address] [place] [address] Specimen Inquiry Name: ROSELINE SNOW : [address]: Julia Sharma Acct: [id number] Unit: [id number] AGE: 52 Location: [facility] Re06/18/12 SEX: F Status: REG REF SPEC: [id number] NELI: 06/18/12-[address]: Julia Sharma REQ: [id number] RECD: 06/18/12 STATUS: COMP _ SOURCE: URINE SPDESC: ORDERED: Urine Culture COMMENTS: URINE QUERIES: [employer] Number [id number] Urine Source: Random Procedure Result Verified Site Urine Culture Final 06/21/12- 0941 ML Organism 1 STAPHYLOCOCCUS SAPROPHYTICUS [place] Count >100,000 (Many) CFU/ML Routine testing of urine isolates of S. saprophyticus is not advised, because infections respond to concentrations achieved in urine of antimicrobial agents commonly used to treat acute, uncomplicated urinary tract infections (e.g. nitrofurantoin, trimethoprim+/- sulfamethoxazole, or a fluoroquinolone). [facility] August 2001 END OF REPORT * ML=Testing performed at Main Lab DEPARTMENT OF PATHOLOGY, [address] [place] [address] Fady Flores M.D. Director [facility] Permit #[id number] 99 Therapeutic target for the treatment of diabetes Mellitus patients is <7% HBA1C, and in selective patients <6.0%.Please refer to [place] [employer] Diabetic care guidelines for further [...] IN SELECTIVE PATIENTS <6.0%. PLEASE REFER TO [place] DIABETIC CARE GUIDELINES FOR FURTHER [...] IN SELECTIVE PATIENTS <6.0%. PLEASE REFER TO [employer] DIABETIC CARE GUIDELINES FOR FURTHER [...] 189 MG/DL 118 ----- RUN DATE: 06/05/11 [facility] NMI LIVE PAGE 1 RUN TIME: 1559 Specimen Inquiry RUN USER: INTERFACE -- Name: ROSELINE SNOW Status: REG REF Re06/04/11 Age/Sex: 51/F Unit#: [id number] Location: [facility] : 56 -- Specimen: [id number] SOUT Spec Date: 06/04/11 [facility] Dr: Coco Clements MD Spec Type: CYTOLOGY [...] was evaluated with the assistance of the [employer] Pap Test Imaging System. The Pap Smear [...] BECERRA(ASCP) 06/05/11 1557 -- DEPARTMENT OF PATHOLOGY, [address] [place] [address] [facility] Permit #[id number] Fady Flores M.D. Director Rose Woodward M.D. Director Zone Dir ollie -- 119 MICROALBUMINURIA IN A RANDOM SAMPLE IS DEFINED : MICROALBUMIN/CREATININE RATIO OF 30-299 ug/mg. . 120 Anion gap measurement may be of limited value in the presence of any alkalosis, especially in a combined acid base disorder. . 121 A metabolite of Naproxen, O-desmethylnaproxen, has been shown to interfere with the Jendrassik-Liberty method for measuring total bilirubin. Samples from patients who have taken Naproxen have shown spurious elevation in total bilirubin levels. 122 Because ethnic data is not always readily [...] 15-29 5 Kidney failure <15 (or dialysis) 123 CHOLESTEROL INTERPRETATION: Desirable: Less than 200 MG/DL Borderline-High Risk: 200-239 MG/DL High-Risk: 240 MG/DL and over 124 HDL INTERPRETATION: Undesirable: High Risk: Less than 40 MG/DL Desirable: Low Risk: Greater than 60 MG/DL 125 LDL INTERPRETATION: Low Risk Optimal Level: LDL Less than 100 MG/DL Near or Above Optimal: LDL 100-129 MG/DL Borderline High Risk: LDL 130-159 MG/DL High Risk: LDL 160-189 MG/DL Very High Risk: LDL Greater than 189 MG/DL 126 THERAPEUTIC TARGET FOR THE TREATMENT OF DIABETES MELLITUS PATIENTS IS <7% HBA1C, AND IN SELECTIVE PATIENTS <6.0%. PLEASE REFER TO [place] DIABETIC CARE GUIDELINES FOR FURTHER INFORMATION. 127 THERAPEUTIC TARGET FOR THE TREATMENT OF DIABETES MELLITUS PATIENTS IS <7% HBA1C, AND IN SELECTIVE PATIENTS <6.0%. PLEASE REFER TO [place] [employer] DIABETIC CARE GUIDELINES FOR FURTHER INFORMATION. 128 THERAPEUTIC TARGET FOR THE TREATMENT OF DIABETES MELLITUS PATIENTS IS <7% HBA1C, AND IN SELECTIVE PATIENTS <6.0%. PLEASE REFER TO [place] [employer] DIABETIC CARE GUIDELINES FOR FURTHER [...] MICROALBUMIN/CREATININE RATIO OF 30-299 ug/mg. . 133 THERAPEUTIC TARGET FOR THE TREATMENT OF DIABETES MELLITUS PATIENTS IS <7% HBA1C, AND IN SELECTIVE PATIENTS <6.0%. PLEASE REFER TO [place] DIABETIC CARE GUIDELINES FOR FURTHER INFORMATION. 134 Anion gap measurement may be of limited value in the presence of any alkalosis, especially in a combined acid base disorder. . 135 Note change in reference range as of 04/07/08. The change was based on recommendations from the [place] [employer]. 136 Please note change in reference range effective 08 . 137 Because ethnic data is not always readily [...] 15-29 5 Kidney failure <15 (or dialysis) 138 CHOLESTEROL INTERPRETATION: Desirable: Less than 200 [...] MG/DL Procedures Date Code Description Status 11/16/2018 59724 EKG Tracing & Interpretation Completed 08/28/2018 [id number] Mammogram Completed 06/08/2018 Inject/Drain Joint/Bursa Major W/O US Completed 05/07/2018 Inject/Drain Joint/Bursa Major W/O US Completed 04/01/2018 Inj/Aspir Major JT Or Bursa W/ US Completed 03/26/2018 Inj/Aspir Major JT Or Bursa W/ US Completed 03/19/2018 Inj/Aspir Major JT Or Bursa W/ US Completed 01/22/2018 45953 Diffusing Capacity Completed 01/22/2018 55112 Plethysmography Determination Lung Volumes & Per Completed Airway Resist 01/22/2018 45597 Pulmonary Stress Testing, Inc Measurement Heart Rate, Completed Oximetry 01/22/2018 83230 Pulmonary Function><Bronchodil Completed 11/14/2017 47105 Arthroscopy,Shoulder Decompression Of Subacromial Completed Space W/Acromio 11/14/2017 72789 Arthroscopy,Shoulder Decompression Of Subacromial Completed Space W/Acromio 11/14/2017 75407 Arthroscopy,Shoulder,Distal Claviculectomy Incl Dist Completed Articular SR 11/14/2017 14346 Arthroscopy,Shoulder,Distal Claviculectomy Incl Dist Completed Articular SR 11/05/2017 50929 EKG Tracing & Interpretation Completed 11/04/2017 28101 EKG Tracing & Interpretation Completed 10/14/2017 [id number] Diabetic Retinal Eye Exam Completed 07/24/2017 [id number] Mammogram Completed 07/01/2017 79209 Inject/Drain Joint/Bursa Intermediate W/O US Completed 03/06/2017 69050 Inject/Drain Joint/Bursa Major W/O US Completed 02/05/2017 83688 Inject/Drain Joint/Bursa Major W/O US Completed 04/09/2016 [id number] Mammogram Completed 09/09/2015 [id number] Diabetic Retinal Eye Exam Completed 09/06/2015 [id number] Colonoscopy Completed 03/23/201552796 Inject/Drain Joint/Bursa Major W/O US Completed 03/16/2015 26111 Inject/Drain Joint/Bursa Major W/O US Completed 03/09/2015 38674 Inject/Drain Joint/Bursa Major W/O US Completed 08/09/2014 [id number] Mammogram Completed 07/09/2013 [id number] Mammogram Completed 05/29/2013 [id number] Diabetic Retinal Eye Exam Completed 03/18/201302591 Inject/Drain Joint/Bursa Major W/O US Completed 03/18/201317142 Inject/Drain Joint/Bursa Major W/O US Completed 03/11/201339474 Inject/Drain Joint/Bursa Major W/O US Completed 03/11/201386437 Inject/Drain Joint/Bursa Major W/O US Completed 03/04/201344394 Inject/Drain Joint/Bursa Major W/O US Completed 03/04/201315126 Inject/Drain Joint/Bursa Major W/O US Completed 02/04/2013 51352 Rad Exam; Ankle Comp Completed 11/17/2012 97444 Polysomnography Sleep Staging 4+ Parameters W/Cpap Completed 10/15/2012 71253 Rad Exam; Wrist, Comp, Min 3 Views Completed 10/15/201298416 Inject/Drain Joint/Bursa Major W/O US Completed 10/15/2012 37516 Inject Tendon Sheath Or Ligament Aponeurosis Eg Completed Plantar Fascia 10/13/2012 43925 Polysomnography Sleep Staging 4+ Parameters Completed 06/24/2012 [id number] Mammogram Completed 06/17/2012 [id number] Diabetic Retinal Eye Exam Completed 03/12/2012 00134 EKG Tracing & Interpretation Completed 06/21/2011 [id number] Mammogram Completed 05/04/2010 86559 EKG Tracing & Interpretation Completed 02/26/2010 [id number] Mammogram Completed 05/02/2009 78961 EKG Tracing & Interpretation Completed 01/05/2009 71890 EKG Tracing & Interpretation Completed 07/29/2007 26742 EKG Tracing & Interpretation Completed 07/29/2007 76271 EKG Tracing & Interpretation Completed 06/26/2005 [id number] Colonoscopy Completed Encounters Type Date Location Provider Dx Diagnosis Office Visit 11/16/2018 [facility] Internal Allan Grewal NP Z01.818 Encounter for other 1:00p Medicine preprocedural examination M17.11 Unilateral primary osteoarthritis, right knee G47.33 Obstructive sleep apnea (adult) (pediatric) E11.21 Type 2 diabetes mellitus with diabetic nephropathy I10 Essential (primary) hypertension J45.909 Unspecified asthma, uncomplicated Office Visit 10/27/2018 [facility] Internal Coco J44.0 Chronic 3:40p Medicine - Jus Clements obstructive [place] pulmon disease w acute lower resp infct Office Visit 10/08/2018 Orthopedic Ramon Polk, M17.11 Unilateral 11:00a Services Of MD jay CasianoMEusebio osteoarthritis, right knee Office Visit 09/07/2018 Pulmonology And Rubina Dwyer J44.9 Chronic 12:30p Sleep Services Of MD frida Fraser pulmonary disease, unspecified G47.33 Obstructive sleep apnea (adult) (pediatric) J45.909 Unspecified asthma, uncomplicated E66.09 Other obesity due to excess calories Office Visit 08/27/2018 10:30a Orthopedic Jone Ribeiro M75.51 Bursitis of Services Of MD Mell right shoulder C.M.A. M75.81 Other shoulder lesions, right shoulder Office Visit 06/22/2018 3:00p [facility] Internal Coco Z00.00 Encntr for Jose Clements M.D. 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 M24.811 Oth specific joint derangements of right shoulder, NEC Z47.89 Encounter for other orthopedic aftercare Office Visit 03/03/2018 1:45p Pulmonology And Rubina J44.9 Chronic Sleep Services Of MD Yuliya obstructive Machine Stonecutter pulmonary disease, unspecified G47.33 Obstructive sleep apnea (adult) (pediatric) E66.01 Morbid (severe) obesity due to excess calories Office Visit 02/10/2018 Orthopedic Ramon Polk, M17.11 Unilateral primary 10:30a Services Of osteoarthritis, right C.M.A. knee M17.12 Unilateral primary osteoarthritis, left knee M17.0 Bilateral primary osteoarthritis of knee Office Visit 12/29/2017 2:00p Pulmonology And Arabella Skaggs J44.9 Chronic Sleep Services Of Jacquie Walton obstructive Machine Stonecutter pulmonary disease, unspecified R06.02 Shortness of breath G47.33 Obstructive sleep apnea (adult) (pediatric) E66.01 Morbid (severe) obesity due to excess calories Z68.41 Body mass index (BMI) 40.0-44.9, adult Office Visit 12/18/2017 1:00p [facility] Internal Coco I10 Essential ( primary) Medicine Jus Clements hypertension F33.9 Major depressive disorder, recurrent, unspecified Office Visit 11/11/2017 Sagar Rehman G43.919 Migraine, unsp, 10:30a Neurologic [place]. intractable, Services Of [facility] without status migrainosus Office Visit 11/03/2017 [facility] Internal Coco Z01.818 Encounter for 11:20a Medicine Jus Clements other preprocedural examination G47.33 Obstructive sleep apnea [...] Sleep Services Of MD Yuliya apnea (adult) [facility] (pediatric) J44.9 Chronic obstructive pulmonary disease, unspecified G25.81 Restless legs syndrome E66.01 Morbid (severe) obesity due to excess calories Z68.41 Body mass index (BMI) 40.0-44.9, adult Z12.2 Encntr screen for malignant neoplasm of respiratory organs Z72.821 Inadequate sleep hygiene Office Visit 07/01/2017 1:15p Orthopedic Jone Ribeiro M75.21 Bicipital Services Of MD Mell tendinitis, right C.M.A. shoulder M75.41 Impingement syndrome of right shoulder M19.011 Primary osteoarthritis, right shoulder M75.31 Calcific tendinitis of right shoulder Office Visit 06/19/2017 Sagar Ramirez G43.009 Migraine w/o aura, 11:45a Neurologic Jus Tong not intractable, Services Of [facility] w/o status migrainosus Office Visit 06/19/2017 [facility] Internal Coco Z00.00 Encntr for general 1:20p [...] syndrome of right shoulder Office Visit 02/24/2017 [facility] Internal Julia Romero, M25.511 Pain in right 1:00p Medicine N.P. shoulder Office Visit 02/06/2017 Sagar Ramirez G43.009 Migraine w/o aura, 11:30a Neurologic Jus Tong not intractable, Services Of [facility] w/o status migrainosus Office Visit 01/30/2017 Orthopedic Lynn M17.0 Bilateral primary 9:00a Services Of Jus Lawton osteoarthritis of C.M.A. knee M25.561 Pain in right knee M25.562 Pain in left knee Office Visit 01/06/2017 2:40p [facility] Internal Allan Grewal, E11.40 Type 2 diabetes Medicine CLEAT THROWER mellitus with diabetic neuropathy, unsp H10.89 Other conjunctivitis H92.02 Otalgia, left ear Office Visit 12/13/2016 11:00a [facility] Internal Patrick Guerra, B02.9 Zoster without Medicine - CLEAT THROWER complications [address] H66.91 Otitis media, unspecified, right ear E11.40 Type 2 diabetes mellitus with diabetic neuropathy, unsp Office Visit 12/09/2016 2:40p [facility] Internal Julia Romero, H10.89 Other conjunctivitis Medicine N.P. H66.91 Otitis media, unspecified, right ear Office Visit 10/09/2016 [facility] Internal Allan Grewal NP E11.40 Type 2 diabetes 4:00p Medicine mellitus with diabetic neuropathy, unsp Office Visit 07/22/2016 [facility] Internal Allan Grewal NP H10.89 Other conjunctivitis 2:20p Medicine Office Visit 06/28/2016 [facility] Internal Coco E11.40 Type 2 diabetes 11:20a Jose Clements M.D. mellitus with diabetic neuropathy, unsp I10 Essential (primary) hypertension M54.5 Low back pain L03.011 Cellulitis of right finger Z23 Encounter for immunization Office Visit 06/27/2016 Sagar Ramirez G43.009 Migraine w/o aura, 11:30a Neurologic Jus Tong not intractable, Services Of [facility] w/o status migrainosus M54.5 Low back pain Office Visit 06/14/2016 11:20a [facility] Internal Patrick Guerra, J01.90 Acute sinusitis, Medicine - CLEAT THROWER unspecified [address] Office Visit 03/26/2016 11:40a [facility] Internal Coco E11.65 Type 2 diabetes Jose Clements M.D. mellitus with hyperglycemia Z12.31 Encntr screen mammogram for malignant neoplasm of breast Office Visit 02/12/2016 [facility] Internal Coco E11.65 Type 2 diabetes 11:40a Jose Clements M.D. mellitus with hyperglycemia Office Visit 01/30/2016 Sagar Ramirez G43.009 Migraine w/o aura, 11:45a Neurologic Jus Tong not intractable, Services Of [facility] w/o status migrainosus Office Visit 12/26/2015 [facility] Internal Coco E11.65 Type 2 diabetes 10:20a Jose Clements M.D. mellitus with hyperglycemia Office Visit 11/14/2015 [facility] Internal Coco [id number] Type 2 diabetes 10:40a Jose Clements M.D. mellitus with hyperglycemia M54.5 Low back pain I10 Essential (primary) hypertension Office Visit 10/03/2015 10:40a [facility] Internal Coco E11.40 Type 2 diabetes Jose Clements M.D. mellitus with diabetic neuropathy, unsp I10 Essential (primary) hypertension R21 Rash and other nonspecific skin eruption Office Visit 09/07/2015 Sagar Ramirez G43.919 Migraine, unsp, 8:45a Eve Tong M.D. intractable, Services Of [facility] without status migrainosus Office Visit 07/03/2015 [facility] Internal Coco E11.40 Type 2 diabetes 10:20a Jose Clements M.D. mellitus with diabetic neuropathy, unsp Z12.11 Encounter for screening for malignant neoplasm of colon R74.0 Nonspec elev of levels of transamns & lactic acid dehydrgnse Z12.31 Encntr screen mammogram for malignant neoplasm of breast Z23 Encounter for immunization Z01.419 Encntr for quality assurance auditor exam (general) (routine) w/o abn findings Office Visit 03/30/2015 3:30p Sagar Ramirez 339.42 New Daily Services Of [place] Tong M.D. Persistent Headache 311 Depressive Disorder Not Elsewhere Spec 346.91 Migraine Unspec W/ Intractable W/O Status Migrainosus Office Visit 03/14/2015 [facility] Internal Coco 250.60 Diabetes W/ 11:20a Jose Clements M.D. Neurological Manifestations Type II Controlled 250.00 Diabetes Mellitus W/O Compl Type II Or Unspec Controlled Office Visit 02/02/2015 Orthopedic Lynn 715.16 Osteoarthrosis 4:00p Services Of Jus [place] Localized Prim C.M.A. Lower Leg Office Visit 11/18/2014 [facility] Coco 250.02 Diabetes Mellitus 3:40p Jose Clements M.D. W/O Compl Type II Or Unspec Type Uncontrol Office Visit 11/17/2014 Sagar Ramirez 346.93 Migraine 3:45p Neurologic Jus Tong Unspecified, Services Of [place] W/Intractable Migraine 311 Depressive Disorder Not Elsewhere Spec 346.91 Migraine Unspec W/ Intractable W/O Status Migrainosus 309.0 Adjustment Disorder With Depression Office Visit 06/17/2014 3:40p [facility] Internal Coco V70.0 Examination Jose Clements M.D. General Medical Routine AT Health Care Facility V76.2 Screening Malignant Neoplasm Cervix V76.12 Screening Mammogram Malig Robert Other 250.02 Diabetes Mellitus W/O Compl Type II Or Unspec Type Uncontrol 401.1 Hypertension Benign Office Visit 06/09/2014 3:15p Sagar Ramirez 346.10 Migraine Common Neurologic Jus Tong W/O Intractable Services Of [facility] W/O Status Migrainosus Office Visit 05/17/2014 8:40a [facility] Internal Coco 250.02 Diabetes Mellitus Jose Clements M.D. W/O Compl Type II Or Unspec Type Uncontrol 401.1 Hypertension Benign 790.4 Transaminase Or Lactic Acid Dehydrogenase Elevation Nonspec 719.47 Pain Joint Ankle & Foot V04.81 Need For Prophylactic Vaccination & Inoculation/Influenza Office Visit 02/11/2014 3:40p [facility] Internal Coco 250.02 Diabetes Mellitus Jose Clements M.D. W/O Compl Type II Or Unspec Type Uncontrol Office Visit 01/07/2014 8:45a Sagar Ramirez 346.10 Migraine Common Neurologic Jus Tong W/O Intractable Services Of [facility] W/O Status Migrainosus Office Visit 01/04/2014 4:20p [facility] Internal Coco 250.02 Diabetes Mellitus Jose Clements M.D. W/O Compl Type II Or Unspec Type Uncontrol 790.4 Transaminase Or Lactic Acid Dehydrogenase Elevation Nonspec Office Visit 12/29/2013 4:00p Orthopedic Mickey Ocasio, 719.46 Pain Joint Services Of Jus Lower Leg C.M.A. Office Visit 11/12/2013 12:00p [facility] Internal Nurse Visit 250.02 Diabetes Medicine [place] Mellitus W/O Compl Type II Or Unspec Type Uncontrol Office Visit 11/04/2013 4:00p [facility] Internal Coco 250.02 Jean Pierre Clements M.D. Mellitus W/O Compl Type II Or Unspec Type Uncontrol 790.4 Transaminase Or Lactic Acid Dehydrogenase Elevation Nonspec 401.1 Hypertension Benign 729.5 Pain In Limb Office Visit 10/29/2013 3:45p Orthopedic Mickey Ocasio, 729.5 Pain In Limb Services Of Jus C.M.A. Office Visit 09/02/2013 4:20p [facility] Internal Coco 250.02 Jean Pierre Clements M.D. Mellitus W/O Compl Type II Or Unspec Type Uncontrol 790.4 Transaminase Or Lactic Acid Dehydrogenase Elevation Nonspec Office Visit 07/26/2013 4:00p [facility] Internal Coco 250.02 Diabetes Jose Clements M.D. Mellitus W/O Compl Type II Or Unspec Type Uncontrol 790.4 Transaminase Or Lactic Acid Dehydrogenase Elevation Nonspec 715.16 Osteoarthrosis Localized Prim Lower Leg Office Visit 06/11/2013 2:40p [facility] Internal Coco V70.0 Examination Jose Clements M.D. General Medical Routine AT Health Care Facility V72.31 Routine Aerospace Project Manager Examination V76.10 Screening For Malignant Neoplasm Breast 250.02 Diabetes Mellitus W/O Compl Type II Or Unspec Type Uncontrol 790.4 Transaminase Or Lactic Acid Dehydrogenase Elevation Nonspec 786.09 Dyspnea & Respiratory Abnormalities Other V04.81 Need For Prophylactic Vaccination & Inoculation/Influenza Office Visit 05/14/2013 4:00p Sagar Ramirez 346.10 Migraine Common Neurologic Jus Tong W/O Intractable Services Of [facility] W/O Status Migrainosus 386.11 Vertigo Benign Paroxysmal Position Office Visit 04/30/2013 3:00p Orthopedic Mickey Ocasio 719.47 Pain Joint Ankle Services Of Jus & Foot C.M.A. Office Visit 04/07/2013 4:00p Orthopedic Mickey Ocasio 719.47 Pain Joint Ankle Services Of Jus & Foot C.M.A. Office Visit 02/04/2013 8:15a Orthopedic Lynn 716.96 Arthropathy Services Of Jus [place] Unspec Lower Leg C.M.A. 727.09 Synovitis & Tenosynovitis Other Office Visit 12/07/2012 3:40p [facility] Internal Coco 250.00 Diabetes Mellitus Jose Clements M.D. W/O Compl Type II Or Unspec Controlled 716.96 Arthropathy Unspec Lower Leg 009.1 Colitis Enteritis & Gastroenteritis Presumed Infectious Orig Office Visit 10/28/2012 3:55p Xavi Arevalo 327.23 Obstructive Sleep Disorder Center Jus Hurley Apnea Adult & Pediatric Office Visit 10/15/2012 2:45p Orthopedic Lynn 716.96 Arthropathy Services Of Jus Lawton Unspec Lower Leg C.M.A. 727.04 Tenosynovitis Radial Styloid Office Visit 09/29/2012 1:39p Xavi Arevalo 786.09 Dyspnea & Disorder Jus [facility] Abnormalities Other 780.79 Malaise And Fatigue Other Office Visit 06/18/2012 10:20a [facility] Internal Julia Romero, 599.0 UTI Urinary Medicine N.P. Tract Infection Site Not Spec 386.11 Vertigo Benign Paroxysmal Position Office Visit 06/05/2012 3:00p [facility] Internal Coco V70.0 Examination Jose Clements M.D. General Medical Routine AT Health Care Facility V72.31 Routine Aerospace Project Manager Examination V76.10 Screening For Malignant Neoplasm Breast 250.00 Diabetes Mellitus W/O Compl Type II Or Unspec Controlled 493.00 Asthma Extrinsic Unspecified V04.81 Need For Prophylactic Vaccination & Inoculation/Influenza Office Visit 03/12/2012 4:00p [facility] Internal Coco 780.4 Dizziness & Medicine Jus Clements Giddiness 311 Depressive Disorder Not Elsewhere Spec 790.4 Transaminase Or Lactic Acid Dehydrogenase Elevation Nonspec 250.00 Diabetes Mellitus W/O Compl Type II Or Unspec Controlled Office Visit 02/10/2012 3:40p [facility] Internal Coco 250.00 Diabetes Mellitus Jose Clements M.D. W/O Compl Type II Or Unspec Controlled 401.1 Hypertension Benign 272.2 Hyperlipidemia Mixed 311 Depressive Disorder Not Elsewhere Spec 791.0 Proteinuria 790.4 Transaminase Or Lactic Acid Dehydrogenase Elevation Nonspec Office Visit 09/12/2011 3:40p [facility] Internal Nurse Visit A 401.1 Hypertension Medicine [...] Office Visit 08/15/2009 2:45p DO Not Use Barby Almonte0.21 Impaired Sherice Mitchell M.D. Fasting Glucose 496 COPD Airway Obstruction Chronic Not Class Elsewhere 401.1 Hypertension Benign Office Visit 06/30/2009 2:15p DO Not Use Suzy 790.21 Impaired Sherice Mitchell M.D. Fasting Glucose 496 COPD Airway Obstruction Chronic Not Class Elsewhere Office Visit 06/23/2009 DO Not Use Suzy, 786.05 Shortness Of 4:15p Sherice Mitchell M.D. Breath 272.4 Hyperlipidemia Other Unspec 305.1 Tobacco Use Disorder Office Visit 05/02/2009 DO Not Use [place], 786.05 Shortness Of 4:15p Sherice Mitchell M.D. Breath 272.0 Hypercholesterolemia Pure Office Visit 04/20/2009 DO Not Use [place], 272.4 Hyperlipidemia 3:30p Sherice Mitchell M.D. Other Unspec 790.21 Impaired Fasting Glucose Office Visit 01/05/2009 DO Not Use [place], V72.31 Routine Aerospace Project Manager 3:15p Sherice Mitchell M.D. Examination 401.1 Hypertension Benign Office Visit 11/23/2008 3:30p DO Not Use [place], 461.9 Sinusitis Acute Sherice Mitchell M.D. Unspec [...] 07/29/2007 DO Not Use [place], V72.31 Routine Aerospace Project Manager 3:15p Sherice Mitchell M.D. Examination 786.2 Cough 780.52 Insomnia Unspecified 578.1 Blood In Stool Melena 401.1 Hypertension Benign V04.81 Need For Prophylactic Vaccination & Inoculation/Influenza Office Visit 07/21/2007 2:45p DO Not Use Julia Varn, 466.0 Bronchitis Acute [facility]-Telferner N.P. Office Visit 01/19/2007 4:00p DO Not Use [place], 782.3 Edema Machine Stonecutter-Pantera Mitchell M.D. 272.0 Hypercholesterolemia Pure 277.7 Dysmetabolic Syndrome X 401.1 Hypertension Benign Plan of Treatment Future Appointment(s):11/30/2018 11:15 am - Prakash Koch M.D. at [facility].12/22/2018 10:30 am - Ramon Polk MD at [facility].12/08/2018 7:30 am - Ramon Polk MD at [facility].12/08/2018 7:30 am - Prakash Koch M.D. at [facility]. 1:45 pm - Rubina Dwyer MD at [facility] 1:00 pm - Coco Clements M.D. at [facility] Internal Lqbksbnp80/12/2019 - Ramon Polk, MDM17.11 Unilateral primary osteoarthritis, right kneeNew Xrays: Kneeright 4+ VWS, Ordered: 11/27/18Follow up:Follow up: 10-14 days post op
--- OUTSIDE RECORDS SUMMARY | 2018-12-08 05:46 | XMS REPORT | Continuity of Care Document ---
:1960 External Reference #:[id number] Author Name Jasonalex Marleny Care Team Providers Name Role Phone Coco Clements MD Primary Care Physician Unavailable Payers Date Identification Numbers Payment Provider Subscriber Effective: 2012 Policy Number: [id number] [employer] Vadim Snow PayID: [id number] [address] [address] [place] [address] Advance Directives Type Date Description Status Comment [...] (CAD) : (age 77 Mother due to [place] Years) Mother Diabetes Type I Mother [place] Siblings 3 2 sisters and 1 brother [...] Use Denies Drug Use Smoking Status Reviewed: 11/16/18 Patient is a former pt quit around [...] Day Or as Jus Clements Directed Pen Benton 02/14 Active Misc 31G X 5 200un [...] puff Lynn g/Act 0gm twice a Aishwarya, PUBLIC SAFETY DIRECTOR day Doxycycline 10/27 Hx Tablets 100mg 14tab [...] 12/29 Hx Aerosol 160-4.5mc 12gm 2 puffs Arabelal S. g/Act twice Foster, N.P. - daily 06/21 Oxycodone-Acetam 11/14 Hx Tablets 5-325mg 15tab 1 by Jone burkett s naila Monte MD - every 4-6 03/02 hours needed for pain. Freestyle Lite 04/02 Hx 2 times E11.9 Coco Delgado daily or Jus Clements - as needed 04/02 dx e11.9 Mometasone 01/06 Hx Suspension 50mcg/Act 17uni Accident 2 H92.02 Samuel Irby ts Sprays In PUBLIC SAFETY DIRECTOR - Each 11/03 Nostril /2017 Every Day Valacyclovir HCL 12/13 Hx Tablets 500mg 42tab 2 tab po B02.9 Patrick s tid Charlie PUBLIC SAFETY DIRECTOR - x7days 12/27 Zyrtec Allergy 12/13 Hx [...] for 10 days Trimethoprim 07/22 Hx Solution 87712-6.1 10ml two drops H10.89 Allan Grewal, Sulfate/Polymyx Unit/ML-% affected PUBLIC SAFETY DIRECTOR n B Sulfate - eye 4 08/01 [...] 1 by Allan Grewal s mouth 2-3 PUBLIC SAFETY DIRECTOR - times 12/18 Byshemar 11/04 Hx Solution [...] 20mg 60tab 2 po qd 311 Pam Raimrez Oxalate s Carli Tong M.D. 03/08 Hydrochlorothiaz 02/09 Hx Capsules 12.5mg 90cap take one I10 Coco yunior s capsule Jus Clements - by mouth 12/18 Freestyle Lite 01/06 Hx Strip 50uni Test Once Coco Test ts Daily Jus Clements - Three 06/04 Days Week Lisinopril/[place] 08/09 Hx Tablets 10-12.5mg 45tab / po [...] CPT Code Status Date Vaccine Lot # [id number] Given 06/22/2018 Influenza Virus Vaccine, Quadrivalent, Split, [id number] Preservative Free 49092 Given 06/19/2017 Influenza Virus Vaccine, Quadrivalent, Split, [id number] Preservative Free 22588 Given 06/28/2016 Influ Virus Vaccine, Quadrivalent, Split Virus, [id number] [address] Given 07/03/2015 Tdap - Tetanus/Diptheria/Acellular Pertussis [id number] 65876 Given 07/03/2015 Influenza Virus Vaccine, Quadrivalent, Split, [id number] Preservative Free 23047 Given 05/17/2014 Influenza Virus Vaccine, Quadrivalent, Split, [id number] Preservative Free 09007 Given 06/11/2013 Flu Vaccine Split Virus Preservative Free For [id number] Indiv 3Yr Older [id number] Given 06/05/2012 Fluvirin Im 3Yrs And Older [id number] 29935 Given 05/07/2011 Influenza Virus 3Yrs & Over [id number] 58373 Given 02/04/2011 Pneumonia Vaccine [id number] 44240 Given 05/04/2010 Influenza Virus 3Yrs & Over 30807 Given 07/29/2007 Influenza Virus 3Yrs & Over Vital Signs Date Vital Result Comment 11/16/2018 12:56pm Height 64 inches 5'4" Weight [...] Date Facility Test Result H/L Range Note Laboratory test 07/23/2018 [facility] Hemoglobin A1c 6.7 finding Lipid Profile 06/18/2018 [facility] Triglycerides 218 mg/dL 1 (Trig/Chol/HDL) [address] [place] [address] [phone] Cholesterol 173 mg/dL 2 HDL Cholesterol 47.8 mg/dL 3 LDL Cholesterol 82 mg/dL 4 Comp Metabolic Panel 06/18/2018 [facility] Sodium 142 mmol/L N 135-145 [address] [place] [address] [phone] Potassium 4.2 mmol/L N 3.5-5.0 Chloride 103 [...] Egfr Non- 48.6 >60 Egfr 58.8 >60 5 CBC Auto Diff 06/18/2018 [facility] White Blood 7.9 10^3/uL N 3.5-10.[address] [place] [address] [phone] Red Blood Count 4.56 10^6/uL N 4.00-5.40 [...] Blood Cells % 0 Urine Microalbumin 06/18/2018 [facility] Ur Microalbumin 88.[address] (mg/L) [place] [address] [phone] Urine Creatinine 123.90 mg/dL Urine Microalbumin/Creatinine 71.3 High <31 CBC Auto Diff 06/16/2018 [facility] White Blood 10.1 10^3/uL N 3.5-10.[address] [place] [address] [phone] Red Blood Count 4.58 10^6/uL N 4.00-5.40 [...] Blood Cells % 0 Urinalysis Profile 06/16/2018 [facility] Urine Color Yellow [address] [place] [address] [phone] Urine Appearance Cloudy Urine Specific [place] 1.017 N 1.010-1.030 Urine pH 7.0 N [...] Epithelial Cell Present Abnormal Absent Inr/Protime 06/16/2018 [facility] Inr 1.01 N 0.77-1.[address] [place] [address] [phone] Laboratory test 06/16/2018 [facility] Partial 29.7 seconds N 26.0-36.[address] [place] [address] PTT [phone] Lactic Acid 1.1 mmol/L N 0.5-2.0 6 Comp Metabolic Panel 06/16/2018 [facility] Sodium 136 mmol/L N 135-[address] [place] [address] [phone] Potassium 3.9 mmol/L N 3.5-5.0 Chloride 99 [...] Egfr Non- 52.9 >60 Egfr 64.0 >60 7 Laboratory test finding 06/16/2018 [facility] Lipase 36 U/L N 11.0-82.[address] [place] [address] [phone] Troponin-I (TnI) 0.00 ng/mL <0.04 Urine Culture And 06/16/2018 [facility] Urine Culture SEE RESULT [address] [place] [address] [phone] Laboratory test 04/14/2018 [facility] Hemoglobin A1c 6.5 finding Basic Metabolic 02/02/2018 [facility] Sodium 140 mmol/L N 135- [address] [place] [address] [phone] Potassium 4.3 mmol/L N 3.5-5.0 Chloride 100 mmol/L Low 101-111 Co2 Carbon Dioxide 27 mmol/L N 22-32 Anion Gap 13 mmol/L High 2-11 Glucose 137 mg/dL High 70-100 Blood Urea Nitrogen 16 mg/dL N 6-24 Creatinine 1.13 mg/dL High 0.51-0.95 BUN/Creatinine Ratio 14.2 N 8-20 Calcium 9.7 mg/dL N 8.6-10.3 Egfr Non- 49.3 >60 Egfr 63.4 >60 9 Laboratory test 11/14/2017 [facility] Point of 230 mg/dL High 70-100 [address] [place] [address] [phone] Laboratory test 11/14/2017 [facility] Point of 240 mg/dL High 70-100 [address] [place] [address] [phone] Order 11/04/2017 [facility]-House EKG <pending> Urinalysis 11/04/2017 [facility] Urine Color Yellow [address] [place] [address] [phone] Urine Appearance Clear Urine Specific [place] 1.018 N 1.010-1.030 Urine pH 5.0 N 5-9 Urine Urobilinogen Negative Negative Urine Ketones Trace Abnormal Negative Urine Protein Negative Negative Urine Leukocytes Negative Negative Urine Blood Negative Negative * * Abnormal Negative 13 Urine Nitrite Negative Negative Urine Bilirubin Negative Negative Urine Glucose Negative Negative Urine Culture And 11/04/2017 [facility] Urine Culture SEE RESULT [address] [place] [address] [phone] Comp Metabolic 11/04/2017 [facility] Sodium 137 mmol/L N 133- [address] [place] [address] [phone] Potassium 3.9 mmol/L N 3.5-5.0 Chloride 100 [...] Egfr Non- 72.4 >60 Egfr 93.1 >60 15 CBC Auto Diff 11/04/2017 [facility] White Blood 4.7 10^3/uL N 3.5-10.[address] [place] [address] [phone] Red Blood Count 4.48 10^6/uL N 4.0-5.4 [...] % 0.1 Iron & Iron Binding 11/04/2017 [facility] Iron 75 g/dL N 50- [address] [place] [address] [phone] Unsaturated Iron Binding 384 g/dL Total Iron Binding Capacity 459 g/dL High 250-450 Transferrin 328 mg/dL N 203-362 % Iron Saturation 16 % N 15-55 Laboratory test 11/04/2017 [facility] Vitamin B12 717 pg/mL N 180-914 [address] [place] [address] [phone] Laboratory test 09/23/2017 [facility] Hemoglobin A1c 7.9 finding Laboratory test 09/23/2017 [facility] Hemoglobin A1c 7.9 finding Laboratory test 07/01/2017 [facility] Surgical SEE RESULT [address] [place] [address] [phone] Laboratory test 06/25/2017 [facility] Saliva Cortisol TNP () [address] [place] [address] [phone] Laboratory test 06/24/2017 [facility] Saliva Cortisol 59 ng/dL <100 [address] [place] [address] [phone] Iron & Iron 06/09/2017 [facility] Iron 49 g/dL Low 50-[address] [place] [address] [phone] Unsaturated Iron Binding 430 g/dL N Total Iron Binding Capacity 479 g/dL High 250-450 % Iron Saturation 10 % Low 15-55 CBC Auto Diff 06/09/2017 [facility] White Blood 4.4 10^3/uL N 3.5-10.[address] [place] [address] [phone] Red Blood Count 3.98 10^6/uL Low 4.0-5.4 [...] Cells % 0.1 N Comp Metabolic Panel 06/09/2017 [facility] Sodium 137 mmol/L N 133-[address] [place] [address] [phone] Potassium 4.0 mmol/L N 3.5-5.0 Chloride 100 [...] 74.5 N >60 Egfr 95.8 N >60 20 Lipid Profile 06/09/2017 [facility] Triglycerides 378 mg/dL N 21 (Trig/Chol/HDL) [address] [place] [address] [phone] Cholesterol 182 mg/dL N 22 HDL Cholesterol 28.2 mg/dL N 23 LDL Cholesterol 78 mg/dL N 24 CBC Auto Diff 02/06/2017 [facility] White Blood 5.3 10^3/uL N 3.5-10.[address] [place] [address] [phone] Red Blood Count 4.54 10^6/uL N 4.0-5.4 [...] % 0 N Comp Metabolic Panel 02/06/2017 [facility] Sodium 137 mmol/L N 133-[address] [place] [address] [phone] Potassium 4.1 mmol/L N 3.5-5.0 Chloride 100 [...] 73.7 N >60 Egfr 94.7 N >60 25 Laboratory test 02/06/2017 [facility] Nortriptyline 100 ng/mL N 70-170 [address] ([facility] [place] [address] [phone] Urine 12/13/2016 [facility] Urine Creatinine 266.[address] Microalbumin [address] mg/[place] [address] [phone] Ur Microalbumin (mg/L) 43.9 mg/L N Urine Microalbumin/Creatinine 16.4 ug/mg N <31 Laboratory test 12/13/2016 [facility] Hemoglobin A1c 8.4 High 5-7 finding Lipid Profile 06/18/2016 [facility] Triglycerides 339 mg/dL N 27 (Trig/Chol/HDL) [address] [place] [address] [phone] Cholesterol 162 mg/dL N 28 HDL Cholesterol 21.3 mg/dL N 29 LDL Cholesterol 73 mg/dL N 30 Laboratory test 06/18/2016 [facility] Hemoglobin A1c 7.6 % High Less than [address] (Glyco HGB) 6.0 [place] [address] [phone] CBC Auto Diff 06/18/2016 [facility] White Blood 4.9 N 3.5- 10.[address] Count 10^3/[place] [address] [phone] Red Blood Count 4.61 10^6/uL N 4.0-5.4 [...] % 0.1 N Comp Metabolic Panel 06/18/2016 [facility] Sodium 135 mmol/L N 133-[address] [place] [address] [phone] Potassium 4.2 mmol/L N 3.5-5.0 Chloride 99 [...] 68.7 N >60 Egfr 88.3 N >60 32 Laboratory test 03/26/2016 [facility] Hemoglobin A1c 8.0 High 5-7 finding Urine Microalbumin 12/21/2015 [facility] Ur Microalbumin 22.0 mg /L N Random [address] (mg/L) [place] [address] [phone] Urine Creatinine 237.02 mg/dL N Urine Microalbumin/Creatinine 9.2 ug/mg N <31 Laboratory test 12/21/2015 [facility] Hemoglobin A1c 10.5 % High Less [address] (Glyco HGB) than 6.0 [place] [address] [phone] Comp Metabolic 12/21/2015 [facility] Sodium 136 N 133-[address] mmol/[place] [address] [phone] Potassium 4.3 mmol/L N 3.5-5.0 Chloride 98 [...] 64.5 N >60 Egfr 83.0 N >60 34 Lipid Profile 12/21/2015 [facility] Triglycerides 427 mg/dL N 35 (Trig/Chol/HDL) [address] [place] [address] [phone] Cholesterol 216 mg/dL N 36 HDL Cholesterol 34.8 mg/dL N 37 LDL Cholesterol (SEE NOTE) mg/dL N 38 Laboratory test 12/21/2015 [facility] LDL Cholesterol 130 mg/dL N 39 finding [address] [place] [address] [phone] Lipid Profile 12/21/2015 [facility] Triglycerides 427 mg/dL N 40 (Trig/Chol/HDL) [address] [place] [address] [phone] Cholesterol 216 mg/dL N 41 HDL Cholesterol 34.8 mg/dL N 42 LDL Cholesterol (SEE NOTE) mg/dL N 43 Comp Metabolic Panel 12/21/2015 [facility] Sodium 136 mmol/L N 133-145 [address] [place] [address] [phone] Potassium 4.3 mmol/L N 3.5-5.0 Chloride 98 [...] 64.5 N >60 Egfr 83.0 N >60 44 Cortisol Free 10/09/2015 [facility] Urine Free 18 mcg/24h N 3.5-45 45 24HR Urine [address] [place] [address] [phone] Urine Collection Duration 24 h N Urine Total Volume 2650 mL N 46 Laboratory test 09/06/2015 [facility] Surgical SEE RESULT [address] [place] [address] [phone] Laboratory test 09/06/2015 [facility] Point of Care 212 mg/dL High 74-10 [address] Glucose 6 [place] [address] [phone] Comp Metabolic 08/02/2015 [facility] Sodium 135 mmol/L N 133- [address] [place] [address] [phone] Potassium 4.0 mmol/L N 3.5-5.0 Chloride 97 [...] 70.9 N >60 Egfr 91.1 N >60 49 Laboratory test 08/02/2015 [facility] Cortisol 16.79 ?g/dL N [address] [place] [address] [phone] Laboratory test 07/03/2015 [facility] HPV Rna Negative N Negative [address] [place] Ww/[place] [address] Genotype [phone] Cytology SEE RESULT BELOW 52 Laboratory test 07/03/2015 [facility] Hemoglobin A1c 7.6 High 5-7 finding CBC Auto Diff 05/26/2015 [facility] White Blood Count 6.0 N 4.8-10.[address] 10^3/uL [place], [place] [address] [phone] Red Blood Count 5.06 10^6/uL N 4.0-5.4 [...] % 0.2 N Comp Metabolic Panel 05/26/2015 [facility] Sodium 136 mmol/L N 133-145 [address] [place] [address] [phone] Potassium 4.2 mmol/L N 3.5-5.0 Chloride 97 [...] 60.6 N >60 Egfr 78.0 N >60 53 Lipid Profile 03/06/2015 [facility] Triglycerides 296 mg/dL N 54, 55 (Trig/Chol/HDL) [address] [place] [address] [phone] Cholesterol 161 mg/dL N 56 HDL Cholesterol 33.6 mg/dL N 57 LDL Cholesterol 68 mg/dL N 58 Comp Metabolic Panel 03/06/2015 [facility] Sodium 137 mmol/L N 133-145 [address] [place] [address] [phone] Potassium 4.3 mmol/L N 3.5-5.0 Chloride 102 [...] 65.6 N >60 Egfr 84.4 N >60 59 Urine Microalbumin 03/06/2015 [facility] Ur Microalbumin 6.0 mg/ L N Random [address] (mg/L) [place] [address] [phone] Urine Creatinine 65.36 mg/dL N Urine Microalbumin/Creatinine 9.1 ug/mg N <31 Laboratory test 03/06/2015 [facility] Hemoglobin A1c 6.8 % High Less than [address] (Glyco HGB) 6.0 [place] [address] [phone] TSH (Thyroid Stim Horm) 2.28 ?IU/mL N 0.34-5.60 61 Urinalysis Profile 12/27/2014 [facility] Urine Color Julissa N [address] [place] [address] [phone] Urine Appearance Cloudy N Urine Specific [place] 1.023 N 1.010-1.030 Urine pH 5.0 N [...] Cell Present Abnormal Absent Laboratory test 12/27/2014 [facility] Urine Culture SEE RESULT [address] [place] [address] [phone] Laboratory test 12/27/2014 [facility] Inr 1.13 High 0.78- finding [address] 1.07 [place] [address] [phone] CBC Auto Diff 12/27/2014 [facility] White Blood 6.8 10^3/uL N 4.8-[address] Count 0.8 [place] [address] [phone] Red Blood Count 4.27 10^6/uL N 4.0-5.4 [...] % 0.1 N Comp Metabolic Panel 12/27/2014 [facility] Sodium 131 mmol/L Low 133-[address] [place] [address] [phone] Potassium 3.5 mmol/L N 3.5-5.0 Chloride 93 [...] 53.0 N >60 Egfr 68.2 N >60 63 Laboratory test 12/27/2014 [facility] C Reactive 182.08 mg/L High < 5.00 [address] [place] [address] [phone] Acetaminophen < 15 g/mL N 65 Alcohol < 10 mg/dL N <10 Laboratory 12/27/2014 [facility] Activated 37.7 High 26.0- 36.3 test finding [address] [place] [address] Time [phone] Laboratory 11/18/2014 [facility] Hemoglobin A1c 7.6 % High Less than 66 test finding [address] 6.0 [place] [address] [phone] Laboratory 11/18/2014 [facility] Hemoglobin A1c 6.7 5-7 test finding Laboratory 06/17/2014 [facility] Cytology RUN DATE: 67 test finding [address] 06/20/ [place] [address] <SEE [phone] NOTE> HPV High Risk 06/17/2014 [facility] Human See N [address] [place] [address] Source [phone] HPV High Risk Type 16, PCR Negative N Negative HPV High Risk Type 18, PCR Negative N Negative HPV Other Risk types Negative N Negative 69 Liver Function 05/12/2014 [facility] Total Protein 7.2 g/dL N 6.4-8.[address] [place], [place] [address] [phone] Albumin 4.3 g/dL N 3.2-5.2 Globulin 2.9 g/dL N 2-4 Albumin/Globulin Ratio 1.5 N 1-3 Total Bilirubin 0.30 mg/dL N 0.2-1.0 Direct Bilirubin 0.10 mg/dL N 0.03-0.18 Indirect Bilirubin 0.2 mg/dL Low 0.3-1.0 Alkaline Phosphatase 60 U/L N 34-104 Alt 40 U/L N 7-52 Ast 45 U/L High 13-39 Laboratory test 05/12/2014 [facility] Hemoglobin A1c 6.8 % High Less than [address] 6.0 [place] [address] [phone] Alpha 1 Antitrypsin A1a 149 mg/dL N 100 - 190 71 Lipid Profile 05/12/2014 [facility] Triglycerides 196 mg/dL N 72 (Trig/Chol/HDL) [address] [place] [address] [phone] Cholesterol 138 mg/dL N 73 HDL Cholesterol 35.7 mg/dL N 74 LDL Cholesterol 63 mg/dL N 75 Comp Metabolic Panel 05/12/2014 [facility] Sodium 136 mmol/L N 133-[address] [place] [address] [phone] Potassium 3.8 mmol/L N 3.7-5.6 Chloride 101 [...] 64.8 N >60 Egfr 83.3 N >60 76 Urine Microalbumin 05/12/2014 [facility] Ur Microalbumin 15.0 mg /dL N <30 [address] (mg/L) [place] [address] [phone] Urine Creatinine 163.65 mg/dL N Urine Microalbumin/Creatinine 9.1 N Less Than 31 Laboratory test 01/31/2014 [facility] Ferritin 147.1 ng/mL N 11-[address] [place] [address] [phone] Comp Metabolic 01/31/2014 [facility] Sodium 138 mmol/L N 133- [address] [place] [address] [phone] Potassium 3.7 mmol/L N 3.7-5.6 Chloride 101 [...] 72.4 N >60 Egfr 93.1 N >60 78 Laboratory 01/31/2014 [facility] Hemoglobin 7.9 % High Less than 79 test finding [address] [place] [address] A1c 6.0 [place], [place] [address] [phone] Laboratory 12/21/2013 [facility] Claire Negative N Negative test finding [address] [place] [address] ([place] [address] AB) Screen [phone] Comp Metabolic 11/01/2013 [facility] Sodium 138 mmol/L 133- 145 Panel [address] [place] [address] [phone] Potassium 3.7 mmol/L 3.7-5.6 Chloride 101 mmol/L [...] Egfr Non- 74.5 >60 Egfr 95.8 >60 80 Laboratory test 11/01/2013 [facility] Hemoglobin A1c 7.8 % High Less than [address] 6[address] [place] [address] [phone] Liver Function 08/31/2013 [facility] Total Protein 7.1 g/dL 6.2-8.[address] [place] [address] [phone] Albumin 4.3 g/dL 3.6-5.4 Globulin 2.8 g/dL 2-4 Albumin/Globulin Ratio 1.5 1-3 Total Bilirubin 0.4 mg/dL 0.4-1.5 Direct Bilirubin < 0.1 mg/dL Low 0.1-0.5 Indirect Bilirubin (SEE NOTE) mg/dL 0.3-1.0 82 Alkaline Phosphatase 82 U/L 30-110 Alt 67 U/L High 14-54 Ast 85 U/L High 12-42 Comp Metabolic Panel 06/25/2013 [facility] Sodium 137 mmol/L 133-[address] [place] [address] [phone] Potassium 4.2 mmol/L 3.5-5.0 Chloride 100 mmol/L [...] Egfr Non- 74.5 >60 Egfr 95.8 >60 83 Lipid Profile 06/25/2013 [facility] Triglycerides 228 mg/dL High 40-200 (Trig/Chol/HDL) [address] [place], [place] [address]243 [phone] Cholesterol 175 mg/dL Less than 200 HDL Cholesterol 37 mg/dL Low 40-60 84 Cholesterol/HDL Ratio 4.7 Average High 1-4.44 LDL Cholesterol 92.4 Less Than 100 85 Laboratory test 06/25/2013 [facility] Hemoglobin A1c 7.5 % High Less [address] than 6.0 [place] [address] [phone] Urine 06/25/2013 [facility] Ur Microalbumin 5.[address] (mg/L) mg/L Random [place], [place] [address]481 [phone] Urine Creatinine 69.1 mg/dL Urine Microalbumin/Creatinine 7.2 Less Than 31 Liver Function 06/25/2013 [facility] Total Protein 7.5 g/dL 6.2-8.[address] [place], [place] [address] [phone] Albumin 4.3 g/dL 3.6-5.4 Globulin 3.2 g/dL 2-4 Albumin/Globulin Ratio 1.3 1-3 Total Bilirubin 0.6 mg/dL 0.4-1.5 Direct Bilirubin < 0.1 mg/dL Low 0.1-0.5 Indirect Bilirubin (SEE NOTE) mg/dL 0.3-1.0 88 Alkaline Phosphatase 71 U/L 30-110 Alt 70 U/L High 14-54 Ast 86 U/L High 12-42 Creatinine 06/18/2013 [facility] Creatinine 1.10 mg/dL 0.50- 1.[address] [place], [place] [address] [phone] Egfr Non- 51.6 >60 Egfr 66.3 >60 89 Laboratory 06/18/2013 [facility] Blood Urea 16 mg/dL 6-24 test finding [address] [place] [address] [phone] Hepatitis 06/05/2013 [facility] Hepatitis B Nonreactive Nonreactive Acute Panel [address] [place] [address] Antigen [phone] Hepatitis B Core IgM Nonreactive Nonreactive Hepatitis A AB IgM Nonreactive Nonreactive Hepatitis C Antibody Nonreactive Nonreactive Urine Microalbumin 06/05/2013 [facility] Ur Microalbumin 6.0 mg/ L [address] (mg/L) [place] [address] [phone] Urine Creatinine 123.3 mg/dL Urine Microalbumin/Creatinine 4.9 Less Than 31 Lipid Profile 06/05/2013 [facility] Triglycerides 266 mg/dL High 40-200 (Trig/Chol/HDL) [address] [place] [address] [phone] Cholesterol 156 mg/dL Less than 200 HDL Cholesterol 34 mg/dL Low 40-60 91 Cholesterol/HDL Ratio 4.6 Average High 1-4.44 LDL Cholesterol 68.8 Less Than 100 92 Comp Metabolic Panel 06/05/2013 [facility] Sodium 137 mmol/L 133-[address] [place] [address] [phone] Potassium 4.2 mmol/L 3.5-5.0 Chloride 100 mmol/L [...] Egfr Non- 65.0 >60 Egfr 83.6 >60 93 Laboratory test 06/05/2013 [facility] Hemoglobin A1c 7.6 % High Less [address] than 6.0 [place] [address] [phone] Laboratory test 12/07/2012 [facility] Hemoglobin A1c 6.7 5-7 finding Urine Culture And 06/18/2012 [facility] Urine Culture (SEE [address] NOTE) [place] [address] [phone] Ua Routine 06/18/2012 [facility] Ua Specific 1.015 [place] Ua PH 6 Ua Color yellow Ua Appera cloudy Ua WBC moderate Ua Protein 30+ Ua Glucose neg Ua Ketones neg Ua Bilirubin small Ua Urobilinogen neg Ua Nitrite neg Ua Occult Blood non hemo trace Laboratory test 05/26/2012 [facility] Hemoglobin A1c 6.7 % High Less than [address] 6[address] [place] [address] [phone] Comp Metabolic 05/26/2012 [facility] Sodium 140 133-[address] mmol/[place] [address] [phone] Potassium 3.9 mmol/L 3.5-5.0 Chloride 103 mmol/L [...] 2.1 1-3 Total Bilirubin 0.5 mg/dL 0.1-1.0 97 Alkaline Phosphatase 53 U/L 30-110 Alt 37 U/L 14-54 Ast 42 U/L 12-42 Egfr Non- 65.2 >60 Egfr 83.9 >60 98 Lipid Profile 05/26/2012 [facility] Triglycerides 231 mg/dL High 40-200 (Trig/Chol/HDL) [address] [place] [address] [phone] Cholesterol 119 mg/dL Less than 200 99 HDL Cholesterol 34 mg/dL Low 40-60 100 Cholesterol/HDL Ratio 3.5 AVERAGE 1-4.44 LDL Cholesterol 38.8 mg/dL Less Than 100 CBC Auto Diff 04/06/2012 [facility] White Blood 6.3 CUMM 4.8- 10.[address] [place] [address] [phone] Red Cell Count 4.58 CUMM 4.2-5.4 Hemoglobin [...] Abs Basophils 0 0-0.2 Liver Function 04/06/2012 [facility] Total Protein 7.0 GM/DL 6.2-8.1 Panel [address] [place] [address] [phone] Albumin 4.6 GM/DL 3.6-5.4 Globulin 2.4 GM/DL 2-4 Albumin/Globulin Ratio 1.9 1-3 Bilirubin Total 0.6 mg/dL 0.4-1.5 101 Bilirubin Direct 0.1 mg/dL 0.1-0.5 Indirect Bilirubin 0.5 mg/dL 0.3-1.0 102 Alkaline Phosphatase 53 U/L 30-110 Alt (SGPT) 54 U/L 14-54 Ast (Sgot) 51 U/L High 12-42 Laboratory test 04/06/2012 [facility] TSH 1.71 MIU/ML 0.34- 5.60 finding [address] [place] [address] [phone] Liver Function 02/28/2012 [facility] Total Protein 7.0 GM/DL 6.2-8.1 Panel [address] [place] [address] [phone] Albumin 4.5 GM/DL 3.6-5.4 Globulin 2.5 GM/DL 2-4 Albumin/Globulin Ratio 1.8 1-3 Bilirubin Total 0.4 mg/dL 0.4-1.5 103 Bilirubin Direct < 0.1 mg/dL Low 0.1-0.5 Indirect Bilirubin (SEE NOTE) mg/dL 0.3-1.0 104 Alkaline Phosphatase 51 U/L 30-110 Alt (SGPT) 52 U/L 14-54 Ast (Sgot) 54 U/L High 12-42 Total Protein 24HR 02/28/2012 [facility] Total Protein 4 mg/dL Urine [address] Random Urine [place], [place] [phone] Urine Total Protein/24HR 148 MG/24HR High 50-100 Hours Of Collection 24 HR 24- Urine Volume Measurement 3700 ML Urine Microalbumin 02/07/2012 [facility] Microalbumin 230.0 mg/ L Random [address] (MG/L) [place] [address] [phone] Urine Creatinine 224.3 mg/dL Martín Alb/Creatinine Ratio 102.5 UG/MG High Less Than 30 105 Laboratory test 02/07/2012 [facility] Hemoglobin A1c 6.4 % High Less [address] Than 6.0 [place] [address] [phone] Comp Metabolic 02/07/2012 [facility] Sodium 139 135-[address] mmol/[place] [address] [phone] Potassium 4.2 mmol/L 3.5-5.0 Chloride 104 mmol/L 101-111 Co2 (Carbon Dioxide) 26.0 mmol/L 22-32 Anion Gap 9.0 mmol/L 2-11 107 Glucose 79 mg/dL 70-100 BUN 17 mg/dL 6-24 Creatinine 1.0 mg/dL 0.50-1.40 One Over Creatinine 1.00 BUN/Creatinine Ratio 17.0 8-20 Calcium 9.7 mg/dL 8.1-9.9 Total Protein 6.6 GM/DL 6.2-8.1 Albumin 4.5 GM/DL 3.6-5.4 Globulin 2.1 GM/DL 2-4 Albumin/Globulin Ratio 2.1 1-3 Bilirubin Total 0.4 mg/dL 0.4-1.5 108 Alkaline Phosphatase 52 U/L 30-110 Alt (SGPT) 55 U/L High 14-54 Ast (Sgot) 57 U/L High 12-42 eGFR Non- 58.0 > 60 eGFR 74.6 > 60 109 Laboratory 08/02/2011 [facility] Hemoglobin A1c 6.6 % High Less 110, test finding [address] Than 6.0 [address] [place] [address] [phone] Lipid Profile 08/02/2011 [facility] Triglyceride 153 40-200 (Trig/Chol/HDL [address] mg/dL ) [place] [address] [phone] Cholesterol 118 mg/dL Less Than 200 112 High Density Lipoprotein 37 mg/dL Low 40-60 113 Cholesterol/HDL Ratio 3.19 AVERAGE 1-4.44 Low Density Lipoprotein 50 mg/dL Less Than 100 114 Laboratory 06/04/2011 [facility] Cytology 115 test finding [address] <SEE NOTE> [place] [address] [phone] Laboratory 04/12/2011 [facility] Hemoglobin A1c 7.0 % High Less 116 test finding [address] [place] [address] [phone] Lipid 04/12/2011 [facility] Triglyceride 334 mg/dL High 40-[address] 0 (Trig/Chol/[place] [address] DL) [phone] Cholesterol 160 mg/dL Less Than 200 117 High Density Lipoprotein 35 mg/dL Low 40-60 118 Cholesterol/HDL Ratio 4.57 AVERAGE High 1-4.44 Low Density Lipoprotein 58 mg/dL Less Than 100 119 Comp Metabolic Panel 04/12/2011 [facility] Sodium 137 mmol/L 135-[address] [place] [address] [phone] Potassium 3.9 mmol/L 3.5-5.0 Chloride 101 mmol/L [...] > 60 eGFR 84.6 > 60 122 Urine Microalbumin 04/12/2011 [facility] Microalbumin (MG/L) 2.0 mg/L Random [address] [place] [address] [phone] Urine Creatinine 56.04 mg/dL Martín Alb/Creatinine Ratio 3.5 UG/MG Less Than 30 123 Laboratory test 11/01/2010 [facility] Hemoglobin A1c 6.5 % High Less [address] [place] [address] [phone] Urine 04/30/2010 [facility] Microalbumin < 2.[address] (MG/L) mg/[place] [address] [phone] Urine Creatinine 37.97 mg/dL Martín Alb/Creatinine Ratio 5.2 UG/MG Less Than 30 125 Lipid Profile 04/30/2010 [facility] Triglyceride 181 mg/dL 40 -200 (Trig/Chol/HDL) [address] [place] [address] [phone] Cholesterol 166 mg/dL Less Than 200 126 High Density Lipoprotein 44 mg/dL 40-60 127 Cholesterol/HDL Ratio 3.77 AVERAGE 1-4.44 Low Density Lipoprotein 86 mg/dL Less Than 100 128 Laboratory test 04/30/2010 [facility] Hemoglobin A1c 6.5 % High Less [address] [place] [address] [phone] Basic Metabolic 12/16/2009 [facility] Sodium 137 135-[address] mmol/[place] [address] [phone] Potassium 3.7 mmol/L 3.5-5.0 Chloride 102 mmol/L 101-111 Co2 (Carbon Dioxide) 27.0 mmol/L 22-32 Anion Gap 8.0 mmol/L 2-11 130 Glucose 146 mg/dL High 70-100 131 BUN 20 mg/dL 6-24 Creatinine 0.84 mg/dL 0.50-1.40 One Over Creatinine 1.10 BUN/Creatinine Ratio 23.8 High 8-20 Calcium 9.1 mg/dL 8.1-9.9 132 eGFR Non- 76.0 > 60 eGFR 91.9 > 60 133 Laboratory test 12/16/2009 [facility] Hemoglobin A1c 6.7 % High Less [address] [place] [address] [phone] Lipid Profile 09/30/2008 [facility] Triglyceride 315 High 40- 200 (Trig/Chol/HDL) [address] mg/[place] [address] [phone] Cholesterol 207 mg/dL High Less Than 200 135 High Density Lipoprotein 34 mg/dL Low 40-60 136 Cholesterol/HDL Ratio 6.09 AVERAGE High 1-4.44 Low Density Lipoprotein 110 mg/dL High Less Than 100 137 Laboratory test 09/30/2008 [facility] TSH 1.79 MIU/ML 0.34- 5.[address] [place] [address] [phone] CBC With Manual 09/30/2008 [facility] White Blood 7.3 CUMM 4.8-10.[address] [place] [address] [phone] Red Cell Count 4.94 CUMM 4.2-5.4 Hemoglobin [...] 4.7 RBC Morphology NORMAL Laboratory test 09/30/2008 [facility] Erythrocyte Sed 5 MM/HR 0-[address] [place] [address] [phone] Desirable: <150 Borderline High: 150-199 High: 200-499 Very High: >500 2 Desirable: <200 Borderline High: 200-239 High: >239 3 Low: <40 Desirable: 40-60 High: >60 4 Desirable: <100 Near Optimal: 100-129 Borderline High: 130-159 High: 160-189 Very High: >189 5 Because ethnic data is not always readily [...] 15-29 5 Kidney failure <15 (or dialysis) 6 [facility] Severe Sepsis and Septic Shock Management Bundle Measure requires all lactic acids initially measuring >2.0 mmol/L be repeated. 7 Because ethnic data is not always readily [...] 15-29 5 Kidney failure <15 (or dialysis) 8 SEE RESULT BELOW Name: ROSELINE SNOW : [address]: Aries Carr MD Acct: [id number] Unit: [id number] AGE: 58 Location: ED Re06/16/18 SEX: F Status: REG ER SPEC: [id number] NELI: 06/16/[address] [facility] [address]: Aries Carr MD REQ: [id number] RECD: 06/17/18 STATUS: MAGDY NEGRETE DR: Coco Clements MD _ SOURCE: URINE SPDESC: ORDERED: Urine Culture Procedure Result Reported Site Urine Culture Final 06/18/18- 1044 ML Organism 1 STAPHYLOCOCCUS SAPROPHYTICUS Posey Count >100,000 (Many) CFU/ML Routine sensitivity testing of urine isolates of S. saprophyticus is not advised, because infections respond to concentrations achieved in urine of antimicrobial agents commonly used to treat acute, uncomplicated urinary tract infections (e.g. nitrofurantoin, trimethoprim+/- sulfamethoxazole, or a fluoroquinolone). [facility] August 2001 * ML - Main Lab . END OF REPORT DEPARTMENT OF PATHOLOGY, [address] [place] [address] Fady Flores M.D. Director [facility] # [id number] 9 Because ethnic data is not always readily [...] 15-29 5 Kidney failure <15 (or dialysis) 10 Beauty Culturist Apprentice: [id number] Beauty Culturist Apprentice: [id number] 12 Copy Result to: DUSTY MCCRARY ([id number]) 13 *Ascorbic acid is present which may interfere with detection of blood. 14 SEE RESULT BELOW Name: ROSELINE SNOW : [address]: Coco Clements MD Acct: [id number] Unit: [id number] AGE: 57 Location: LAB Re11/04/17 SEX: F Status: REG REF SPEC: [id number] NELI: 11/04/17-[address] [facility] [address]: Coco Clements MD REQ: [id number] RECD: 11/04/17 STATUS: MAGDY NEGRETE DR: Dusty Mccrary MD _ SOURCE: URINE SPDESC: ORDERED: Urine Culture COMMENTS: Copy Result to: DUSTY MCCRARY ([id number]) Procedure Result Reported Site Urine Culture Final 11/05/17- 1521 ML No Growth (<1,000 CFU/mL) * ML - Main Lab . END OF REPORT DEPARTMENT OF PATHOLOGY, [address] [place] [address] Fady Flores M.D. Director [facility] # [id number] 15 Because ethnic data is not always readily [...] 15-29 5 Kidney failure <15 (or dialysis) 16 Normal Range 180 to 914 Indeterminate Range 145 to 180 Deficient Range <145 17 SEE RESULT BELOW Name: ROSELINE SNOW : [address]: Connie Bejarano DO Acct: [id number] Unit: [id number] AGE: 57 Location: ENDO Re07/01/17 SEX: F Status: DEP REF SPEC: [id number] NELI: 07/01/17- [facility] DR: Connie Bejarano DO REQ: [id number] RECD: 07/01/17 STATUS: ANIVAL NEGRETE DR: Dusty [...] performed at Main Lab DEPARTMENT OF PATHOLOGY, [address] [place] [address] Fady Flores M.D. Director [facility] # [id number] RUN DATE: 07/04/17 [facility] LAB LIVE PAGE 2 Patient: ROSELINE SNOW [id number] (Continued) CLINICAL HISTORY (Continued) CLINICAL HISTORY 57 [...] performed at Main Lab DEPARTMENT OF PATHOLOGY, [address] [place] [address] Fady Flores M.D. Director [facility] # [id number] 18 Cortisol, Saliva was cancelled on 06/27/2017 at 19:10; Unable to assay. Quantity not sufficient. Test Performed by: [facility] - [address] [address] 19 ADDITIONAL INFORMATION This test was developed and its performance characteristics determined by [facility] in a manner consistent with CLIA requirements. This test has not been cleared or approved by the U.S. Food and Drug Administration. Test Performed by: [facility] - [address] [address] 20 Because ethnic data is not always readily [...] 15-29 5 Kidney failure <15 (or dialysis) 21 Desirable: <150 Borderline High: 150-199 High: 200-499 Very High: >500 22 Desirable: <200 Borderline High: 200-239 High: >239 23 Low: <40 Desirable: 40-60 High: >60 24 Desirable: <100 Near Optimal: 100-129 Borderline High: 130-159 High: 160-189 Very High: >189 25 Because ethnic data is not always readily [...] 15-29 5 Kidney failure <15 (or dialysis) 26 ADDITIONAL INFORMATION This test was developed and its performance characteristics determined by [facility] in a manner consistent with CLIA requirements. This test has not been cleared or approved by the U.S. Food and Drug Administration. Test Performed by: [address] [address] 27 Desirable <150 Borderline high 150-199 High 200-499 Very High >500 28 Desirable <200 Borderline high 200-239 High >239 29 Low <40 Desirable: 40-60 High: >60 30 Desirable: <100 mg/dL Near Optimal: 100-129 mg/dL Borderline High: 130-159 mg/dL High: 160-189 mg/dL Very High: >189 mg/dL 31 Therapeutic target for the treatment of diabetes Mellitus patients is <7% HBA1C, and in selective patients <6.0%.Please refer to [employer] Diabetic care guidelines for further information. 32 Because ethnic data is not always readily [...] 15-29 5 Kidney failure <15 (or dialysis) 33 Therapeutic target for the treatment of diabetes Mellitus patients is <7% HBA1C, and in selective patients <6.0%.Please refer to [employer] Diabetic care guidelines for further information. 34 Because ethnic data is not always readily [...] 15-29 5 Kidney failure <15 (or dialysis) 35 Desirable <150 Borderline high 150-199 High 200-499 Very High >500 36 Desirable <200 Borderline high 200-239 High >239 37 Low <40 Desirable: 40-60 High: >60 38 Unable to calculate LDL as triglyceride is > 400 39 Desirable: <100 mg/dL Near Optimal: 100-129 mg/dL Borderline High: 130-159 mg/dL High: 160-189 mg/dL Very High: >189 mg/dL 40 Desirable <150 Borderline high 150-199 High 200-499 Very High >500 41 Desirable <200 Borderline high 200-239 High >239 42 Low <40 Desirable: 40-60 High: >60 43 Unable to calculate LDL as triglyceride is > 400 44 Because ethnic data is not always readily [...] 15-29 5 Kidney failure <15 (or dialysis) 45 10/08/15 @1000 TO 10/09/15 0900 46 Test Performed by: [address] [address] Director Of Archives: Chester Allen II, M.D., Ph.D. 47 SEE RESULT BELOW Name: ROSELINE SNOW : [address]: Dalton Denise MD Acct: [id number] Unit: [id number] AGE: 55 Location: ENDO Re09/06/15 SEX: F Status: REG REF SPEC: [id number] NELI: 09/06/15-[address] [facility] [address]: Dalton Denise MD REQ: [id number] RECD: 09/06/15-1205 STATUS: ANIVAL NEGRETE DR: Coco Clements MD [...] performed at Main Lab DEPARTMENT OF PATHOLOGY, [address] [place] [address] Fady Flores M.D. Director [facility] # [id number] RUN DATE: 09/07/15 [facility] LAB LIVE PAGE 2 Patient: SARAHROSELINE [id number] (Continued) GROSS DESCRIPTION (Continued) GROSS DESCRIPTION (Continued) [...] performed at Main Lab DEPARTMENT OF PATHOLOGY, [address] [place] [address] Fady Flores M.D. Director [facility] # [id number] 48 Beauty Culturist Apprentice: NATALIA SCOTT BRE 49 Because ethnic data is not always readily [...] 15-29 5 Kidney failure <15 (or dialysis) 50 AM 8.7-22.4 PM <10 51 The high-risk HPV types detected by the assay include: 16, 18, 31, 33, 35, 39, 45, 51, 52, 56, 58, 59, 66, and 68. 52 SEE RESULT BELOW Name: ROSELINE SNOW : [address]: Coco Clements MD Acct: [id number] Unit: [id number] AGE: 55 Location: [facility] Re07/03/15 SEX: F Status: REG REF SPEC: [id number] NELI: 07/03/15-[address] [facility] [address]: Coco Clements MD REQ: [id number] RECD: 07/03/15 STATUS: SOUT _ ORDERED: IMAGE [...] was evaluated with the assistance of the [employer] Test Imaging System. Due to cytologic findings at the revenue enforcement collection agent microscope, comprehensive manual rescreening by a Propeller Layout Worker may be required. The Pap Smear is [...] performed at Main Lab DEPARTMENT OF PATHOLOGY, [address] [place] [address] RUN DATE: 07/04/15 [facility] LAB LIVE PAGE 1 Patient: ROSELINE SNOW [id number] (Continued) Fady Flores M.D. Director [facility] # [id number] 53 Because ethnic data is not always [...] 5 Kidney failure <15 (or dialysis) 54 PT IS FASTING 55 Desirable <150 Borderline high 150-199 High 200-499 Very High >500 56 Desirable <200 Borderline high 200-239 High >239 57 Low <40 Desirable: 40-60 High: >60 58 Desirable: <100 mg/dL Near Optimal: 100-129 mg/dL Borderline High: 130-159 mg/dL High: 160-189 mg/dL Very High: >189 mg/dL 59 Because ethnic data is not always readily [...] 15-29 5 Kidney failure <15 (or dialysis) 60 Therapeutic target for the treatment of diabetes Mellitus patients is <7% HBA1C, and in selective patients <6.0%.Please refer to [employer] Diabetic care guidelines for further information. 61 PT IS FASTING 62 SEE RESULT BELOW Name: ROSELINE SNOW : [address]: Chester Rooney MD Acct: [id number] Unit: [id number] AGE: 54 Location: ED Re12/27/14 SEX: F Status: DEP ER SPEC: [id number] NELI: 12/27/14-[address] [facility] [address]: Chester Rooney MD REQ: [id number] RECD: 12/27/14 STATUS: MAGDY NEGRETE DR: [facility] Coco Clements MD _ SOURCE: URINE SPDESC: ORDERED: Urine Culture Procedure Result Verified Site Urine Culture Final 12/29/14- 0854 ML Organism 1 KLEBSIELLA PNEUMONIAE Posey Count >100,000 (Many) CFU/ML 1. KLEBSIELLA PNEUMONIAE [...] antibiotic reporting. * ML - MAIN LAB ([facility]) . END OF REPORT * ML=Testing performed at Main Lab DEPARTMENT OF PATHOLOGY, [address] [place] [address] Fady Flores M.D. Director [facility] # [id number] 63 Because ethnic data is not always readily [...] 15-29 5 Kidney failure <15 (or dialysis) 64 Acute inflammation: >10.00 65 Therapeutic concentration: <50 ug/mL Toxic concentration: >120 ug/mL 66 Therapeutic target for the treatment of diabetes Mellitus patients is <7% HBA1C, and in selective patients <6.0%.Please refer to [employer] Diabetic care guidelines for further information. 67 RUN DATE: 06/20/14 [facility] LAB LIVE PAGE 1 RUN TIME: [address] [place] [address] Specimen Inquiry Name: TAI SNOWINE : [address]: Coco Clements MD Acct: [id number] Unit: [id number] AGE: 54 Location: [facility] Re06/17/14 SEX: F Status: REG REF SPEC: [id number] NELI: 06/17/[address]: Coco Clements MD REQ: [id number] RECD: 06/17/14 STATUS: SOUT _ ORDERED: IMAGE ANALYSIS, PAP SM PATH REV, HPV/Thin Prep FINAL DIAGNOSIS EPITHELIAL CELL ABNORMALITIES Atypical squamous cells of undetermined significance COMMENTS: Specimen sent to [facility] in [place], [place] on 06/20/14 by [id number] at 1126. Results will be reported separately. [...] was evaluated with the assistance of the [employer] Test Imaging System. Due to cytologic findings at the revenue enforcement collection agent microscope, comprehensive manual rescreening by a Propeller Layout Worker may be required. The Pap Smear is [...] END OF REPORT * ML=Testing performed at [facility] Lab DEPARTMENT OF PATHOLOGY, [address] [place] [address] Fady Flores M.D. Director [facility] # [id number] 68 RESULT: Ectocervical/Endocervical 69 The following Other High Risk HPV types were not detected: 31, 33, 35, 39, 45, 51, 52, 56, 58, 59, 66, and 68 Test Performed by: [address] [address] Director Of Archives: Chirag A. Deras, M.D. 70 Therapeutic target for the treatment of diabetes Mellitus patients is <7% HBA1C, and in selective patients <6.0%.Please refer to [employer] Diabetic care guidelines for further information. 71 Test Performed by: [address] [address] Director Of Archives: Kobe Salcedo III, M.D. 72 Desirable <150 Borderline high 150-199 High 200-499 Very High >500 73 Desirable <200 Borderline high 200-239 High >239 74 Low <40 Desirable: 40-60 High: >60 75 Desirable <100 Near Optimal 100-129 Borderline high 130-159 High 160-189 Very High >189 76 Because ethnic data is not always [...] as: Microalbumin/Creatinine ratio of 30-299 ug/mg. 78 Because ethnic data is not always readily [...] 15-29 5 Kidney failure <15 (or dialysis) 79 Therapeutic target for the treatment of diabetes Mellitus patients is <7% HBA1C, and in selective patients <6.0%.Please refer to [employer] Diabetic care guidelines for further information. 80 Because ethnic data is not always readily [...] 15-29 5 Kidney failure <15 (or dialysis) 81 Therapeutic target for the treatment of diabetes Mellitus patients is <7% HBA1C, and in selective patients <6.0%.Please refer to [employer] Diabetic care guidelines for further information. 82 Unable to calculate Ind Bili as D Bili is <0.1 Unable to calculate Ind Bili as D Bili is <0.1 83 Because ethnic data is not always readily [...] 15-29 5 Kidney failure <15 (or dialysis) 84 HDL Interpretation: Undesirable: High Risk: Less than 40 mg/dL Desirable: Low Risk: Greater than 60 mg/dL 85 LDL Interpretation: Low Risk Optimal Level: LDL Less than 100 mg/dL Near or Above Optimal: LDL 100-129 mg/dL Borderline High Risk: LDL 130-159 mg/dL High Risk: LDL 160-189 mg/dL Very High Risk: LDL Greater than 189 mg/dL 86 Therapeutic target for the treatment of diabetes Mellitus patients is <7% HBA1C, and in selective patients <6.0%.Please refer to [employer] Diabetic care guidelines for further information. 87 Microalbuminuria in a random sample is defined as: Microalbumin/Creatinine ratio of 30-299 ug/mg. 88 Unable to calculate Ind Bili as D Bili is <0.1 89 Because ethnic data is not always readily [...] 15-29 5 Kidney failure <15 (or dialysis) 90 Microalbuminuria in a random sample is defined as: Microalbumin/Creatinine ratio of 30-299 ug/mg. 91 HDL Interpretation: Undesirable: High Risk: Less than 40 mg/dL Desirable: Low Risk: Greater than 60 mg/dL 92 LDL Interpretation: Low Risk Optimal Level: LDL Less than 100 mg/dL Near or Above Optimal: LDL 100-129 mg/dL Borderline High Risk: LDL 130-159 mg/dL High Risk: LDL 160-189 mg/dL Very High Risk: LDL Greater than 189 mg/dL 93 Because ethnic data is not always readily [...] 15-29 5 Kidney failure <15 (or dialysis) 94 Therapeutic target for the treatment of diabetes Mellitus patients is <7% HBA1C, and in selective patients <6.0%.Please refer to [employer] Diabetic care guidelines for further information. 95 RUN DATE: 06/21/12 [facility] LAB LIVE PAGE 1 RUN TIME: [address] [place] [address] Specimen Inquiry Name: ROSELINE SNOW : [address]: Julia Sharma Acct: [id number] Unit: [id number] AGE: 52 Location: [facility] Re06/18/12 SEX: F Status: REG REF SPEC: [id number] NELI: 06/18/12-[address] [facility] [address]: Julia Sharma REQ: [id number] RECD: 06/18/12 STATUS: COMP _ SOURCE: URINE SPDES: ORDERED: Urine Culture COMMENTS: URINE QUERIES: [employer] Number [id number] Urine Source: Random Procedure Result Verified Site Urine Culture Final 06/21/12- 09 ML Organism 1 STAPHYLOCOCCUS SAPROPHYTICUS Posey Count >100,000 (Many) CFU/ML Routine testing of urine isolates of S. saprophyticus is not advised, because infections respond to concentrations achieved in urine of antimicrobial agents commonly used to treat acute, uncomplicated urinary tract infections (e.g. nitrofurantoin, trimethoprim+/- sulfamethoxazole, or a fluoroquinolone). [facility] August 2001 END OF REPORT * ML=Testing performed at Main Lab DEPARTMENT OF PATHOLOGY, [address] [place] [address] Fady Flores M.D. Director [facility] Permit #[id number] 96 Therapeutic target for the treatment of diabetes Mellitus patients is <7% HBA1C, and in selective patients <6.0%.Please refer to [employer] Diabetic care guidelines for further information. 97 A metabolite of Naproxen, O-desmethylnaproxen, has been shown to interfere with the [place] method for measuring total bilirubin. Samples from patients who have taken Naproxen have shown spurious elevation in total bilirubin levels. 98 Because ethnic data is not always readily [...] 15-29 5 Kidney failure <15 (or dialysis) 99 Desirable: Less than 200 MG/DL Borderline-High Risk: 200-239 MG/DL High-Risk: 240 MG/DL and over 100 HDL Interpretation: Undesirable: High Risk: Less than 40 MG/DL Desirable: Low Risk: Greater than 60 MG/DL 101 A metabolite of Naproxen, O-desmethylnaproxen, has been shown to interfere with the [place] method for measuring total bilirubin. Samples from patients who have taken Naproxen have shown spurious elevation in total bilirubin levels. 102 Please note updated reference range, effective 03/08/10 103 A metabolite of Naproxen, O-desmethylnaproxen, has been shown to interfere with the [place] method for measuring total bilirubin. Samples from patients who have taken Naproxen have shown spurious elevation in total bilirubin levels. 104 UNABLE TO CALCULATE IND.BILI D.BILI IS <0.1 Please note updated reference range, effective 03/08/10 105 MICROALBUMINURIA IN A RANDOM SAMPLE IS DEFINED : MICROALBUMIN/CREATININE RATIO OF 30-299 ug/mg. . 106 THERAPEUTIC TARGET FOR THE TREATMENT OF DIABETES MELLITUS PATIENTS IS <7% HBA1C, AND IN SELECTIVE PATIENTS <6.0%. PLEASE REFER TO [employer] DIABETIC CARE GUIDELINES FOR FURTHER INFORMATION. 107 Anion gap measurement may be of limited value in the presence of any alkalosis, especially in a combined acid base disorder. . 108 A metabolite of Naproxen, O-desmethylnaproxen, has been shown to interfere with the [place] method for measuring total bilirubin. Samples from patients who have taken Naproxen have shown spurious elevation in total bilirubin levels. 109 Because ethnic data is not always readily [...] 15-29 5 Kidney failure <15 (or dialysis) 110 FASTING 111 THERAPEUTIC TARGET FOR THE TREATMENT OF DIABETES MELLITUS PATIENTS IS <7% HBA1C, AND IN SELECTIVE PATIENTS <6.0%. PLEASE REFER TO [employer] DIABETIC CARE GUIDELINES FOR FURTHER INFORMATION. 112 CHOLESTEROL INTERPRETATION: Desirable: Less than 200 [...] Risk: LDL Greater than 189 MG/DL 115 ----- RUN DATE: 06/05/11 [facility] NMI LIVE PAGE 1 RUN TIME: 1559 Specimen Inquiry RUN USER: INTERFACE -- Name: ROSELINE SNOW Status: REG REF Re06/04/11 Age/Sex: 51/F Unit#: [id number] Location: [facility] : 56 -- Specimen: [id number] SOUT Spec Date: 06/04/[address]: Coco Clements MD Spec Type: CYTOLOGY Received: 06/05/11-2236 Copies to: SOURCE ECTOCERVICAL/ENDOCERVICAL Thin Prep with [...] was evaluated with the assistance of the [employer] Pap Test Imaging System. The Pap Smear [...] three years. Initial evaluation performed by Panfilo BECERRA([facility]) 06/05/11 Final Interpretation electronically signed by: Panfilo BECERRA([facility]) 06/05/11 1557 -- DEPARTMENT OF PATHOLOGY, [address] [place] [address] [facility] Permit #[id number] Fady Flores M.D. Director Rose Woodward M.D. Field Care Manager Dir ollie -- 116 THERAPEUTIC TARGET FOR THE TREATMENT OF DIABETES MELLITUS PATIENTS IS <7% HBA1C, AND IN SELECTIVE PATIENTS <6.0%. PLEASE REFER TO [employer] DIABETIC CARE GUIDELINES FOR FURTHER INFORMATION. 117 CHOLESTEROL INTERPRETATION: Desirable: Less than 200 MG/DL Borderline-High Risk: 200-239 MG/DL High-Risk: 240 MG/DL and over 118 HDL INTERPRETATION: Undesirable: High Risk: Less than 40 MG/DL Desirable: Low Risk: Greater than 60 MG/DL 119 LDL INTERPRETATION: Low Risk Optimal Level: LDL Less than 100 MG/DL Near or Above Optimal: LDL 100-129 MG/DL Borderline High Risk: LDL 130-159 MG/DL High Risk: LDL 160-189 MG/DL Very High Risk: LDL Greater than 189 MG/DL 120 Anion gap measurement may be of limited value in the presence of any alkalosis, especially in a combined acid base disorder. . 121 A metabolite of Naproxen, O-desmethylnaproxen, has been shown to interfere with the [place] method for measuring total bilirubin. Samples from [...] 5 Kidney failure <15 (or dialysis) 123 MICROALBUMINURIA IN A RANDOM SAMPLE IS DEFINED : MICROALBUMIN/CREATININE RATIO OF 30-299 ug/mg. . 124 THERAPEUTIC TARGET FOR THE TREATMENT OF DIABETES MELLITUS PATIENTS IS <7% HBA1C, AND IN SELECTIVE PATIENTS <6.0%. PLEASE REFER TO [employer] DIABETIC CARE GUIDELINES FOR FURTHER INFORMATION. 125 MICROALBUMINURIA IN A RANDOM SAMPLE IS DEFINED : MICROALBUMIN/CREATININE RATIO OF 30-299 ug/mg. . 126 CHOLESTEROL INTERPRETATION: Desirable: Less than 200 MG/DL Borderline-High Risk: 200-239 MG/DL High-Risk: 240 MG/DL and over 127 HDL INTERPRETATION: Undesirable: High Risk: Less than 40 MG/DL Desirable: Low Risk: Greater than 60 MG/DL 128 LDL INTERPRETATION: Low Risk Optimal Level: LDL Less than 100 MG/DL Near or Above Optimal: LDL 100-129 MG/DL Borderline High Risk: LDL 130-159 MG/DL High Risk: LDL 160-189 MG/DL Very High Risk: LDL Greater than 189 MG/DL 129 THERAPEUTIC TARGET FOR THE TREATMENT OF DIABETES MELLITUS PATIENTS IS <7% HBA1C, AND IN SELECTIVE PATIENTS <6.0%. PLEASE REFER TO [employer] DIABETIC CARE GUIDELINES FOR FURTHER INFORMATION. 130 Anion gap measurement may be of limited value in the presence of any alkalosis, especially in a combined acid base disorder. . 131 Note change in reference range as of 04/07/08. The change was based on recommendations from the [employer]. 132 Please note change in reference range effective 08 . 133 Because ethnic data is not always readily [...] 15-29 5 Kidney failure <15 (or dialysis) 134 THERAPEUTIC TARGET FOR THE TREATMENT OF DIABETES MELLITUS PATIENTS IS <7% HBA1C, AND IN SELECTIVE PATIENTS <6.0%. PLEASE REFER TO [employer] DIABETIC CARE GUIDELINES FOR FURTHER INFORMATION. 135 CHOLESTEROL INTERPRETATION: Desirable: Less than 200 MG/DL Borderline-High Risk: 200-239 MG/DL High-Risk: 240 MG/DL and over 136 HDL INTERPRETATION: Undesirable: High Risk: Less than 40 MG/DL Desirable: Low Risk: Greater than 60 MG/DL 137 LDL INTERPRETATION: Low Risk Optimal Level: LDL Less than 100 MG/DL Near or Above Optimal: LDL 100-129 MG/DL Borderline High Risk: LDL 130-159 MG/DL High Risk: LDL 160-189 MG/DL Very High Risk: LDL Greater than 189 MG/DL Procedures Date Code Description Status 08/28/2018 [id number] Mammogram Completed 06/08/2018 Inject/Drain Joint/Bursa Major W/O US Completed 05/07/2018 Inject/Drain Joint/Bursa Major W/O US Completed 04/01/2018 Inj/Aspir Major JT Or Bursa W/ US Completed 03/26/2018 Inj/Aspir Major JT Or Bursa W/ US Completed 03/19/2018 Inj/Aspir Major JT Or Bursa W/ US Completed 01/22/2018 53399 Diffusing Capacity Completed 01/22/2018 12588 Plethysmography Determination Lung Volumes & Per Completed Airway Resist 01/22/2018 82871 Pulmonary Stress Testing, Inc Measurement Heart Rate, Completed Oximetry 01/22/2018 37588 Pulmonary Function><Bronchodil Completed 11/14/2017 20930 Arthroscopy,Shoulder Decompression Of Subacromial Completed Space W/Acromio 11/14/2017 83190 Arthroscopy,Shoulder Decompression Of Subacromial Completed Space W/Acromio 11/14/2017 96554 Arthroscopy,Shoulder,Distal Claviculectomy Incl Dist Completed Articular SR 11/14/2017 89324 Arthroscopy,Shoulder,Distal Claviculectomy Incl Dist Completed Articular SR 11/05/2017 63936 EKG Tracing & Interpretation Completed 11/04/2017 02993 EKG Tracing & Interpretation Completed 10/14/2017 [id number] Diabetic Retinal Eye Exam Completed 07/24/2017 [id number] Mammogram Completed 07/01/201736782 Inject/Drain Joint/Bursa Intermediate W/O US Completed 03/06/201730662 Inject/Drain Joint/Bursa Major W/O US Completed 02/05/201717181 Inject/Drain Joint/Bursa Major W/O US Completed 04/09/2016 [id number] Mammogram Completed 09/09/2015 [id number] Diabetic Retinal Eye Exam Completed 09/06/2015 [id number] Colonoscopy Completed 03/23/201551299 Inject/Drain Joint/Bursa Major W/O US Completed 03/16/201515196 Inject/Drain Joint/Bursa Major W/O US Completed 03/09/2015 88915 Inject/Drain Joint/Bursa Major W/O US Completed 08/09/2014 [id number] Mammogram Completed 07/09/2013 29821491 Mammogram Completed 05/29/2013 477388034 Diabetic Retinal Eye Exam Completed 03/18/201397391 Inject/Drain Joint/Bursa Major W/O US Completed 03/18/2013 Inject/Drain Joint/Bursa Major W/O US Completed 03/11/2013 Inject/Drain Joint/Bursa Major W/O US Completed 03/11/2013 Inject/Drain Joint/Bursa Major W/O US Completed 03/04/2013 Inject/Drain Joint/Bursa Major W/O US Completed 03/04/201390954 Inject/Drain Joint/Bursa Major W/O US Completed 02/04/2013 91137 Rad Exam; Ankle Comp Completed 11/17/2012 67855 Polysomnography Sleep Staging 4+ Parameters W/Cpap Completed 10/15/2012 90694 Rad Exam; Wrist, Comp, Min 3 Views Completed 10/15/201232412 Inject/Drain Joint/Bursa Major W/O US Completed 10/15/2012 47226 Inject Tendon Sheath Or Ligament Aponeurosis Eg Completed Plantar Fascia 10/13/2012 06875 Polysomnography Sleep Staging 4+ Parameters Completed 06/24/2012 [id number] Mammogram Completed 06/17/2012 694451304 Diabetic Retinal Eye Exam Completed 03/12/2012 05450 EKG Tracing & Interpretation Completed 06/21/2011 [id number] Mammogram Completed 05/04/2010 50675 EKG Tracing & Interpretation Completed 02/26/2010 [id number] Mammogram Completed 05/02/2009 99573 EKG Tracing & Interpretation Completed 01/05/2009 09645 EKG Tracing & Interpretation Completed 07/29/2007 83186 EKG Tracing & Interpretation Completed 07/29/2007 20461 EKG Tracing & Interpretation Completed 06/26/2005 [id number] Colonoscopy Completed Encounters Type Date Location Provider Dx Diagnosis Office Visit 10/27/2018 Hematology Nurse Educator Internal Coco J44.0 Chronic 3:40p Jose Clements M.D. obstructive pulmon [place] disease w acute lower resp infct Office Visit 10/08/2018 Orthopedic Services Ramon Polk MD M17.11 Unilateral primary 11:00a Of C.M.A. osteoarthritis, right knee Office Visit 09/07/2018 Pulmonology And Rubina Yuliya J44.9 Chronic 12:30p Sleep Services Of MD galicia Hematology Nurse Educator pulmonary disease, unspecified G47.33 Obstructive sleep apnea (adult) (pediatric) J45.909 Unspecified asthma, uncomplicated E66.09 Other obesity due to excess calories Office Visit 08/27/2018 10:30a Orthopedic Jone Ribeiro M75.51 Bursitis of Services Of MD [facility] right shoulder C.M.A. M75.81 Other shoulder lesions, right shoulder Office Visit 06/22/2018 3:00p [facility] Internal Coco Z00.00 Encntr for Medicine [...] not intractable, w/o status migrainosus Z79.899 Other group home (current) drug therapy Office Visit 04/07/2018 1:00p Orthopedic Jone Ribeiro M75.51 Bursitis of Services Of MD [facility] right shoulder C.M.A. M24.811 Oth specific joint derangements of right shoulder, NEC Z47.89 Encounter for other orthopedic aftercare Office Visit 03/03/2018 1:45p Pulmonology And Rubina J44.9 Chronic Sleep Services Of MD Yuliya obstructive Hematology Nurse Educator pulmonary disease, unspecified G47.33 Obstructive sleep apnea (adult) (pediatric) E66.01 Morbid (severe) obesity due to excess calories Office Visit 02/10/2018 Orthopedic Ramon Polk, M17.11 Unilateral primary 10:30a Services Of osteoarthritis, right C.M.A. knee M17.12 Unilateral primary osteoarthritis, left knee M17.0 Bilateral primary osteoarthritis of knee Office Visit 12/29/2017 2:00p Pulmonology And Arabella S. J44.9 Chronic Sleep Services Of Jacquie Walton obstructive Hematology Nurse Educator pulmonary disease, unspecified R06.02 Shortness of breath G47.33 Obstructive sleep apnea (adult) (pediatric) E66.01 Morbid (severe) obesity due to excess calories Z68.41 Body mass index (BMI) 40.0-44.9, adult Office Visit 12/18/2017 1:00p [facility] Internal Coco I10 Essential ( primary) Medicine Jus Clements hypertension F33.9 Major depressive disorder, recurrent, unspecified Office Visit 11/11/2017 Sagar Rehman G43.919 Migraine, unsp, 10:30a Neurologic Jus Villela intractable, Services Of [facility] without status migrainosus Office Visit 11/03/2017 [facility] Internal Coco Z01.818 Encounter for 11:20a Medicine Jus Clements other preprocedural examination G47.33 Obstructive sleep apnea (adult) (pediatric) J44.9 Chronic obstructive pulmonary disease, unspecified E11.40 Type 2 diabetes mellitus with diabetic neuropathy, unsp Office Visit 10/29/2017 1:15p Orthopedic Jone Ribeiro S46.011D Strain of Services Of MD [facility]/tend the C.M.A. rotator cuff of right shoulder, subs M75.21 Bicipital tendinitis, right shoulder M75.41 Impingement syndrome of right shoulder M75.31 Calcific tendinitis of right shoulder Office Visit 10/07/2017 3:00p Orthopedic Jone Ribeiro S46.011D Strain of Services Of MD [facility]/tend the C.M.A. rotator cuff of right shoulder, [...] Sleep Services Of MD Yuliya apnea (adult) [facility] (pediatric) J44.9 Chronic obstructive pulmonary disease, [...] Neurologic Jus Tong not intractable, Services Of [facility] w/o status migrainosus Office Visit 06/19/2017 [facility] Internal Coco Z00.00 Encntr for general 1:20p Jose Clements M.D. adult medical exam w/o abnormal findings D64.9 Anemia, unspecified G47.33 Obstructive sleep apnea (adult) (pediatric) Z12.31 Encntr screen mammogram for malignant neoplasm of breast Z23 Encounter for immunization F32.89 Other specified depressive episodes Office Visit 04/17/2017 2:15p Orthopedic Jone Ribeiro M25.511 Pain in right Services Of MD [facility] shoulder C.M.A. M75.41 Impingement syndrome of right shoulder M75.21 Bicipital tendinitis, right shoulder M19.011 Primary osteoarthritis, right shoulder Office Visit 03/06/2017 1:00p Orthopedic Jone Ribeiro M25.511 Pain in right Services Of MD [facility] shoulder C.M.A. M75.41 Impingement syndrome of right shoulder Office Visit 02/24/2017 [facility] Internal Julia Romero, M25.511 Pain in right 1:00p Medicine N.P. shoulder Office Visit 02/06/2017 Sagar Ramirez G43.009 Migraine w/o aura, 11:30a Neurologic Jus Tong not intractable, Services Of [facility] w/o status migrainosus Office Visit 01/30/2017 Orthopedic Lynn M17.0 Bilateral primary 9:00a Services Of Jus [place] osteoarthritis of C.M.A. knee M25.561 Pain in right knee M25.562 Pain in left knee Office Visit 01/06/2017 2:40p [facility] Internal Allan Grewal, E11.40 Type 2 diabetes Medicine PUBLIC SAFETY DIRECTOR mellitus with diabetic neuropathy, unsp H10.89 Other conjunctivitis H92.02 Otalgia, left ear Office Visit 12/13/2016 11:00a [facility] Internal Patrick Guerra, B02.9 Zoster without Medicine - PUBLIC SAFETY DIRECTOR complications [address] H66.91 Otitis media, unspecified, right ear E11.40 Type 2 diabetes mellitus with diabetic neuropathy, unsp Office Visit 12/09/2016 2:40p [facility] Internal Julia Romero, H10.89 Other conjunctivitis Medicine N.P. H66.91 Otitis media, unspecified, right ear Office Visit 10/09/2016 [facility] Internal Allan Grewal NP E11.40 Type 2 diabetes 4:00p Medicine mellitus with diabetic neuropathy, unsp Office Visit 07/22/2016 [facility] Internal Allan Grewal NP H10.89 Other conjunctivitis 2:20p Medicine Office Visit 06/28/2016 [facility] Internal Coco E11.40 Type 2 diabetes 11:20a Jose Clements M.D. mellitus with diabetic neuropathy, unsp I10 Essential (primary) hypertension M54.5 Low back pain L03.011 Cellulitis of right finger Z23 Encounter for immunization Office Visit 06/27/2016 Sagar Ramirez G43.009 Migraine w/o aura, 11:30a Neurologic Jus Tong not intractable, Services Of [facility] w/o status migrainosus M54.5 Low back pain Office Visit 06/14/2016 11:20a [facility] Internal Patrick Guerra, J01.90 Acute sinusitis, Medicine - PUBLIC SAFETY DIRECTOR unspecified [address] Office Visit 03/26/2016 11:40a [facility] Internal Coco E11.65 Type 2 diabetes Jose Clements M.D. mellitus with hyperglycemia Z12.31 Encntr screen mammogram for malignant neoplasm of breast Office Visit 02/12/2016 [facility] Internal Coco E11.65 Type 2 diabetes 11:40a Jose Clements M.D. mellitus with hyperglycemia Office Visit 01/30/2016 Sagar Ramirez G43.009 Migraine w/o aura, 11:45a Eve Tong M.D. not intractable, Services Of Hematology Nurse Educator w/o status migrainosus Office Visit 12/26/2015 [facility] Internal Coco E11.65 Type 2 diabetes 10:20a Jose Clements M.D. mellitus with hyperglycemia Office Visit 11/14/2015 [facility] Internal Coco E11.65 Type 2 diabetes 10:40a Jose Clements M.D. mellitus with hyperglycemia M54.5 Low back pain I10 Essential (primary) hypertension Office Visit 10/03/2015 10:40a [facility] Internal Coco E11.40 Type 2 diabetes Jose Clements M.D. mellitus with diabetic neuropathy, unsp I10 Essential (primary) hypertension R21 Rash and other nonspecific skin eruption Office Visit 09/07/2015 Sagar Ramirez G43.919 Migraine, unsp, 8:45a Eve Tong M.D. intractable, Services Of [facility] without status migrainosus Office Visit 07/03/2015 [facility] Internal Coco E11.40 Type 2 diabetes 10:20a Jose Clements M.D. mellitus with diabetic neuropathy, unsp Z12.11 Encounter for screening for malignant neoplasm of colon R74.0 Nonspec elev of levels of transamns & lactic acid dehydrgnse Z12.31 Encntr screen mammogram for malignant neoplasm of breast Z23 Encounter for immunization Z01.419 Encntr for organ pipe finisher exam (general) (routine) w/o abn findings Office Visit 03/30/2015 3:30p Sagar Ramirez 339.42 New Daily Services Of Bria Tong M.D. Persistent Headache 311 Depressive Disorder Not Elsewhere Spec 346.91 Migraine Unspec W/ Intractable W/O Status Migrainosus Office Visit 03/14/2015 [facility] Internal Coco 250.60 Diabetes W/ 11:20a Jose Clements M.D. Neurological Manifestations Type II Controlled 250.00 Diabetes Mellitus W/O Compl Type II Or Unspec Controlled Office Visit 02/02/2015 Orthopedic Lynn 715.16 Osteoarthrosis 4:00p Services Of Jus [place] Localized Prim C.M.A. Lower Leg Office Visit 11/18/2014 [facility] Internal Coco 250.02 Diabetes Mellitus 3:40p Jose Clements M.D. W/O Compl Type II Or Unspec Type Uncontrol Office Visit 11/17/2014 Sagar Ramirez 346.93 Migraine 3:45p Neurologic Jus Tong Unspecified, Services Of [facility] W/Intractable Migraine 311 Depressive Disorder Not Elsewhere Spec 346.91 Migraine Unspec W/ Intractable W/O Status Migrainosus 309.0 Adjustment Disorder With Depression Office Visit 06/17/2014 3:40p [facility] Internal Coco V70.0 Examination Jose Clements M.D. General Medical Routine AT Health Care Facility V76.2 Screening Malignant Neoplasm Cervix V76.12 Screening Mammogram Nano Alston 250.02 Diabetes Mellitus W/O Compl Type II Or Unspec Type Uncontrol 401.1 Hypertension Benign Office Visit 06/09/2014 3:15p Sagar Ramirez 346.10 Migraine Common Neurologic Jus Tong W/O Intractable Services Of [facility] W/O Status Migrainosus Office Visit 05/17/2014 8:40a [facility] Internal Coco 250.02 Diabetes Mellitus Jose Clements M.D. W/O Compl Type II Or Unspec Type Uncontrol 401.1 Hypertension Benign 790.4 Transaminase Or Lactic Acid Dehydrogenase Elevation Nonspec 719.47 Pain Joint Ankle & Foot V04.81 Need For Prophylactic Vaccination & Inoculation/Influenza Office Visit 02/11/2014 3:40p [facility] Internal Coco 250.02 Diabetes Mellitus Jose Clements M.D. W/O Compl Type II Or Unspec Type Uncontrol Office Visit 01/07/2014 8:45a Sagar Ramirez 346.10 Migraine Common Neurologic Jus Tong W/O Intractable Services Of [facility] W/O Status Migrainosus Office Visit 01/04/2014 4:20p [facility] Internal Coco 250.02 Diabetes Mellitus Jose Clements M.D. W/O Compl Type II Or Unspec Type Uncontrol 790.4 Transaminase Or Lactic Acid Dehydrogenase Elevation Nonspec Office Visit 12/29/2013 4:00p Orthopedic Mickey Ocasio, 719.46 Pain Joint Services Of Jus Lower Leg C.M.A. Office Visit 11/12/2013 12:00p [facility] Internal Nurse Visit 250.02 Diabetes Medicine [place] Mellitus W/O Compl Type II Or Unspec Type Uncontrol Office Visit 11/04/2013 4:00p [facility] Internal Coco 250.02 Diabetes Jose Clements M.D. Mellitus W/O Compl Type II Or Unspec Type Uncontrol 790.4 Transaminase Or Lactic Acid Dehydrogenase Elevation Nonspec 401.1 Hypertension Benign 729.5 Pain In Limb Office Visit 10/29/2013 3:45p Orthopedic Mickey Ocasio 729.5 Pain In Limb Services Of Jus C.M.A. Office Visit 09/02/2013 4:20p [facility] Internal Coco 250.02 Diabetes Jose Clements M.D. Mellitus W/O Compl Type II Or Unspec Type Uncontrol 790.4 Transaminase Or Lactic Acid Dehydrogenase Elevation Nonspec Office Visit 07/26/2013 4:00p [facility] Internal Coco 250.02 Diabetes Jose Clements M.D. Mellitus W/O Compl Type II Or Unspec Type Uncontrol 790.4 Transaminase Or Lactic Acid Dehydrogenase Elevation Nonspec 715.16 Osteoarthrosis Localized Prim Lower Leg Office Visit 06/11/2013 2:40p [facility] Internal Coco V70.0 Examination Jose Clements M.D. General Medical Routine AT Health Care Facility V72.31 Routine Blind Installer Examination V76.10 Screening For Malignant Neoplasm Breast 250.02 Diabetes Mellitus W/O Compl Type II Or Unspec Type Uncontrol 790.4 Transaminase Or Lactic Acid Dehydrogenase Elevation Nonspec 786.09 Dyspnea & Respiratory Abnormalities Other V04.81 Need For Prophylactic Vaccination & Inoculation/Influenza Office Visit 05/14/2013 4:00p Sagar Ramirez 346.10 Migraine Common Neurologic Jus Tong W/O Intractable Services Of [facility] W/O Status Migrainosus 386.11 Vertigo Benign [...] & Tenosynovitis Other Office Visit 12/07/2012 3:40p [facility] Internal Coco 250.00 Diabetes Mellitus Jose Clements M.D. W/O Compl Type II Or Unspec Controlled 716.96 Arthropathy Unspec Lower Leg 009.1 Colitis Enteritis & Gastroenteritis Presumed Infectious Orig Office Visit 10/28/2012 3:55p Xavi Arevalo 327.23 Obstructive Sleep Disorder Center Jus Hurley Apnea Adult & Pediatric Office Visit 10/15/2012 2:45p Orthopedic Lynn 716.96 Arthropathy Services Of Jus [place] Unspec Lower Leg C.M.AManju 727.04 Tenosynovitis Radial Styloid Office Visit 09/29/2012 1:39p Xavi Arevalo 786.09 Dyspnea & Disorder Jus [facility] Abnormalities Other 780.79 Malaise And Fatigue Other Office Visit 06/18/2012 10:20a [facility] Internal Jluia Nick, 599.0 UTI Urinary Medicine N.P. Tract Infection Site Not Spec 386.11 Vertigo Benign Paroxysmal Position Office Visit 06/05/2012 3:00p [facility] Internal Coco V70.0 Examination Jose Clements M.D. General Medical Routine AT Health Care Facility V72.31 Routine Blind Installer Examination V76.10 Screening For Malignant Neoplasm Breast 250.00 Diabetes Mellitus W/O Compl Type II Or Unspec Controlled 493.00 Asthma Extrinsic Unspecified V04.81 Need For Prophylactic Vaccination & Inoculation/Influenza Office Visit 03/12/2012 4:00p [facility] Internal Coco 780.4 Dizziness & Jose Clements M.D. Giddiness 311 Depressive Disorder Not Elsewhere Spec 790.4 Transaminase Or Lactic Acid Dehydrogenase Elevation Nonspec 250.00 Diabetes Mellitus W/O Compl Type II Or Unspec Controlled Office Visit 02/10/2012 3:40p [facility] Internal Coco 250.00 Diabetes Mellitus Jose Clements M.D. W/O Compl Type II Or Unspec Controlled 401.1 Hypertension Benign 272.2 Hyperlipidemia Mixed 311 Depressive Disorder Not Elsewhere Spec 791.0 Proteinuria 790.4 Transaminase Or Lactic Acid Dehydrogenase Elevation Nonspec Office Visit 09/12/2011 3:40p [facility] Internal Nurse Visit A 401.1 Hypertension Medicine Benign Office Visit 08/09/2011 3:00p DO Not Use Coco 250.00 Diabetes Mellitus Bria-Pantera Clements M.D. W/O Compl Type II Or [...] Office Visit 10/19/2009 4:00p DO Not Use [place], 790.21 Impaired Sherice Mitchell M.D. Fasting Glucose 401.1 Hypertension Benign Office Visit 08/15/2009 2:45p DO Not Use [place], 790.21 Impaired Sherice Mitchell M.D. Fasting Glucose 496 COPD Airway Obstruction Chronic Not Class Elsewhere 401.1 Hypertension Benign Office Visit 06/30/2009 2:15p DO Not Use [place], 790.21 Impaired Sherice Mitchell M.D. Fasting Glucose [...] 01/05/2009 DO Not Use [place], V72.31 Routine Blind Installer 3:15p Sherice Mitchell M.D. Examination 401.1 Hypertension Benign Office Visit 11/23/2008 3:30p DO Not Use [place], 461.9 Sinusitis Acute Sherice Mitchell M.D. Unspec 305.1 Tobacco Use Disorder Office Visit 09/12/2008 2:30p DO Not Use [place], 461.9 Sinusitis Acute [...] Not Use [place], 466.0 Bronchitis [facility] 372.30 Conjunctivitis Unspec 311 Depressive Disorder Not Elsewhere Spec Office Visit 07/29/2007 DO Not Use Radkit[place], V72.31 Routine Blind Installer 3:15p Sherice Mitchell M.D. Examination 786.2 Cough 780.52 Insomnia Unspecified 578.1 Blood In Stool Melena 401.1 Hypertension Benign V04.81 Need For Prophylactic Vaccination & Inoculation/Influenza Office Visit 07/21/2007 2:45p DO Not Use Julia Varn, 466.0 [facility]itis [facility] Visit 01/19/2007 4:00p DO Not Use [employer]ty, 782.3 Edema [facility] M.[facility] 272.0 Hypercholesterolemia Pure 277.7 Dysmetabolic Syndrome X 401.1 Hypertension Benign Plan of Treatment Future Appointment(s):12/08/2018 7:30 am - Ramon Polk MD at [facility]12/08/2018 7:30 am - Prakash Koch M.D. at [facility]11/26/2018 1:00 pm - Ramon Polk MD at [facility]01/05/2019 1:45 pm - Rubina Dwyer MD at [facility]12/21/2018 1:00 pm - Coco Clements M.D. at [facility] Internal Lnvqlanp76/01/2019 - Allan Grewal, NPZ01.818 Encounter for other preprocedural examinationNew Orders:EKG, Ordered: 11/16/18Comments:As long as your labs are normal I do not see any contraindications to your surgery.You should avoid aspirin, NSAIDs (ibuprofen, Motrin, aleve) and supplements 7 days prior to the procedure.M17.11 Unilateral primary osteoarthritis, right kneeG47.33 Obstructive sleep apnea (adult) (pediatric)Comments:Bring your CPAP with you to the hospital.E11.21 Type 2 diabetes mellitus with diabetic behaaammtuoM16 Essential (primary) ckcmrpymrntrK06.909 Unspecified asthma, uncomplicated
[2018-12-08] MEDS ORDERED: Lactated Ringers 1000 ML Bag* 1,000 ML IV SCH (06:00)
[2018-12-08] MEDS ORDERED: Acetaminophen TAB* 325 MG PO ONE (06:00)
[2018-12-08] MEDS ORDERED: Levalbuterol 0.63MG/3ML NEB* UNIT OF USE INH ONE ×2 (06:00→06:52)
[2018-12-08] MEDS ORDERED: Famotidine IV* 10 MG/ML 2 ML (20 mg) IV ONE (06:00)
[2018-12-08] MEDS ORDERED: Ketorolac INJ* 30 MG/ML 1 ML VIAL ONE (06:50)
[2018-12-08] MEDS ORDERED: KETAMINE HCL* 50 MG/ML 10 ML VIAL ONE (06:50)
[2018-12-08] MEDS ORDERED: ROPIVACAINE 5 MG/ML 30 ML BTL (0.5%) ONE (06:50)
[2018-12-08] MEDS ORDERED: Dexamethasone IV* 4 MG/ML 1 ML (4 MG) ONE (06:50)
[2018-12-08] MEDS ORDERED: Propofol* 10 MG/ML 20 ML BTL ONE ×2 (06:50→08:23)
[2018-12-08] MEDS ORDERED: Ondansetron INJ* 2 MG/ML VIAL ONE (06:50)
[2018-12-08] MEDS ORDERED: Lidocaine 2% PF * 5 ML VIAL ONE ×2 (06:50→08:25)
[2018-12-08] MEDS ORDERED: fentaNYL* 50 MCG/ML 2 ML VIAL (100 MCG VIAL) ONE ×2 (06:50→10:37)
[2018-12-08] MEDS ORDERED: Midazolam* 1 MG/ML 10 ML VIAL (10 MG) ONE (06:51)
[2018-12-08] MEDS ORDERED: Buffered Lidocaine 1% SYRIN* 1 ML/SYRINGE INTRADERM ONE (06:52)
[2018-12-08] MEDS ORDERED: Acetaminophen TAB* 325 MG ONE (06:52)
[2018-12-08] MEDS ORDERED: ceFAZolin 2 GM in NS PREMIX(*) 2 GM/100 ML BAG IVPB ONE (06:53)
[2018-12-08] MEDS ORDERED: Famotidine IV* 10 MG/ML 2 ML (20 mg) ONE (06:53)
[2018-12-08] MEDS ORDERED: Bupivacaine 0.5% W/EPI SDV* 30 ML VIAL ONE (07:04)
[2018-12-08] MEDS ORDERED: Sodium Chloride 0.9%* 20 ML ONE (07:11)
[2018-12-08] MEDS ORDERED: Bupivacaine 0.5% SDV PF* 30ML VIAL ONE (07:11)
[2018-12-08] MEDS ORDERED: Phenylephrine 10 MG/ML VIAL* 1 ML VIAL ONE (08:27)
[2018-12-08] MEDS ORDERED: Metoprolol Tartrate IV* 1 MG/ML 5 ML VIAL ONE (10:08)
[2018-12-08] MEDS ORDERED: fentaNYL* 50 MCG/ML 2 ML VIAL (100 MCG VIAL) IV PRN (10:56)
[2018-12-08] MEDS ORDERED: Naloxone* 0.4 MG/ML 1 ML VIAL IV PRN (10:56)
[2018-12-08] MEDS ORDERED: HYDROmorphone INJ1* 1 MG/ML SYRINGE IV PRN (10:56)
[2018-12-08] MEDS ORDERED: Ondansetron INJ* 2 MG/ML VIAL IV PRN ×2 (10:56→11:15)
[2018-12-08] MEDS ORDERED: Morphine 4 MG/ML VIAL (1 ml) 4 MG/ML VIAL IV PRN (11:15)
[2018-12-08] MEDS ORDERED: diPHENhydraMINE PO* 25 MG PO PRN (11:15)
[2018-12-08] MEDS ORDERED: Docusate CAP* 100 MG PO PRN (11:15)
[2018-12-08] MEDS ORDERED: Bisacodyl SUPP* 10 MG SUPP PR PRN (11:15)
[2018-12-08] MEDS ORDERED: diPHENhydraMINE IV* 50 MG/ML 1 ml VIAL (BENADRYL) IV PRN (11:15)
[2018-12-08] MEDS ORDERED: Magnesium Hydroxide LIQ* 30 ML UDC PO PRN (11:15)
[2018-12-08] MEDS ORDERED: Ondansetron ODT TAB* 4 MG PO PRN (11:15)
[2018-12-08] MEDS ORDERED: Meclizine TAB* 12.5 MG PO PRN (11:21)
[2018-12-08] MEDS ORDERED: Albuterol HFA INHALER* 8 gm MDI INH PRN (11:21)
[2018-12-08] MEDS ORDERED: Ketoconazole 2 % CREAM (NF) 30 GM TUBE TOPICAL PRN (11:21)
[2018-12-08] MEDS ORDERED: Hydrocortisone 1% CREAM* 30 GM TUBE TOPICAL PRN (11:21)
[2018-12-08] MEDS ORDERED: Diclofenac 1% GEL (NF) 100 GM TUBE TOPICAL PRN (11:21)
[2018-12-08] MEDS ORDERED: traMADol TAB* 50 MG PO SCH (12:00)
[2018-12-08] MEDS ORDERED: traMADol TAB* 50 MG ONE (12:18)
[2018-12-08] MEDS ORDERED: Dextrose 50% Syringe 50 ML* 25 GM/50 ML SYRINGE IV PUSH PRN (13:12)
[2018-12-08] MEDS: oxyCODONE TAB* 5 MG TAB PO PRN ×2 (14:07→18:10)
[2018-12-08] MEDS: Acetaminophen TAB* 325 MG PO SCH ×2 (14:07→22:35)
--- NOTE | 2018-12-08 14:10 | CONS ---
CC: Dr. Clements; Dr. Koch* CONSULTATION REPORT: DATE OF CONSULT: 12/08/18 PRIMARY CARE PROVIDER: Dr. Clements. PHYSICIAN REQUESTING CONSULT: Dr. Koch from Orthopedic Surgery. REASON FOR CONSULT: Perioperative management of the patient's hypertension, obstructive sleep apnea, and diabetes. The patient is status post right total knee replacement today. CHIEF COMPLAINT: Knee pain. HISTORY OF PRESENT ILLNESS: Ms. Snow is a 58-year-old female with history of obesity; diabetes, insulin-dependent; as well as obstructive sleep apnea, on CPAP; hypertension, who is just seen in postoperative unit status post right knee replacement surgery. The patient currently complains of pain in the postoperative knee at 2/10. Otherwise, the nurse noted that the patient had been with mild tachycardia with heart rate of over 100. The patient denies any shortness of breath, although she is postoperatively on oxygen. She denies any chest pain. Otherwise, she feels fine. Medicine consult was requested due to the patient's chronic medical conditions. PAST MEDICAL HISTORY: 1. History of obstructive sleep apnea, on CPAP. 2. History of migraines. 3. History of osteoarthritis. 4. History of situational depression. 5. History of asthma. 6. Mixed hyperlipidemia. 7. Hypertension. 8. History of diabetes, type 2, as mentioned above. 9. Gastroesophageal reflux disease. PAST SURGICAL HISTORY: 1. History of tubal ligation in . 2. Hemorrhoidectomy in . 3. Foot surgery in 1998. 4. Carpal tunnel release bilaterally. 5. Right knee arthroscopy in 2006. MEDICATIONS: At home, include: 1. Albuterol inhaler on a p.r.n. basis. 2. Crestor 40 mg daily. 3. Omeprazole 20 mg b.i.d. 4. Fenofibrate 145 mg daily. 5. Voltaren gel 1% topical daily p.r.n. 6. Zoloft 50 mg daily. 7. Salsalate 2 tablets b.i.d. 8. Nortriptyline 75 mg q.p.m. 9. Nasonex 2 sprays both nostrils q.p.m. 10. Metformin 500 mg q.a.m. and 1000 mg q.p.m. 11. Meclizine 50 mg b.i.d. p.r.n. 12. Lisinopril 10 mg q.a.m. 13. Nizoral cream on a p.r.n. basis. 14. Insulin Toujeo 60 Units subcutaneously b.i.d. 15. Ibuprofen on a p.r.n. basis. 16. Hydrocortisone 2.5% cream apply to affected areas on the skin p.r.n. 17. Gabapentin 600 mg b.i.d. 18. Excedrin Migraine on a p.r.n. basis. 19. Depakote ER 500 to 1000 mg q.p.m. 20. Dimenhydrinate 100 mg q.a.m. 21. Multivitamin 1 tablet daily. 22. Trulicity 0.75 mg subcutaneously weekly. 23. Chlorthalidone 25 mg q.a.m. 24. Symbicort 160/4.5 one puff inhalation b.i.d. 25. Spiriva 1 inhalation daily. ALLERGIES: The patient stated that she felt unwell after a painkiller in the past, but she could not specify it. FAMILY HISTORY: Positive for father with history of coronary artery bypass grafting, who had IN at the age of 61 and had history of lung cancer. Mother who at the age of 79 secondary to heart disease and had history of diabetes , type 1. SOCIAL HISTORY: The patient has history of smoking from the age of 13 to 49, one pack per day, quit in 2008. 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 She denies any significant alcohol use. Her surrogate is her , Vadim Snow. REVIEW OF SYSTEMS: Please see history of present illness. All the remaining 12 systems were reviewed with the patient and were otherwise negative. PHYSICAL EXAM: Blood pressure of 113/50, heart rate of 104 and regular, respiratory rate 18, oxygen saturation 96% on room air, temperature 97.0. General: The patient is a pleasant 58-year-old female with a BMI of 36. The patient is in no acute distress. Alert, awake, and oriented x3. HEENT: Head: Atraumatic, normocephalic. Eyes: Pupils are equal, reactive to light and accommodation. Oropharynx is clear. Mucosa moist. Neck: Supple. No JVD. No bruits bilaterally. Cardiovascular: Regular rate and rhythm. No murmur. Respiratory: Clear to auscultation bilaterally. Abdomen: Soft, nontender. Bowel sounds are present in all 4 quadrants. Extremities: There is no edema. Pulses are 2+ bilaterally. No clubbing or cyanosis. The right postoperative knee is in postsurgical dressings with Cryo unit in place. On evaluation of the skin, apart from the above-mentioned postoperative knee that the dressings were not removed from, there was no evidence of ecchymotic areas or rashes. LABORATORY DATA: Current laboratory data included a glucose level of 220. ASSESSMENT AND PLAN: 1. In regards to the patient's diabetic management, the patient is going to be placed on lower dose of long-acting insulin Lantus. I will also continue the patient on insulin sliding scale. Her metformin is going to be held. 2. For the patient's hypertension, we will hold the patient's chlorthalidone, but we will continue lisinopril. 3. For her asthma, the patient does not appear to be in exacerbation and Ventolin inhaler is going to be provided on a p.r.n. basis. 4. For the patient's migraine prevention, Depakote is going to be placed 500 mg q.p.m. 5. The patient is mildly tachycardic today. It is postoperative. We will monitor the patient closely. It may be just a response to anesthesia. 6. For the patient's DVT prophylaxis, that will be addressed by the patient's primary orthopedic service. Thank you very much for allowing our service to see the patient in consultation. We will follow on a daily basis. TIME SPENT: Approximately 60 minutes was spent on the patient's consultation. [id number]/[facility] #: [id number] ROB
[2018-12-08] MEDS: Lactated Ringers 1000 ML Bag* 1,000 ML IV SCH ×2 (17:23→23:50)
[2018-12-08] MEDS: ceFAZolin 1 GM ADVAN(*) 1 GM in NS 0.9% 50 ML* 50 ML IVPB SCH ×2 (17:23→23:50)
[2018-12-08] MEDS ORDERED: Divalproex ER TAB(*) 500 MG PO SCH (18:00)
[2018-12-08] MEDS: Insulin LISPRO* 1 UNITS UNIT SUBCUT SCH ×2 (18:09→21:05)
[2018-12-08] MEDS: Nortriptyline CAP* 25 MG PO SCH (18:11)
[2018-12-08] MEDS: Fluticasone NASAL SPRAY 50MCG* 16 gm SPRAY BTL BOTH NARES SCH (18:12)
[2018-12-08] MEDS: Divalproex ER TAB(*) 500 MG PO SCH (18:12)
[2018-12-08] MEDS: Mometasone/Formoter 200/5 MDI INH SCH (20:22)
[2018-12-08] MEDS ORDERED: INSULIN GLARGINE (NF) 300 UNIT/ML INJ SUBCUT SCH (21:00)
[2018-12-08] MEDS: Gabapentin CAP(*) 300 MG PO SCH (21:04)
[2018-12-08] MEDS: Pantoprazole TAB * 40 MG TAB PO SCH (21:04)
[2018-12-08] MEDS: Insulin GLARGINE(*) 1 UNITS UNIT SUBCUT SCH (21:05)
--- NOTE | 2018-12-09 03:26 | OP ---
CC: PCP, Dr. Clements * DATE OF SURGERY: 12/08/18 - ROOM #341 DATE OF : 56 SURGEON: Ramon Polk MD. PUBLIC WORKS LABORER: Prakash Koch MD. SECOND DENTAL LABORATORY TECHNICIAN APPRENTICE: Demi Agrawal. ANESTHESIOLOGIST: Dr. Velez. ANESTHESIA: Femoral canal block with spinal anesthesia and local MAC. PRE-OP DIAGNOSIS: Right knee osteoarthritis with a mild varus deformity. POST-OP DIAGNOSIS: Right knee osteoarthritis with a mild varus deformity. OPERATIVE PROCEDURE: Right total knee replacement. COMPLICATIONS: None. ESTIMATED BLOOD LOSS: 200 cc. TOURNIQUET TIME: 31 minutes at 275 mmHg. IMPLANTS USED: Waleska Persona size 5, femur size D tibial stem with a 10 mm poly, 35 patella, and the stem was 14 x 30. OUTPUTS: None. COMPLICATIONS: None. INDICATIONS: Roseline Snow is a 58-year-old female who has had longstanding osteoarthritis of her knee for some time. We have treated her conservatively with Euflexxa injections. She has deep pain. She has failed conservative measures. She has elected to proceed with surgical treatment. Risks and benefits were discussed at length and include, but are not limited to bleeding, infection, damage to nerves; vessels; surrounding structures, wound nonhealing, persistent pain, need for surgery, scarring, stiffness, incomplete relief of symptoms, risks of anesthesia, and risk of DVT. She has elected to proceed. She underwent preoperative medical risk optimization and was scheduled for surgery. DESCRIPTION OF PROCEDURE: The patient was greeted in the preoperative area by the attending surgeon. The correct extremity was marked and consent was confirmed by Dr. Koch and myself. She underwent nerve block by Dr. Velez prior to proceeding to the operating table. She was placed in the supine and then seated position again for spinal anesthetic, then placed supine again. A Bar[place] catheter was inserted. An unsterile tourniquet was placed high on the proximal thigh, lateral post in position. The patient was noted to have 2+ DP and PT pulses with a very mild flexion contracture of about 1 to 3 degrees. The right leg was then prepped and draped in the usual sterile fashion beginning with chlorhexidine soap, scrub, and alcohol wipe and a final prep with ChloraPrep. After appropriate surgical pause indicating side, site, procedure, and administration of antibiotics, the knee was placed in a hyperflexed position and a midline incision beginning 2 fingerbreadths proximal to the superior pole of the patella and extended distally to just medial to the tibial tubercle was made sharply with #10 blade. Soft tissues were carefully dissected to expose the extensor mechanism, which was then incised sharply with a #10 blade. Hemostasis was obtained during the entirety using electrocautery. The patella was then carefully everted. There was abundant synovitis of the fat pad that was removed. The medial structures and MCL, deep MCL were carefully released. Osteophytes were also identified and removed at this time. Once the medial exposure was done and retractors were placed carefully, attention was directed to the fat pad and patella. Once this was removed and the patella was able to be easily inverted, the anterior horns of the meniscus were then released. The ACL and PCL were released off of the femur very carefully and the PCL was carefully excised so that the tibia could be subluxed forward. The medial and lateral menisci that were visualized were also removed at this point. Using the extramedullary guide proximally to allow for 10 mm on the lateral aspect of the tibia, tibia was removed. Once the tibial cut was made, any soft tissues were removed at this point and removed in its entirety. Attention was directed to the femur. The femoral canal stepcut guide was then placed. The canal was suctioned to discourage embolization. Distal femoral cutting guide was placed with 1 and 6 degrees of valgus. Distal femoral cuts were then completed. The extensor gap was checked and found to be 10 and fit nicely. Femur measured a size 5. The cutting guide was then placed. Anterior, posterior and chamfer cuts were then completed, after which attention was directed to removing any of the soft tissues medially and laterally as well as remaining of the PCL. The flexion gap was checked and a 10 mm block was found to be appropriate. The trial was then placed again at the femur and the center intercondylar cutout was then made using the oscillating saw. The anchoring holes were then drilled. Femoral canal was then cleaned several times with saline, suctioned empty, and a bone block was inserted. The tibia was completed for a size D tibia. There was an area of chondrosis medially, which was then drilled by interdigitation. The final components were placed and found to fit nicely with full range of motion. The patella was glided and there was a normal patellar glide. There was no need for a lateral release. The patella was then everted and then cut. A size 35 was chosen and 3 drill holes were made and they were undercut to achieve good cement interdigitation. The leg was then exsanguinated and the tourniquet was inflated to 275 mmHg. The final components were opened up. The knee was thoroughly lavaged and hemostasis was obtained both in extension and then eventually into flexion. Cement was mixed on the back table. The posteromedial cysts were then emptied at that time bluntly. The surfaces were cleaned in flexion and dried. Cement was mixed and the components were cemented into position, beginning with the patella, the tibia, and then the femur. Each was then impacted and the cement was removed. The knee was articulated and extended during final hardening. After hardening, excess cement was removed again. Tourniquet was deflated and hemostasis was obtained. The wounds were copiously irrigated again. The wounds were closed in layers with #1 Vicryl for the quad tendon and medial retinaculum. The subcutaneous tissue was closed in layers with 3-0 Vicryl and skin was closed with aruna. The capsule posteromedially, medially, and laterally were then infiltrated with Marcaine and then the wounds were closed. Sterile dressings were applied. Range of motion was found to be 0 to 130 degrees, stable to varus-valgus stress. The tourniquet was deflated and the extremity was warm and well perfused. Sterile dressings were applied. She was awoken from anesthesia and transferred to PACU in stable condition. POSTOPERATIVE PLAN: She will be weightbearing as tolerated, admitted with medicine co-management due to her comorbidities. She will be on Lovenox for DVT prophylaxis, discharged on aspirin. She will be discharged on pain medication as well as gabapentin. I will continue to follow this patient in the hospital. [id number]/[facility] #: [id number] ROB
[2018-12-09] MEDS: oxyCODONE TAB* 5 MG TAB PO PRN ×3 (04:34→20:12)
[2018-12-09] MEDS: Acetaminophen TAB* 325 MG PO SCH ×3 (06:22→22:49)
[2018-12-09 07:44] LABS: Hematocrit 29 % (33-41); Hemoglobin 9.4 g/dL (12.0-16.0); Mean Platelet Volume 8.5 fL (7.4-10.4); Platelet Count 161 10^3/uL (150-450)
[2018-12-09] MEDS: ceFAZolin 1 GM ADVAN(*) 1 GM in NS 0.9% 50 ML* 50 ML IVPB SCH (07:49)
[2018-12-09] MEDS: Insulin GLARGINE(*) 1 UNITS UNIT SUBCUT SCH ×2 (07:50→21:01)
[2018-12-09] MEDS: traMADol TAB* 50 MG PO PRN ×2 (07:52→19:25)
[2018-12-09] MEDS: Lisinopril TAB* 10 MG PO SCH (07:52)
[2018-12-09] MEDS: Atorvastatin* 80 MG TAB PO SCH (07:52)
[2018-12-09] MEDS: Gabapentin CAP(*) 300 MG PO SCH ×2 (07:53→20:12)
[2018-12-09] MEDS: Pantoprazole TAB * 40 MG TAB PO SCH ×2 (07:53→20:13)
[2018-12-09] MEDS: Sertraline* 50 MG TAB PO SCH (07:54)
[2018-12-09] MEDS: Mometasone/Formoter 200/5 MDI INH SCH ×2 (07:55→20:24)
[2018-12-09] MEDS: Tiotropium CAP.INH* CAP.INH/18 MCG (USE ORDER SET !) INH SCH (07:55)
[2018-12-09 08:06] LABS: BUN/Creatinine Ratio 26.2 (8-20); Calcium 9.1 mg/dL (8.6-10.3); EGFR African American 66.1 (>60); EGFR Non-African American 54.7 (>60); Potassium 4.1 mmol/L (3.5-5.0)
[2018-12-09] MEDS: Insulin LISPRO* 1 UNITS UNIT SUBCUT SCH ×4 (08:52→21:02)
[2018-12-09] MEDS: Cyclobenzaprine TAB* 10 MG PO PRN ×2 (08:52→22:49)
[2018-12-09] MEDS ORDERED: Spiriva Inhaler DEVICE* 1 EACH DEVICE INH SCH (09:00)
[2018-12-09] MEDS ORDERED: NON FORMULARY MED* (Chlorthalidone [Chlorthalidone] 25 MG) PO SCH (09:00)
[2018-12-09] MEDS ORDERED: DiMENhydriNATE TAB* 50 MG TAB PO SCH (09:00)
[2018-12-09] MEDS ORDERED: Aspirin TAB* 325 MG PO SCH (09:00)
[2018-12-09] MEDS ORDERED: NS 0.9% 500 ML* 500 ML IV ONE (09:07)
--- NOTE | 2018-12-09 09:29 | PN ---
Progress Note - Progress Note Date of Service: 12/09/18 Note: Pt seen and examined. Feeling ok. Pain a 2-5/10. Sitting in chair. Able to void. Has taken a few steps. Denies numbness and tingling. No shortness of breath. complains of pain near tourniquet site. Temp Pulse Resp BP Pulse Ox 98.6 F 106 18 145/53 95 12/09/18 07:29 12/09/18 07:29 12/09/18 08:52 12/09/18 07:29 12/09/18 07:29 NAD. AAOx3. pleasant and conversant. Sitting in chair. RLE: dressing in place. calf soft and nontender, SILT grossly distally. able to DF/PF foot and flex/ext toes. Laboratory Results - last 24 hr 12/08/18 12/08/18 12/08/18 11:23 16:28 20:46 Hgb Hct Plt Count MPV Sodium Potassium Chloride Carbon Dioxide Anion Gap BUN Creatinine Est GFR ( Amer) Est GFR (Non-Af Amer) BUN/Creatinine Ratio Glucose POC Glucose (mg/dL) 220 H 282 H 306 H Calcium 12/09/18 12/09/18 07:18 07:18 Hgb 9.4 L Hct 29 L Plt Count 161 MPV 8.5 Sodium 136 Potassium 4.1 Chloride 99 L Carbon Dioxide 31 Anion Gap 6 BUN 27 H Creatinine 1.03 H Est GFR ( Amer) 66.1 Est GFR (Non-Af Amer) 54.7 BUN/Creatinine Ratio 26.2 H Glucose 211 H POC Glucose (mg/dL) Calcium 9.1 Xrays acceptable A/P 58 yo F POD#1 from R TKA analgesia PT/OT- WBAT lovenox for dvt ppx while in house ASA for home dispo tomorrow post op abx dressing change tomorrow
[2018-12-09] MEDS: NS 0.9% 1000 ML** 1,000 ML IV SCH (09:57)
[2018-12-09] MEDS: Enoxaparin(*) 40 MG/0.4 ML SYR SUBCUT SCH (12:47)
--- NOTE | 2018-12-09 15:33 | PN ---
Subjective Date of Service: 12/09/18 Interval History: Patient seen and examined, states pain in knee well controlled, denies SOB, no chest pain, no n/v/d. No acute pvernight events. tolerating PT/OT. Objective Active Medications: Acetaminophen (Tylenol Tab*) 975 mg PO Q8HR [facility] Last Admin: 12/09/18 15:02 Dose: 975 mg Albuterol (Ventolin Hfa Inhaler*) 2 puff INH Q4H PRN PRN Reason: WHEEZING Aspirin (Aspirin Tab*) 325 mg PO DAILY [facility] Atorvastatin Calcium (Lipitor*) 80 mg PO QAM [facility] Last Admin: 12/09/18 07:52 Dose: 80 mg Bisacodyl (Dulcolax Supp*) 10 mg DE DAILY PRN PRN Reason: constipation Cyclobenzaprine HCl (Flexeril Tab*) 10 mg PO TID PRN PRN Reason: SPASMS Last Admin: 12/09/18 08:52 Dose: 10 mg Device (Tiotropium Inhaler Device*) 1 each INH .DAILY [facility] Dextrose (D50w Syringe 50 Ml*) 12.5 gm IV PUSH .FOR FS < 60 - SS PRN PRN Reason: FS < 60 Diclofenac Sodium (Voltaren 1% Gel (Nf)) 1 applic TOPICAL DAILY PRN; Protocol PRN Reason: PAIN Diphenhydramine HCl (Benadryl Iv*) 25 mg IV Q6H PRN PRN Reason: itching Diphenhydramine HCl (Benadryl Po*) 25 mg PO Q6H PRN PRN Reason: itching Divalproex Sodium (Depakote Er Tab(*)) 500 mg PO QPM [facility] Last Admin: 12/08/18 18:12 Dose: 500 mg Docusate Sodium (Colace Cap*) 100 mg PO BID PRN PRN Reason: CONSTIPATION Dulaglutide (Trulicity (Nf)) 0.75 mg SUBCUT WEEKLY [facility] Enoxaparin Sodium (Lovenox(*)) 40 mg SUBCUT Q24H [facility] Last Admin: 12/09/18 12:47 Dose: 40 mg Fenofibrate (Tricor 160 Mg) 160 mg PO QAM [facility] Last Admin: 12/09/18 07:54 Dose: 160 mg Fluticasone Propionate (Flonase Nasal [place] 50mcg*) 2 spray BOTH NARES QPM [facility] Last Admin: 12/08/18 18:12 Dose: Not Given Gabapentin (Neurontin Cap(*)) 600 mg PO BID [facility] Last Admin: 12/09/18 07:53 Dose: 600 mg Hydrocortisone (Hytone Cream 1%*) 1 applic TOPICAL BID PRN PRN Reason: RASH Sodium Chloride (Ns 0.9% 1000 Ml) 1,000 mls @ 75 mls/hr IV PER RATE [facility] Last Admin: 12/09/18 09:57 Dose: 75 mls/hr Insulin Glargine (Lantus(*)) 32 units SUBCUT BID [facility] Last Admin: 12/09/18 07:50 Dose: 32 unit Insulin Human Lispro (Humalog*) 0 units SUBCUT ACHS [facility]; Protocol Last Admin: 12/09/18 12:48 Dose: 4 units Ketoconazole (Nizoral 2% Cream (Nf)) 1 applic TOPICAL BID PRN; Protocol PRN Reason: RASH Lisinopril (Prinivil Tab*) 10 mg PO QAM [facility] Last Admin: 12/09/18 07:52 Dose: 10 mg Magnesium Hydroxide (Milk Of Magnroderick Liq*) 30 ml PO Q6H PRN PRN Reason: constipation Meclizine HCl (Antivert Tab*) 50 mg PO BID PRN PRN Reason: DIZZINESS Mometasone Furoate/Formoterol Fumar (Dulera 200/5 Mdi*) 2 puff INH BID [facility]; Protocol Last Admin: 12/09/18 07:55 Dose: 2 puff Morphine Sulfate (Morphine 4 Mg/Ml Vial (1 Ml)) 2 mg IV Q2H PRN PRN Reason: PAIN - BREAKTHROUGH Nortriptyline HCl (Pamelor Cap*) 75 mg PO QPM [facility] Last Admin: 12/08/18 18:11 Dose: 75 mg Ondansetron HCl (Zofran Inj*) 4 mg IV Q6H PRN PRN Reason: nausea Ondansetron HCl (Zofran Odt Tab*) 4 mg PO Q6H PRN PRN Reason: NAUSEA Oxycodone HCl (Roxycodone Tab*) 10 mg PO Q4H PRN PRN Reason: PAIN - SEVERE Last Admin: 12/09/18 12:48 Dose: 10 mg Pantoprazole Sodium (Protonix Tab*) 40 mg PO BID [facility] Last Admin: 12/09/18 07:53 Dose: 40 mg Sertraline HCl (Zoloft*) 50 mg PO QAM [facility] Last Admin: 12/09/18 07:54 Dose: 50 mg Tiotropium Berry (Spiriva Cap.Inh*) 1 cap INH QAM [facility] Last Admin: 12/09/18 07:55 Dose: 1 admin Tramadol HCl (Ultram*) 50 mg PO Q6H PRN PRN Reason: PAIN Last Admin: 12/09/18 07:52 Dose: 50 mg Vital Signs - 8 hr 12/09/18 12/09/18 12/09/18 07:29 07:52 07:53 Temperature 98.6 F Pulse Rate 106 Respiratory 14 18 18 Rate Blood Pressure 145/53 (mmHg) O2 Sat by Pulse 95 Oximetry 12/09/18 12/09/18 12/09/18 08:00 08:52 11:08 Temperature 98.2 F Pulse Rate 105 Respiratory 18 18 15 Rate Blood Pressure 149/62 (mmHg) O2 Sat by Pulse 95 93 Oximetry 12/09/18 12:48 Temperature Pulse Rate Respiratory 18 Rate Blood Pressure (mmHg) O2 Sat by Pulse Oximetry Oxygen Devices in Use Now: CPAP - at night Eyes: No Scleral Icterus, PERRLA Ears/Nose/Mouth/Throat: NL Teeth, Lips, Gums, Mucous Membranes Moist Neck: NL Appearance and Movements; NL JVP, Trachea Midline Respiratory: Symmetrical Chest Expansion and Respiratory Effort, Clear to Auscultation Cardiovascular: NL Sounds; No Murmurs; No JVD, RRR, No Edema Abdominal: NL Sounds; No Tenderness; No Distention Extremities: No Clubbing, Cyanosis, - - right knee dressing CDI Neurological: Alert and Oriented x 3, NL Muscle Strength and Tone Nutrition: Taking PO's Result Diagrams: 12/09/18 07:18 12/09/18 07:18 Assess/Plan/Problems-Billing Assessment: This is a 58 year old female with history of end stage osteoarthritis of the right knee that presented for elective total arthroplasty. - Patient Problems (1) Status post total right knee replacement Code(s): Z96.651 - PRESENCE OF RIGHT ARTIFICIAL KNEE JOINT SNOMED Code(s): 1673620453365 Comment: - POD1 - POC as per orthopedics - Pain control, OOB with PT/OT, bowel regimen, DVT prophy with lovenox/ASA (2) Sleep apnea Code(s): G47.30 - SLEEP APNEA, UNSPECIFIED SNOMED Code(s): 94097786 Comment: - continue CPAP at night (3) GERD (gastroesophageal reflux disease) Code(s): K21.9 - GASTRO-ESOPHAGEAL REFLUX DISEASE WITHOUT ESOPHAGITIS SNOMED Code(s): 600988720 Comment: - continue PPI (4) HTN (hypertension) Code(s): I10 - ESSENTIAL (PRIMARY) HYPERTENSION SNOMED Code(s): 01921871 Comment: - Stable on lisinopril (5) Diabetes Code(s): E11.9 - TYPE 2 DIABETES MELLITUS WITHOUT COMPLICATIONS SNOMED Code(s) : 77162353 Comment: - continue CC diet, lispro SS and home meds (6) Asthma Code(s): J45.909 - UNSPECIFIED ASTHMA, UNCOMPLICATED SNOMED Code(s): 312304551 Comment: - Not in exacerbation, continue nebs PRN and home inhalers (7) Hx of migraines Code(s): Z86.69 - PERSONAL HISTORY OF DIS OF THE NERVOUS SYS AND SENSE ORGANS SNOMED Code(s): 186310908 Comment: - Continue nortriptyline and gabapentin Status and Disposition: Inpatient, dispo TBD
[2018-12-09] MEDS: Nortriptyline CAP* 25 MG PO SCH (17:22)
[2018-12-09] MEDS: Divalproex ER TAB(*) 500 MG PO SCH (17:22)
[2018-12-09] MEDS: Fluticasone NASAL SPRAY 50MCG* 16 gm SPRAY BTL BOTH NARES SCH (17:22)
[2018-12-10] MEDS: oxyCODONE TAB* 5 MG TAB PO PRN ×3 (00:57→10:48)
[2018-12-10] MEDS: NS 0.9% 1000 ML** 1,000 ML IV SCH (02:25)
[2018-12-10] MEDS: Acetaminophen TAB* 325 MG PO SCH ×3 (05:32→21:43)
[2018-12-10 06:40] LABS: Hematocrit 27 % (33-41); Hemoglobin 8.8 g/dL (12.0-16.0); Mean Platelet Volume 8.4 fL (7.4-10.4); Platelet Count 144 10^3/uL (150-450)
[2018-12-10] MEDS: Insulin GLARGINE(*) 1 UNITS UNIT SUBCUT SCH ×2 (08:17→21:44)
[2018-12-10] MEDS: Insulin LISPRO* 1 UNITS UNIT SUBCUT SCH ×4 (08:17→21:43)
[2018-12-10] MEDS: Tiotropium CAP.INH* CAP.INH/18 MCG (USE ORDER SET !) INH SCH (08:18)
[2018-12-10] MEDS: Mometasone/Formoter 200/5 MDI INH SCH ×2 (08:19→20:04)
[2018-12-10] MEDS: Atorvastatin* 80 MG TAB PO SCH (08:19)
[2018-12-10] MEDS: traMADol TAB* 50 MG PO PRN ×2 (08:19→17:41)
[2018-12-10] MEDS: Lisinopril TAB* 10 MG PO SCH (08:20)
[2018-12-10] MEDS: Sertraline* 50 MG TAB PO SCH (08:20)
[2018-12-10] MEDS: Gabapentin CAP(*) 300 MG PO SCH ×2 (08:20→21:43)
[2018-12-10] MEDS: Pantoprazole TAB * 40 MG TAB PO SCH ×2 (08:20→21:43)
[2018-12-10] MEDS ORDERED: Ketorolac INJ* 15 MG/ML 1 ML VIAL IV PUSH ONE (11:06)
--- NOTE | 2018-12-10 11:34 | PN ---
Progress Note - Progress Note Date of Service: 12/10/18 SOAP: Subjective: []Pt seen and examined at bedside. Her pain is 8.10 currently. Denies CP, SOB, irregular heartbeats, dizziness or nausea. Objective: []General: NAD, appears well RLE: Dressing changed, incision CDI without erythema or discharge. Thigh is soft , DF/PF intact, DP2+, sensation intact to light touch distally Calves supple and nontender without erythema, edema or palpable cords Assessment: []POD 2 sp RTK Plan: []WBAT PT/OT [place] in house, ASA at [place] Anticipate DC today though patient is tachy to 115 - EKG ordered to ensure sinus , 1 dose of toradol ordered as pain is 8/10 Vital Signs Temp 97.9 F 12/10/18 08:04 Pulse 115 12/10/18 08:04 Resp 18 12/10/18 10:50 BP 157/69 12/10/18 08:16 Pulse Ox 94 12/10/18 08:04 Intake & Output 12/09/18 12/10/18 12/10/18 18:59 06:59 18:59 Intake Total 1603 3175 528 Output Total 700 2800 Balance 903 375 528 Intake: IV Fluids 1003 1490 288 ABX - CEFAZOLIN 55 Lactated Ringer 948 NS (0.9%) 1490 288 Oral 600 1685 240 NG Tube Irrigate Amount 0 Output: Urine 700 2800 Other: # Bowel Movements 0 Laboratory Last Values Hgb 8.8 g/dL (12.0-16.0) L 12/10/18 06:10 Hct 27 % (33-41) L 12/10/18 06:10 Plt Count 144 10^3/uL (150-450) L 12/10/18 06:10 MPV 8.4 fL (7.4-10.4) 12/10/18 06:10 Sodium 136 mmol/L (135-145) 12/09/18 07:18 Potassium 4.1 mmol/L (3.5-5.0) 12/09/18 07:18 Chloride 99 mmol/L (101-111) L 12/09/18 07:18 Carbon Dioxide 31 mmol/L (22-32) 12/09/18 07:18 Anion Gap 6 mmol/L (2-11) 12/09/18 07:18 BUN 27 mg/dL (6-24) H 12/09/18 07:18 Creatinine 1.03 mg/dL (0.51-0.95) H 12/09/18 07:18 Est GFR ( Amer) 66.1 (>60) 12/09/18 07:18 Est GFR (Non-Af Amer) 54.7 (>60) 12/09/18 07:18 BUN/Creatinine Ratio 26.2 (8-20) H 12/09/18 07:18 Glucose 211 mg/dL (70-100) H 12/09/18 07:18 POC Glucose (mg/dL) 215 mg/dL (70-100) H 12/10/18 07:17 Calcium 9.1 mg/dL (8.6-10.3) 12/09/18 07:18
[2018-12-10] MEDS: Enoxaparin(*) 40 MG/0.4 ML SYR SUBCUT SCH (11:39)
[2018-12-10] MEDS ORDERED: Metoprolol Tartrate TAB* 25 MG PO ONE (13:29)
[2018-12-10] MEDS ORDERED: Iodixanol* (CONTRAST) 320 MG/ML 100 ML SDV IV ONE (16:39)
[2018-12-10] MEDS: Nortriptyline CAP* 25 MG PO SCH (17:40)
[2018-12-10] MEDS: Divalproex ER TAB(*) 500 MG PO SCH (17:41)
[2018-12-10] MEDS: Fluticasone NASAL SPRAY 50MCG* 16 gm SPRAY BTL BOTH NARES SCH (17:41)
--- NOTE | 2018-12-10 19:41 | PN ---
Subjective Date of Service: 12/10/18 Interval History: Patient seen and examined. Remains mildly tachycardic with low sats at times. Denies acute SOB, no chest pain, no further complaints. Objective Active Medications: Acetaminophen (Tylenol Tab*) 975 mg PO Q8HR [facility] Last Admin: 12/10/18 13:49 Dose: 975 mg Albuterol (Ventolin Hfa Inhaler*) 2 puff INH Q4H PRN PRN Reason: WHEEZING Aspirin (Aspirin Tab*) 325 mg PO DAILY [facility] Atorvastatin Calcium (Lipitor*) 80 mg PO QAM [facility] Last Admin: 12/10/18 08:19 Dose: 80 mg Bisacodyl (Dulcolax Supp*) 10 mg [place] DAILY PRN PRN Reason: constipation Cyclobenzaprine HCl (Flexeril Tab*) 10 mg PO TID PRN PRN Reason: SPASMS Last Admin: 12/09/18 22:49 Dose: 10 mg Device (Tiotropium Inhaler Device*) 1 each INH .DAILY [facility] Dextrose (D50w Syringe 50 Ml*) 12.5 gm IV PUSH .FOR FS < 60 - SS PRN PRN Reason: FS < 60 Diclofenac Sodium (Voltaren 1% Gel (Nf)) 1 applic TOPICAL DAILY PRN; Protocol PRN Reason: PAIN Diphenhydramine HCl (Benadryl Iv*) 25 mg IV Q6H PRN PRN Reason: itching Diphenhydramine HCl (Benadryl Po*) 25 mg PO Q6H PRN PRN Reason: itching Divalproex Sodium (Depakote Er Tab(*)) 500 mg PO QPM [facility] Last Admin: 12/10/18 17:41 Dose: 500 mg Docusate Sodium (Colace Cap*) 100 mg PO BID PRN PRN Reason: CONSTIPATION Last Admin: 12/10/18 08:20 Dose: 100 mg Dulaglutide (Trulicity (Nf)) 0.75 mg SUBCUT WEEKLY [facility] Enoxaparin Sodium (Lovenox(*)) 40 mg SUBCUT Q24H [facility] Last Admin: 12/10/18 11:39 Dose: 40 mg Fenofibrate (Tricor 160 Mg) 160 mg PO QAM [facility] Last Admin: 12/10/18 08:19 Dose: 160 mg Fluticasone Propionate (Flonase Nasal [place] 50mcg*) 2 spray BOTH NARES QPM [facility] Last Admin: 12/10/18 17:41 Dose: 2 spray Gabapentin (Neurontin Cap(*)) 600 mg PO BID [facility] Last Admin: 12/10/18 08:20 Dose: 600 mg Hydrocortisone (Hytone Cream 1%*) 1 applic TOPICAL BID PRN PRN Reason: RASH Sodium Chloride (Ns 0.9% 1000 Ml) 1,000 mls @ 75 mls/hr IV PER RATE [facility] Last Admin: 12/10/18 02:25 Dose: 75 mls/hr Insulin Glargine (Lantus(*)) 32 units SUBCUT BID [facility] Last Admin: 12/10/18 08:17 Dose: 32 unit Insulin Human Lispro (Humalog*) 0 units SUBCUT ACHS [facility]; Protocol Last Admin: 12/10/18 17:46 Dose: 2 units Ketoconazole (Nizoral 2% Cream (Nf)) 1 applic TOPICAL BID PRN; Protocol PRN Reason: RASH Lisinopril (Prinivil Tab*) 10 mg PO QAM [facility] Last Admin: 12/10/18 08:20 Dose: 10 mg Magnesium Hydroxide (Milk Of Magnesia Liq*) 30 ml PO Q6H PRN PRN Reason: constipation Last Admin: 12/10/18 08:20 Dose: 30 ml Meclizine HCl (Antivert Tab*) 50 mg PO BID PRN PRN Reason: DIZZINESS Mometasone Furoate/Formoterol Fumar (Dulera 200/5 Mdi*) 2 puff INH BID [facility]; Protocol Last Admin: 12/10/18 08:19 Dose: 2 puff Morphine Sulfate (Morphine 4 Mg/Ml Vial (1 Ml)) 2 mg IV Q2H PRN PRN Reason: PAIN - BREAKTHROUGH Last Admin: 12/09/18 21:24 Dose: 2 mg Nortriptyline HCl (Pamelor Cap*) 75 mg PO QPM [facility] Last Admin: 12/10/18 17:40 Dose: 75 mg Ondansetron HCl (Zofran Inj*) 4 mg IV Q6H PRN PRN Reason: nausea Ondansetron HCl (Zofran Odt Tab*) 4 mg PO Q6H PRN PRN Reason: NAUSEA Oxycodone HCl (Roxycodone Tab*) 10 mg PO Q4H PRN PRN Reason: PAIN - SEVERE Last Admin: 12/10/18 10:48 Dose: 10 mg Pantoprazole Sodium (Protonix Tab*) 40 mg PO BID [facility] Last Admin: 12/10/18 08:20 Dose: 40 mg Sertraline HCl (Zoloft*) 50 mg PO QAM [facility] Last Admin: 12/10/18 08:20 Dose: 50 mg Tiotropium [place] (Spiriva Cap.Inh*) 1 cap INH QAM [facility] Last Admin: 12/10/18 08:18 Dose: 1 admin Tramadol HCl (Ultram*) 50 mg PO Q6H PRN PRN Reason: PAIN Last Admin: 12/10/18 17:41 Dose: 50 mg Vital Signs - 8 hr 12/10/18 12/10/18 12/10/18 11:37 13:48 15:14 Temperature 98.2 F Pulse Rate 111 Respiratory 18 18 Rate Blood Pressure 114/63 (mmHg) O2 Sat by Pulse 93 85 Oximetry 12/10/18 12/10/18 12/10/18 15:26 16:00 17:41 Temperature Pulse Rate Respiratory 18 Rate Blood Pressure (mmHg) O2 Sat by Pulse 93 93 Oximetry Oxygen Devices in Use Now: Nasal Cannula Appearance: alert, NAD Eyes: No Scleral Icterus, PERRLA Ears/Nose/Mouth/Throat: NL Teeth, Lips, Gums Neck: NL Appearance and Movements; NL JVP, Trachea Midline Respiratory: Symmetrical Chest Expansion and Respiratory Effort, - - diminished bases Cardiovascular: NL Sounds; No Murmurs; No JVD - tachycardic, No Edema Abdominal: NL Sounds; No Tenderness; No Distention Extremities: No Edema, No Clubbing, Cyanosis Skin: No Rash or Ulcers, - - dressing CDI Neurological: Alert and Oriented x 3, NL Sensation, NL Muscle Strength and Tone Nutrition: Taking PO's Result Diagrams: 12/10/18 06:10 12/09/18 07:18 Diagnostic Imaging: Patient Name: CIRILO SMITH Medical Record#: [id number] Ordering Physician: Cleo CORTES Acct.#: [id number] : 1960 Age: 58 Sex: F Location: SURGICAL STAY UNIT Exam Date: 12/10/181633 ADM Status: ADM IN Order Information: CTA CHEST Accession Number: [id number] CPT: 11816 HISTORY: tachy, O2 sat 85, sp rtk COMPARISONS: None relevant available at the time of dictation. TECHNIQUE: Multiple contiguous axial CT scans of the chest were obtained after the administration of nonionic intravenous contrast, timed to the pulmonary arterial phase of contrast enhancement.. Coronal and sagittal multiplanar reformations are also submitted for review. FINDINGS: NECK AND THYROID: The lower neck and thyroid are unremarkable. CHEST WALL: There is no lower cervical, axillary, or supraclavicular lymphadenopathy by size criteria. HEART AND PERICARDIUM: The heart is unremarkable. AORTA AND PULMONARY VASCULATURE: There is no pulmonary arterial filling defect to suggest pulmonary embolism. There is no linear filling defect within the aorta to suggest aortic dissection. MEDIASTINUM: There is no mediastinal lymphadenopathy by size criteria. LURDES: There is no hilar lymphadenopathy by size criteria. AIRWAY AND ESOPHAGUS: The airway is unremarkable, without endobronchial filling defect. The esophagus is grossly normal. LUNG PARENCHYMA: There is linear atelectasis of the right lung base. PLEURA: No pleural abnormalities are noted. UPPER ABDOMEN: There is hepatomegaly with fatty infiltration of the liver BONES AND SOFT TISSUES: No bone or soft tissue abnormalities are noted. OTHER: None. IMPRESSION: NO PULMONARY ARTERIAL FILLING DEFECT TO SUGGEST PULMONARY EMBOLISM. Assess/Plan/Problems-Billing Assessment: This is a 58 year old female with history of end stage osteoarthritis of the right knee that presented for elective total arthroplasty. - Patient Problems (1) Status post total right knee replacement Code(s): Z96.651 - PRESENCE OF RIGHT ARTIFICIAL KNEE JOINT SNOMED Code(s): 4757391476912 Comment: - POD2 - POC as per orthopedics - Pain control, OOB with PT/OT, bowel regimen, DVT prophy with lovenox/ASA (2) Tachycardia Code(s): R00.0 - TACHYCARDIA, UNSPECIFIED SNOMED Code(s): 9339205 Comment: - Reviewed documents from outpatient/PCP records, patient has been tachycardic on last 4 visits - Trial low dose BB today - CTA chest given low sats, but given SONG, asthma and obesity, issue is more likely post-op atelectasis - continue pulmonary toilet (3) Sleep apnea Code(s): G47.30 - SLEEP APNEA, UNSPECIFIED SNOMED Code(s): 20043384 Comment: - continue CPAP at night (4) GERD (gastroesophageal reflux disease) Code(s): K21.9 - GASTRO-ESOPHAGEAL REFLUX DISEASE WITHOUT ESOPHAGITIS SNOMED Code(s): 456611951 Comment: - continue PPI (5) HTN (hypertension) Code(s): I10 - ESSENTIAL (PRIMARY) HYPERTENSION SNOMED Code(s): 19786650 Comment: - Stable on lisinopril (6) Diabetes Code(s): E11.9 - TYPE 2 DIABETES MELLITUS WITHOUT COMPLICATIONS SNOMED Code(s) : 92430028 Comment: - continue CC diet, lispro SS and home meds (7) Asthma Code(s): J45.909 - UNSPECIFIED ASTHMA, UNCOMPLICATED SNOMED Code(s): 478507731 Comment: - Not in exacerbation, continue nebs PRN and home inhalers (8) Hx of migraines Code(s): Z86.69 - PERSONAL HISTORY OF DIS OF THE NERVOUS SYS AND SENSE ORGANS SNOMED Code(s): 673919377 Comment: - Continue nortriptyline and gabapentin Status and Disposition: Inpatient, dispo TBD
[2018-12-11] MEDS: traMADol TAB* 50 MG PO PRN ×2 (05:28→12:13)
[2018-12-11] MEDS: Acetaminophen TAB* 325 MG PO SCH (05:28)
[2018-12-11 06:48] LABS: Hematocrit 25 % (33-41); Hemoglobin 8.4 g/dL (12.0-16.0); Mean Platelet Volume 8.1 fL (7.4-10.4); Platelet Count 154 10^3/uL (150-450)
[2018-12-11] MEDS: Pantoprazole TAB * 40 MG TAB PO SCH (08:16)
[2018-12-11] MEDS: Lisinopril TAB* 10 MG PO SCH (08:16)
[2018-12-11] MEDS: Gabapentin CAP(*) 300 MG PO SCH (08:16)
[2018-12-11] MEDS: Atorvastatin* 80 MG TAB PO SCH (08:17)
[2018-12-11] MEDS: Sertraline* 50 MG TAB PO SCH (08:17)
[2018-12-11] MEDS: Mometasone/Formoter 200/5 MDI INH SCH (08:18)
[2018-12-11] MEDS: Tiotropium CAP.INH* CAP.INH/18 MCG (USE ORDER SET !) INH SCH (08:18)
[2018-12-11] MEDS: Insulin LISPRO* 1 UNITS UNIT SUBCUT SCH ×2 (08:19→12:13)
[2018-12-11] MEDS: Insulin GLARGINE(*) 1 UNITS UNIT SUBCUT SCH (08:19)
[2018-12-11] MEDS ORDERED: Aspirin TAB* 325 MG PO SCH (09:00)
--- NOTE | 2018-12-11 11:11 | DS ---
Orthopedic Discharge Summary - Discharge Summary Date of Admission:12/08/18 Date of Discharge: 12/11/18 Date of Surgery: 12/08/18 Attending Orthopedic Provider: Dr. Polk/ Zee Pre-operative Diagnosis: degenerative arthritis right knee Operative Procedure: Right total knee arthroplasty Condition of Patient: stable History: CIRILO SMITH is a 58 year old F with years of increasingly severe right knee pain. Patient has failed conservative management and has elected to undergo a right total knee replacement Hospital Course: CIRILO was admitted to [facility] on 12/08/18. Patient underwent a right total without complication followed by a brief recovery in PACU and transfer to the Short Stay Surgical Unit in stable condition. Our hospitalist service, physical therapy and occupational therapy also participated in this patients care. Post-op day 1: patient was alert and in no acute distress. Dressing was clean, dry and intact. Operative extremity dorsiflexion and plantarflexion intact, sensation intact to light touch distally , DP2+. Post-op day two: dressing was changed, incision was clean, dry and intact. She was noted to have low O2 sats on her CPAP and required O2 to be added. Her O2 sats were baseline low throughout. She also runs tachycardic at baseline. Full workup including EKG, CT chest was negative for PE or cardiac abnormalitiy. She will follow up with her research physician and PCP for the above issues. Patient was deemed to be medically and orthopedically stable for discharge home. Physical therapy goals were met. Home Medications Medication Instructions Recorded Confirmed Type Gabapentin* 600 mg PO BID 09/28/12 12/08/18 History Lisinopril TAB* [Prinivil TAB 5 10 mg PO QAM 09/28/12 12/08/18 History MG*] Nortriptyline HCl 75 mg PO QPM 09/28/12 12/08/18 History Omeprazole CAP (NF) [Prilosec CAP* 20 mg PO BID 09/28/12 12/08/18 History 20 MG] Meclizine TAB* [Antivert 12.5 TAB*] 50 mg PO BID PRN 09/29/12 12/08/18 History Divalproex ER TAB(*) [Depakote ER 500 - 1,000 mg PO QPM 06/30/17 12/08/18 History TAB(*)] Dulaglutide (NF) [Trulicity (NF)] 0.75 mg SC WEEKLY 06/30/17 12/08/18 History Hydrocortisone 2.5% CREAM(NF) 1 applic TOPICAL BID PRN 06/30/17 12/08/18 History Insulin Glargine,Hum.rec.anlog 60 unit SUBCUT BID 06/30/17 12/08/18 History [[place] Solostar] Ketoconazole 2 % CREAM (NF) 1 applic TOPICAL BID PRN 06/30/17 12/08/18 History [Nizoral 2% CREAM (NF)] Mometasone NASAL (NF) [Nasonex 2 spray NASAL QPM 06/30/17 12/08/18 History (NF)] Salsalate [Disalcid] 2 tab PO BID 06/30/17 12/08/18 History Sertraline* [Zoloft*] 50 mg PO QAM 06/30/17 12/08/18 History Excedrin Migraine Caplet 1 tab PO ONCE PRN 11/04/17 12/08/18 History Fenofibrate 145 mg PO QAM 11/04/17 12/08/18 History Metformin HCl 500 mg PO SEE INSTRUCTIONS 11/04/17 12/08/18 History Rosuvastatin Calcium [Crestor] 1 tab PO QAM 11/04/17 12/08/18 History Tiotropium CAP.INH* [Spiriva 1 cap INH QAM 11/04/17 12/08/18 History CAP.INH*] Ventolin Hfa 2 puff INH Q4HR PRN 11/04/17 12/08/18 History Budesonide/Formote 160/4.5(NF) 1 puff INH BID 11/26/18 12/08/18 History [Symbicort 160/4.5 (NF)] Chlorthalidone 25 mg PO QAM 11/26/18 12/08/18 History Diclofenac 1% GEL (NF) [Voltaren 1 % TOPICAL DAILY PRN 11/26/18 12/08/18 History 1% GEL (NF)] Multivitamin [Multivitamins] 1 cap PO QAM 11/26/18 12/08/18 History Spiriva Inhaler DEVICE* 1 inh INH DAILY 11/26/18 12/08/18 History [Tiotropium Inhaler DEVICE*] dimenhyDRINATE [Dimenhydrinate] 100 mg PO QAM 11/26/18 12/08/18 History Dulaglutide [Trulicity] 0.75 mg SUBCUT [place] 12/07/18 12/07/18 History Aspirin TAB* [Aspirin 325 MG TAB*] 325 mg PO DAILY #30 tab 12/11/18 Rx Docusate CAP* [Colace Cap*] 100 mg PO BID PRN cap 12/11/18 Rx traMADol TAB* [Ultram*] 50 mg PO Q6H PRN #42 tab MDD 6 12/11/18 Rx Aspirin 325 QD for 1 month post op Tramadol for pain- [facility] May shower, light dressing as needed WBAT RLE VNS
[2018-12-11 11:49] VITALS: BP 100/45
[2018-12-11] MEDS: Enoxaparin(*) 40 MG/0.4 ML SYR SUBCUT SCH (12:13)
[2018-12-13] MEDS ORDERED: NF:Dulaglutide (NF) 0.75 MG/0.5 ML SYRINGE SUBCUT SCH (09:00)
[2018-12-13] MEDS ORDERED: Dulaglutide (NF) 0.75 MG/0.5 ML SYRINGE SUBCUT SCH (11:21)
== END 2018-12-11 13:15 | disposition home health service (06) | DRG 302 ==
LOC: AA 05:39 → SSU 11:15
PROVIDERS: ADMIT Orthopaedic Surgery; ATTEND Orthopaedic Surgery
PROC: 0SRC0J9 Replacement of Right Knee Joint with Synthetic Substitute, Cemented, Open Approach (ICD-10-PCS; principal; 2018-12-08 07:30)
DX: M17.11 Unilateral primary osteoarthritis, right knee (principal); I10 Essential (primary) hypertension; G47.33 Obstructive sleep apnea (adult) (pediatric); F43.21 Adjustment disorder with depressed mood; J45.909 Unspecified asthma, uncomplicated; E66.9 Obesity, unspecified; E11.40 Type 2 diabetes mellitus with diabetic neuropathy, unspecified; K21.9 Gastro-esophageal reflux disease without esophagitis; M25.761 Osteophyte, right knee; E78.2 Mixed hyperlipidemia; G43.809 Other migraine, not intractable, without status migrainosus; K58.9 Irritable bowel syndrome, unspecified; G89.29 Other chronic pain; M21.161 Varus deformity, not elsewhere classified, right knee; K76.0 Fatty (change of) liver, not elsewhere classified; R00.0 Tachycardia, unspecified; Z98.51 Tubal ligation status; Z82.49 Family history of ischemic heart disease and other diseases of the circulatory system; Z68.36 Body mass index [BMI] 36.0-36.9, adult; Z80.1 Family history of malignant neoplasm of trachea, bronchus and lung; Z83.3 Family history of diabetes mellitus; Z87.891 Personal history of nicotine dependence; Z87.11 Personal history of peptic ulcer disease; Z72.89 Other problems related to lifestyle; Z82.5 Family history of asthma and other chronic lower respiratory diseases; Z81.2 Family history of tobacco abuse and dependence; Z79.4 Long term (current) use of insulin; Z79.82 Long term (current) use of aspirin
CPT/HCPCS: 36415; 71275; 80048; 85014; 85018; 85049; 88305; 88311; 93005; 94640; A9270-GY; C1776; J0690; J1100; J1650; J1885; J2250; J2270; J2405; J2704; J2795; J3010; J3490; Q9967

== ENCOUNTER 2024-05-16 04:13 | Inpatient (IN) ==
[2024-05-16 04:36] LABS: ABS Basophils 0.1 10^3/uL (0.0-0.1); ABS Eosinophils 0.2 10^3/uL (0.0-0.5); ABS Lymphocytes 1.9 10^3/uL (1.0-4.8); ABS Monocytes 0.6 10^3/uL (0.0-0.9); ABS Neutrophils 4.3 10^3/uL (1.5-7.6); Eosinophil % 3.4 %; Hematocrit 33.2 % (35-45); Hemoglobin 10.9 g/dL (11.5-14.3); Lymphocyte % 26.6 %; Mean Corpuscular Volume 78.9 fL (80-97); Nucleated Red Blood Cells % 0.1 %/100WBC (0.0-0.8); Platelet Count 196 10^3/uL (150-450); Red Cell Distribution Width 17.9 % (12-17); White Blood Count 7.1 10^3/uL (3.8-11.8)
[2024-05-16 04:40] LABS: INR 1.08 (0.85-1.14)
[2024-05-16] MEDS: NS 0.9% 1000 ml BAG 1,000 ML IV ONE (04:43)
[2024-05-16] MEDS: Aspirin EC 325 mg TAB.EC PO ONE (04:48)
[2024-05-16 05:15] LABS: Albumin 4.6 g/dL (3.2-5.2); Albumin/Globulin Ratio 1.8 (1-3); Calcium 10.3 mg/dL (8.6-10.3); Creatinine, Serum 1.31 mg/dL (0.51-0.95); Globulin 2.6 g/dL (2-4); Potassium 3.9 mmol/L (3.5-5.0); Total Bilirubin 0.4 mg/dL (0.2-1.0); Total Protein 7.2 g/dL (6.4-8.9); eGFR CKD-EPI 44.9 (>60)
[2024-05-16] MEDS: Esmolol 10 MG/ML IVPREMIX 2,500 MG/250 ML BAG IV SCH (05:31)
[2024-05-16 06:13] LABS: High Sensitivity Troponin 1 Hr 594 pg/mL (<15)
[2024-05-16 08:42] LABS: High Sensitivity Troponin 3 Hr 3037 pg/mL (<15)
[2024-05-16] MEDS: Iodixanol (CONTRAST) 320 MG/ML 100 ML SDV IV ONE (08:49)
[2024-05-16] MEDS: Nitro 2% OINT (Nitroglycerin) 1 INCH/PAK TOPICAL ONE (10:16)
[2024-05-16] MEDS: Labetalol IV 5 MG/ML 20 ml VIAL IV PUSH ONE (10:23)
[2024-05-16 10:27] LABS: ABS Basophils 0.1 10^3/uL (0.0-0.1); ABS Eosinophils 0.2 10^3/uL (0.0-0.5); ABS Lymphocytes 1.4 10^3/uL (1.0-4.8); ABS Monocytes 0.5 10^3/uL (0.0-0.9); ABS Neutrophils 3.8 10^3/uL (1.5-7.6); ABS Nucleated RBC 0.01 10^3/ul; Eosinophil % 2.7 %; Hematocrit 29.3 % (35-45); Hemoglobin 9.7 g/dL (11.5-14.3); Lymphocyte % 23.9 %; Mean Corpuscular Hemoglobin 26.4 pg (27-33); Mean Corpuscular Hgb Conc 33.3 g/dL (31-36); Mean Corpuscular Volume 79.3 fL (80-97); Mean Platelet Volume 8.7 fL (7.5-11.2); Nucleated Red Blood Cells % 0.1 %/100WBC (0.0-0.8); Platelet Count 181 10^3/uL (150-450); Red Blood Count 3.69 10^6/uL (3.63-4.92); Red Cell Distribution Width 17.6 % (12-17)
[2024-05-16] MEDS: Heparin DRIP 25,000 UNITS BAG 25,000 UNITS/250 ML BAG IV SCH ×2 (10:28→12:43)
[2024-05-16] MEDS: Heparin 5000 UNITS/ML 1 mL VIAL IV SCH ×2 (10:30→16:52)
[2024-05-16 11:23] LABS: Creatinine, Serum 1.06 mg/dL (0.51-0.95); eGFR CKD-EPI 57.9 (>60)
[2024-05-16] MEDS ORDERED: Ondansetron 4 mg VIAL 2 MG/ML 2 ml VIAL IV PRN (11:40)
[2024-05-16] MEDS ORDERED: Albuterol HFA INHALER 8 gm MDI INH PRN (11:41)
[2024-05-16] MEDS: Mometasone/Formoter 100/5 MDI INH SCH (20:19)
[2024-05-17 05:48] LABS: ABS Eosinophils 0.2 10^3/uL (0.0-0.5); ABS Monocytes 0.5 10^3/uL (0.0-0.9); ABS Neutrophils 4.2 10^3/uL (1.5-7.6); Eosinophil % 2.8 %; Hematocrit 27.7 % (35-45); Hemoglobin 9.3 g/dL (11.5-14.3); Lymphocyte % 28.9 %; Mean Corpuscular Hemoglobin 26.6 pg (27-33); Mean Corpuscular Hgb Conc 33.5 g/dL (31-36); Mean Corpuscular Volume 79.5 fL (80-97); Mean Platelet Volume 8.8 fL (7.5-11.2); Platelet Count 152 10^3/uL (150-450); Red Blood Count 3.49 10^6/uL (3.63-4.92); Red Cell Distribution Width 17.8 % (12-17)
[2024-05-17 06:56] LABS: Magnesium 1.4 mg/dL (1.9-2.7); Potassium 3.7 mmol/L (3.5-5.0); eGFR CKD-EPI 62.1 (>60)
[2024-05-17] MEDS: Sulfur Hexaflouride MICROSPHR 25 MG VIAL IV PRN (08:40)
[2024-05-17] MEDS: Aspirin EC 81 mg TAB.EC (enteric coated) PO SCH (09:05)
[2024-05-17] MEDS: Magnesium Sulf 4 GM/100 ML IV 4,000 MG/100 ML BAG IVPB ONE (09:08)
[2024-05-17] MEDS: Cholecalciferol (VIT D3) 1,000 unit TAB PO SCH (09:28)
[2024-05-17] MEDS ORDERED: Midazolam 5 mg/5 ml VIAL 1 mg/ml 5 ml VIAL (5 mg) ONE (10:40)
[2024-05-17] MEDS ORDERED: VERAPAMIL 2.5 MG/ML 2 ML VIAL ** 5 mg/2 ml ONE (10:40)
[2024-05-17] MEDS ORDERED: fentaNYL 100 mcg/2 ml 50 MCG/ML VIAL ONE (10:40)
[2024-05-17] MEDS ORDERED: Lidocaine 1% MPF 5 ML VIAL ONE (10:41)
[2024-05-17] MEDS ORDERED: nitroGLYCERIN DRIP 25,000 MCG/250 ML BTL ONE (10:41)
[2024-05-17] MEDS ORDERED: Heparin 2 UNITS/ML 1000 mls 2,000 ML IV ONE (10:41)
[2024-05-17] MEDS ORDERED: Iohexol 350 (CONTRAST) 200 ML MDV IV ONE (10:41)
[2024-05-17] MEDS ORDERED: Heparin 1,000 UNIT/ML 10 ml (10,000 UNITS) CATHLAB/DIALYSIS ONE (10:41)
[2024-05-17] MEDS ORDERED: Iohexol 350 (CONTRAST) 100 ML PAK IV ONE (11:54)
[2024-05-17] MEDS ORDERED: Dulaglutide (NF) 1.5 MG/0.5 ML SYRINGE SUBCUT SCH (12:00)
[2024-05-17] MEDS: NS 0.9% 1000 ml BAG 1,000 ML IV SCH (12:29)
[2024-05-17] MEDS: COVID VAC 24-25 (12+) (Moderna) Syringe 0.5 mL IM ONE (17:28)
[2024-05-17] MEDS: DULAGLUTIDE 1.5 MG/0.5 ML SUBCUT SCH (17:29)
[2024-05-17 18:06] VITALS: BP 121/55
== END 2024-05-17 19:35 | disposition short-term general hospital (02) | DRG 282 ==
LOC: ED 04:13 → SUATTDRO 11:40 → EDHOLD 11:40 → MEDTELE 16:45
PROVIDERS: ADMIT Student in an Organized Health Care Education/Training Program; ATTEND Hospitalist